=== PATIENT | male | born 1935 | race Caucasian/White ===

== ENCOUNTER 2024-09-08 14:19 | Outpatient (CLI) | payer MEDICARE, BC, SELFPAY ==
[2024-09-08 14:50] LABS: Basophils Absolute Auto 0.03 K/mm3 (0.00-0.10); Basophils Percent Auto 0.5 % (0.0-1.0); Eosinophils Absolute Auto 0.12 K/mm3 (0.02-0.50); Hematocrit 36.2 % (37.0-46.0); Hemoglobin 11.2 g/dL (12.4-15.3); Immature Granulocyte Absolute 0.02 K/mm3 (0.00-0.00); Immature Granulocyte Percent A 0.3 % (0.0-0.0); Immature Platelet Fraction Pct 5.1 % (1.0-7.0); Lymphocytes Absolute Auto 1.03 K/mm3 (1.10-4.50); Lymphocytes Percent Auto 16.9 % (18.0-42.0); Mean Corpuscular HGB Conc 30.9 g/dL (32-36); Mean Corpuscular Hemoglobin 29.4 pg (27.0-31.0); Mean Platelet Volume 11.6 fl (8.7-11.0); Monocytes Percent Auto 9.8 % (2.0-11.0); Neutrophils Percent Auto 70.5 % (50.0-70.0); Platelet Count Result 101 K/mm3 (150-420); Red Blood Count 3.81 M/mm3 (4.70-6.10); Red Cell Distribution Width 15.6 % (11.6-14.4); White Blood Count 6.1 K/mm3 (4.8-10.8)
[2024-09-08 15:16] LABS: Alanine Aminotransferase 25 U/L (6-50); Albumin Level 4.1 g/dL (3.5-5.1); Alkaline Phosphatase 60 U/L (38-126); Anion Gap 4 mmol/L (4-12); Aspartate Amino Transferase 38 U/L (17-59); Blood Urea Nitrogen 21 mg/dL (9-20); Carbon Dioxide 28 mmol/L (22-30); Chloride 105 mmol/L (98-107); Cholesterol 125 mg/dL (0-200); Estimated Glomerular Filt Rate > 60; Glucose 98 mg/dL (65-110); HDL Direct 42 mg/dL; LDL Cholesterol Calculated 61 mg/dL (<130); Osmolality Calculated 287 mOsm/kg (285-295); Potassium 4.6 mmol/L (3.4-5.0); Sodium 137 mmol/L (137-145); Triglycerides 109 mg/dL (<150)
== END 2024-09-08 14:20 | disposition home or self-care (01) ==
PROVIDERS: PCP Family Medicine; Visit Provider Family Medicine
DX: E03.9 Hypothyroidism, unspecified (principal); I10 Essential (primary) hypertension
CPT/HCPCS: 36415; 80053; 80061; 84443; 85025; 85055

== ENCOUNTER 2024-10-02 10:11 | Emergency (ER) | payer MEDICARE, BC, SELFPAY ==
[2024-10-02] VITALS (8 sets, daily range): BP systolic 83–133; BP diastolic 44–85; PULSE 60; RESP 13–20; TEMP 36.6; O2SAT 95–100
--- NOTE | ~2024-10-02 | CT_ITS ---
Non-contrast Head CT History: Involuntary left arm movement Technique: Axial non-contrast imaging of the brain was performed. Dose reduction technique was used on this scan by utilizing automated exposure control and iterative reconstruction technique. The dose -length product (DLP) was 681.00 mGy-cm. Findings: There is no evidence of intracranial hemorrhage, mass lesion, or acute infarct. Brain par enchyma appears normal. The ventricles and subarachnoid spaces are normal in size. The calvarium ap pears normal. The visualized paranasal sinuses and mastoid air cells are clear. Impression: No significant abnormality seen. Reviewed, dictated and finalized at location . Impression: No significant abnormality seen.
--- NOTE | ~2024-10-02 | XR_ITS ---
XR chest 1V portable Ordering provider: Kulwant Coronel MD History: 89 years Male with . Lt. arm moving involuntarily, dizziness when standing x3 mo . Comparison: None. FINDINGS: MEDIASTINUM: The cardiac silhouette is mildly enlarged. Left bipolar pacemaker. Postoperative changes in the mediastinum. Congestive tonja. LUNGS: No effusions or pneumothorax. Minimal opacification in the lower lobes which may indicate atel ectasis versus pneumonia. Follow-up advised. OTHER: No free air under the diaphragm. Degenerative changes of the spine. IMPRESSION: Bibasilar atelectasis versus pneumonia. Follow-up and clinical correlation advised. Reviewed, dictated and finalized at location A. IMPRESSION: Bibasilar atelectasis versus pneumonia. Follow-up and clinical correlation advi sed.
--- NOTE | 2024-10-02 10:12 | ED_ITS ---
HPI - Dizziness General Chief Complaint: Dizziness Stated Complaint: dizzy Time Seen by Provider: 10/02/24 10:12 Source: patient and family Mode of arrival: ambulatory Limitations: no limitations History of Present Illness HPI Narrative: Patient is an 89-year-old male with dizziness going on for a period of time over a month but appears to be worse as well as a left hand weakness and tremor over the past 2-3 days. Not tPA /TNK candidate due to time frame and the patient is on Eliquis. Patient has a pacemaker and not to have an MRI. He went to the primary doctor last week for similar symptoms. No pain or nausea vomiting diarrhea. He also has a history of CAD with bypass and stents. No history of CVA. The Plavix is for CAD and stents as well as Eliquis is for the AFib history. MD elicited complaint: dizziness and other ( Left hand and weakness with tremor) Pertinent past history: pacemaker and other ( coronary artery disease, hypothyroid, hypertension, hyperlipids) Onset (ago): month(s) ( dizziness is going on for months and left hand is going on for days) Timing: sudden onset ( left hand) and gradual onset ( dizziness) Severity: mild ( dizziness is more moderate and left hand is mild) Description: sense of movement and off-balance Context: other ( patient having dizziness and probably worse dizziness recently and left hand weakness with a tremor) History of similar symptoms: Yes ( for dizziness) Exacerbating factors: movement/ambulation Relieving factors: remaining still Associated symptoms: other ( left hand weakness/tremor for 2-3 days) Associated neuro symptoms: other ( at the beginning of the left hand tremor/weakness he had an event 2-3 days ago which consisted of coming in from the heat outside and having a generalized weakness and slight confusion) Related Data Home Medications ?Medication ?Instructions ?Recorded ?Confirmed ?Last Taken ?Type amitriptyline 10 mg tablet 10 mg PO QHS 09/08/24 09/08/24 Unknown History apixaban 5 mg tablet (Eliquis) 5 mg PO BID 09/08/24 09/08/24 Unknown History cholecalciferol (vitamin D3) 25 25 mcg PO DAILY 09/08/24 09/08/24 Unknown History mcg (1,000 unit) capsule clopidogrel 75 mg tablet (Plavix) 75 mg PO DAILY 09/08/24 09/08/24 Unknown History docusate sodium 100 mg capsule 100 mg PO DAILY 09/08/24 09/08/24 Unknown History (Stool Softener) eplerenone 25 mg tablet 25 mg PO DAILY 09/08/24 09/08/24 Unknown History levothyroxine 75 mcg tablet 75 mcg PO DAILY 09/08/24 09/08/24 Unknown History (Levoxyl) lisinopril 10 mg tablet 10 mg PO DAILY 09/08/24 09/08/24 Unknown History pregabalin 150 mg capsule 150 mg PO BID 09/08/24 09/08/24 Unknown History simvastatin 80 mg tablet 80 mg PO DAILY 09/08/24 09/08/24 Unknown History Allergies Allergy/AdvReac Type Severity Reaction Status Date / Time No Known Allergies Allergy Verified 10/02/24 10:14 Review of Systems 2 Review of Systems: All systems reviewed & are unremarkable except as noted in HPI and below Constitutional: Constitutional: Reports no additional constitutional complaints Eyes: Eyes: Reports no additional eye complaints ENT: Reports system reviewed and no additional complaints, except as documented Cardiovascular: Cardiovascular: Reports no additional cardiovascular complaints Respiratory: Respiratory: Reports no additional respiratory complaints Gastrointestinal: Gastrointestinal: Reports no additional gastrointestinal complaints Genitourinary: Genitourinary: Reports no additional male genitourinary complaints Musculoskeletal: Musculoskeletal: Reports no additional musculoskeletal complaints Integumentary/Breasts: Skin/Breast: Reports system reviewed and no additional complaints, except as docu Neurologic: Reports system reviewed and no additional complaints, except as documented Psychiatric: Psychiatric: Reports no additional psychiatric complaints Endocrine: Endocrine: Reports no additional endocrine complaints Hematologic/Lymphatic: Hematologic/Lymphatic: Reports no additional hematologic/lymphatic complaints Allergic/Immunologic: Allergic/Immunologic: Reports no additional allergic/immunologic complaints [facility] Past Medical History Medical History Pacemaker Social History Social History Years smoked: 20 Smoking status: Never smoker Tobacco type: cigarettes Second hand tobacco smoke exposure: No Alcohol intake: current Substance use: never Do You Feel Safe in your Home?: Yes Lack of Transportation: No Lack of Food: Never True Current Housing: I Have Housing Concerned About Future Housing: No Difficulty Paying Gas/Electric Bills: No Difficulty Paying for Meds: No Currently Unemployed: No Education: High School Diploma/GED Difficulty w/ Childcare or Family Care: No Living arrangements: with family Occupation/Education: unemployed Gender identity (if verbalized by the patient): Male Sexual Orientation (if Verbalized by the Patient): Straight or Heterosexual Spiritual care concerns: No Agree to blood products: Yes Exam 2 Const: General: healthy appearing Nutritional Appearance: well nourished Orientation/consciousness: patient oriented x3 Limitations: no limitations HENMT: Head: normal to inspection Ears: TM's normal bilaterally F flavia/Nose/Sinus: Normal external nose present Eyes: Conjunctivae: conjunctivae normal Pupils: Equal, round and reactive pupils present EOM: EOMs intact bilaterally Neck: Neck: normal visual inspection Chest: Chest palpation & inspection: normal inspection of the chest Resp: Effort & Inspection: normal respiratory effort and not labored A uscultation: clear to auscultation bilaterally and no crackles Cardio: Rate: regular rate Rhythm: regular rhythm Heart sounds: no murmurs GI: Inspection: non-distended GI Palp: Yes Soft to palpation and No Tenderness to palpation present (GI) Auscultation: normal bowel sounds : General: Yes bladder normal to palpation Back/Spine/Pelvis: Back: no CVA tenderness Skin: General skin exam: normal color Rashes: no rashes Wounds: no wounds Neuro: General: patient oriented x3, moves all extremities, no meningeal signs, No no focal motor deficits ( left upper extremity has a mild drift) and CN's II-XI intact bilaterally Cranial nerves: Yes Nystagmus not present S peech: normal speech Gait exam (Neuro): gait abnormal ( patient use wheelchair to come into the ER (dizziness)) Other: fast exam was negative, NIH score is 1 for left upper extremity weakness, GCS is 15 Extrem: General: normal to inspection Psych: Mental Status: mental status grossly normal Affect: normal affect Attitude: cooperative Course Vital Signs Vital signs: Vital Signs Temperature 36.6 C 10/02/24 10:12 Pulse Rate 60 10/02/24 10:12 Respiratory Rate 20 10/02/24 10:12 Blood Pressure 107/64 10/02/24 10:12 Pulse Oximetry 98 10/02/24 10:12 Oxygen Delivery Room Air 10/02/24 10:12 Temperature 36.6 C 10/02/24 10:12 Pulse Rate 60 10/02/24 12:55 Respiratory Rate 18 10/02/24 12:55 Blood Pressure 102/57 L 10/02/24 12:55 Pulse Oximetry 100 10/02/24 12:55 Oxygen Delivery Room Air 10/02/24 12:55 MDM - Dizziness MDM Narrative Medical decision making narrative: patient is a 89-year-old male with a left upper extremity weakness/ tremor for the past 2-3 days and acute/ chronic dizziness over the past few months. We will do a neurovascular workup at this time. Will transfer patient to higher level medical care at [facility] at this time for Neurology. Lab Data Attestation: I reviewed the patient's lab results. 10/02/24 10:40 10/02/24 10:40 Labs: Lab Results 10/02/24 10/02/24 10/02/24 Range/Units 10:38 10:40 10:41 WBC 6.7 (4.8-10.8) K/mm3 RBC 3.01 L (4.70-6.10) M/mm3 Hgb 8.8 L (12.4-15.3) g/dL Hct 28.0 L (37.0-46.0) % MCV 93.0 (78.0-102.0) fL MCH 29.2 (27.0-31.0) pg MCHC 31.4 L (32-36) g/dL RDW 15.2 H (11.6-14.4) % Plt Count 112 L (150-420) K/mm3 MPV 11.1 H (8.7-11.0) fl Immature Gran % (Auto) 0.6 H (0.0-0.0) % Neut % (Auto) 77.2 H (50.0-70.0) % Lymph % (Auto) 12.1 L (18.0-42.0) % Floyd % (Auto) 8.2 (2.0-11.0) % Eos % (Auto) 1.3 (1.0-6.0) % Baso % (Auto) 0.6 (0.0-1.0) % Lymph # (Auto) 0.81 L (1.10-4.50) K/mm3 Floyd # (Auto) 0.55 (0.10-0.90) K/mm3 Eos # (Auto) 0.09 (0.02-0.50) K/mm3 Baso # (Auto) 0.04 (0.00-0.10) K/mm3 Abs Immat Gran (auto) 0.04 H (0.00-0.00) K/mm3 Absolute Neuts (auto) 5.14 (1.70-7.20) K/mm3 Absolute Nucleated RBC 0.00 (0.00-0.00) K/mm3 Nucleated RBC % 0.0 (0-0.0) % PT 11.2 (9.50-12.1) Seconds INR 1.0 APTT 25.9 (23.9-30.70) Sec Sodium 137 (137-145) mmol/L Potassium 5.0 (3.4-5.0) mmol/L Chloride 105 (98-107) mmol/L Carbon Dioxide 27 (22-30) mmol/L Anion Gap 5 (4-12) mmol/L BUN 23 H (9-20) mg/dL Creatinine 1.32 H (0.7-1.3) mg/dL Estim Creat Clear Calc 40 ml/min Estimated GFR 51 L (59 - ) Glucose 112 H (65-110) mg/dL Calculated Osmolality 288 (285-295) mOsm/kg Lactic Acid 1.7 (0.4-2.0) mmol/L Calcium 9.1 (8.4-10.2) mg/dL Total Bilirubin 1.1 (0.2-1.3) mg/dL AST 36 (17-59) U/L ALT 26 (6-50) U/L Alkaline Phosphatase 52 (38-126) U/L Troponin I < 0.012 (0.000-0.034) ng/mL NT-Pro-B Natriuret Pep 981 H (19.9-100) pg/mL Total Protein 6.8 (6.3-8.2) g/dL Albumin 4.0 (3.5-5.1) g/dL Urine Color (Yellow) Urine Appearance (Clear) Urine pH (5.0-8.0) Ur Specific Antelope (1.010-1.020) Urine Protein (Negative) Urine Glucose (UA) (Negative) Urine Ketones (Negative) Ur Blood (Man) (Negative) Urine Nitrate (Negative) Urine Bilirubin (Negative) Urine Urobilinogen (0.2-1.0) mg/dL Leukocyte Esterase Rfl (Negative) KETAN/UL 10/02/24 Range/Units 12:20 WBC (4.8-10.8) K/mm3 RBC (4.70-6.10) M/mm3 Hgb (12.4-15.3) g/dL Hct (37.0-46.0) % MCV (78.0-102.0) fL MCH (27.0-31.0) pg MCHC (32-36) g/dL RDW (11.6-14.4) % Plt Count (150-420) K/mm3 MPV (8.7-11.0) fl Immature Gran % (Auto) (0.0-0.0) % Neut % (Auto) (50.0-70.0) % Lymph % (Auto) (18.0-42.0) % Floyd % (Auto) (2.0-11.0) % Eos % (Auto) (1.0-6.0) % Baso % (Auto) (0.0-1.0) % Lymph # (Auto) (1.10-4.50) K/mm3 Floyd # (Auto) (0.10-0.90) K/mm3 Eos # (Auto) (0.02-0.50) K/mm3 Baso # (Auto) (0.00-0.10) K/mm3 Abs Immat Gran (auto) (0.00-0.00) K/mm3 Absolute Neuts (auto) (1.70-7.20) K/mm3 Absolute Nucleated RBC (0.00-0.00) K/mm3 Nucleated RBC % (0-0.0) % PT (9.50-12.1) Seconds INR APTT (23.9-30.70) Sec Sodium (137-145) mmol/L Potassium (3.4-5.0) mmol/L Chloride (98-107) mmol/L Carbon Dioxide (22-30) mmol/L Anion Gap (4-12) mmol/L BUN (9-20) mg/dL Creatinine (0.7-1.3) mg/dL Estim Creat Clear Calc ml/min Estimated GFR (59 - ) Glucose (65-110) mg/dL Calculated Osmolality (285-295) mOsm/kg Lactic Acid (0.4-2.0) mmol/L Calcium (8.4-10.2) mg/dL Total Bilirubin (0.2-1.3) mg/dL AST (17-59) U/L ALT (6-50) U/L Alkaline Phosphatase (38-126) U/L Troponin I (0.000-0.034) ng/mL NT-Pro-B Natriuret Pep (19.9-100) pg/mL Total Protein (6.3-8.2) g/dL Albumin (3.5-5.1) g/dL Urine Color Light yellow (Yellow) Urine Appearance Clear (Clear) Urine pH 7.0 (5.0-8.0) Ur Specific Antelope 1.010 (1.010-1.020) Urine Protein Negative (Negative) Urine Glucose (UA) Negative (Negative) Urine Ketones Negative (Negative) Ur Blood (Man) Negative (Negative) Urine Nitrate Negative (Negative) Urine Bilirubin Negative (Negative) Urine Urobilinogen 0.2 (0.2-1.0) mg/dL Leukocyte Esterase Rfl Negative (Negative) KETAN/UL Imaging Data Attestation: I personally reviewed and interpreted this imaging study as follows: Radiologist's impression: CT scan of the head was negative for acute process chest x-ray shows bilateral lower lobe pneumonia likely (patient added that he had does have some slight shortness of breath; together with mild hypotension this could be an early process of sepsis) ECG Data EKG #1: Attestation: I personally reviewed and interpreted this ECG as follows: ECG completion date: 10/02/24 ECG completion time: 10:36 Interpretation: Pacemaker ventricular EKG Interpretation: bradycardia, non-specific ST changes, widened QRS, normal QT and left axis Discharge Plan Discharge Clinical Impression: Acute CVA (cerebrovascular accident), Pneumonia, Hypotension Patient Disposition: Acute Care Hospital Condition: Stable Patient Language: Mauritian Prescriptions: No Action pregabalin 150 mg capsule 150 mg PO BID amitriptyline 10 mg tablet 10 mg PO QHS Eliquis 5 mg tablet 5 mg PO BID simvastatin 80 mg tablet 80 mg PO DAILY docusate sodium [Stool Softener] 100 mg capsule 100 mg PO DAILY cholecalciferol (vitamin D3) 25 mcg (1,000 unit) capsule 25 mcg PO DAILY eplerenone 25 mg tablet 25 mg PO DAILY lisinopril 10 mg tablet 10 mg PO DAILY levothyroxine [Levoxyl] 75 mcg tablet 75 mcg PO DAILY clopidogrel [Plavix] 75 mg tablet 75 mg PO DAILY Follow-up/Referrals: Raul Braun DO [Primary Care Provider] - Time of Disposition: 13:08
--- OUTSIDE RECORDS SUMMARY | 2024-10-02 10:14 | XMS_ITS | Clinical Summary ---
Author Organization [facility] Address [address] Attn: Epic Prelude ADT [place] [address] Care Team Providers Care Clinical Dietitian Name Role Phone Phillip GARCIA DO, Gregory Primary Care Provider Allergies Active Allergy Reactions Criticality Noted Date Comments Warfarin Other (See Comments) 10/03/2016 Medications doxylamine (UNISOM) 25 mg Tablet Take 50 mg by mouth daily at bedtime. Active clopidogreL (PLAVIX) 75 mg Tablet Take 75 mg by mouth daily. Active pregabalin (LYRICA) 25 mg Capsule Take 25 mg by mouth 3 times daily. Active simvastatin (ZOCOR) 20 mg tablet Take 20 mg by mouth daily. Active lisinopriL (PRINIVIL) 10 mg tablet Take 10 mg by mouth daily. Active cephALEXin (KEFLEX) 500 mg capsule Take 1 Capsule (500 mg) by mouth 4 times daily. 20 Capsule 09/23/2021 Active apixaban (Eliquis) 5 mg tablet 02/19/2019 Active lisinopriL (PRINIVIL) 10 mg tablet 03/15/2019 Active diphenhydrAMINE (BENADRYL) 25 mg tablet Take 25 mg by mouth every 6 hours as needed for Allergies. 02/09/2019 Active pantoprazole (PROTONIX) [address] for susp in Packet 40 mg daily. 02/09/2019 Active tamsulosin (FLOMAX) 0.4 mg capsule 04/20/2019 Active clopidogreL (PLAVIX) 75 mg Tablet Take 75 mg by mouth. 02/09/2019 Active simvastatin (ZOCOR) 40 mg tablet Take 40 mg by mouth daily with supper. 02/09/2019 Active pregabalin (LYRICA) 75 mg Capsule Take 75 mg by mouth. 02/09/2019 Active Active Problems No known active problems Encounters Date Type Department Care Team Description 09/30/2024 External Device Data [facility] Provider, Abstract 09/02/2024 External Device Data [facility] Provider, Abstract 08/05/2024 External Device Data [facility] Provider, Abstract 08/04/2024 External Device Data [facility] Provider, Abstract from Last 3 Months Social History Tobacco Use Types Packs/Day Years Used Date Smoking Tobacco: Never Smokeless Tobacco: Never Tobacco Cessation:Counseling Given: No Alcohol Use Standard Drinks/Week Comments Not Currently 0 (1 standard drink = 0.6 oz pur e alcohol) Sex and Gender Information Value Date Recorded Sex Assigned at Not on file 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 Gender Identity Not on file Sexual Orientation Not on file Last Filed Vital Signs Vital Sign Reading Time Taken Comments Blood Pressure 152/85 09/23/2021 5:24 PM CDT Pulse 60 09/23/2021 5:00 PM CDT Temperature 36.7 C (98 F) 09/23/2021 3:17 PM CDT Respiratory Rate 18 09/23/2021 5:00 PM CDT Oxygen Saturation 98% 09/23/2021 5:00 PM CDT Inhaled Oxygen Concentration - - Weight 93.9 kg (207 lb) 2022 11:11 AM CDT Height 172.7 cm (5' 8) 2022 11:11 AM CDT Body Mass Index 31.47 2022 11:11 AM CDT Plan of Treatment Health Maintenance Due Date Last Done Comments ZOSTER VACCINE (1 of 2) 1986 RSV VACCINE (60+ or ) (1 - 1-dose 75+ series) 06/02/2011 COVID-19 Vaccine (2023-2 5 season) 2023 01/11/2021, 06/03/2020, 05/05/2020 INFLUENZA VACCINE (#1) 2024 , 12/28/2020, 12/16/2019, Additional history exists DTAP/TDAP/TD VACCINES (3 - T d or Tdap) 09/26/2031 09/25/2021, 01/03/2012 PNEUMOCOCCAL VACCINE 50+ YEARS Completed 07/16/2016 , 01/12/2013 Insurance MEDICARE PART A AND B [facility] [employer] [facility] MEDICARE PART A AND B [place] [employer] Care Teams Clinical Dietitian Relationship Specialty Start Date End Date Ramón Fisher II, DO [address] [place] [address] [address] [place] [phone] PCP - General Family Practice 09/23/21
--- OUTSIDE RECORDS SUMMARY | 2024-10-02 10:14 | XMS_ITS | Encounter Summary ---
Author Organization [employer] Address [address] [place] [address] Care Team Providers Care Document Management Specialist Name Role Phone Phillip GARCIA DO, Gregory Primary Care Provider Encounter Details Date Type Department Care Team (Late st Contact Info) Description 09/30/2024 External Device Data [facility] Provider, Abstract NO ADDRESS ON FILE Social History Tobacco Use Types Packs/Day Years Used Date Smoking Tobacco: Never Smokeless Tobacco: Never Alcohol Use Standard Drinks/Week Comments Not Currently 0 (1 standard drink = 0.6 oz pur e alcohol) Sex and Gender Information Value Date Recorded Sex Assigned at Not on file 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
--- OUTSIDE RECORDS SUMMARY | 2024-10-02 10:14 | XMS_ITS | Encounter Summary ---
Author Name [facility] [facility] [place] [facility] [place] [facility] [place] Address [address] [place] [address] Care Team Providers Care Arts Education Teacher Name Role Phone PRUDENCE MITCHELL Primary Care Provider Unavailabl e MUKULSCARLETT Primary Care Provider Unavailabl e DORJEEIZAIAH Primary Care Provider Unavailabl e ELSHAFIE, ELI Unavailable Unavailable ZACK HECK Unavailable Unavailable REDD PINTO Unavailable Unavailable SANDRA CARL Unavailable Unavailable IGGY SHEPARD Unavailable Unavailable SUNITA HAN Unavailable Unavailable Insurance Providers: All historical and current Section Date Range: From patient's date of to the date document was created. This section includes the names of all active insurance providers for the patient. Insurance Provider Type of Coverage Plan Name Start of Policy Coverage End of Policy Coverage Group Number Member ID Insurance Provider's Telephone Number Policy Joel's Name Patient's Relationship to Policy Joel [place] BS [place] SECONDARY (NO B EXC) PACIF IC GAS & ELEC Mar 18, 2005 [id number] MIKAELA,JENNIFER HARD PATIENT [place] BS [place] SECONDARY (NO B EXC) PACIF IC GAS & ELEC Mar 18, 2005 [id number] WALLYAUS,JENNIFER HARD PATIENT [place] SECONDARY (NO B EXC) PACIF IC GAS & ELEC Mar 18, 2005 [id number] KNKEENA,JENNIFER HARD PATIENT [place] SECONDARY (NO B EXC) PACIF IC GAS & ELEC Mar 18, 2005 [id number] [phone] KNAUS,JENNIFER HARD PATIENT [facility] POINT OF SERVICE PG&E Aug 16, 2018 [id number] WALLYAUS,JENNIFER HARD PATIENT [facility] PGE Mar 18, 2005 [id number] KNKEENA,JENNIFER HARD PATIENT [employer] ([id number]) PRESCRIPT ION PACIF IC GAS & ELEC Mar 18, 2005 [id number] MIKAELA,JENNIFER HARD PATIENT [employer] RX [id number] PRESCRIPT ION [id number] [phone] ) Mar 18, 2005 [id number] MIKAELA,JENNIFER HARD PATIENT [employer] PRESCRIPT ION PGE00 00 Mar 18, 2005 [id number] MIKAELA,JENNIFER HARD PATIENT MEDICARE (WNR) MEDICARE () PART A May 16, 2001 PART A [id number] MIKAELA,JENNIFER HARD PATIENT MEDICARE (WNR) MEDICARE () PART B May 16, 2001 PART B [id number] MIKAELA,JENNIFER HARD PATIENT MEDICARE (WNR) MEDICARE () PART A May 16, 2001 PART A [id number] MIKAELA,JENNIFER HARD PATIENT MEDICARE (WNR) MEDICARE () PART B May 16, 2001 PART B [id number] MIKAELA,JENNIFER HARD PATIENT MEDICARE (WNR) MEDICARE () PART A May 16, 2001 PART A [id number] MIKAELA,JENNIFER HARD PATIENT MEDICARE (WNR) MEDICARE () PART B May 16, 2001 PART B [id number] [phone] MIKAELA,JENNIFER HARD PATIENT MEDICARE (WNR) MEDICARE () PART A May 16, 2001 PART A [id number] [phone] KNAUS,JENNIFER HARD PATIENT MEDICARE (WNR) MEDICARE (M) PART B May 16, 2001 PART B [id number] JENNIFER AL PATIENT Selected Encounter This section includes the information on record at [place] for the Encounter. Date/Time Encounter Type Encounter Description Reason Provider Source Oct 25, 2023 11:30 AM OFFICE O/P EST MOD 30 MIN PRIMARY CARE/MEDICINE ICD-10-CM R26.81 Unsteadiness on feet MICHELINE GILMAN IHYanira Encounter Template Text not used by [place] Assessments - Encounter Diagnoses This section includes the primary and secondary diagnoses documented for the Encounter. 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 SCARLETT GILMAN [facility] Nov 04, 2023 10:48 AM SECONDARY Other disturbances of skin sensation SCARLETT GILMAN [facility] Nov 04, 2023 10:48 AM SECONDARY Other obesity SCARLETT GILMAN [facility] Nov 04, 2023 10:48 AM SECONDARY Polyosteoarthritis , unspecified SCARLETT GILMAN [facility] Nov 04, 2023 10:48 AM SECONDARY Presence of cardiac pacemaker SCARLETT GILMAN [facility] Plan of Treatment: Future Appointments (+ 6 months) and Future Tests (+/- 45 days) The Plan of Treatment section includes future care activities for the patient from all [place] treatmentfacilities. This section includes future appointments and future orders which are active, pending or scheduled. Future Appointments This section includes appointments that were scheduled to occur 6 months from the date of the Encounter, up to a maximum of 20 appointments. The data comes from all [place] treatment facilities. Appointment Date/Time Appointment Type Appointme nt Facility Name Oct 29, 2023 02:00 PM AMBULATORY - MEDICINE [facility] Oct 31, 2023 01:00 PM [facility] - [facility]ICINE [facility] Nov 06, 2023 11:00 AM AMBULATORY - NONE [facility] Nov 07, 2023 02:30 PM [facility]ORY - [facility]ICINE [facility] Nov 08, 2023 10:30 AM AMBULATORY - SURGERY [facility] Nov 15, 2023 02:30 PM [facility]ATORY - [facility]ICINE [facility] Nov 22, 2023 10:30 AM AMBULATORY - NONE [facility] Nov 29, 2023 04:00 PM [facility]ATORY - MEDICINE [facility] Mar 13, 2024 10:00 AM AMBULATORY - NONE [facility] Mar 13, 2024 11:00 AM AMBULATORY - MEDICINE [facility] Mar 19, 2024 02:30 PM AMB[facility]ATORY - MEDICINE [facility] Mar 23, 2024 04:00 PM [facility]ATORY - MEDICINE [facility] Apr 03, 2024 11:00 AM AMBULATORY - NONE [facility] Lab Results: +/- 30 days of the encounter This section includes the Chemistry and Hematology Lab Results on record with [place] for the patient. Radiology Reports and Pathology Reports are provided separately, in subsequent sections. Lab Results This section contains the Chemistry/Hematology Results that were resulted 30 days before or 30 daysafter the date of the Encounter. Date/Time Source Result Type Result - Unit Interpretation Reference Range Specimen Type Comment Oct 25, 2023 10:08 AM [facility] VITAMIN B12 SERUM Specimen Type: SERUM No comment entered. Ordering Provider: SCARLETT GILMAN Report Released Date/Time: Oct 22, 2023 12:47 PM Reporting Lab: [facility] [address] [facility] [address] Performing Lab: [facility] [address] [facility] [address] VITAMIN B12 (FV) 183 pg/mL 180-914 Oct 25, 2023 10:08 AM [facility] MAGNESIUM PLASMA S pecimen Type: PLASMA No comment entered. Ordering Provider: SCARLETT GILMAN Report Released Date/Time: Oct 22, 2023 12:47 PM Reporting Lab: [facility] [address] [facility] [address] Performing Lab: [facility] [address] [place] [address] MAGNESIUM (FV) 2.1 mg/dL 1.8-2.4 Oct 25, 2023 10:08 AM [facility] RENAL+LIVER PROFILE PLASMA Specimen Ty pe: PLASMA No comment entered. Ordering Provider: SCARLETT GILMAN Report Released Date/Time: Oct 22, 2023 12:47 PM Reporting Lab: [facility] [address] [facility] [place] [address] Performing Lab: [address] [address] GLUCOSE (FV) 125 mg/dL H 70-110 ALBUMIN (FV) 4.0 g/dL 3.4-5.0 AST (FV) 26 U/L 15-37 TOTAL BILIRUBIN (FV) 1.47 mg/dL H 0.3-1.2 CHLORIDE (FV) 100 mmol/L 98-107 TOTAL PROTEIN (FV) 7.7 g/dL 6.1-7.9 SODIUM (FV) 132 mmol/L L 136-145 POTASSIUM (FV) 4.0 mmol/L 3.5-5.1 CO2 (FV) 27 mmol/L 21-32 UREA NITROGEN (FV) 16 mg/dL 6-20 CALCIUM (FV) 8.8 mg/dL L 8.9-10.3 ALT (FV) 22 U/L 0-63 ALK. PHOS. (FV) 61 U/L 32-126 CREATININE (FV) 0.97 mg/dL .61-1.24 eGFR (CKD-EPI 2020) 76 L >90 Oct 25, 2023 10:08 AM [facility] CBC BLOOD S pecimen Type: BLOOD No comment entered. Ordering Provider: SCARLETT GILMAN Report Released Date/Time: Oct 22, 2023 12:47 PM Reporting Lab: [address] [address] Performing Lab: [place] [id number] RDW (FV) 15.9 H 11.5-14.5 HCT (FV) 35.3 L 40-52 HGB (FV) 11.6 g/dL L 13-18 PLT (FV) 138 10*3/uL L 150-440 WBC (FV) 7.2 10*3/uL 3.8-10.6 RBC (FV) 4.08 10*6/uL L 4.4-5.9 MCV (FV) 86.5 fL 80-100 MCH (FV) 28.4 pg 26-34 MCHC (FV) 32.9 g/dL 32-36 NE% (FV) 71.8 NE# (FV) 5.2 10*3/uL 2.4-7.6 LY% (FV) 15.9 LY# (FV) 1.1 10*3/uL 1.0-4.8 MO% (FV) 9.2 MO# (FV) 0.7 10*3/uL 0.1-1.0 EO% (FV) 2.3 EO# (FV) 0.2 10*3/uL 0.0-0.4 BA% (FV) 0.8 BA# (FV) 0.1 10*3/uL 0.0-0.2 Oct 25, 2023 10:08 AM [facility] TSH (FV) SERUM S pecimen Type: SERUM No comment entered. Ordering Provider: SCARLETT GILMAN Report Released Date/Time: Oct 22, 2023 12:47 PM Reporting Lab: [place] [address] [facility] [address] Performing Lab: [address] [facility] [address] TSH (FV) 1.82 u[IU]/mL 0.45-5.33 Oct 25, 2023 10:08 AM [facility] FERRITIN (FV) SERUM Specimen Type: SERUM No comment entered. Ordering Provider: SCARLETT GILMAN Report Released Date/Time: Oct 22, 2023 12:47 PM Reporting Lab: [place] [address] [facility] [address] Performing Lab: [place] [address] [facility] [address] FERRITIN (FV) 21.5 ng/mL L 23.9-336.2 Oct 25, 2023 10:08 AM [facility] FOLATE (FV) SERUM Specimen Type: SERUM No comment entered. Ordering Provider: SCARLETT GILMAN Report Released Date/Time: Oct 22, 2023 12:47 PM Reporting Lab: [facility] [address] [facility] [address] Performing Lab: [place] [address] [facility] [address] FOLATE (FV) 11.9 ng/mL >5.9 Oct 25, 2023 10:08 AM [facility] TIBC PROFILE (FAV) SERUM Specimen Typ e: SERUM No comment entered. Ordering Provider: SCARLETT GILMAN Report Released Date/Time: Oct 22, 2023 12:47 PM Reporting Lab: [facility] [address] [facility] [address] Performing [facility]: [facility] [address] [facility] [address] IBCTc (FV) 503 ug/dL H 250-450 IRON (FV) 48 ug/dL 45-182 TRANSFERRIN (FV) 359 mg/dL H 180-329 Vital Signs: All taken on the encounter date This section contains inpatient and outpatient Vital Signs collected on the date of the Encounter. Date/Time Temperature Pulse Blood Pressure Respiratory Rate SP02 Pain Height Weight Body Mass Index Source Oct 25, 2023 11:19 AM 4 [facility] Oct 25, 2023 11:11 AM 95.8 65 126/73 18 97 4 206.2 31 [facility] Social History: Smoking Status (Most current) and Tobacco Use (All prior to encounter date) This section includes the most current, and the historical, smoking and tobacco- related health factors from the [place] facility where the Encounter took place. Current Smoking Status This section includes the most current smoking, or tobacco-related health factor, from the [place] facility where the Encounter took place. Date/Time Current Smoking Status Comment Facil ity Mar 14, 2023 11:00 AM VA-TOBACCO FORMER USER [facility] Tobacco Use History This section includes a history of the smoking, or tobacco-related health factors, that were collected on or before the date of the Encounter. The data comes from the [place] facility where the Encounter took place. Date/Time Smoking Status/Tobacco Use Comment F acility Mar 14, 2023 11:00 AM VA-TOBACCO QUIT 15 YRS OR MORE [facility] Mar 13, 2022 01:25 PM VA-TOBACCO NEVER USED [facility] Mar 14, 2021 09:00 AM VA-TOBACCO FORMER USER [facility] Mar 14, 2021 09:00 AM VA-TOBACCO QUIT 15 YRS OR MORE [facility] Mar 09, 2020 03:30 PM VA-TOBACCO FORMER USER [facility] Mar 09, 2020 03:30 PM VA-TOBACCO QUIT 15 YRS OR MORE [facility] Dec 25, 2018 01:42 PM V16 TOBACCO USE SCREEN [facility] Dec 25, 2018 01:42 PM VA-TOBACCO FORMER USER [facility] Dec 25, 2018 01:42 PM VA-TOBACCO QUIT 15 YRS OR MORE [facility] Advance Directives: All historical and current Section Date Range: From patient's date of to the date document was created. This section includes ALL of a patient's completed or amended [place] Advance and Rescinded Directives. The entries below indicate that a directive exists for the patient, but an actual copy is not included with this document. The data comes from all [place] facilities. Date Advance Directives Provider Source Mar 25, 2023 ADVANCE DIRECTIVE MORIAH HILL [facility] Jun 19, 2017 ADVANCE DIRECTIVE DISCUSSION CAYDEN AREVALO [facility] Dec 22, 2016 ADVANCE DIRECTIVE DISCUSSION LEXA ABDUL [facility] Dec 21, 2016 ADVANCE DIRECTIVE DISCUSSION LINDEN LEZAMA [facility] Radiology Reports: +/- 30 days of the encounter Radiology Reports For cases when an order for radiology services may have been completed prior to the date of the Encounter, the report list includes the Radiology Reports that were completed up to 30 days before dateof the Encounter. For cases when an order for radiology services may have been completed after the date of the Encounter, the report list also includes the Radiology Reports that were completed up to30 days after date of the Encounter. The data comes from all [place] treatment facilities. Date/Time Radiology Report Provider Source Nov 22, 2023 10:05 AM NON-INVAS.,CAROTID W IMAGING: [place] [id number] -[id number] M Exm Date: NOV 22, 2023@10:05 Req Phys: SCARLETT GILMAN Loc: [facility] TM [facility] (Req'g Loc) Img Loc: [facility] Service: Unknown [place] [address] (Case [id number] COMPLETE)NON-INVAS.,CAROTID W IMAGING (US Detailed) CPT:93671 Reason for Study: recuurent dizzy spells Clinical History: feels balnce off Report Status: Verified Date Reported: NOV 22, 2023 Date Verified: NOV 22, 2023 [employer] E-Sig:/ES/JOSE ALFREDO TEJADA MD Report: PROCEDURE: NON-INVAS.,CAROTID W IMAGING CLINICAL INDICATION: Reason for Study: recuurent dizzy spells feels balnce off TECHNIQUE: Soler-scale, color Doppler, and spectral Doppler imaging of the arteries of the neck were obtained. 65 images were created. COMPARISON: None FINDINGS: Atherosclerosis. An irregular pulse rhythm is noted. Left internal carotid artery peak systolic velocity: 151 cm/sec. Left internal carotid artery end diastolic velocity: 44 cm/sec. Left common carotid artery peak systolic velocity: 112 cm/sec. Left common carotid artery (distal portion) peak systolic velocity: 112 cm/sec. Left ICA peak systolic velocity/distal left CCA peak systolic velocity ratio: 1.35 Left vertebral artery peak systolic velocity: 40 cm/sec. Left external carotid artery: 101 cm/sec. Right internal carotid artery peak systolic velocity: 132 cm/sec. Right internal carotid artery end diastolic velocity: 39 cm/sec. Right common carotid artery peak systolic velocity: 109 cm/sec. Right common carotid artery (distal portion) peak systolic velocity: 90 cm/sec. Right ICA peak systolic velocity/distal right CCA peak systolic velocity ratio: 1.47 Right vertebral artery peak systolic velocity: 36 cm/sec. Right external carotid artery: 83 cm/sec. Society of radiologists in ultrasound (SRU) consensus criteria were used for this report. 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 50-69% stenosis of the right internal carotid artery by peak systolic velocity criteria. Antegrade flow in both vertebral arteries. An irregular pulse rhythm is noted. Other findings as discussed above. Primary Diagnostic Code: Abnormality Follow-Up Needed Primary Interpreting Staff: JOSE ALFREDO TEJADA MD, STAFF RADIOLOGIST ([employer]per) /JOSE ALFREDO [facility]ES [facility] Nov 06, 2023 10:[address] HEAD W/O CONT: [place] [id number] M Exm Date: NOV 06, 2023@10:43 Req Phys: SCARLETT GILMAN Loc: [facility] TM 2 (Req'g Loc) Img Loc: [facility] CT Service: Unknown [facility]OVANNI [facility] , (Case [id number] COMPLETE)CT HEAD W/O CONT (CT Detailed) CPT:71322 Reason for Study: hx fall struck head Clinical History: still gets dizzy senation s Report Status: Verified Date Reported: NOV 06, 2023 Date Verified: NOV 06, 2023 Industrial Gas Fitter Helper E-Sig:/ES/DAYAN WELLS MD Report: PROCEDURE: CT HEAD W/O CONT CLINICAL INDICATION: hx fall struck head TECHNIQUE: Noncontrast CT images of the head per protocol COMPARISON: None FINDINGS: Examination quality is partially degraded by excessive image noise. No intracranial hemorrhage, cerebral edema, or mass effect is appreciated. There is diffuse cerebral volume loss. There is mild chronic small vessel disease within the periventricular white matter. There is no hydrocephalus. The basal cisterns are clear. The visible paranasal sinuses and mastoid air cells are clear. The calvarium appears intact. There appears to be a scalp laceration to the right cranial vertex with a small underlying scalp hematoma. No radiopaque foreign body or soft tissue gas is appreciated. Remaining visible extracranial soft tissues are unremarkable for CT technique. Impression: 1. No acute intracranial abnormality is identified. 2. Small scalp hematoma along the cranial vertex extending towards the right. 3. Additional chronic findings as above. Primary Diagnostic Code: Abnormality Follow-Up Needed Primary Interpreting Staff: DAYAN WELLS MD, RADIOLOGIST (Industrial Gas Fitter Helper) /DAYAN LERMA [facility] Oct 25, 2023 12:02 PM WRIST 3 OR MORE EWS (RIGHT): [place] [id number] -[id number] M Exm Date: OCT 25, 2023@12:02 Req Phys: SCARLETT GILMAN Loc: [facility] (Req'g Loc) Im Loc: [facility] [place]: [place] [address] (Case [id number] COMPLETE)WRIST 3 OR MORE VIEWS (RIGHT) (RAD Detailed) CPT:11685 CPT Modifiers : RT RIGHT SIDE Reason for Study: f/u study Clinical History: continued pain Report Status: Verified Date Reported: OCT 28, 2023 Date Verified: OCT 28, 2023 Industrial [employer]itter [employer] E-Sig: Report: PROCEDURE: WRIST 3 OR MORE VIEWS (RIGHT) CLINICAL INDICATION: f/u study Reason for Study: f/u study continued pain COMPARISON: DX WRIST_RT 08/29/2023 TECHNIQUE: 3 views right wrist FINDINGS: No acute fracture or dislocation seen. there is moderate chronic degenerative change of the first CMC joint. Small old osseous fragment dorsal to the carpal bones likely represent sequela of old triquetrum fracture. Impression: 1. Chronic degenerative changes right wrist ... Primary Diagnostic Code: Minor Abnormality or Abn Prev Identified Primary Interpreting Staff: ALFONSO DORMAN, Staff Physician Verified by air liaison and special staff for ALFONSO DORMAN /ALFONSO REY [facility] Encounter Notes: All associated encounter notes This section contains the clinical notes associated to the Encounter. Date/Time Encounter Note(s) Provider Source Oct 25, 2023 12:03 PM EDUCATION NOTE: LOCAL TITLE: AFTER VISIT SUMMARY NOTE STANDARD TITLE: EDUCATION NOTE DICT DATE: OCT 25, 2023@12:03:01 ENTRY DATE: OCT 25, 2023@12:03:02 DICTATED BY: SCARLETT GILMAN EXP COSIGNER: URGENCY: STATUS: COMPLETED A printed copy of an After-Visit Summary was given to/or mailed to the patient/caregiver at the conclusion of the visit. The after-visit summary includes information pertaining to the patient's encounter, including diagnoses, vital signs, medications, and new orders, as well as a list of any any upcoming appointments and information regarding the patient's ongoing care. The patient's medications were reviewed with the patient by the provider and were provided to the patient as an updated list of medications. The patient was instructed to inform the provider of any medication changes or discrepancies that were noted. Otherwise, the patient was instructed to continue the medications as prescribed. A copy of the after-visit summary provided to the patient is available in [facility]. SCANNED DOCUMENT SIGNATURE NOT REQUIRED Electronically Filed: 10/25/2023 by: SCARLETT SZYMANSKI [facility] Oct 25, 2023 11:16 AM PRIMARY CARE NURSI AMY NOTE: LOCAL TITLE: PRIMARY CARE/NURSE STANDARD TITLE: PRIMARY CARE NURSING NOTE DATE OF NOTE: OCT 25, 2023@11:16 ENTRY DATE: OCT 25, 2023@11:16:49 AUTHOR: THEODORE SANTAMARIA EXP COSIGNER: URGENCY: STATUS: COMPLETED BP: 126/73 (10/25/2023 11:11) Pain: 4 (10/25/2023 11:11) Height: 68.5 in [174.0 cm] (03/14/2021 08:36) Weight: 206.2 lb [93.53 kg] (10/25/2023 11:11) Pulse: 65 (10/25/2023 11:11) Respiration: 18 (10/25/2023 11:11) Temperature: 95.8 F [35.4 C] (10/25/2023 11:11) BMI: BODY MASS INDEX - NO HEIGHTS FOUND 10/25/23 @ 1111 PULSE OXIMETRY: 97 SUBJECTIVE: FOCUS VISIT- here today for balance issues, dizziness, worsening neuropathy and labs. How is your stress level today? Minimal Stress - No follow up needed. Example: Life is good, I have no stress. Depression: No Suicidal: No Accompanied By: Spouse On Arrival: Ambulatory Mobility changes in the past 3 months? Yes, Specify: balance issues, dizzy when bending over and while standing Mental Status: Alert and oriented Do you have or use an assistive device? Yes, Specify: cane Do you need further instruction on the use of your device? No Has patient had fall(s) in last 3 months? Yes, patient reports fall(s) in last 3 months. GET UP AND GO TEST PROCEDURE: Patient instructed to sit in a chair with hands palm down on lap or each leg then asked to get up from the chair. Observed carefully for loss of balance: Had to use the chair arms to get up but did so in one attempt. Score = 1 Potential risks for falls identified. Yes, Stay Independent Brochure offered to patient/caregiver. declined https://www.cdc.gov/stekit/pdf/ALLI DE LA TORREWX-Cvawivsg-JtfkIjzGjzOt-508.pdf Has the patient traveled outside the [place] within the past 30 days? Yes If yes, where has the patient traveled? Psychosocial Status: cooperative Indication of suspected abuse, neglect, or exploitation? No LAB TESTS SELECTED Collection DT Specimen Test Name Result Units Ref Range 03/14/2023 09:38 PLASMA LDLc 102 mg/dL Ref: Optimal <100 LAB CUMULATIVE SELECTED 1 No selection items chosen for this component. Other Medications (herbals, OTCs, infusions, oral medications, topicals, etc): No Active Outpatient Medications (including Supplies): Active Outpatient Medications Status === 1) ACETAMINOPHEN 500MG TAB TAKE TWO TABLETS BY MOUTH HOLD THREE TIMES DAILY NEEDED FOR PAIN Active Non-VA Medications Status === 1) Non-VA AMITRIPTYLINE HCL 25MG TAB 25MG MOUTH AT ACTIVE BEDTIME 2) Non-VA APIXABAN 5MG TAB 5MG MOUTH TWICE A DAY ACTIVE 3) Non-VA CLOPIDOGREL BISULFATE 75MG TAB 75MG MOUTH ONCE ACTIVE DAILY 4) Non-VA EPLERENONE TAB 25MG/INSPRA MOUTH ONCE DAILY ACTIVE 5) Non-VA LEVOTHYROXINE NA (SYNTHROID) 75MCG TAB 75MCG ACTIVE MOUTH ONCE DAILY 6) Non-VA LISINOPRIL 10MG TAB 10MG MOUTH EVERY MORNING ACTIVE 7) Non-VA PREGABALIN 75MG ORAL CAP 150MG MOUTH TWICE A ACTIVE DAY 8) Non-VA SENNA TAB MOUTH ACTIVE 9) Non-VA SIMVASTATIN 80MG TAB 40MG MOUTH AT BEDTIME ACTIVE 10 Total Medications Pain Evaluation (Nurse): PAIN EVALUATION: Clinic Location: Primary Care Patient reports having pain today. Patient reports Primary Care Provider is NOT aware of pain. Pain Screening Tool utilized: DoD/VA Pain Scale This pain has been present for: Greater than 1 year Pain description: Comment: back and BLE Patient wants pain addressed. Education Topics for patient/family/significant other: Effectiveness of current pain medications. Reporting increased/unrelieved pain. Level of Understanding: Good PTSD Screening: PC-PTSD-5 A PTSD screening test (PC-PTSD-5) was negative (score=0). IN THE PAST MONTH, have you ever had any experience that was so frightening, horrible or traumatic. For example: A serious accident or fire a physical or sexual assault or abuse An earthquake or flood A war Seeing someone be killed or seriously injured Having a loved one through homicide or suicide 1. Have you ever experienced this kind of event? NO 2. Had nightmares about the event(s) or thought about the event(s) when you did not want to? Response not required due to responses to other questions. 3. Tried hard not to think about the event(s) or went out of your way to avoid situations that reminded you of the event(s)? Response not required due to responses to other questions. 4. Been constantly on guard, watchful, or easily startled? Response not required due to responses to other questions. 5. [place] numb or detached from people, activities, or your surroundings? Response not required due to responses to other questions. 6. [place] guilty or unable to stop blaming yourself or others for the event(s) or any problems the event(s) may have caused? Response not required due to responses to other questions. /prasad/ THEODORE SANTAMARIA LPN NURSING SERVICE-LICENSED PRACTICAL NURSE Signed: 10/25/2023 11:20 THEODORE SANTAMARIA [facility] Oct 25, 2023 02:58 AM PRIMARY CARE PHYSI [facility] NOTE: LOCAL TITLE: PRIMARY CARE/PROVIDER STANDARD TITLE: PRIMARY CARE PHYSICIAN NOTE DATE OF NOTE: OCT 25, 2023@02:58 ENTRY DATE: OCT 25, 2023@02:58:52 AUTHOR: SCARLETT GILMAN EXP COSIGNER: URGENCY: STATUS: COMPLETED PRIMARY CARE/PROVIDER Has ADDENDA ALLERGIES: Patient has answered NKA Current meds taking, (per hx): attempted reconcile /other note HPI: [place], 88 year old, MALE presents as noted: here in rechk main concern today balance issue comes and goes has had falls has hit head. stated had studies done [place] told ok. intermittent Dixxy sensationd non specific no fainting, feels ' legs sluggish', and like 'balance off 'no chest' pains nor new problems breathing. lasts couple minutes. Just happens and goes away nothing known setting off. Though thinks when turns head certain way nay contribute. still has neuropathy on meds getting outside pvt sources 'by the way' mentioned R wrist pain today would like see local ortho for and update films reviewed some old studies . 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 HEENT: Oropharynx appear healedclear, eom intact, eardrum appear intact, nose appear patent has old wound top head NECK: Supple, no bruits appreciated, nodes feel wnl, No abnormal jvd noted, thyroid feels wnl HEART: distant sounds has pacer LUNGS: fair-good effort sounds ok pulse ox ok ABDOMEN: overweight/obese EXT: some problems arising but when gets up ambulation/balance appear grossly ok. appears to move extrmities ok + tender R wrist area SKIN: limited apears warm/dry : RECTAL: not done today ASSESSMENT: physical above - todays concern/ problem balance issues could have multipe causes for pending some lab and other studies if persist recur rec f/u hospital where can do studies quicker as unable do zio here at present.and dizzyness now gone. on meds for neuropathy rec f/u w/ his other specialty R wrist pain will redo film and ok set up local ortho per request The patient expressed understanding of plan and is aware to contact us if any further questions. PLAN: see todays main concern per note /and above med list noted - abn/labs discussed those back today some still pending see above RTC reg appt return sooner prn discussed pending studies /lab Pt to call sooner if problems. Pt indicated will continue see specialty(s) as needed/schedualed lab stop Pharmacy stop no changes made today Radiology stop set up PATIENT EDUCATION: (x)Diet and Exercise discussed and encouraged (x)Lab results some back reviewed, discussed,some pending pt verbalized understanding of plan. /prasad/ SCARLETT GILMAN PRIMARY CARE PHYSICIAN [place] [facility] Signed: 10/25/2023 12:27 10/25/2023 ADDENDUM STATUS: COMPLETED signed before fully edited vitals noted BP pulse temp resp o2 sat pain wt 126/73 65 95.8 18 97 4 206.2^ /prasad/ SCARLETT GILMAN PRIMARY CARE PHYSICIAN [place] [facility] Signed: 10/25/2023 12:30 SCARLETT GILMAN OC
--- OUTSIDE RECORDS SUMMARY | 2024-10-02 10:14 | XMS_ITS | Encounter Summary ---
Author Name [facility] [place] [facility] [place] [facility] [facility] [place] Address [address] [place] [address] Care Team Providers Care Communications Consultant Name Role Phone CARYN ALVAREZ Primary Care Provider Unavailabl e IZAIAH MUNOZ Primary Care Provider Unavailabl e ELI BRAXTON Unavailable Unavailable ZACK HECK Unavailable Unavailable REDD PINTO Unavailable Unavailable SANDRA CARL Unavailable Unavailable IGGY SHEPARD Unavailable Unavailable SUNITA HAN Unavailable Unavailable JONO GILMAN Primary Care Provider Unavailabl e Insurance Providers: All historical and current Section [...] IC GAS & ELEC Mar 18, 2005 [id number] MIKAELA,JENNIFER HARD PATIENT BC BS [place] BLU[place]ARD MEDICARE SECONDARY (NO B EXC) PACIF [facility] G[facility] ELE[facility] Mar 18, 2005 [id number] WALLYAUS,JENNIFER HARD PATIENT [place] BS [place] MEDIC[place] SECONDARY (NO B EXC) PACIF [facility] ELE[facility] Mar 18, 2005 [id number] [phone] KNKEENA,JENNIFER HARD PATIENT [place] BS [place]IC[place] SECONDARY (NO B EXC) PACIF [facility]LE[facility] Mar 18, 2005 [id number] MIKAELA,JENNIFER HARD PATIENT [place] POINT OF SERVICE PG&E Aug 16, 2018 [id number] KNAUS,JENNIFER HARD PATIENT [facility] PGE Mar 18, 2005 [id number] [phone] MIKAELA,JENNIFER HARD PATIENT [facility] ([id number]) PRESCRIPT ION PACIF IC GAS & ELEC Mar 18, 2005 [id number] MIKAELA,JENNIFER HARD PATIENT [facility] [place] [id number] PRESCRIPT ION PGE00 00 (9999 ) Mar 18, 2005 [id number] [phone] MIKAELA,JENNIFER HARD PATIENT [facility] PRESCRIPT ION PGE00 00 Mar 18, 2005 [id number] [phone] MIKAELA,JENNIFER HARD PATIENT MEDICARE (WNR) MEDICARE () PART A May 16, 2001 PART A [id number] MIKAELA,JENNIFER HARD PATIENT MEDICARE (WNR) MEDICARE () PART B May 16, 2001 PART B [id number] MIKAELA,JENNIFER HARD PATIENT MEDICARE (WNR) MEDICARE () PART A May 16, 2001 PART A [id number] [phone] MIKAELA,JENNIFER HARD PATIENT MEDICARE (WNR) MEDICARE () PART B May 16, 2001 PART B [id number] MIKAELA,JENNIFER HARD PATIENT MEDICARE (WNR) MEDICARE () PART A May 16, 2001 PART A [id number] [phone] MIKAELA,JENNIFER HARD PATIENT MEDICARE (WNR) MEDICARE () PART B May 16, 2001 PART B [id number] MIKAELA,JENNIFER HARD PATIENT MEDICARE (WNR) MEDICARE () PART A May 16, 2001 PART A [id number] JENNIFER AL PATIENT MEDICARE (WNR) MEDICARE (M) PART B May 16, 2001 PART B [id number] JENNIFER AL PATIENT Selected Encounter This section includes the information on record at [place] for the Encounter. Date/Time Encounter Type Encounter Description Reason Provider Source Sep 21, 2024 01:00 PM OFFICE O/P NEW HI 60 MIN PRIMARY CARE/MEDICINE ICD-10-CM I10 Essential (primary) hypertension JORI ALVAREZ [facility] Encounter Template Text not used by [place] Assessments - Encounter Diagnoses This section includes the primary and secondary diagnoses documented for the Encounter. Date/Time Primary/Secondary Diagnosis Diagnosis Name Provider Source Sep 22, 2024 12:50 PM PRIMARY Essential (primary) hypertension [facility] Sep 22, 2024 12:50 PM SECONDARY [facility] heart disease [place] coronary artery w/o ang pctrs [facility] Sep 22, 2024 12:50 PM SECONDARY Carcinoma in situ of bladder [facility] Sep 22, 2024 12:50 PM SECONDARY Hyperlipidemia, unspecified [facility] Sep 22, 2024 12:50 PM SECONDARY Hypothyroidism, unspecified [facility] Sep 22, 2024 12:50 PM SECONDARY Insomnia, unspecified [facility] Sep 22, 2024 12:50 PM SECONDARY Iron deficiency anemia, unspecified [facility] Sep 22, 2024 12:50 PM SECONDARY Other abnormalities of gait and mobility [facility] Sep 22, 2024 12:50 PM SECONDARY Other idiopathic peripheral autonomic neuropathy [facility] Sep 22, 2024 12:50 PM SECONDARY Presence of cardiac pacemaker [facility] Sep 22, 2024 12:50 PM SECONDARY Unspecified atrial fibrillation [facility] Plan of Treatment: Future Appointments (+ 6 months) and Future Tests (+/- 45 days) The Plan of Treatment section includes future care activities for the patient from [facility] [facility] This section includes future appointments and future orders which are active, pending or scheduled. Future Appointments This section includes appointments that were scheduled to occur 6 months from the date of the Encounter, up to a maximum of 20 appointments. The data comes from all [facility]. Appointment Date/Time Appointment Type Appointme nt Facility Name Sep 23, 2024 01:00 PM AMBULATORY - NONE [facility] Sep 24, 2024 02:00 PM [facility]ATORY - [facility] Oct 08, 2024 04:30 PM AMBULATORY - SURG[facility] Active, Pending, and Scheduled Orders This section includes a listing of several types of active, pending, and scheduled orders, including clinic medications orders, diagnostic test orders, procedure orders and consult orders; where the start date of the order is 45 days before the date of the Encounter or 45 days after the date of theEncounter. The data comes from all [facility]. Test Date/Time Test Type Test Details Facility Name Sep 21, 2024 12:00 AM Laboratory - Chemi stry Order URINALYSIS (STL-PB) URINE SP [facility] Sep 21, 2024 12:00 AM Laboratory - Chemi stry Order MICRAL/CREAT PROFILE (STL) URINE YELLOW SP [facility] Sep 23, 2024 12:00 AM Laboratory - Chemi stry Order CBC BLOOD [facility] Sep 23, 2024 12:00 AM Laboratory - Chemi stry Order TIBC BLOOD SERUM [facility] Lab Results: +/- 30 days of the encounter This section includes the Chemistry and Hematology Lab Results on record with [place] for the patient. Radiology Reports and Pathology Reports are provided separately, in subsequent sections. Lab Results This section contains the Chemistry/Hematology Results that were resulted 30 days before or 30 daysafter the date of the Encounter. Date/Time Source Result Type Result - Unit Interpretation Reference Range Specimen Type Comment Sep 21, 2024 02:29 PM [facility] VITAMIN D, 25-HYDROXY SERUM Specimen Type: SERUM No comment entered. Ordering Provider: CARYN ALVAREZ Report Released Date/Time: Sep 21, 2024 01:33 PM Reporting Lab: [facility] [phone] Performing Lab: [facility] [address] VITAMIN D, 25-HYDROXY 30.0 ng/mL 30-96 Sep 21, 2024 02:29 PM [facility] B12 SERUM Specimen Type: SERUM No comment entered. Ordering Provider: CARYN ALVAREZ Report Released Date/Time: Sep 21, 2024 01:33 PM Reporting Lab: [facility] [address] Performing Lab: [facility] [address] B12 255 pg/mL 213-816 Sep 21, 2024 02:29 PM [facility] FOLATE (L-MT) SERUM Specimen Type: SERUM No comment entered. Ordering Provider: CARYN ALVAREZ Report Released Date/Time: Sep 21, 2024 01:33 PM Reporting Lab: [facility] [address] Performing Lab: [facility] [address] FOLATE ([facility]-MT) 9.1 ng/mL 7-20 Sep 21, 2024 02:29 PM [facility] IRON/TIBC PROFILE SERUM Specimen Type: SERUM No comment entered. Ordering Provider: CARYN ALVAREZ Report Released Date/Time: Sep 21, 2024 01:33 PM Reporting Lab: [facility] [address] [facility] [address] Performing Lab: [facility] [address] [place] [id number] TIBC 449 ug/dL 250-450 TRANSFERRIN 359 mg/dL H 163-344 IRON SATURATION 12 L 20-50 IRON 52 ug/dL L 65-175 Sep 21, 2024 02:29 PM [facility] FERRITIN SERUM Specimen Type: SERUM No comment entered. Ordering Provider: CARYN ALVAREZ Report Released Date/Time: Sep 21, 2024 01:33 PM Reporting Lab: [facility] [address] [facility] [address] Performing Lab: [facility] [address] [facility] [address] FERRITIN 38.68 ng/mL 22-275 Sep 21, 2024 02:29 PM [facility] COMPREHENSIVE METABOLIC PANEL PLASMA Specimen Type: PLASMA Comment: No hemolysis noted. Ordering Provider: CARYN ALVAREZ Report Released Date/Time: Sep 21, 2024 01:33 PM Reporting Lab: [facility] [address] Performing Lab: [facility] [address] CREATININE 1.04 mg/dL 0.70-1.30 UREA NITROGEN 20.2 mg/dL 9.0-25.0 GLUCOSE 100 mg/dL H 72-99 SODIUM 135 meq/L L 136-145 POTASSIUM 4.2 meq/L 3.5-5.0 CHLORIDE 103 meq/L 98-107 CARBON DIOXIDE 23 meq/L 22-31 CALCIUM 9.0 mg/dL 8.4-10.4 PROTEIN 7.6 g/dL 6.0-8.6 ALBUMIN 4.3 g/dL 3.4-5.0 TOTAL BILIRUBIN 1.1 mg/dL 0.2-1.2 ALKALINE PHOSPHATASE 64 U/L 40-150 AST/SGOT 33 U/L 5-34 ALT/SGPT 25 U/L 8-40 EGFR (CKD-EPI 2020) 69.06 >60 Sep 21, 2024 02:29 PM [facility] LIPID PANEL (STL) PLASMA Specimen Type: PLASM A Comment: No hemolysis noted. Ordering Provider: CARYN ALVAREZ Report Released Date/Time: Sep 21, 2024 01:33 PM Reporting Lab: [facility] [address] Performing Lab: [facility] [address] CHOLESTEROL 127 mg/dL 0-200 TRIGLYCERIDE 108 mg/dL 0-150 CALCULATED LDL 64 mg/dL See Interp HDL(New) 41 mg/dL > 40 Sep 21, 2024 02:29 PM [facility] CBC BLOOD Specimen Type: BLOOD No comment entered. Ordering Provider: CARYN ALVAREZ Report Released Date/Time: Sep 21, 2024 01:33 PM Reporting Lab: [facility] [address] Performing Lab: [facility] [address] WBC 6.9 10*3/uL 3.6-11.2 RBC 3.75 10*6/uL L 4.10-5.70 HGB 11.1 g/dL L 13.1-16.8 HCT 34.3 L 38.2-48.4 MCV 91.5 fL 80.0-100.0 MCH 29.6 pg 27.0-34.0 MCHC 32.4 g/dL L 33.0-36.0 PLT 110 10*3/uL L 150-400 MPV 11.5 fL H 7.5-11.2 RDW 15.2 H 11.8-15.1 LYMPHOCYTES, AUTO % 19 MONOCYTES, AUTO % 8 NEUTROPHILS, AUTO % 70 EOSINOPHILS, AUTO % 2 BASOPHILS, AUTO % 1 LYMPHOCYTES, ABSOLUTE 1.29 10*3/uL 0.77- 4.50 MONOCYTES, ABSOLUTE 0.57 10*3/uL 0.19-0. 80 NEUTROPHILS, ABSOLUTE 4.83 10*3/uL 2.10- 8.00 EOSINOPHILS, ABSOLUTE 0.15 10*3/uL 0.00- 0.60 BASOPHILS, ABSOLUTE 0.05 10*3/uL 0.00-0. 20 IMMATURE PLT FRACTION 6.5 1.0-7.0 Sep 21, 2024 02:29 PM [facility] HGA1C BLOOD Specimen Type: BLOOD No comment entered. Ordering Provider: CARYN ALVAREZ Report Released Date/Time: Sep 21, 2024 01:33 PM Reporting Lab: [facility] [address] Performing Lab: [facility] [address] HGA1C 5.8 4.0-6.0 Sep 21, 2024 02:29 PM [facility] FREE T4 (STL) PLASMA Specimen Type: PLASM A No comment entered. Ordering Provider: CARYN ALVAREZ Report Released Date/Time: Sep 21, 2024 01:33 PM Reporting Lab: [facility] [address] Performing Lab: [facility] [address] [place] [phone] FREE T4 (STL) 1.00 ng/mL 0.70-1.48 Sep 21, 2024 02:29 PM [facility] TSH W/ REFLEX FT4 (STL) PLASMA Specimen Type: PLASMA No comment entered. Ordering Provider: CARYN ALVAREZ Report Released Date/Time: Sep 21, 2024 01:33 PM Reporting Lab: [facility] [address] Performing Lab: [facility] [address] TSH 2.694 u[IU]/mL 0.470-5.000 Sep 21, 2024 02:29 PM [facility] HEP C Ab HCV Ab (STL) SERUM Specimen Type: SE RUM No comment entered. Ordering Provider: CARYN ALVAREZ Report Released Date/Time: Sep 21, 2024 01:33 PM Reporting Lab: [facility] [address] [place] [address] Performing Lab: [address] [address] HEP C Ab HCV Ab (STL) Nonreactive Nonrea ctive Sep 21, 2024 02:29 PM [facility] HEP B CORE IgM AB. ([id number]) SERUM Spe cimen Type: SERUM No comment entered. Ordering Provider: CARYN ALVAREZ Report Released Date/Time: Sep 21, 2024 01:33 PM Reporting Lab: [address] [address] Performing Lab: [facility] [address] [facility] [address] HEP B CORE IgM AB. ([id number]) Nonreactive Nonreactive Vital Signs: All taken on the encounter date This section contains inpatient and outpatient Vital Signs collected on the date of the Encounter. Date/Time Temperature Pulse Blood Pressure Respiratory Rate SP02 Pain Height Weight Body Mass Index Source Sep 21, 2024 12:52 PM 98.2 F 72 /min 117/62 mm[Hg] 16 /min 97 % 0 64 in 206.4 lb 36 [facility] Social History: Smoking Status (Most current) and Tobacco Use (All prior to encounter date) This section includes the most current, and the historical, smoking and tobacco- related health factors from the [place] facility where the Encounter took place. Current Smoking Status This section includes the most current smoking, or tobacco-related health factor, from the [place] facility where the Encounter took place. Date/Time Current Smoking Status Comment Facil ity Sep 21, 2024 01:00 PM [place]-TOBACCO NEVER U SED CIGARETTES [facility] Tobacco Use History This section includes a history of the smoking, or tobacco-related health factors, that were collected on or before the date of the Encounter. The data comes from the [place] facility where the Encounter took place. Date/Time Smoking Status/Tobacco Use Comment F acility Sep 21, 2024 01:00 PM [place]-TOBACCO NEVER U SED OTHER TYPE [facility] Advance Directives: All historical and current Section Date Range: From patient's date of to the date document was created. This section includes ALL of a patient's completed or amended [place] Advance and Rescinded Directives. The entries below indicate that a directive exists for the patient, but an actual copy is not included with this document. The data comes from all [place] facilities. Date Advance Directives Provider Source Mar 25, 2023 ADVANCE DIRECTIVE MORIAH HILL [facility] Jun 19, 2017 ADVANCE DIRECTIVE DISCUSSION CAYDEN AREVALO [facility] Dec 22, 2016 ADVANCE DIRECTIVE DISCUSSION LEXA ABDUL [facility] Dec 21, 2016 ADVANCE DIRECTIVE DISCUSSION LINDEN LEZAMA [facility] Encounter Notes: All associated encounter notes This section contains the clinical notes associated to the Encounter. Date/Time Encounter Note(s) Provider Source Sep 23, 2024 06:58 AM PHYSICIAN LETTERS: LOCAL TITLE: TEST RESULT GENERAL LETTER STL STANDARD TITLE: PHYSICIAN LETTERS DATE OF NOTE: SEP 23, 2024@06:58 ENTRY DATE: SEP 23, 2024@06:58:39 AUTHOR: CARYN ALVAREZ EXP COSIGNER: URGENCY: STATUS: COMPLETED [facility] [address] [place] [address] SEP 23, 2024 JAMES AL [address] [place] [id number] Dear James Al, I would like to update you on your recent test results. LIPID PROFILE - High cholesterol and triglycerides (lipids) are risk factors for heart disease. Your cholesterol should fall between 140 and 200, and your triglycerides levels should be less than or equal to 150. HDL is the good cholesterol and should ideally be greater than 40. LDL is the bad cholesterol and optimal levels should be less than 100 (near optimal is between 100 and 129). TRIGLYCERIDE 108 mg/dL 09/21/2024 14:29 CHOLESTEROL 127 mg/dL 09/21/2024 14:29 HDL(New) 41 mg/dL 09/21/2024 14:29 CALCULATED LDL 64 mg/dL 09/21/2024 14:29 No DIRECT LDL EO data found These readings are within normal limits. HEMOGLOBIN A1C - Gives us information about your diabetes (sugar or glucose) control over the past 3 months. Your target is to keep your A1C below 0 %. HGA1C 5.8 % 09/21/2024 14:29 These readings are within normal limits. but on high side ,would advise to cut back on sweets so that you dont become a diabetic CBC - A complete blood count (CBC) gives important information about the kinds and numbers of cells in the blood, especially red blood cells, white blood cells, and platelets. HGB 11.1 L g/dL 09/21/2024 14:29 HEMATOCRIT 34.3 % L (09/21/24 14:29) PLT 110 L 10*3/uL 09/21/2024 14:29 WHITE BLOOD COUNT 6.9 10*3/uL (09/21/24 14:29) These results are abnormal. with low iron levels would advise to take over the counter iron pills called ferrous sulfate 325 mg daily and will monitor IRON STUDIES - Test to show iron deficiency. IRON 52 L ug/dL 09/21/2024 14:29 TIBC 449 ug/dL 09/21/2024 14:29 IRON SATURATION 12 L %SAT 09/21/2024 14:29 FERRITIN 38.68 ng/mL 09/21/2024 14:29 These results are abnormal. low iron levels and storage form of iron called ferritin ,would advise to take over the counter ferrous sulfate 325 mg daily B12 - Helps maintain healthy nerve cells, red blood cells, and is also needed to make DNA. B12 255 pg/mL 09/21/2024 14:29 These readings are within normal limits. but on low side so would advise to start taking over the counter vitamin B12 500mcg daily and will alejandrina levels on next appt CHEM 7 - This is important information about the current status of your kidneys, liver, and electrolyte and acid/base balance as well as of your blood sugar and blood proteins. SODIUM 135 L mEq/L 09/21/2024 14:29 POTASSIUM 4.2 mEq/L 09/21/2024 14:29 CHLORIDE 103 mEq/L 09/21/2024 14:29 UREA NITROGEN 20.2 mg/dL 09/21/2024 14:29 CREATININE 1.04 mg/dL 09/21/2024 14:29 CALCIUM 9.0 mg/dL 09/21/2024 14:29 CARBON DIOXIDE 23 mEq/L 09/21/2024 14:29 GLUCOSE 100 H mg/dL 09/21/2024 14:29 EGFR (CKD-EPI 2020) 69.06 09/21/2024 14:29 These readings are within normal limits. Hep C - This is important information about your exposure to infectious disease. Infection with hepatitis C can lead to liver damage. Hepatitis C has effective treatment. [facility] Hep C tests in last five years. HEP C Ab HCV Ab ([facility]) Nonreactive S/CO (09/21/24 14:29) The reading for Hep C was negative . LIVER FUNCTION PANEL - These are tests for liver function: PROTEIN 7.6 g/dL 09/21/2024 14:29 ALBUMIN 4.3 g/dL 09/21/2024 14:29 TOTAL BILIRUBIN 1.1 mg/dL 09/21/2024 14:29 ALKALINE PHOSPHATASE 64 U/L 09/21/2024 14:29 AST/SGOT 33 U/L 09/21/2024 14:29 ALT/SGPT 25 U/L 09/21/2024 14:29 These readings are within normal limits. TSH - Thyroid-stimulating hormone (also known as TSH or thyrotropin) is a peptide hormone synthesized and secreted by thyrotrope cells in the anterior pituitary gland, which regulates the endocrine function of the thyroid gland. TSH TSH 2.694 uIU/mL 09/21/2024 14:29 These readings are within normal limits. continue same dose of levothyroxine VITAMIN D - Helps promote the proper utilization of calcium and phosphorus, thereby producing proper bone maintenance. VITAMIN D, 25-HYDROXY 30.0 ng/mL 09/21/2024 14:29 These readings are within normal limits. is normal but at the lower end so would advise to take over the counter vitamin D3 50 mcg daily FUTURE APPOINTMENTS: 05/26/2025 14:00 DULCE-PACT E8 PCP Sincerely, Caryn Alvarez MD STAFF PHYSICIAN JAMES AL [facility] Sep 21, 2024 01:40 PM PRIMARY CARE INITI AL EVALUATION NOTE: LOCAL TITLE: PRIMARY CARE PROVIDER NEW VISIT ST STANDARD TITLE: PRIMARY CARE INITIAL EVALUATION NOTE DATE OF NOTE: SEP 21, 2024@13:40 ENTRY DATE: SEP 21, 2024@13:40:42 AUTHOR: CARYN ALVAREZ EXP COSIGNER: URGENCY: STATUS: COMPLETED Patient is 89 and WHITE Self Identified Gender - NONE FOUND Reason for visit:New Patient Chief Complaint: to establish care History of Present Illness: 89 yo white male with pmh of HTN,HLP,CAD s/p cabg in 1987,stents x 2,one in 06/2000,one in 01/2012 ,afib dx in 2014,IFG,anemia /iron deficiency ,hypothyroidism,sick sinus syndrome s/p PPM in 2017 ,bladder ca dx in 2021 ,gerd ,peripheral neuropathies,ch low back pain , Insomnia,NILSON ,unsteady gait /Dysequilibrium/h/o frequent falls,h/o rt foot ulcer,h/o MRSA come to establish care and F[facility]u with non [facility] providers pcp dr Castillo at [facility] dr jono gilman MD Does not ck BP at home ,watches diet ,does not excercise,denies any cp,sob,swelling/pain in lwr extremeties,any neuro/urinary sx,headaches ,+ dizziness. Does take his cholestrol meds daily ,denies any muscle/abdominal pain,watches diet ,does not excercise. As far as cad (s/p cabg in 1987 /stent stents x 2,one 06/2000 one in 01/2012) is concerned denies any cp,sob ,swelling oflegs,palpitations,+ dizziness .Is seeing cardiology q 3 mths. . Dx with bladder cancer in 2021 after w/u of hematuria s/p excision ,has cysto annually last Cystoscopy on 06/09/2024 at [facility] : The urethra appeared normal. There may have been some mild BPH. There was some mild generalized trabeculation. Also some mild irritation at the base of the bladder. There was no bleeding or any masses or lesions. The cystoscope was then removed from the bladder and urethra intact. Patient tolerated procedure well. Macrobid x 1 given for prophylaxis. Urine Cytology on 05/2024:negative for high-grade urothelial carcinoma. Benign urothelial cells. No intervention needed at this time per . CURRENT MEDS(GETS ALL HIS MEDS THROUGH [facility]) Lisinopril 10 mg DAILY Eplerenone 25 mg tab DAILY Simvastatin 40 mg tab DAILY Levothyroxine 75 mcg DAILY Clopidogrel 75 mg DAILY Apixaban (Eliquis) 5 mg tab bid Pregabalin 150 mg capsule bid protonix 40 mg daily only on prn basis Amitriptyline 10 mg tab qhs Docusate Sodium 100 mg caps DAILY Cholecalciferol (Vitamin D3) 25 mcg daily Feso4 325 mg one daily ALLERGIES:NKDA SOCILAL HISTORY Marital status://divor harry. 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 COVID-19 SARS-CoV-2 mRNA-1273 Moderna 06/03/20 COVID-19 SARS-CoV-2 mRNA-1273 Moderna 05/05/20 DEXA SCAN: PSA: COLONSCOPY:does not remember PAST MEDICAL HISTORY/SURGICAL HISTORY HTN,HLP,CAD s/p cabg in ,stents x 2 in 1987 and 2004 ,afib,IFG,anemia /iron deficiency ,hypothyroidism,sick sinus syndrome s/p PPM in ,bladder ca dx in 2021 on w/u for hematuria ,gerd ,peripheral neuropathies, Insomnia,NILSON ,unsteady gait /Dysequilibrium/h/o frequent falls,h/o rt foot ulcer,h/o MRSA Surgeries: pacemaker in 2017 . CABG x 4 i n1988 Cardiac Stents 2 one in in 06/2000 ,one in 2011 multiple cystoscopies ,last on 06/09/2024 rt shoulder surgery FAMILY HISTORY Father: at age 97 , of old age Mother:never seen his mom and does not know about her health Siblings:one half sister does not know about her health Children: 3 sons all healthy,one had multiple scleroiss ,one had had cancer and one in mva REVIEW OF SYSTEMS GENERAL:denies weakness,fatigue,malaise,chi lls,fever or change in appetite/weight SKIN:denies color changes,rash,tumor,photosens itivity,nail changes,itching HEMATOPOIETIC:denies having any h/o anemia,bleeding,bruisability ,lymph node enlargement PROBLEM MANAGER:+ periphearl neuropathies ,+unsteady gait, denies having headache,syncope,seizures,pa ralysis,dizziness,incoordina tion,,decreased mentation,tremor EYES:denies any visual changes,diplopia,color blindness,lacrimation,glauco ms,burning EARS:denies any tinnitus,vertigo,deafnes NOSE/THROAT:denies epistaxis,sinusitis,post nasal drip,change in taste,sore tongue,bleeding gums,poor dentition,hoarseness,hay fever,frequent colds BREAST:denies any breast masses,pain,discharge from nipples RESPIRATORY:denies any SOB,cough,wheezing,sputum production,hemoptysis,asthma /copd,frequent pulmonary infection,TB,night sweats CARDIOVASCULAR:+HTN,CAD s/pcabg and stents x 2,denies chest pain,SOB,MCCLURE,PND,orthopnea,e natalie,palpitations,vericose viens,claudication,DVT,murmu rs,cyanosis GASTROINTESTINAL :+gerd,denies dysphagia,n/v/hematemesis,ab dominal pain,diarrhea,constipation,c hange in bowel habits,melena,rectal bleeding,hemorrhoids,indiges tion,gas,easy satiety,distention,jaundice, ulcer dz,antacid use,laxative use,ASA use. URINARY TRACT:bladder cancer dx in 2021 ,does not c/o dysuria,urgency,frequency,po lyuria,nocturia,hesitancy,in continence, foul urine,dark urine,hematuria,flank pain,h/o frequent uti's,h/o kidney stones GENITAL:male:denies any penile d/c,lesion,STD,testicular mass/pain,change in libido,impotence MUSCULOSKELETAL:ch low back pain but stable . 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 BRANCH(ES) OF SERVICE: [employer] SPECIFIC YEARS OF SERVICE: [id number] LOCATION OF SERVICE: [facility] ENVIRONMENTAL EXPOSURE: none that he is aware Medication Review: The essential med list for review which includes the patient's active VA prescriptions and if applicable, remote VA prescriptions, non-VA prescriptions, and discontinued VA prescriptions within the last 90 days and known allergies including local and remote allergies have been reviewed. Allergies:Patient has answered NKA Active and Recently Outpatient Medications (excluding Supplies): No Medications Found Physical Exam VITALS (most recent, as listed in the electronic record): B/P: 117/62 (09/21/2024 12:52) Pulse: 72 (09/21/2024 12:52) Temperature: 98.2 F [36.8 C] (09/21/2024 12:52) Weight: 206.4 lb [93.62 kg] (09/21/2024 12:52) Height: 64 in [162.6 cm] (09/21/2024 12:52) BMI: 35.5 Pain: 0 (09/21/2024 12:52) (0-10 scale) PHYSICAL EXAMINATION GENERAL :elderly obese male found to be in no acute distress BEHAVIOR :cooperative and pleasant SKIN:turgor nml,no scars,nevi,rash,ecchymoses,p etechia on inspection LYMPH NODES:cervical,supraclavicul ar,axillary,inguinal,femoral not palpable HEAD:ATNC, no palpable masses or any temporal tenderness EYES: nml sclera,cornea,conjunctivae,E OM,PERRLA,VISUAL [place] wnl EARS:Pinna/canal is nml,TM is intact and shiny,hearing nml NOSE;septum is central,mucosa nml,no sinus tenderness MOUTH AND THROAT:oral mucosa pink and moist,tonsils not enlarged,teeth/gums nml NECK:moblilty is nml,thyroid not enlarged,trachea central BREAST:NA RESPIRATORY :chest cta and percussion CARDIOVASCULAR Peripheral pulses:radial 2,d.pedis 2,post tibial 2 Carotid Pulse:2 and no carotid bruit JVD not elevated Heart:S1/S2 NSR with no murmur,gallop or rub ABDOMEN:soft ntnd ,+ bs,no organomegaly/mass palpable. GENITALIA:NA RECTAL:deferred EXTREMITIES:1+ edema,+stasis dermatitis ,no clubbing/cyanosis MUSCULOSKELETAL SYSTEM:no swelling,deformity of UE/LE jts,nontender,rom is wnml BACK:no deformity,nontender,slr negative,CVAT negative bl NEUROLOGICAL :A, O x3,CN 2-12 grossly intact,muscle strength 5/5,reflexes :biceps/triceps,patellar/ank le are +2 bl,Babinski downgoing bl,sensations intact to sharp and dull,FTN intact ASSESSMENT AND PLAN 1.HTN: -controlled on Lisinopril 10 mg/day and Eplerenone 25 mg DAILY -lifestyle modifications dw the pt 2.HLP: -ck lipids and lfts today -on Simvastatin 40 mg tab DAILY -lifestyle modifications dw the pt 3.CAD s/p cabg in in 1987,stents x 2(one in 06/2000,one in 01/2012): -stable on statin and plavix -not on bb due to brasdycardia/?SSS,not on asa as on DOAC -f/u with non va cardiology 4.afib dx in 2014: -stable on apixaban 5 mg bid -ck cbc,cmp and iron studies -f/u with non va cardiology 5.sick sinus syndrome s/p PPM in 2018: -f/u with non va EP/cardiology 6.anemia /iron deficiency: -ck anemia studies today -on feso4 325 mg daily -denies any bleeding issues 7.hypothyroidism -on levothyroxine 75 mcg daily -ck tfts today -has h/o afib 8.gerd: -stable on protonix 40 mg prn only -antireflux education provided 9.peripheral neuropathies: -stable on Pregabalin 150 mg capsule bid -has had ncs in the community 10.IFG: -ck aic today -lifestyle modfictions dw the pt 11.unsteady gait /Dysequilibrium/h/o frequent falls: -could be 2ndary to peripheral neuropathies -pt declined PT referral instead will ask his pcp for referral in the community -advised to use walker 12.Insomnia: -stable on Amitriptyline 10 mg tab qhs -sleep hygiene dw the pt in detail 13.NILSON: -encouraged to use CPAP machine daily 14.h/o rt foot ulcer,h/o MRSA: -resolved 15.ch constipation: -stable on otc Docusate Sodium 100 mg caps DAILY . -advised to excercise and increase fibre intake 16.vit d def: -on Cholecalciferol (Vitamin D3) 25 mcg daily 17.ch low back pain : -stable on otc apap -has had imaging done in the community -pt declied PT referral 18.obesity : -advised to self schedule appt with payroll technician -lifestyle modfications dw the pt 19.HM: -ck annual/screening labs today -CRC screen:does not remember when had last cscope,no screening due to advanced age until has sxs -aaa screen:has had it done in pvt sector -immunizations Tdap : 09/25/21 Influenza:12/28/20 Pneumococcal: COVID-19 SARS-CoV-2 mRNA-1273 Moderna 01/11/21 . COVID-19 SARS-CoV-2 mRNA-1273 Moderna 06/03/20 COVID-19 SARS-CoV-2 mRNA-1273 Moderna 05/05/20 The plan of treatment were d/w including expected therapeutic benefits and potential side effects of prescribed medication and treatments.Medication reviewed and reconciled with the patient.Veteram verbalizes understaning and is in agreement with the plan of care.Pt instructed to keep all appointments and contact nurse coordinator for any additional problems.Discussed role of er,urgent care and walk in policies.Patient acknowledges understanding of these instructions. RTC:8 mths CLINICAL REMINDERS COMPLETED Influenza Immunization - L,N,P,PH,U: The patient has received the seasonal influenza vaccine for the current season at another location. Documented: INFLUENZA, UNSPECIFIED FORMULATION Historical Date Administered: Dec 2023 Exact date unknown Information Source: FROM PATIENT'S RECALL PTSD Screening - V: PC-PTSD-5 A PTSD screening test (PC-PTSD-5) was negative (score=0). Sometimes things happen to people that are unusually or especially frightening, horrible or traumatic. For example: A [...] due to responses to other questions. 5. [place] numb or detached from people, activities, or your surroundings? Response not required due to responses to other questions. 6. [place] guilty or unable to stop blaming yourself or others for the event(s) or any problems the event(s) may have caused? Response not required due to responses to other questions. Herpes Zoster (Shingles) Vaccine - L,N,P,PH,U: The patient declines to receive the recommended dose of zoster (shingles) vaccine. Immunization: ZOSTER RECOMBINANT Refusal Reason: PATIENT DECISION Patient refuses all immunization(s) in the ZOSTER group Date Documented: 09/21/24 14:05 COVID-19 Immunization-L,N,P,PH,U: Refused Moderna Monovalent COVID-19 vaccine Immunization: COVID-19 (MODERNA), MRNA, LNP-S, PF, 50 MCG/0.5 ML (AGES 12+ YEARS) Refusal Reason: PATIENT DECISION Patient refuses all immunization(s) in the COVID-19 group Date Documented: 09/21/24 14:06 Pneumococcal Conjugate Vaccine (PCV15/PCV20/PCV21) - L,N,P,PH,U: Refuses PCV vaccine Immunization: PNEUMOCOCCAL CONJUGATE, UNSPECIFIED FORMULATION Refusal Reason: PATIENT DECISION Patient refuses all immunization(s) in the PneumoPCV group Date Documented: 09/21/24 14:06 Tdap Immunization - L,N,P,PH,U: Td/Tdap given previously - written records available The patient has previously received the Tetanus, Diphtheria, Pertussis vaccine (Tdap). Documented: TDAP Historical Date Administered: Sep 25, 2021 Information Source: FROM PATIENT'S WRITTEN RECORD /es/ Caryn Alvarez MD STAFF PHYSICIAN Signed: 09/23/2024 06:58 [facility] Sep 21, 2024 12:53 PM NURSING NOTE: LOCAL TITLE: V15 PACT FACE TO FACE NOTE ST STANDARD TITLE: NURSING NOTE DATE OF NOTE: SEP 21, 2024@12:53 ENTRY DATE: SEP 21, 2024@12:53:38 AUTHOR: MOLINA GUYIGNER: URGENCY: STATUS: COMPLETED Provider Visit: Patient Identifiers : Full Name Date of Reason for visit: New Patient Do you have a history of any of the following? (check all that apply): Heart disease, Cancer Surgeries (type(s) and date(s)): Pacemaker , slep apnea Have you been seen by a physician, [place] or private, in the last year? Yes Name and contact information for provider: Jean CAZARES Have you been hospitalized or seen in an ER in the last year? No Have you had a colonoscopy previously? Yes What location and approximate date(s)? years ago- [place] Records request sent: Have you had a PAP smear previously? N/A Have you had a Mammogram previously? No Mode of Arrival: Ambulatory Allergy Review: ALLERGIES/ADVERSE REACTIONS - NONE FOUND Allergy list reviewed and remains current. Recent Vital Signs: Temperature: 98.2 F [36.8 C] (09/21/2024 12:52) Pulse: 72 (09/21/2024 12:52) Respiration: 16 (09/21/2024 12:52) B/P: 117/62 (09/21/2024 12:52) Pain: 0 (09/21/2024 12:52) Wt: 206.4 lb [93.62 kg] (09/21/2024 12:52) Ht: 64 in [162.6 cm] (09/21/2024 12:52) BMI: 35.5 POX: 97% (09/21/2024 12:52) Would you like to discuss any personal problem, family problem, alcohol use, drug use, or a mental or emotional illness? No Contact provided Primary Care phone number and encouraged to call if any questions or concerns. Review that after hours nurse line [phone] and emergency room are available 08/10 for patient use. Contact verbalized good understanding. Suicide Screen - V: C-SSRS Screening [place] Suicide Severity Rating Scale (C-SSRS) screener 1. Over the past month, have you wished you were or wished you could go to sleep and not wake up? No 2. Over the past month, have you had any actual thoughts of killing yourself? No 3. Over the past month, have you been thinking about how you might do this? Response not required due to responses to other questions. 4. Over the past month, have you had these thoughts and had some intention of acting on them? Response not required due to responses to other questions. 5. Over the past month, have you started to work out or worked out the details of how to kill yourself? Response not required due to responses to other questions. 6. If yes, at any time in the past month did you intend to carry out this plan? Response not required due to responses to other questions. 7. In your lifetime, have you ever done anything, started to do anything, or prepared to do anything to end your life (for example, collected pills, obtained a gun, gave away valuables, went to the roof but didn't jump)? No 8. If YES, was this within the past 3 months? Response not required due to responses to other questions. Toxic Exposure Screening - CP,DI,L,NS,P,PH,S,U: The /caregiver was asked if they believe the Lohn experienced any toxic exposure(s), such as Airborne Hazards and Open [place], [place] War related exposures, Agent [place], Radiation, contaminated water at [place] or other such exposures, while serving in the Armed Forces. has no concerns about toxic exposure(s) while serving in the Armed Forces. The /caregiver was informed that we will continue to ask this screening question every 5 years. They can contact their provider/healthcare team if they have concerns about exposures and would like to be screened sooner. Printed information was offered and provided if desired. Alcohol Use Screen (AUDIT-C) - V: Alcohol Screen: SCREEN FOR ALCOHOL (AUDIT-C) An alcohol screening test (AUDIT-C) was negative (score=2). 1. How often did you have a drink containing alcohol in the past year? Consider a drink to be a 12 ounce can or bottle of regular beer, 8 ounces of malt liquor, a 5 ounce glass of table wine, or a 1.5 ounce shot of liquor (like scotch, gin, or vodka). Two to four times a month 2. How many drinks containing alcohol did you have on a typical day when you were drinking in the past year? One or two drinks 3. How often did you have six or more drinks on one occasion in the past year? Never Depression Screening - V: Perform PHQ-2 A PHQ-2 screen was performed. The score was 1 which is a negative screen for depression. Over the past two weeks, how often have you been bothered by the following problems? 1. Little interest or pleasure in doing things Several days 2. Feeling down, depressed, or hopeless Not at all Homelessness/Food Insecurity Screen - DI,L,N,P,PH,PS,S,U: In the past 2 months, have you been living in stable housing that you own, rent, or stay in as part of a household? Yes - Living in stable housing. Are you worried or concerned that in the next 2 months you may NOT have stable housing that you own, rent, or stay in as part of a household? No - Not worried about housing near future The Lohn reports the following: Within the past 12 months, you worried whether your food would run out before you got money to buy more. Never true Within the past 12 months, the food you bought just didn't last and you didn't have money to get more. Never true Frail/Elderly Screen: ADL Screen - [place] Index of [place] in Activities of Daily Living Bathing: (3 Points) Receives no assistance (gets in and out of tub by self, if tub is usual means of bathing) Dressing: (3 Points) Gets clothes and gets completely dressed without assistance. Toileting: (3 Points) Goes to toilet room, cleans self, and arranges clothes without assistance (may use object for support such as cane, walker, or wheelchair, and may manage own night bedpan or commode, emptying same next morning) Transferring: (3 Points) Moves in and out of bed and in and out of chair without assistance (may be using object for support, such as cane or walker) Continence: (3 Points) Controls urination and bowel movement completely by self Feeding: (3 Points) Feeds self without assistance Total Score: 18 Points 18 = High (patient independent) 6 = Low (patient very dependent) IADL Screen - [place] Instrumental Activities of Daily Living Scale Ability to use telephone: (0 points) Does not use telephone at all. Shopping: (1 point) Takes care of all shopping needs independently. Food preparation: (1 point) Plans, prepares, and serves adequate meals independently. Housekeeping: (1 point) Performs light daily tasks such as dishwashing, bed making. Laundry: (1 point) Does personal laundry completely. Mode of transportation: (1 point) Travels independently on public transportation or drives own car. Responsibility for own medications: (1 point) Is responsible for taking medications in correct dosages at correct times. Ability to handle finances: (1 point) Manages financial matters independently (budgets, writes checks, pays rent and bills, goes to bank); collects and keeps track of income. Total score: 7 points 8 = High function, independent 0 = Low function, dependent Falls Screen: At least one fall with injury requiring treatment (in ED or clinic visit) within the last 12 months. Pt. reports at least 25 fall. Doesn't use walker Incontinence Screen: No incontinence. Learning Assessment: - * This patient's learning ABILITIES, BARRIERS to learning, CULTURAL and ADVENT beliefs, and learning PREFERENCES were assessed. Following are findings of note: Patient reads well. Patient has the following hearing/auditory barrier(s) to consider when teaching: No hearing barrier identified. Patient has the following speech barrier to consider when teaching: No speech barrier identified. LANGUAGE Patient reports that Serbian is preferred language for healthcare. Patient has the following language barrier to consider when teaching: No language barrier has been identified. Patient has the following vision barrier(s) to consider when teaching: The following barrier has been identified:, Requires glasses/contacts for reading Adjustments made to address the identified barrier include: Assure patient has glasses/contacts for reading. Patient has the following dexterity/mobility barrier(s) to consider when teaching: No dexterity/mobility barrier has been identified. Patient has the following cognitive/memory barrier(s) to consider when teaching: The following barrier(s) has been identified., Has difficulty in remembering instructions/names Adjustments made to address the identified barrier include: Provide handouts with simple pictures or drawings., Repeat instructions as needed., Family/Tiler has been invited to participate. Patient has the following emotional/psychological barrier(s) to consider when teaching: No emotional/psychosocial barrier has been identified. Patient has the following social support deficit(s) to consider when teaching: No social support issues have been identified. Patient reports learning preference is to refer to handouts. Patient reports learning preference is attending one-to-one or group demonstrations. Tobacco Use Screening - AT,DE,L,M,N,P,PH,PS,RT,S,U: The patient has never smoked cigarettes. The patient has never used other types of tobacco. [facility] MAP: PERSONAL HEALTH PLAN INVENTORY & MAP Lohn's Response: SHARED GOALS balance issues /es/ MOLINA GUY LPN LICENSED PRACTICAL NURSE Signed: 09/21/2024 13:04 MOLINA GUY [facility]
--- OUTSIDE RECORDS SUMMARY | 2024-10-02 10:14 | XMS_ITS | Encounter Summary ---
Author Name [facility] Organization [facility] Address [address] [place] [address] Care Team Providers Care Glass Breaker Name Role Phone PRUDENCE MITCHELL Primary Care Provider Unavailabl e IZAIAH MUNOZ Primary Care Provider Unavailabl e ELI BRAXTON Unavailable Unavailable ZACK EHCK Unavailable Unavailable REDD PINTO Unavailable Unavailable SANDRA CARL Unavailable Unavailable IGGY SHEPARD Unavailable Unavailable SUNITA HAN Unavailable Unavailable SCARLETT GILMAN Primary Care Provider Unavailabl e Insurance [...] IC GAS & ELEC Mar 18, 2005 [phone] KNKEENA,JENNIFER HARD PATIENT BC BS [place] BLU[place]ARD MEDICARE SECONDARY (NO B EXC) PACIF IC GAS & ELEC Mar 18, 2005 [id number] [phone] KNAUS,JENNIFER HARD PATIENT [place] BS [place] MEDICARE SECONDARY (NO B EXC) PACIF IC GAS & ELEC Mar 18, 2005 [id number] [phone] KNKEENA,JENNIFER HARD PATIENT [place] BS [place] MEDICARE SECONDARY (NO B EXC) PACIF IC GAS & ELEC Mar 18, 2005 [id number] KNAUS,JENNIFER HARD PATIENT [facility] POINT OF SERVICE PG&E Aug 16, 2018 [id number] [phone] WALLYAUS,JENNIFER HARD PATIENT [facility] PGE Mar 18, 2005 [id number] [phone] KNKEENA,JENNIFER HARD PATIENT [employer] ([id number]) PRESCRIPT ION PACIF IC GAS & ELEC Mar 18, 2005 [id number] [phone] MIKAELA,JENNIFER HARD PATIENT [employer] [place] [id number] PRESCRIPT ION PGE00 00 (9999 ) Mar 18, 2005 [id number] [phone] MIKAELA,JENNIFER HARD PATIENT [employer] PRESCRIPT ION PGE00 00 Mar 18, 2005 [id number] [phone] MIKAELA,JENNIFER HARD PATIENT MEDICARE (WNR) MEDICARE () PART A May 16, 2001 PART A [id number] MIKAELA,JENNIFER HARD PATIENT MEDICARE (WNR) MEDICARE () PART B May 16, 2001 PART B [id number] MIKAELA,JENNIFER HARD PATIENT MEDICARE (WNR) MEDICARE () PART A May 16, 2001 PART A [id number] MIKAELA,JENNIFER HARD PATIENT MEDICARE (WNR) MEDICARE () PART B May 16, 2001 PART B [id number] MIKAELA,JENNIFER HARD PATIENT MEDICARE (WNR) MEDICARE () PART A May 16, 2001 PART A [id number] [phone] [id number] MIKAELA,JENNIFER HARD PATIENT MEDICARE (WNR) MEDICARE () PART B May 16, 2001 PART B [id number] MIKAELA,JENNIFER HARD PATIENT MEDICARE (WNR) MEDICARE () PART A May 16, 2001 PART A [id number] KNAUS,JENNIFER HARD PATIENT MEDICARE (WNR) MEDICARE (M) PART B May 16, 2001 PART B [id number] JENNIFER AL PATIENT Selected Encounter This section includes the information on record at OR for the Encounter. Date/Time Encounter Type Encounter Description Reason Provider Source Mar 19, 2024 03:40 PM Outpatient Encounter COMMUNITY CARE CONSULT SHELDON CASAREZ E Encounter Template Text not used by OR Plan of Treatment: Future Appointments (+ 6 months) and Future Tests (+/- 45 days) The Plan of Treatment section includes future care activities for the patient from all OR treatmentfacilities. This section includes future appointments and future orders which are active, pending or scheduled. Future Appointments This section includes appointments that were scheduled to occur 6 months from the date of the Encounter, up to a maximum of 20 appointments. The data comes from all [place] treatment facilities. Appointment Date/Time Appointment Type Appointme nt Facility Name Mar 23, 2024 04:00 PM [facility] Apr 03, 2024 11:00 AM [facility]ATORY - NONE [facility] Jun 09, 2024 01:30 PM [facility] Jun 22, 2024 11:00 AM [facility] - NONE [facility] Jul 01, 2024 02:30 PM [facility] Lab Results: +/- 30 days of the encounter This section includes the Chemistry and Hematology Lab Results on record with OR for the patient. Radiology Reports and Pathology Reports are provided separately, in subsequent sections. Lab Results This section contains the Chemistry/Hematology Results that were resulted 30 days before or 30 daysafter the date of the Encounter. Date/Time Source Result Type Result - Unit Interpretation Reference Range Specimen Type Comment Apr 03, 2024 10:45 AM [facility] MICROSCOPIC URINALYSIS URINE CLEAN CATCH Specimen Type: URINE CLEAN CATCH No comment entered. Ordering Provider: SCARLETT GILMAN Report Released Date/Time: Mar 13, 2024 11:21 AM Reporting Lab: [place] [facility] [address] [facility] [address] Performing Lab: [facility] [address] [facility] [address] UA WBC NONE PRESENT /[HPF] 0-5 UA BACTERIA NoneObs /[HPF] UA RBC 0-2 /[HPF] 0-2 Apr 03, 2024 10:45 AM [facility] UA W/REFLEX TO CULTURE URINE CLEAN CATCH Specimen Type: URINE CLEAN CATCH No comment entered. Ordering Provider: SCARLETT GILMAN Report Released Date/Time: Mar 13, 2024 11:21 AM Reporting Lab: [address] [address] Performing Lab: [address] [address] UA COLOR STRAW UA SPEC GRAV 1.012 1.005-1.035 UA PH 6.0 [pH] 5-8 UA NITRITE NEG UA UROBILINOGEN <2.0 mg/dL -Normal: <2 m g/dL UA APPEARANCE - -CLEAR UA GLUCOSE NORMAL UA PROTEIN - NEG UA BILI - NEG UA BLOOD 1+ UA KETONES - UA LEUK EST NEG. Mar 13, 2024 09:40 AM [place] [facility] CBC BLOOD S pecimen Type: BLOOD Comment: PLT count verified by slide review. Ordering Provider: SCARLETT GILMAN Report Released Date/Time: Mar 06, 2024 11:18 AM Reporting Lab: [address] [address] Performing Lab: [address] [address] RDW (FV) 16.3 H 11.5-14.5 HCT (FV) 38.6 L 40-52 HGB (FV) 12.8 g/dL L 13-18 PLT (FV) 65 10*3/uL L 150-440 WBC (FV) 5.8 10*3/uL 3.8-10.6 RBC (FV) 4.36 10*6/uL L 4.4-5.9 MCV (FV) 88.5 fL 80-100 MCH (FV) 29.2 pg 26-34 MCHC (FV) 33.0 g/dL 32-36 NE% (FV) 68.6 -SEE ABSOLUTE # NE# (FV) 4.0 10*3/uL 2.4-7.6 LY% (FV) 17.0 -SEE ABSOLUTE # LY# (FV) 1.0 10*3/uL 1.0-4.8 MO% (FV) 11.8 -SEE ABSOLUTE # MO# (FV) 0.7 10*3/uL 0.1-1.0 EO% (FV) 1.9 -SEE ABSOLUTE # EO# (FV) 0.1 10*3/uL 0.0-0.4 BA% (FV) 0.7 -SEE ABSOLUTE # BA# (FV) 0.0 10*3/uL 0.0-0.2 Mar 13, 2024 09:40 AM [place] [facility] LIPID PROFILE PLASMA Specimen Type: PLASMA No comment entered. Ordering Provider: SCARLETT GILMAN Report Released Date/Time: Mar 06, 2024 11:18 AM Reporting Lab: [address] [address] Performing Lab: [place] [phone] CHOLESTEROL, TOTAL (FV) 131 mg/dL 118-20 0 TRIGLYCERIDE (FV) 70 mg/dL <200 LDL CHOLESTEROL (CALCULATED) 75 mg/dL -O ptimal <100 HDL CHOLESTEROL (FV) 42 mg/dL >40 Mar 13, 2024 09:40 AM [place] [facility] RENAL+LIVER PROFILE PLASMA Specimen Ty pe: PLASMA No comment entered. Ordering Provider: SCARLETT GILMAN Report Released Date/Time: Mar 06, 2024 11:18 AM Reporting Lab: [address] [address] Performing Lab: [place] [phone] GLUCOSE (FV) 106 mg/dL 70-110 ALBUMIN (FV) 4.1 g/dL 3.4-5.0 AST (FV) 31 U/L 15-37 TOTAL BILIRUBIN (FV) 1.12 mg/dL 0.3-1.2 CHLORIDE (FV) 102 mmol/L 98-107 TOTAL PROTEIN (FV) 7.6 g/dL 6.1-7.9 SODIUM (FV) 136 mmol/L 136-145 POTASSIUM (FV) 3.6 mmol/L 3.5-5.1 CO2 (FV) 25 mmol/L 21-32 UREA NITROGEN (FV) 29 mg/dL H 6-20 CALCIUM (FV) 9.1 mg/dL 8.9-10.3 ALT (FV) 31 U/L 0-63 ALK. PHOS. (FV) 62 U/L 32-126 CREATININE (FV) 1.02 mg/dL .6-1.3 eGFR (CKD-EPI 2020) 71 L >90 Mar 13, 2024 09:40 AM [facility] TSH (FV) SERUM S pecimen Type: SERUM No comment entered. Ordering Provider: SCARLETT GILMAN Report Released Date/Time: Mar 06, 2024 11:18 AM Reporting Lab: [facility] [address] [facility] [address] Performing Lab: [facility] [address] [facility] [address] TSH (FV) 0.79 u[IU]/mL 0.45-5.33 Mar 13, 2024 09:40 AM [facility] MAGNESIUM PLASMA S pecimen Type: PLASMA No comment entered. Ordering Provider: SCARLETT GILMAN Report Released Date/Time: Mar 06, 2024 11:18 AM Reporting Lab: [facility] [address] [facility] [place] [address] Performing Lab: [facility] [address] [facility] [address] MAGNESIUM (FV) 1.9 mg/dL 1.8-2.4 Mar 13, 2024 09:40 AM [facility] GLYCO HGB A1C BLOOD Specimen Type: B LOOD Comment: Values obtained from A1C measurements can vary. For typical A1C assays, a reported value of 7.0 could actually be between 6.72 and 7.28 if measured by a reference method. A reported value of 9.0 could actually be between 8.73 and 9.27. Ref: https://ngsp.org/CAPdata.asp. Ordering Provider: SCARLETT GILMAN Report Released Date/Time: Mar 06, 2024 11:18 AM Reporting Lab: [facility] [address] [facility] [address] Performing Lab: [facility] [address] [facility] [place] [address] Glyco Hgb A1C 6.0 H 4.2-5.8 Mar 13, 2024 09:40 AM [facility] VITAMIN B12 SERUM Specimen Type: SERUM No comment entered. Ordering Provider: SCARLETT GILMAN Report Released Date/Time: Mar 06, 2024 11:18 AM Reporting Lab: [facility] [address] [facility] [address] Performing Lab: [facility] [address] [facility] [address] VITAMIN B12 (FV) 203 pg/mL 180-914 Mar 13, 2024 09:40 AM [facility] VITAMIN D 25-OH SERUM Specimen Type: SERUM No comment entered. Ordering Provider: SCARLETT GILMAN Report Released Date/Time: Mar 06, 2024 11:18 AM Reporting Lab: [facility] [address] [facility] [address] Performing Lab: [facility] [address] [facility] [address] VITAMIN D 25-OH 19.78 ng/mL L 30-100 Mar 13, 2024 09:40 AM [facility] URINE ALBUMIN, RANDOM URINE URINE Spe cimen Type: URINE Comment: URINE ALBUMIN <0.2 mg/dL, unable to calculate ALB:CREAT RATIO. Ordering Provider: SCARLETT GILMAN Report Released Date/Time: Mar 06, 2024 11:18 AM Reporting Lab: [facility] [address] [facility] [address] Performing Lab: [facility] [address] [facility] [address] URINE ALBUMIN (FV) <0.2 mg/dL <1.8 ALB:CREAT RATIO (FV) comment <29 CREATININE (FV) 68.14 mg/dL Mar 13, 2024 09:40 AM [facility] MICROSCOPIC URINALYSIS URINE CLEAN CATCH Specimen Type: URINE CLEAN CATCH No comment entered. Ordering Provider: SCARLETT GILMAN Report Released Date/Time: Mar 06, 2024 11:18 AM Reporting Lab: [facility] [address] [place] [address] Performing Lab: [facility] [address] [place] [address] UA WBC NONE PRESENT /[HPF] 0-5 UA BACTERIA NoneObs /[HPF] UA RBC 3-6 /[HPF] H 0-2 Mar 13, 2024 09:40 AM [facility] UA W/REFLEX TO CULTURE URINE CLEAN CATCH Specimen Type: URINE CLEAN CATCH No comment entered. Ordering Provider: SCARLETT GILMAN Report Released Date/Time: Mar 06, 2024 11:18 AM Reporting Lab: [facility] [address] [facility] [address] Performing Lab: [facility] [address] [facility] [address] UA COLOR STRAW UA SPEC GRAV 1.011 1.005-1.035 UA PH 5.5 [pH] 5-8 UA NITRITE NEG UA UROBILINOGEN <2.0 mg/dL -Normal: <2 m g/dL UA APPEARANCE - -CLEAR UA GLUCOSE NORMAL UA PROTEIN - NEG UA BILI - NEG UA BLOOD 1+ UA KETONES - UA LEUK EST NEG. Mar 13, 2024 09:40 AM [facility] FOLIC ACID SERUM Specimen Type: SERUM Comment: PLT count verified by slide review. Ordering Provider: SCARLETT GILMAN Report Released Date/Time: Mar 06, 2024 11:18 AM Reporting Lab: [address] [facility] [address] Performing Lab: [address] [facility] [address] FOLATE (FV) 15.1 ng/mL >5.9 Mar 13, 2024 09:40 AM [facility] TIBC SERUM S pecimen Type: SERUM Comment: PLT count verified by slide review. Ordering Provider: SCARLETT GILMAN Report Released Date/Time: Mar 06, 2024 11:18 AM Reporting Lab: [facility] [address] [facility] [address] [address] [facility] [address] Performing Lab: [facility] [address] [facility] [facility] [address] IBCTc (FV) 454 ug/dL H 250-450 IRON (FV) 52 ug/dL 45-182 TRANSFERRIN (FV) 324 mg/dL 180-329 Mar 13, 2024 09:40 AM [facility] FERRITIN (FV) SERUM Specimen Type: SERUM Comment: PLT count verified by slide review. Ordering Provider: SCARLETT GILMAN Report Released Date/Time: Mar 06, 2024 11:18 AM Reporting Lab: [facility] [address] [facility] [facility] [address] Performing Lab: [place] [address] [facility] [facility] [address] FERRITIN (FV) 23.3 ng/mL L 23.9-336.2 Social History: Smoking Status (Most current) and Tobacco Use (All prior to encounter date) This section includes the most current, and the historical, smoking and tobacco- related health factors from the OR facility where the Encounter took place. Current Smoking Status This section includes the most current smoking, or tobacco-related health factor, from the OR facility where the Encounter took place. Date/Time Current Smoking Status Comment Facil ity Mar 09, 2024 03:50 PM VA-TOBACCO USE FORMER CIGARETTES [facility] Tobacco Use History This section includes a history of the smoking, or tobacco-related health factors, that were collected on or before the date of the Encounter. The data comes from the OR facility where the Encounter took place. Date/Time Smoking Status/Tobacco Use Comment F acility Mar 09, 2024 03:50 PM OR-TOBACCO USE FORMER CIGARETTES [facility] Advance Directives: All historical and current Section Date Range: From patient's date of to the date document was created. This section includes ALL of a patient's completed or amended OR Advance and Rescinded Directives. The entries below indicate that a directive exists for the patient, but an actual copy is not included with this document. The data comes from all [facility]. Date Advance Directives Provider Source Mar 25, 2023 ADVANCE DIRECTIVE [facility] Jun 19, 2017 ADVANCE DIRECTIVE DISCUSSION CAYDEN AREVALO [facility] Dec 22, 2016 ADVANCE DIRECTIVE DISCUSSION LEXA ABDUL [facility] Dec 21, 2016 ADVANCE DIRECTIVE DISCUSSION LINDEN LEZAMA [facility] Pathology Reports: +/- 30 days of the encounter Pathology Reports For cases when an order for pathology services may have been completed prior to the date of the Encounter, the report list includes the Pathology Reports that were completed up to 30 days before dateof the Encounter. For cases when an order for pathology services may have been completed after the date of the Encounter, the report list also includes the Pathology Reports that were completed up to30 days after date of the Encounter. The data comes from all OR treatment facilities. Date/Time Pathology Report Provider Source Mar 13, 2024 11:32 AM [facility] MICROBIOLOGY RE PORT: Accession [UID]: [id number] [[id number]] Received: Mar 13, 2024@11:32 Collection sample: URINE CLEAN CATCH Collection date: Mar 13, 2024 11:32 Provider: SCARLETT GILMAN Test(s) ordered: CULTURE, URINE................ completed: Mar 14, 2024 14:36 * BACTERIOLOGY FINAL REPORT => Mar 14, 2024 14:36 TECH CODE: [id number] Bacteriology Remark(s): Final Report: No growth in 1 day. =--=--=--=--=--=--=--=--=--=--=--=- -=--=--=--=--=--=--=--=--=--=--=--= --=--=-- Performing Laboratory: Bacteriology Report Performed By: [facility] [CLIA# [id number]] [address] [place] [address] [facility] Encounter Notes: All associated encounter notes This section contains the clinical notes associated to the Encounter. 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 No Level of Care Coordination Moderate Care Coordination was determined from: Chart Review Facility Community Care Office Contact Care Coordination Point of Contact: FAUSTINO BROWN, RN [phone] Services: Basic Care Coordination Services Monitoring and coordination of Rehab/PT Services Direct communication to referring provider Care management, if appropriate Plan: PROCEED W/ SCHEDULING. SEE CONSULT FOR DETAILS. /prasad/ SHELDON CASAREZ OCC RN Insole Lip Turner Signed: 03/19/2024 15:41 03/19/2024 ADDENDUM STATUS: COMPLETED Appointment Management: Appointment 1 Other: Urology Appointment Location: Community Provider Appointment Date: 06/09/24@1292 Reason for Appointment: Personal History of Malignant Neoplasm of Bladder Provider Name: [facility] UROLOGY [facility] [address], [address] [place] [address] P: [phone] /es/ IAN MCCOY [facility] [employer] ASST Signed: 03/19/2024 16:03 06/16/2024 ADDENDUM STATUS: COMPLETED CASE MANAGEMENT THE INFORMATION BELOW IS A PARTIAL SUMMARY THAT WAS TRANSCRIBED FROM AN ELECTRONIC DOCUMENT AND IS NOT TO BE USED FOR CLINICAL DECISION-MAKING PCP/REVIEWING PROVIDER: PLEASE REVIEW THE COMPLETE SIGNED DOCUMENT THAT WAS SENT TO HIMS FOR SCANNING. 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 Patient placed in supine position. Perigenital area draped in usual fashion. Lidocaine gel was injected into the urethra. After 5 minutes the cystoscope was lubricated and gently inserted into the urethra and advanced into the bladder. The urethra appeared normal. There may have been some mild BPH. There was some mild generalized trabeculation. Also some mild irritation at the base of the bladder. There was no bleeding or any masses or lesions. The cystoscope was then removed from the bladder and urethra intact. Patient tolerated procedure well. Macrobid x 1 given for prophylaxis. Patient reported that he is moving to [place] so he will get his follow-up care up there. I told him if he ends up not moving to call and schedule your follow- up appointment patient stated understanding. /prasad/ Roopa Edmond RN, BSN OCC RN Insole Lip Turner Signed: 06/16/2024 21:23 SHELDON CASAREZ [facility]
--- OUTSIDE RECORDS SUMMARY | 2024-10-02 10:14 | XMS_ITS | Encounter Summary ---
Author Name [facility] [facility] [place] [facility] [place] [facility] [place] Address [address] [place] [address] Care Team Providers Care Director Of Women'S Services Name Role Phone PRUDENCE MITCHELL Primary Care [...] IC GAS & ELEC Mar 18, 2005 [id number] KNKEENA,JENNIFER HARD PATIENT BC BS AR BLUECARD MEDICARE SECONDARY (NO B EXC) PACIF IC GAS & ELEC Mar 18, 2005 [id number] KNAUS,JENNIFER HARD PATIENT BC BS [place] BLUECARD MEDICARE SECONDARY (NO B EXC) PACIF IC GAS & ELEC Mar 18, 2005 [id number] KNKEENA,JENNIFER HARD PATIENT BC BS [place] BLUECARD MEDICARE SECONDARY (NO B EXC) PACIF IC GAS & ELEC Mar 18, 2005 [id number] [phone] KNAUS,JENNIFER HARD PATIENT [facility] POINT OF SERVICE PG&E Aug 16, 2018 [id number] WALLYAUS,JENNIFER HARD PATIENT [facility] PGE Mar 18, 2005 [id number] [phone] KNKEENA,JENNIFER HARD PATIENT [employer] ([id number]) PRESCRIPT ION PACIF IC GAS & ELEC Mar 18, 2005 [id number] MIKAELA,JENNIFER HARD PATIENT [employer] [facility] RX [id number] PRESCRIPT ION PGE00 00 (9999 ) Mar 18, 2005 [id number] [phone] MIKAELA,JENNIFER HARD PATIENT [facility] PRESCRIPT ION PGE00 00 Mar 18, 2005 [id number] [phone] MIKAELA,JENNIFER HARD PATIENT MEDICARE (WNR) MEDICARE () PART A May 16, 2001 PART A [id number] [phone] MIKAELA,JENNIFER HARD PATIENT MEDICARE (WNR) MEDICARE () PART B May 16, 2001 PART B [id number] [phone] MIKAELA,JENNIFER HARD PATIENT MEDICARE (WNR) MEDICARE () PART B May 16, 2001 PART B [id number] MIKAELA,JENNIFER HARD PATIENT MEDICARE (WNR) MEDICARE () PART A May 16, 2001 PART A [id number] MIKAELA,JENNIFER HARD PATIENT MEDICARE (WNR) MEDICARE () PART A May 16, 2001 PART A [id number] [id number] [phone] MIKAELA,JENNIFER HARD PATIENT MEDICARE (WNR) MEDICARE () PART B May 16, 2001 PART B [id number] [id number] [phone] MIKAELA,JENNIFER HARD PATIENT MEDICARE (WNR) MEDICARE () PART A May 16, 2001 PART A [id number] KNAUS,JENNIFER HARD PATIENT MEDICARE (WNR) MEDICARE (M) PART B May 16, 2001 PART B [id number] JENNIFER AL PATIENT Selected Encounter This section includes the information on record at [place] for the Encounter. Date/Time Encounter Type Encounter Description Reason Provider Source Sep 08, 2024 02:38 PM TARGETED CASE MANAGEMENT ADMIN PAT ACTIVTIES (MASNONCT) ICD-10-CM Y93.E6 Activity, residential relocation CAYDEN MAE Yan[place] Encounter Template Text not used by [place] Assessments - Encounter Diagnoses This section includes the primary and secondary diagnoses documented for the Encounter. Date/Time Primary/Secondary Diagnosis Diagnosis Name Provider Source Sep 08, 2024 02:38 PM PRIMARY Activity, residential relocation ACYDEN MAE [facility] Plan of Treatment: Future Appointments (+ 6 months) and Future Tests (+/- 45 days) The Plan of Treatment section includes future care activities for the patient from all [place] treatmentfacilities. This section includes future appointments and future orders which are active, pending or scheduled. Future Appointments This section includes appointments that were scheduled to occur 6 months from the date of the Encounter, up to a maximum of 20 appointments. The data comes from all [place] treatment facilities. Appointment Date/Time Appointment Type Appointme nt Facility Name Sep 21, 2024 01:00 PM AMBULATORY - MEDICINE [facility] Sep 23, 2024 01:00 PM AMBULATORY - NONE [facility] Sep 24, 2024 02:00 PM AMBULATORY [...] of theEncounter. The data comes from all [facility]. Test Date/Time Test Type Test Details Facility Name Sep 21, 2024 12:00 AM Laboratory - Chemi stry Order URINALYSIS (STL-PB) URINE SP [facility] Sep 21, 2024 12:00 AM Laboratory - Chemi stry Order MICRAL/CREAT PROFILE (STL) URINE YELLOW SP [facility] Sep 23, 2024 12:00 AM Laboratory - Chemi stry Order CBC BLOOD SP [facility] Sep 23, 2024 12:00 AM Laboratory - Chemi stry Order TIBC BLOOD SERUM [facility] Lab Results: +/- 30 days of the encounter This section includes the Chemistry and Hematology Lab Results [facility] with [facility] for [facility]. Radiology Reports and Pathology Reports are provided separately, in subsequent sections. Lab Results This section contains the Chemistry/Hematology Results that were resulted 30 days before or 30 daysafter the date of the Encounter. Date/Time Source Result Type Result - Unit Interpretation Reference Range Specimen Type Comment Sep 21, 2024 02:29 PM [facility] VITAMIN D, 25-HYDROXY SERUM Specimen Type: SERUM No comment entered. Ordering Provider: PRUDENCE MITCHELL Report Released Date/Time: Sep 21, 2024 01:33 PM Reporting Lab: [facility] [address] [facility] [id number] Performing Lab: [facility] [phone] VITAMIN D, 25-HYDROXY 30.0 ng/mL 30-96 Sep 21, 2024 02:29 PM [facility] B12 SERUM Specimen Type: SERUM No comment entered. Ordering Provider: PRUDENCE MITCHELL Report Released Date/Time: Sep 21, 2024 01:33 PM Reporting Lab: [facility] [phone] Performing Lab: [facility] [address] B12 255 pg/mL 213-816 Sep 21, 2024 02:29 PM [facility] FOLATE (STL-MA) SERUM Specimen Type: SERUM No comment entered. Ordering Provider: PRUDENCE MITCHELL Report Released Date/Time: Sep 21, 2024 01:33 PM Reporting Lab: [facility] [address] [facility] [id number] Performing Lab: [facility] [facility] [phone] FOLATE (STL-MA) 9.1 ng/mL 7-20 Sep 21, 2024 02:29 PM [facility] IRON/TIBC PROFILE SERUM Specimen Type: SERUM No comment entered. Ordering Provider: PRUDENCE MITCHELL Report Released Date/Time: Sep 21, 2024 01:33 PM Reporting Lab: [address] [address] Performing Lab: [facility] [address] [place] [phone] TIBC 449 ug/dL 250-450 TRANSFERRIN 359 mg/dL H 163-344 IRON SATURATION 12 L 20-50 IRON 52 ug/dL L 65-175 Sep 21, 2024 02:29 PM [facility] FERRITIN SERUM Specimen Type: SERUM No comment entered. Ordering Provider: PRUDENCE MITCHELL Report Released Date/Time: Sep 21, 2024 01:33 PM Reporting Lab: [address] [phone] Performing Lab: [address] [address] FERRITIN 38.68 ng/mL 22-275 Sep 21, 2024 02:29 PM [facility] COMPREHENSIVE METABOLIC PANEL PLASMA Specimen Type: PLASMA Comment: No hemolysis noted. Ordering Provider: PRUDENCE MITCHELL Report Released Date/Time: Sep 21, 2024 01:33 PM Reporting Lab: [facility] [address] Performing Lab: [facility] [facility] [address] CREATININE 1.04 mg/dL 0.70-1.30 UREA NITROGEN 20.2 [...] 69.06 >60 Sep 21, 2024 02:29 PM [facility] LIPID PANEL (STL) PLASMA Specimen Type: PLASM A Comment: No hemolysis noted. Ordering Provider: PRUDENCE MITCHELL Report Released Date/Time: Sep 21, 2024 01:33 PM Reporting Lab: [facility] [address] [place] [address] Performing Lab: [facility] [address] [place] [address] CHOLESTEROL 127 mg/dL 0-200 TRIGLYCERIDE 108 mg/dL 0-150 CALCULATED LDL 64 mg/dL See Interp HDL(New) 41 mg/dL > 40 Sep 21, 2024 02:29 PM [facility] CBC BLOOD Specimen Type: BLOOD No comment entered. Ordering Provider: PRUDENCE MITCHELL Report Released Date/Time: Sep 21, 2024 01:33 PM Reporting Lab: [facility] [address] [place] [address] Performing Lab: [facility] [address] [place] [address] WBC 6.9 10*3/uL 3.6-11.2 RBC 3.75 10*6/uL [...] Type: BLOOD No comment entered. Ordering Provider: PRUDENCE MITCHELL Report Released Date/Time: Sep 21, 2024 01:33 PM Reporting Lab: [facility] [address] [place] [address] Performing Lab: [facility] [address] [place] [address] HGA1C 5.8 4.0-6.0 Sep 21, 2024 02:29 PM [facility] FREE T4 (STL) PLASMA Specimen Type: PLASM A No comment entered. Ordering Provider: PRUDENCE MITCHELL Report Released Date/Time: Sep 21, 2024 01:33 PM Reporting Lab: [facility] [address] [place] [address] Performing Lab: [facility] [address] [place] [address] FREE T4 (STL) 1.00 ng/mL 0.70-1.48 Sep 21, 2024 02:29 PM [facility] TSH W/ REFLEX FT4 (STL) PLASMA Specimen Type: PLASMA No comment entered. Ordering Provider: PRUDENCE MITCHELL Report Released Date/Time: Sep 21, 2024 01:33 PM Reporting Lab: [facility] [address] [place] [address] Performing Lab: [facility] [address] [place] [address] TSH 2.694 u[IU]/mL 0.470-5.000 Sep 21, 2024 02:29 PM [facility] HEP C Ab HCV Ab (STL) SERUM Specimen Type: SE RUM No comment entered. Ordering Provider: PRUDENCE MITCHELL Report Released Date/Time: Sep 21, 2024 01:33 PM Reporting Lab: [facility] [address] [facility] [address] Performing Lab: [facility] [address] [facility] [address] HEP C Ab HCV Ab (STL) Nonreactive Nonrea ctive Sep 21, 2024 02:29 PM [facility] HEP B CORE IgM AB. ([id number]) SERUM Spe cimen Type: SERUM No comment entered. Ordering Provider: PRUDENCE MITCHELL Report Released Date/Time: Sep 21, 2024 01:33 PM Reporting Lab: [facility] [address] [facility] [address] Performing Lab: [place] [address] [facility] [address] HEP B CORE IgM AB. ([id number]) Nonreactive Nonreactive Social History: Smoking Status (Most current) and Tobacco Use (All prior to encounter date) This section includes the most current, and the historical, smoking and tobacco- related health factors from the [place] facility where the Encounter took place. Current Smoking Status This section includes the most current smoking, or tobacco-related health factor, from the [place] facility where the Encounter took place. Date/Time Current Smoking Status Comment Facil ity Mar 09, 2024 03:50 PM [facility]-TOBACCO USE FORMER CIGARETTES [facility] Tobacco Use History This section includes a history of the smoking, or tobacco-related health factors, that were collected on or before the date of the Encounter. The data comes from the [place] facility where the Encounter took place. Date/Time Smoking Status/Tobacco Use Comment F acility Mar 09, 2024 03:50 PM [place]-TOBACCO USE FORMER CIGARETTES [facility] Advance Directives: All historical and current Section Date Range: From patient's date of to the date document was created. This section includes ALL of a patient's completed or amended [place] Advance and Rescinded Directives. The entries below indicate that a directive exists for the patient, but an actual copy is not included with this document. The data comes from all [place] facilities. Date Advance Directives Provider Source Mar 25, 2023 ADVANCE DIRECTIVE MORIAH HILL [facility] Jun 19, 2017 ADVANCE DIRECTIVE DISCUSSION CAYDEN AREVALO [facility] Dec 22, 2016 ADVANCE DIRECTIVE DISCUSSION FRANKOPABLORadha Baldwin [facility] Dec 21, 2016 ADVANCE DIRECTIVE DISCUSSION LINDEN LEZAMA [facility] Encounter Notes: All associated encounter notes This section contains the clinical notes associated to the Encounter. Date/Time Encounter Note(s) Provider Source Sep 08, 2024 02:38 PM NURSING NOTE: LOCAL TITLE: TRAVELING PCMM NOTE STANDARD TITLE: NURSING NOTE DATE OF NOTE: SEP 08, 2024@14:38 ENTRY DATE: SEP 08, 2024@14:38:44 AUTHOR: CAYDEN MAE EXP COSIGNER: URGENCY: STATUS: COMPLETED PCMM received and approved for permanent relocation of care to:New patient appt is to establish care at [facility] on: 09/21/2024 13:00 DULCE-PACT E8 NEW PATIENT /es/ CAYDEN MAE [employer] INPATIENT CASE MANAGEMENT Signed: 09/08/2024 14:40 CAYDEN MAE [facility]
--- OUTSIDE RECORDS SUMMARY | 2024-10-02 10:15 | XMS_ITS | Encounter Summary ---
Author Name [facility] Organization [facility] Address [address] [place] [address] Care Team Providers Care Office Copy Selector Name Role Phone PRUDENCE MITCHELL Primary Care [...] IC GAS & ELEC Mar 18, 2005 [id number] MIKAELA,JENNIFER HARD PATIENT BC BS AR BLUECARD MEDICARE SECONDARY (NO B EXC) PACIF IC GAS & ELEC Mar 18, 2005 [id number] WALLYAUS,JENNIFER HARD PATIENT BC BS MO BLUECARD MEDICARE SECONDARY (NO B EXC) PACIF IC GAS & ELEC Mar 18, 2005 [id number] KNKEENA,JENNIFER HARD PATIENT BC BS MO BLUECARD MEDICARE SECONDARY (NO B EXC) PACIF IC GAS & ELEC Mar 18, 2005 [id number] [phone] KNAUS,JENNIFER HARD PATIENT [facility] POINT OF SERVICE PG&E Aug 16, 2018 [id number] [phone] WALLYAUS,JENNIFER HARD PATIENT [facility] PGE Mar 18, 2005 [id number] [phone] KNKEENA,JENNIFER HARD PATIENT [employer] ([id number]) PRESCRIPT ION PACIF IC GAS & ELEC Mar 18, 2005 [id number] MIKAELA,JENNIFER HARD [place]IENT [place] [id number] PRESCRIPT ION PGE00 00 (9999 ) Mar 18, 2005 [id number] [phone] MIKAELA,JENNIFER HARD PATIENT [facility] PRESCRIPT ION PGE00 00 Mar 18, 2005 [id number] [phone] MIKAELA,JENNIFER HARD PATIENT MEDICARE (WNR) MEDICARE () PART A May 16, 2001 PART A [id number] MIKAELA,JENNIFER HARD PATIENT MEDICARE (WNR) MEDICARE () PART B May 16, 2001 PART B [id number] MIKAELA,JENNIFER HARD PATIENT MEDICARE (WNR) MEDICARE () PART A May 16, 2001 PART A [id number] MIKAELA,JENNIFER HARD PATIENT MEDICARE (WNR) MEDICARE () PART B May 16, 2001 PART B [id number] MIKAELA,JENNIFER HARD PATIENT MEDICARE (WNR) MEDICARE () PART A May 16, 2001 PART A [id number] MIKAELA,JENNIFER HARD PATIENT MEDICARE (WNR) MEDICARE () PART B May 16, 2001 PART B [id number] [phone] MIKAELA,JENNIFER HARD PATIENT MEDICARE (WNR) MEDICARE () PART A May 16, 2001 PART A [id number] [phone] KNAUS,JENNIFER HARD PATIENT MEDICARE (WNR) MEDICARE (M) PART B May 16, 2001 PART B [id number] JENNIFER AL PATIENT Selected Encounter This section includes the information on record at MD for the Encounter. Date/Time Encounter Type Encounter Description Reason Provider Source Mar 13, 2024 11:00 AM OFFICE O/P EST MOD 30 MIN PRIMARY CARE/MEDICINE ICD-10-CM Z00.01 Encounter for general adult medical exam w abnormal findings SCARLETT GILMAN Yanira Encounter Template Text not used by MD Assessments - Encounter Diagnoses This section includes the primary and secondary diagnoses documented for the Encounter. 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 SCARLETT GILMAN [facility] Mar 24, 2024 11:25 AM SECONDARY Essential (primary) hypertension SCARLETT GILMAN [facility] Mar 24, 2024 11:25 AM SECONDARY Hyperglycemia, unspecified SCARLETT GILMNA [facility] Mar 24, 2024 11:25 AM SECONDARY Obesity, class 1 SCARLETT GILMAN [facility] Mar 24, 2024 11:25 AM SECONDARY Other disturbances of skin sensation SCARLETT GILMAN [facility] Mar 24, 2024 11:25 AM SECONDARY Pain in unspecified joint SCARLETT GILMAN [facility] Mar 24, 2024 11:25 AM SECONDARY Personal history of malignant neoplasm of bladder SCARLETT GILMAN [facility] Mar 24, 2024 11:25 AM SECONDARY Personal history of other diseases of urinary system SCARLETT GILMAN [facility] Mar 24, 2024 11:25 AM SECONDARY Polyosteoarthritis , unspecified SCARLETT GILMAN [facility] Mar 24, 2024 11:25 AM SECONDARY Presence of cardiac pacemaker SCARLETT GILMAN [facility] Mar 24, 2024 11:25 AM SECONDARY Unspecified atrial fibrillation SCARLETT GILMAN [facility] Mar 24, 2024 11:25 AM SECONDARY Unspecified hearing loss, unspecified ear SCARLETT GILMAN [facility] Plan of Treatment: Future Appointments (+ 6 months) and Future Tests (+/- 45 days) The Plan of Treatment section includes future care activities for the patient from all MD treatmentfacilities. This section includes future appointments and future orders which are active, pending or scheduled. Future Appointments This section includes appointments that were scheduled to occur 6 months from the date of the Encounter, up to a maximum of 20 appointments. The data comes from all MD treatment facilities. Appointment Date/Time Appointment Type Appointme nt Facility Name Mar 19, 2024 02:30 PM [facility] Mar 23, 2024 04:00 PM [facility] Apr 03, 2024 11:00 AM AMBULATORY - NONE [facility] Jun 09, 2024 01:30 PM AMBULATORY - NONE [facility] Jun 22, 2024 11:00 AM AM[facility]ATORY - NONE [facility] Jul 01, 2024 02:30 PM [facility] Lab Results: +/- 30 days of the encounter This section includes the Chemistry and Hematology Lab Results on record with MD for the patient. Radiology Reports and Pathology Reports are provided separately, in subsequent sections. Lab Results This section contains the Chemistry/Hematology Results that were resulted 30 days before or 30 daysafter the date of the Encounter. Date/Time Source Result Type Result - Unit Interpretation Reference Range Specimen Type Comment Apr 03, 2024 10:45 AM [facility] MICROSCOPIC URINALYSIS URINE CLEAN CATCH Specimen Type: URINE CLEAN CATCH No comment entered. Ordering Provider: SCARLETT GILMAN Report Released Date/Time: Mar 13, 2024 11:21 AM Reporting Lab: [facility] [address] [facility] [address] Performing Lab: [facility] [address] [facility] [address] UA WBC NONE PRESENT /[HPF] 0-5 UA BACTERIA NoneObs /[HPF] UA RBC 0-2 /[HPF] 0-2 Apr 03, 2024 10:45 AM [facility] UA W/REFLEX TO CULTURE URINE CLEAN CATCH Specimen Type: URINE CLEAN CATCH No comment entered. Ordering Provider: SCARLETT GILMAN Report Released Date/Time: Mar 13, 2024 11:21 AM Reporting Lab: [address] [address] Performing Lab: [address] [address] UA COLOR STRAW UA SPEC GRAV 1.012 1.005-1.035 UA PH 6.0 [pH] 5-8 UA NITRITE NEG UA UROBILINOGEN <2.0 mg/dL -Normal: <2 m g/dL UA APPEARANCE - -CLEAR UA GLUCOSE NORMAL UA PROTEIN - NEG UA BILI - NEG UA BLOOD 1+ UA KETONES - UA LEUK EST NEG. Mar 13, 2024 09:[address] [facility] CBC BLOOD S pecimen Type: BLOOD Comment: PLT count verified by slide review. Ordering Provider: SCARLETT GILMAN Report Released Date/Time: Mar 06, 2024 11:18 AM Reporting Lab: [address] [address] Performing Lab: [place] [id number] RDW (FV) 16.3 H 11.5-14.5 HCT (FV) [...] 0.0-0.2 Mar 13, 2024 09:40 AM [facility] RENAL+LIVER PROFILE PLASMA Specimen Ty pe: PLASMA No comment entered. Ordering Provider: SCARLETT GILMAN Report Released Date/Time: Mar 06, 2024 11:18 AM Reporting Lab: [address] [address] Performing Lab: [address] [address] GLUCOSE (FV) 106 mg/dL 70-110 ALBUMIN (FV) [...] L >90 Mar 13, 2024 09:[address] [facility] LIPID PROFILE PLASMA Specimen Type: PLASMA No comment entered. Ordering Provider: SCARLETT GILMAN Report Released Date/Time: Mar 06, 2024 11:18 AM Reporting Lab: [address] [address] Performing Lab: [address] [address] CHOLESTEROL, TOTAL (FV) 131 mg/dL 118-20 0 TRIGLYCERIDE (FV) 70 mg/dL <200 LDL CHOLESTEROL (CALCULATED) 75 mg/dL -O ptimal <100 HDL CHOLESTEROL (FV) 42 mg/dL >40 Mar 13, 2024 09:[address] [facility] TSH (FV) SERUM S pecimen Type: SERUM No comment entered. Ordering Provider: SCARLETT GILMAN Report Released Date/Time: Mar 06, 2024 11:18 AM Reporting Lab: [facility] [address] [facility] [address] Performing Lab: [facility] [address] [facility] [address] TSH (FV) 0.79 u[IU]/mL 0.45-5.33 Mar 13, [...] 11:18 AM Reporting Lab: [facility] [address] [place] [address] Performing Lab: [facility] [address] [place] [address] Glyco Hgb A1C 6.0 H 4.2-5.8 Mar 13, 2024 09:40 AM [facility] VITAMIN B12 SERUM Specimen Type: SERUM No comment entered. Ordering Provider: SCARLETT GILMAN Report Released Date/Time: Mar 06, 2024 11:18 AM Reporting Lab: [place] C [facility] [address] [facility] [address] Performing Lab: [facility] [address] [facility] [address] VITAMIN B12 (FV) 203 pg/mL 180-914 Mar 13, 2024 09:40 AM [facility] MAGNESIUM PLASMA S pecimen Type: PLASMA No comment entered. Ordering Provider: SCARLETT GILMAN Report Released Date/Time: Mar 06, 2024 11:18 AM Reporting Lab: [facility] [address] [place] [address] Performing Lab: [facility] [address] [place] [address] MAGNESIUM (FV) 1.9 mg/dL 1.8-2.4 Mar 13, 2024 09:40 AM [facility] VITAMIN D 25-OH SERUM Specimen Type: SERUM No comment entered. Ordering Provider: SCARLETT GILMAN Report Released Date/Time: Mar 06, 2024 11:18 AM Reporting Lab: [facility] [address] [facility] [address] Performing Lab: [facility] [address] [facility] [address] VITAMIN D 25-OH 19.78 ng/mL L 30-100 Mar 13, 2024 09:40 AM [facility] URINE ALBUMIN, RANDOM URINE URINE Spe cimen Type: URINE Comment: URINE ALBUMIN <0.2 mg/dL, unable to calculate ALB:CREAT RATIO. Ordering Provider: SCARLETT GILMAN Report Released Date/Time: Mar 06, 2024 11:18 AM Reporting Lab: [facility] [address] [facility] [address] Performing Lab: [facility] [address] [facility] [address] URINE ALBUMIN (FV) <0.2 mg/dL <1.8 ALB:CREAT RATIO (FV) comment <29 CREATININE (FV) 68.14 mg/dL Mar 13, 2024 09:40 AM [facility] UA W/REFLEX TO CULTURE URINE CLEAN CATCH Specimen Type: URINE CLEAN CATCH No comment entered. Ordering Provider: SCARLETT GILMAN Report Released Date/Time: Mar 06, 2024 11:18 AM Reporting Lab: [facility] [address] [facility] [address] Performing Lab: [facility] [address] [facility] [address] UA COLOR STRAW UA SPEC GRAV 1.011 [...] 11:18 AM Reporting Lab: [facility] [address] [facility] [address] Performing Lab: [facility] [address] [facility] [address] UA WBC NONE PRESENT /[HPF] 0-5 UA BACTERIA NoneObs /[HPF] UA RBC 3-6 /[HPF] H 0-2 Mar 13, 2024 09:40 AM [facility] FOLIC ACID SERUM Specimen Type: SERUM Comment: PLT count verified by slide review. Ordering Provider: SCARLETT GILMAN Report Released Date/Time: Mar 06, 2024 11:18 AM Reporting Lab: [facility] [address] [facility] [address] Performing Lab: [facility] [address] [facility] [address] FOLATE (FV) 15.1 ng/mL >5.9 Mar 13, 2024 09:40 AM [facility] FERRITIN (FV) SERUM Specimen Type: SERUM Comment: PLT count verified by slide review. Ordering Provider: SCARLETT GILMAN Report Released Date/Time: Mar 06, 2024 11:18 AM Reporting Lab: [facility] [address] [facility] [address] Performing Lab: [facility] [address] [facility] [address] FERRITIN (FV) 23.3 ng/mL L 23.9-336.2 Mar 13, 2024 09:40 AM [facility] TIBC SERUM S pecimen Type: SERUM Comment: PLT count verified by slide review. Ordering Provider: SCARLETT GILMAN Report Released Date/Time: Mar 06, 2024 11:18 AM Reporting Lab: [facility] [address] [facility] [address] Performing Lab: [facility] [address] [facility] [facility] [address] IBCTc (FV) 454 ug/dL H 250-450 IRON (FV) 52 ug/dL 45-182 TRANSFERRIN (FV) 324 mg/dL 180-329 Vital Signs: All taken on the encounter date This section contains inpatient and outpatient Vital Signs collected on the date of the Encounter. Date/Time Temperature Pulse Blood Pressure Respiratory Rate SP02 Pain Height Weight Body Mass Index Source Mar 13, 2024 10:20 AM 0 [facility] Mar 13, 2024 10:18 AM 96.9 109 129/65 18 96 0 68.5 210.4 32 [facility] Social History: Smoking Status (Most current) and Tobacco Use (All prior to encounter date) This section includes the most current, and the historical, smoking and tobacco- related health factors from the MD facility where the Encounter took place. Current Smoking Status This section includes the most current smoking, or tobacco-related health factor, from the MD facility where the Encounter took place. Date/Time Current Smoking Status Comment Facil ity Mar 14, 2023 11:00 AM [facility] Tobacco Use History This section includes a history of the smoking, or tobacco-related health factors, that were collected on or before the date of the Encounter. The data comes from the MD facility where the Encounter took place. Date/Time [...] ALL of a patient's completed or amended MD Advance and Rescinded Directives. The entries below indicate that a directive exists for the patient, but an actual copy is not included with this document. The data comes from all MD facilities. Date Advance Directives Provider Source Mar 25, 2023 ADVANCE DIRECTIVE MORIAH HILL [facility] Jun 19, 2017 ADVANCE DIRECTIVE DISCUSSION CAYDEN AREVALO [facility] Dec 22, 2016 ADVANCE DIRECTIVE DISCUSSION ABDULPABLORadha [facility] Dec 21, 2016 ADVANCE DIRECTIVE DISCUSSION [facility] Pathology Reports: +/- 30 days of the [...] the Encounter. The data comes from all MD treatment facilities. Date/Time Pathology Report Provider Source Mar 13, 2024 11:32 AM LR MICROBIOLOGY RE PORT: Accession [UID]: [id number] [[id number]] Received: Mar 13, 2024@11:32 Collection sample: URINE CLEAN CATCH Collection date: Mar 13, 2024 11:32 Provider: SCARLETT GILMAN Test(s) ordered: CULTURE, URINE................ completed: Mar 14, 2024 14:36 * BACTERIOLOGY FINAL REPORT => Mar 14, 2024 14:36 TECH CODE: [id number] Bacteriology Remark(s): Final Report: No growth in 1 day. =--=--=--=--=--=--=--=--=--=--=--=- -=--=--=--=--=--=--=--=--=--=--=--= --=--=-- Performing Laboratory: Bacteriology Report Performed By: [facility] [CLIA# [id number]] [address] [place] [address] ALEJANDRO TIM [facility] Encounter Notes: All associated encounter notes This section contains the clinical notes associated to the Encounter. Date/Time Encounter Note(s) Provider Source Mar 14, 2024 12:04 AM ADDENDUM: LOCAL TITLE: Addendum STANDARD TITLE: ADDENDUM DATE OF NOTE: MAR 14, 2024@00:04:44 ENTRY DATE: MAR 14, 2024@00:04:45 AUTHOR: SCARLETT GILMAN EXP COSIGNER: URGENCY: STATUS: COMPLETED Advise patient or set up televisit abnormal labs including low vitamin D will order supplement or can get OTC should be okay recheck 3 months /prasad/ SCARLETT GILMAN PRIMARY CARE PHYSICIAN - [place] Signed: 03/14/2024 00:05 Receipt Acknowledged By: 03/19/2024 13:20 /es/ SHAWN MORTON RN NURSING SERVICE-REGISTERED NURSE ======== --- Original Document --- 03/13/24 PRIMARY CARE/PROVIDER: ALLERGIES: Patient has answered NKA Current meds taking, (per hx): attempted reconcile /other note HPI: CRYSTAL AL, 88 year old, MALE presents as noted: Here in recheck/ general physical today Stated overall ok some past/ problems noted, still follows community, [facility] specialty(s) Appetite is ok. no known new bowel changes, old bladder changes (follows community urology) old heart problems/ sound stable no known new breathing problems. 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 HEENT: Oropharynx appear clear, + false teeth, has, not wearing glasses, eom intact, eardrum appear intact, has hearing aids nose appearok NECK: Supple, no bruits appreciated, nodes feel wnl, No abnormal jvd noted, thyroid feels wnl HEART: distant sounds , no obvious m has pacer LUNGS: fair-good effort sounds ok ABDOMEN: Active bowel sounds, soft, no bruit heard. NO organomegaly felt. Non tender overweight/obese EXT: No cyanosis, clubbing, or edema noted. arterial vascular appear ok, pt defer foot check gross visual inspection / has all extremities, able to move all extremities, appear functional SKIN: warm,dry, multiple lesions, places, no suspicious lesions noted : RECTAL: stated will see his community urlogist defer colonscreening this visit (age 88) ASSESSMENT: physical above brief problem list, some old, not all addressed, plans: - Carotid atherosclerosis ok monitor f/u specialty prn - Hyperglycemia, a1c 6, lab reviewed, continue moniotr - Hemoglobin below reference range pending othe lab continue moniotr - djd involving multiple joints stable ok moniotr - Arthralgia stable ok moniotr h/o fall + Degenerative changes, + old fracture - History of hematuria lab reviewed ok rechk 2 weeks rec f/u his urology microscopic - Renal fct tests outside reference range, lab reviewed ok 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 specialty - H/O: cardiac pacemaker stable f/u specialty prn - History of back pain not mendtioned today ok monitor tx [facility] - History of malignant neoplasm of bladder has f[facility] - Disorder of nail stable ok monitor - Neuropathy stable today ok monitor - Varicose veins stable ok monitor - Coronary Artery Disease stable ok monitor f/u his specialty prn - Obesity class I encourage weight loss, diet, exercise as can - Disorder of prostate recommend follow-up with his specialty prn - History of surgery no new surgeries mentioned s/p cabg, stents, bladder CA/scopes, old shoulder surgery hx pacemaker cystoscope [facility] 2021 cystoscope 05/2022 [facility] group - H/O: atrial fibrillation stable today okay monitor 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 PLAN: see todays main concern per note /and above med list noted - abn/labs discussed those back today, as of visit, copy to pt if wanted see above RTC in 12 M with Renal, Liver, Lipid, CBC, a1c, urine, return sooner prn discussed studies/consults med trial Pt to call sooner if problems. 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 pt verbalized understanding of plan. Frail Elderly Fall Eval (Prov): Fall Evaluation (Provider): A fall history has been completed and patient has experienced more than two (2) falls OR at least one (1) fall requiring medical attention in the preceeding twelve (12) months. Possible Contributing Factors: Chronic Conditions: see problem list Medication(s): see med list Recommendations/Plan of Care/Actions: None Other (Specify): Comment :indicated will f/u other specialty(s) /prasad/ SCARLETT GILMAN PRIMARY CARE PHYSICIAN - [place] Signed: 03/13/2024 12:58 [facility] Mar 13, 2024 12:58 PM MEDICATION MGT NOT E: LOCAL TITLE: MEDICATION RECONCILIATION (PROVIDER) STANDARD TITLE: MEDICATION MGT NOTE DATE OF NOTE: MAR 13, 2024@12:58 ENTRY DATE: MAR 13, 2024@12:58:31 AUTHOR: SCARLETT GILMAN EXP COSIGNER: URGENCY: STATUS: COMPLETED Medication Reconciliation COMPLETED (Outpatient): The following medications reviewed with patient/caregiver. Specify: noted below Patient will be referred to prescribing provider to discuss management of medication(s). Specify med(s) and reason: some per other clinicians, outside sources Remote and Local Allergies: FACILITY ALLERGY/ADR -------- [facility] No Known Allergies [facility] Active Inpatient, Outpatient and Clinic Medications (including Supplies): Active Outpatient Medications Status ======== - ACETAMINOPHEN 500MG TAB TAKE TWO TABLETS BY MOUTH THREE HOLD TIMES DAILY NEEDED Indication: FOR PAIN Active Non-VA Medications Status ======== - Non-VA AMITRIPTYLINE HCL 25MG TAB 25MG MOUTH AT BEDTIME ACTIVE - Non-VA APIXABAN 5MG TAB 5MG MOUTH TWICE A DAY ACTIVE - Non-VA CLOPIDOGREL BISULFATE 75MG TAB 75MG MOUTH ONCE DAILY ACTIVE - Non-VA EPLERENONE TAB 25MG/INSPRA MOUTH ONCE DAILY ACTIVE - Non-VA LEVOTHYROXINE NA (SYNTHROID) 75MCG TAB 75MCG MOUTH ACTIVE ONCE DAILY - Non-VA LISINOPRIL 10MG TAB 10MG MOUTH EVERY MORNING ACTIVE - Non-VA PREGABALIN 75MG ORAL CAP 150MG MOUTH TWICE A DAY ACTIVE - Non-VA SENNA TAB MOUTH ACTIVE - Non-VA SIMVASTATIN 80MG TAB 40MG MOUTH AT BEDTIME ACTIVE /prasad/ SCARLETT GILMAN PRIMARY CARE PHYSICIAN - [place] Signed: 03/13/2024 13:01 SCARLETT GILMAN CB Mar 13, 2024 10:19 AM PRIMARY CARE NURSI AMY NOTE: LOCAL TITLE: PRIMARY CARE/NURSE STANDARD TITLE: PRIMARY CARE NURSING NOTE DATE OF NOTE: MAR 13, 2024@10:19 ENTRY DATE: MAR 13, 2024@10:19:22 AUTHOR: ISAURA RICCI EXP COSIGNER: URGENCY: STATUS: COMPLETED BP: 129/65 (03/13/2024 10:18) Pain: 0 (03/13/2024 10:18) Height: 68.5 in [174.0 cm] (03/13/2024 10:18) Weight: 210.4 lb [95.44 kg] (03/13/2024 10:18) Pulse: 109 (03/13/2024 10:18) Respiration: 18 (03/13/2024 10:18) Temperature: 96.9 F [36.1 C] (03/13/2024 10:18) BMI: MAR 13, 2024@10:18:42 31.6 03/13/24 @ 1018 PULSE OXIMETRY: 96 SUBJECTIVE: Established here for 12 month RTC with labs. How is your stress level today? Minimal Stress - No follow up needed. Example: Life is good, I have no stress. Depression: No Suicidal: No Accompanied By: Spouse On Arrival: Ambulatory Mobility changes in the past 3 months? No Mental Status: Alert and oriented Do you have or use an assistive device? No Has patient had fall(s) in last 3 months? No, patient reports no fall(s) in last 3 months. Potential risks for falls identified. No Has the patient traveled outside the [place] within the past 30 days? No If yes, where has the patient traveled? Psychosocial Status: Cooperative Indication of suspected abuse, neglect, or exploitation? No LAB TESTS SELECTED Collection DT Specimen Test Name Result Units Ref Range 03/14/2023 09:38 PLASMA LDLc 102 mg/dL Ref: Optimal <100 LAB CUMULATIVE SELECTED 1 No selection items chosen for this component. Other Medications (herbals, OTCs, infusions, oral medications, topicals, etc): No Active Outpatient Medications (including Supplies): Active Outpatient Medications Status ======== 1) ACETAMINOPHEN 500MG TAB TAKE TWO TABLETS BY MOUTH THREE HOLD TIMES DAILY NEEDED Indication: FOR PAIN Active Non-[facility] Medications Status ======== 1) Non-VA AMITRIPTYLINE HCL 25MG TAB 25MG MOUTH AT BEDTIME ACTIVE 2) Non-VA APIXABAN 5MG TAB 5MG MOUTH TWICE A DAY ACTIVE 3) Non-VA CLOPIDOGREL BISULFATE 75MG TAB 75MG MOUTH ONCE DAILY ACTIVE 4) Non-VA EPLERENONE TAB 25MG/INSPRA MOUTH ONCE DAILY ACTIVE 5) Non-VA LEVOTHYROXINE NA (SYNTHROID) 75MCG TAB 75MCG MOUTH ACTIVE ONCE DAILY 6) Non-VA LISINOPRIL 10MG TAB 10MG MOUTH EVERY MORNING ACTIVE 7) Non-VA PREGABALIN 75MG ORAL CAP 150MG MOUTH TWICE A DAY ACTIVE 8) Non-VA SENNA TAB MOUTH ACTIVE 9) Non-VA SIMVASTATIN 80MG TAB 40MG MOUTH AT BEDTIME ACTIVE 10 Total Medications Lipid Screening (Nurse): Order for Lipid Profile placed. Pain Evaluation (Nurse): PAIN EVALUATION: Clinic Location: Primary Care Patient reports no pain present today. Pain Score: 0 /es/ ISAURA RICCI LPN PRIMARY CARE LICENSED PRACTICAL NURSE-JEFRY Signed: 03/13/2024 10:21 ISAURA RICCI CBOC Mar 13, 2024 03:50 AM PRIMARY CARE PHYSI CELENA NOTE: LOCAL TITLE: PRIMARY CARE/PROVIDER STANDARD TITLE: PRIMARY CARE PHYSICIAN NOTE DATE OF NOTE: MAR 13, 2024@03:50 ENTRY DATE: MAR 13, 2024@03:50:43 AUTHOR: SCARLETT GILMAN EXP COSIGNER: URGENCY: STATUS: COMPLETED PRIMARY CARE/PROVIDER Has ADDENDA ALLERGIES: Patient has answered NKA Current meds taking, (per hx): attempted reconcile /other note HPI: MIKAELACRYSTAL Ti, 88 year old, MALE presents as noted: Here in recheck/ general physical today Stated overall ok some past/ problems noted, [facility] Appetite is ok. no known new bowel changes, old bladder changes (follows [facility]) old heart problems/ sound stable no known new breathing problems. 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 HEENT: Oropharynx appear clear, + false teeth, has, not wearing glasses, eom intact, eardrum appear intact, has hearing aids nose appearok NECK: Supple, no bruits appreciated, nodes feel wnl, No abnormal jvd noted, thyroid feels wnl HEART: distant sounds , no obvious m has pacer LUNGS: fair-good effort sounds ok ABDOMEN: Active bowel sounds, soft, no bruit heard. NO organomegaly felt. Non tender overweight/obese EXT: No cyanosis, clubbing, or edema noted. arterial vascular appear ok, pt defer foot check gross visual inspection / has all extremities, able to move all extremities, appear functional SKIN: warm,dry, multiple lesions, places, no suspicious lesions noted : RECTAL: stated will see his community urlogist defer colonscreening this visit (age 88) ASSESSMENT: physical above brief problem list, some old, not all addressed, plans: - Carotid atherosclerosis ok monitor f/u specialty prn - Hyperglycemia, a1c 6, lab reviewed, continue moniotr - Hemoglobin below reference range pending othe lab continue moniotr - djd involving multiple joints stable ok moniotr - Arthralgia stable ok moniotr h/o fall + Degenerative changes, + old fracture - History of hematuria lab reviewed ok rechk 2 weeks rec f/u his urology microscopic - Renal fct tests outside reference range, lab reviewed ok 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 specialty - H/O: cardiac pacemaker stable f/u specialty prn - History of back pain not mendtioned today ok monitor tx [facility] - History of malignant neoplasm of bladder has f/u specialty seen buzz ross - Disorder of nail stable ok monitor - Neuropathy stable today ok monitor - Varicose veins stable ok monitor - Coronary Artery Disease stable ok monitor f/u his specialty prn - Obesity class I encourage weight loss, diet, exercise as can - Disorder of prostate recommend follow-up with his specialty prn - History of surgery no new surgeries mentioned s/p cabg, stents, bladder CA/scopes, old shoulder surgery hx pacemaker cystoscope [facility] - H/O: atrial fibrillation stable today okay monitor 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 PLAN: see todays main concern per note /and above med list noted - abn/labs discussed those back today, as of visit, copy to pt if wanted see above RTC in 12 M with Renal, Liver, Lipid, CBC, a1c, urine, return sooner prn discussed studies/consults med trial Pt to call sooner if problems. 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 pt verbalized understanding of plan. Frail Elderly Fall Eval (Prov): Fall Evaluation (Provider): A fall history has been completed and patient has experienced more than two (2) falls OR at least one (1) fall requiring medical attention in the preceeding twelve (12) months. Possible Contributing Factors: Chronic Conditions: see problem list Medication(s): see med list Recommendations/Plan of Care/Actions: None Other (Specify): Comment :indicated will f/u other specialty(s) /prasad/ SCARLETT GILMAN PRIMARY CARE PHYSICIAN [facility] CAPPS Signed: 03/13/2024 12:58 03/14/2024 ADDENDUM STATUS: COMPLETED Advise patient or set up televisit abnormal labs including low vitamin D will order supplement or can get OTC should be okay recheck 3 months /prasad/ SCARLETT GILMAN PRIMARY CARE PHYSICIAN [facility] CAPPS Signed: 03/14/2024 00:05 Receipt Acknowledged By: * AWAITING SIGNATURE * SHAWN MORTON DONALD BRANSON OC
--- OUTSIDE RECORDS SUMMARY | 2024-10-02 10:15 | XMS_ITS | Continuity of Care Document ---
Author Name [facility] Organization [facility] Care Team Providers Care Fish Checker Name Role Phone [facility] Unavailable Unavailable Problems Combined list of problems from Department of Defense and Veterans Affairs facilities. It does not include entries that were removed or entered in error. Problem Status Onset Date Problem Type Date of Resolution Comments Source Arthralgia Active Condition Aug 28 Entered By: MICHELINE GILMAN Comment: h/o fallAug 29, 2023 Entered By: MICHELINE GILMAN Comment: + Degenerative changes, + old fracture [facility] Atrial fibrillation Active Condition [facility] Benign hypertension Active Condition [facility] Boggy prostate Active Condition [facility] CAD - Coronary artery disease Active Condition [facility] CAD - Coronary Artery Disease (SCT 92100147) Active Condition [facility] Cardiac pacemaker in situ Active Condition [facility] Carotid atherosclerosis Active Condition [facility] Chronic Pain Syndrome (ICD-9-CM 338.4) Active Condition [facility] Coronary arteriosclerosis Active Condition [facility] 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 [facility] Disorder of nail Active Condition [facility] Disorder of prostate Active Condition [facility] Dyspepsia Active Condition [facility] H/O: atrial fibrillation Active Condition Dec 26, 2018 Entered By: MICHELINE GILMAN Comment: 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 [facility] H/O: cardiac pacemaker in situ Active Condition [facility] Hearing Loss (SCT 91356989) Active Condition Dec 26, 2018 Entered By: MICHELINE GILMAN Comment: partial has hearing aids [facility] Hemoglobin below reference range Active Condition [facility] History of back pain Active Condition Feb 27, 2022 Entered By: MICHELINE GILMAN Comment: [facility] History of hematuria Active Condition Mar 14, 2023 Entered By: MICHELINE GILMAN Comment: microscopic [facility] History of iron deficiency Active Condition [facility] History of malignant neoplasm of bladder Active Condition Jun 04, 2022 Entered By: MICHELINE GILMAN Comment: seen [facility] History of surgery Active Condition O ct 2018 Entered By: MICHELINE GILMAN Comment: s/p cabg, stents, bladder CA/scopes, old shoulder surgeryDe 2019 Entered By: MICHELINE GILMAN Comment: hx pacemakerDe 2021 Entered By: MICHELINE GILMAN Comment: cystoscope [facility] 2022 Entered By: MICHELINE GILMAN Comment[facility] HTN - Hypertension ([facility] [id number]) Active Condition [facility] Hypercholesterolemia ([facility] [id number]) Active Condition [facility] Hyperglycemia Active Condition [facility] Hyperlipidemia Active Condition [facility] Hyperlipidemia Active Condition [facility] Hypertension Active Condition [facility] Hypothyroidism Active Condition [facility] Impotence Active Condition [facility] Impotence (SNOMED CT 575267933) Active Condition [facility] Insomnia Active Condition [facility] Insomnia, unspecified (ICD-9-CM 780.52) Active Condition [facility] Iron deficiency anemia Active Condition [facility] Keratosis, Actinic Active Condition [facility] Malignant tumor of urinary bladder Active Condition [facility] Melanoma NOS Active Condition [facility] Neoplasm. 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 Dec 26, 2018 Entered By: MICHELINE GILMAN Comment: quit years ago [facility] Unsteady gait Active Condition [facility] Varicose veins Active Condition [facility] Vitamin D below reference range Active Condition [facility] Diagnosis: ICD-10-CM I10 Essential (primary) hypertension Active Diagnosis [facility] Diagnosis: ICD-10-CM Y93.E6 Activity, residential relocation Active Diagnosis MADELIN LYLE [facility] Diagnosis: ICD-10-CM Z71.89 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ed counseling Active Diagnosis [facility] Diagnosis: ICD-10-CM E55.9 Vitamin D deficiency, unspecified Active Diagnosis [facility] Diagnosis: ICD-10-CM Z00.01 Encounter for general adult medical exam w abnormal findings Active Diagnosis [facility] Diagnosis: ICD-10-CM Z23 Encounter for immunization Active Diagnosis [facility] Diagnosis: ICD-10-CM 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clerosis of other arteries Active Diagnosis [facility] Diagnosis: ICD-10-CM M25.531 Pain in right wrist Active Diagnosis [facility] Diagnosis: ICD-10-CM Z95.0 Presence of cardiac pacemaker Active Diagnosis [facility] Diagnosis: ICD-10-CM R26.81 Unsteadiness on feet Active Diagnosis [facility] Diagnosis: ICD-10-CM Z96.1 Presence of intraocular lens Active Diagnosis [facility] Diagnosis: ICD-10-CM M15.9 Polyosteoarthritis, unspecified Active Diagnosis [facility] Diagnosis: ICD-10-CM M25.50 Pain in unspecified joint Active Diagnosis [facility] Diagnosis: ICD-10-CM G47.39 Other sleep apnea Active Diagnosis [facility] Medications Combined list of outpatient medications from Department of Defense and Veterans Affairs facilities.Medications provided include 1) outpatient medications from the last 15 months, and 2) patient-reported medications. Medication Details Route Status Patient Instructions Prescription Expires Prescription Number Last Dispense Date Ordering Provider Order Date Order Qty Source ACETAMINOPH EN 500MG TAB TAKE TWO TABLETS BY MOUTH THREE TIMES DAILY NEEDED FOR PAIN ORAL 08/29/[id number] Manuel GILMAN ONALD 2023 100 [facility] AMITRIPTYLI NE HCL 10MG TAB TAKE ONE TABLET BY MOUTH AT BEDTIME ORAL ACTIVE Marie MITCHELL AHIDA 2024 [facility] AMITRIPTYLI NE HCL 25MG TAB TAKE ONE TABLET BY MOUTH AT BEDTIME ORAL ACTIVE Manuel GILMAN ON2022 [facility] APIXABAN 5MG TAB TAKE ONE TABLET BY MOUTH TWICE A DAY ORAL ACTIVE STEPHEN,Z AHIDA 2024 [facility] APIXABAN 5MG TAB TAKE ONE TABLET BY MOUTH TWICE A DAY ORAL ACTIVE Manuel GILMAN ON2020 DAVID LYLE [facility] ASCORBIC ACID 500MG TAB TAKE ONE TABLET BY MOUTH ONCE DAILY ORAL ACTIVE MARCIA [facility]OZ [facility] ASPIRIN 81MG TAB,CHEWABL E CHEW ONE TABLET BY MOUTH ONCE DAILY ORAL ACTIVE EUNICEMAEMARCIA Doyle [facility] 2013 [facility] CHOLECALCIF EULA 25MCG (1,000UNIT) TAB TAKE ONE TABLET BY MOUTH ONCE DAILY FOR VITAMIN D SUPPLEME NT ORAL ACTIVE 03/15/2025 [id number] Manuel GILMAN ON2023 100 [facility] CHOLECALCIF EULA 25MCG (1,000UNIT) TAB TAKE ONE TABLET BY MOUTH ONCE A DAY ORAL ACTIVE STEPHEN,Marie DA 2024 [facility] CICLESONIDE INHL,NASAL SPRAY IN EACH NOSTRIL ONCE DAILY NASAL ACTIVE DAWSON GAN 2009 [facility] CLOPIDOGREL BISULFATE 75MG TAB TAKE ONE TABLET BY MOUTH ONCE DAILY ORAL ACTIVE MARCIA MUNOZ CAHOK 2014 [facility] CLOPIDOGREL BISULFATE 75MG TAB TAKE ONE TABLET BY MOUTH ONCE A DAY ORAL ACTIVE STEPHEN,Z DA 2024 [facility] CLOPIDOGREL BISULFATE 75MG TAB TAKE ONE TABLET BY MOUTH ONCE DAILY ORAL ACTIVE Manuel GILMAN ON2018 [facility] DOCUSATE NA 100MG CAP TAKE 1 CAPSULE BY MOUTH EVERY DAY BEFORE NOON MEAL ORAL ACTIVE STEPHEN,Z 2024 [facility] EPLERENONE 50MG TAB TAKE ONE-HALF TABLET BY MOUTH EVERY MORNING ORAL ACTIVE STEPHEN,Z DA 2024 [facility] EPLERENONE TAB TAKE 25MG/INS PRA BY MOUTH ONCE DAILY ORAL ACTIVE Manuel GILMAN ON2023 DAVID CHOWDHURY [facility] FERROUS SO4 325MG TAB TAKE ONE TABLET BY MOUTH TWICE A DAY FOR IRON REPLACEM ENT WITH FOOD (MAY DARKEN STOOLS) ORAL ACTIVE 06/24/2025 [id number] Manuel GILMAN 2024 200 [facility] FERROUS SO4 325MG TAB TAKE ONE TABLET BY MOUTH ONCE A DAY ORAL ACTIVE STEPHEN,Z 2024 [facility] LEVOTHYROXI NE NA 75MCG TAB TAKE ONE TABLET BY MOUTH EVERY MORNING BEFORE A MEAL ORAL ACTIVE STEPHEN,Z 2024 [facility] LEVOTHYROXI NE NA 75MCG TAB (SYNTHROID) TAKE ONE TABLET BY MOUTH ONCE DAILY ORAL ACTIVE Manuel GILMAN 2022 [facility] LIDOCAINE 5% OINT,TOP APPLY SMALL AMOUNT TOPICALL Y TWICE A DAY FOR PAIN TOPICA L 09/28/[id number] Manuel GILMAN 2023 35 [facility] LISINOPRIL 10MG TAB TAKE ONE TABLET BY MOUTH EVERY MORNING ORAL ACTIVE Manuel GILMAN 2018 [facility] LISINOPRIL 10MG TAB TAKE ONE TABLET BY MOUTH ONCE DAILY ORAL ACTIVE Meir LOWE 2016 [facility] LISINOPRIL 20MG TAB TAKE ONE-HALF TABLET BY MOUTH ONCE A DAY ORAL ACTIVE STEPHENMarie 2024 [facility] MULTIVITS W/MINERALS TAB/CAP (NO VIT K) TAKE ONE TABLET BY MOUTH ONCE DAILY ORAL ACTIVE MARCIA MUNOZ NCHOK 2013 [facility] PANTOPRAZOL E NA 40MG TAB,EC TAKE ONE TABLET BY MOUTH EVERY MORNING BEFORE A MEAL ORAL ACTIVE STEPHEN,Z 2024 [facility] PREGABALIN 150MG CAP,ORAL TAKE 1 CAPSULE BY MOUTH TWICE A DAY ORAL ACTIVE STEPHEN,Z 2024 [facility] PREGABALIN 75MG CAP,ORAL TAKE 1 CAPSULE BY MOUTH THREE TIMES A DAY ORAL ACTIVE DORMARCIA BLAS NCHOK 2015 [facility] PREGABALIN 75MG CAP,ORAL TAKE 2 CAPSULES BY MOUTH TWICE A DAY ORAL ACTIVE MUKUL,D ON2023 [facility] ANNISTON[facility]IX [facility] SENNA TAB TAKE BY MOUTH ONCE DAILY NEEDED ORAL ACTIVE MUKUL,D ON2023 [facility] SENNOSIDES 8.6MG TAB TAKE ONE TABLET BY MOUTH ORAL ACTIVE DORJEMARCIA Doyle NCHOK 2013 [facility] SIMVASTATIN 40MG TAB TAKE ONE TABLET BY MOUTH EVERY EVENING ORAL ACTIVE DORJEE,MARCIA NCHOK 2013 [facility] SIMVASTATIN 80MG TAB TAKE ONE-HALF TABLET BY MOUTH EVERY EVENING ORAL ACTIVE STEPHEN,Z AHIDA 2024 [facility] N SIMVASTATIN 80MG TAB TAKE ONE-HALF TABLET BY MOUTH AT BEDTIME ORAL ACTIVE MUKUL,D 2018 [facility] VITAMIN E 100UNT CAP TAKE 2 CAPSULES BY MOUTH ONCE DAILY ORAL ACTIVE DORMARCIA BLAS NCHOK 2013 [facility] Allergies, Adverse Reactions, Alerts Combined list of allergies from Department of Defense and Veterans Affairs facilities. It does not include entries that were removed or entered in error. Substance Category Reaction Severity Reaction type Status Date Reported Comments Source COUMADIN Propensity to adverse reactions to drug (finding) Blood in urine, INR raised active 7 [facility] Immunizations Combined list of available immunizations from the Department of Defense and Veterans Affairs facilities. Immunization Series Date Given Administered By Site Reaction Lot Number CVX Code Drug Saloon Keeper Status Comments Source INFLUENZA, HIGH-DOSE, TRIVALENT, PF 2023 JUDITH HARTMAN LEFT DELTO ID [id number] 135 complet ed ADMINISTE RED AT MD, [facility] INFLUENZA, UNSPECIFIED FORMULATION 2023 88 complet ed HISTORICA L INFORMATI ON - FROM PATIENT'S RECALL, [facility] INFLUENZA, UNSPECIFIED FORMULATION 2022 88 complet ed HISTORICA L INFORMATI ON - FROM PATIENT'S RECALL, [facility] TDAP 1 2021 115 complet ed HISTORICA L INFORMATI ON - FROM OTHER REGISTRY, [facility] COVID-19 (MODERNA), MRNA, LNP-S, PF, 100 MCG OR 50 MCG DOSE 3 2020 207 complet ed [facility] INFLUENZA, SEASONAL, INJECTABLE 3 2020 141 complet ed HISTORICA L INFORMATI ON - FROM OTHER REGISTRY, [facility] INFLUENZA, UNSPECIFIED FORMULATION 2020 88 complet ed [facility] COVID-19 (MODERNA), MRNA, LNP-S, PF, 100 MCG/0.5 ML DOSE 2 2020 207 complet ed [facility] COVID-19 (MODERNA), MRNA, LNP-S, PF, 100 MCG/0.5 ML DOSE 1 2020 207 complet ed [facility] INFLUENZA, UNSPECIFIED FORMULATION 2019 88 complet ed [facility] INFLUENZA, SEASONAL, INJECTABLE 2 2019 141 complet ed HISTORICA L INFORMATI ON - FROM OTHER REGISTRY, [facility] INFLUENZA, HIGH DOSE SEASONAL 2018 135 complet ed HISTORICA L INFORMATI ON - FROM OTHER PROVIDER, Partner: [facility]. Administe red by: ISMAEL RAMOS (MSK=[phone]). Partner 9 Lot#: [id number] Mfr: Sanofi P[employer]; Dosage: 0.5 [facility] INFLUENZA, TRIVALENT, ADJUVANTED 2017 168 complet ed [facility] INFLUENZA, UNSPECIFIED FORMULATION [address] Burt, administe red in November [facility] PNEUMOCOCCAL CONJUGATE PCV 13 2016 133 complet ed per KENTRELL SHULTZ [facility] INFLUENZA, HIGH DOSE SEASONAL 2015 135 complet ed [facility] INFLUENZA, HIGH DOSE SEASONAL 2013 135 complet ed [facility] INFLUENZA, UNSPECIFIED FORMULATION 2012 88 complet ed [facility] PNEUMOCOCCAL POLYSACCHARID E PPV23 2012 33 complet ed [facility] TDAP 2011 115 complet ed DAVID CHOWDHURY AR INFLUENZA, UNSPECIFIED FORMULATION 2011 88 complet ed [facility] INFLUENZA, UNSPECIFIED FORMULATION 2010 88 complet ed [facility] INFLUENZA, UNSPECIFIED FORMULATION 2009 88 complet ed [facility] Results Combined list of recent chemistry, hematology and other laboratory results from Department of Defense and Veterans Affairs, ranging from 15 months to all on record, depending upon the facility. Order Name Results Value Reference Range Date Interpretation Specimen Comments Source VITAMIN D, 25-HYDROXY 25-HYDROXYV ITAMIN D3 [MASS/VOLUM E] IN SERUM OR PLASMA 30.0 ng/mL 30 - 96 09/21 Specimen Type: SERUM No comment entered. Ordering Provider: EMILIA MITCHELL Report Released Date/Time: Sep 21, 2024 01:33 PM Reporting Lab: [facility] [place] [address] Performing Lab: [facility] [id number] [place] [address] DIVISION B12 COBALAMIN (VITAMIN B12) [MASS/VOLUM E] IN SERUM OR PLASMA 255 pg/mL 213 - 816 09/21 Specimen Type: SERUM No comment entered. Ordering Provider: EMILIA MITCHELL Report Released Date/Time: Sep 21, 2024 01:33 PM Reporting Lab: [facility] [phone] Performing Lab: [facility] [id number] DIVISION FOLATE (STL-MA) FOLATE [MASS/VOLUM E] IN SERUM OR PLASMA 9.1 ng/mL 7 - 20 09/21 Specimen Type: SERUM No comment entered. Ordering Provider: EMILIA MITCHELL Report Released Date/Time: Sep 21, 2024 01:33 PM Reporting Lab: [facility] [address] Performing Lab: [facility] [address] [facility] IRON/TIBC PROFILE IRON BINDING CAPACITY [MASS/VOLUM E] IN SERUM OR PLASMA 449 ug/dL 250 - 450 09/21 Specimen Type: SERUM No comment entered. Ordering Provider: EMILIA MITCHELL Report Released Date/Time: Sep 21, 2024 01:33 PM Reporting Lab: [address] [address] Performing Lab: [facility] [address] [place] [id number] [facility] IRON/TIBC PROFILE TRANSFERRIN [MASS/VOLUM E] IN SERUM OR PLASMA 359 mg/dL 163 - 344 09/21 H Specimen Type: SERUM No comment entered. Ordering Provider: EMILIA MITCHELL Report Released Date/Time: Sep 21, 2024 01:33 PM Reporting Lab: [address] [address] Performing Lab: [address] [address] [facility] IRON/TIBC PROFILE IRON SATURATION [MASS FRACTION] IN SERUM OR PLASMA 12 20 - 50 09/21 L Specimen Type: SERUM No comment entered. Ordering Provider: EMILIA MITCHELL Report Released Date/Time: Sep 21, 2024 01:33 PM Reporting Lab: [address] [address] Performing Lab: [address] [address] [facility] IRON/TIBC PROFILE IRON [MASS/VOLUM E] IN SERUM OR PLASMA 52 ug/dL 65 - 175 09/21 L Specimen Type: SERUM No comment entered. Ordering Provider: EMILIA MITCHELL Report Released Date/Time: Sep 21, 2024 01:33 PM Reporting Lab: [address] [address] Performing Lab: [address] [address] [facility] FERRITIN FERRITIN [MASS/VOLUM E] IN SERUM OR PLASMA 38.68 ng/mL 22 - 275 09/21 Specimen Type: SERUM No comment entered. Ordering Provider: EMILIA MITCHELL Report Released Date/Time: Sep 21, 2024 01:33 PM Reporting Lab: [facility] [address] [facility] [address] Performing Lab: [address] [phone] [place] [address] DIVISION COMPREHENS FRANCIA METABOLIC PANEL CREATININE [MASS/VOLUM E] IN SERUM OR PLASMA 1.04 mg/dL 0.70 - 1.30 09/21 Specimen Type: PLASMA Comment: No hemolysis noted. Ordering Provider: EMILIA MITCHELL Report Released Date/Time: Sep 21, 2024 01:33 PM Reporting Lab: [facility] [place] [address] Performing Lab: [facility] DIVISION COMPREHENS FRANCIA METABOLIC PANEL UREA NITROGEN [MASS/VOLUM E] IN SERUM OR PLASMA 20.2 mg/dL 9.0 - 25.0 09/21 Specimen Type: PLASMA Comment: No hemolysis noted. Ordering Provider: EMILIA MITCHELL Report Released Date/Time: Sep 21, 2024 01:33 PM Reporting Lab: [facility] [place] [address] Performing Lab: [facility] DIVISION COMPREHENS FRANCIA METABOLIC PANEL GLUCOSE [MASS/VOLUM E] IN SERUM OR PLASMA 100 mg/dL 72 - 99 09/21 H Specimen Type: PLASMA Comment: No hemolysis noted. Ordering Provider: EMILIA MITCHELL Report Released Date/Time: Sep 21, 2024 01:33 PM Reporting Lab: [facility] [place] [address] Performing Lab: [facility] [id number] [place] [address] DIVISION COMPREHENS FRANCIA METABOLIC PANEL SODIUM [MOLES/VOLU ME] IN SERUM OR PLASMA 135 meq/L 136 - 145 09/21 L Specimen Type: PLASMA Comment: No hemolysis noted. Ordering Provider: EMILIA MITCHELL Report Released Date/Time: Sep 21, 2024 01:33 PM Reporting Lab: [facility] [place] [address] Performing Lab: [facility] [place] [phone] DIVISION COMPREHENS FRANCIA METABOLIC PANEL POTASSIUM [MOLES/VOLU ME] IN SERUM OR PLASMA 4.2 meq/L 3.5 - 5.0 09/21 Specimen Type: PLASMA Comment: No hemolysis noted. Ordering Provider: EMILIA MITCHELL Report Released Date/Time: Sep 21, 2024 01:33 PM Reporting Lab: [facility] [place] [address] Performing Lab: [facility] DIVISION COMPREHENS FRANCIA METABOLIC PANEL CHLORIDE [MOLES/VOLU ME] IN SERUM OR PLASMA 103 meq/L 98 - 107 09/21 Specimen Type: PLASMA Comment: No hemolysis noted. Ordering Provider: EMILIA MITCHELL Report Released Date/Time: Sep 21, 2024 01:33 PM Reporting Lab: [facility] [place] [address] Performing Lab: [facility] DIVISION COMPREHENS FRANCIA METABOLIC PANEL CARBON DIOXIDE, TOTAL [MOLES/VOLU ME] IN SERUM OR PLASMA 23 meq/L 22 - 31 09/21 Specimen Type: PLASMA Comment: No hemolysis noted. Ordering Provider: EMILIA MITCHELL Report Released Date/Time: Sep 21, 2024 01:33 PM Reporting Lab: [facility] [place] [phone] Performing Lab: [facility] DIVISION COMPREHENS FRANCIA METABOLIC PANEL CALCIUM [MASS/VOLUM E] IN SERUM OR PLASMA 9.0 mg/dL 8.4 - 10.4 09/21 Specimen Type: PLASMA Comment: No hemolysis noted. Ordering Provider: EMILIA MITCHELL Report Released Date/Time: Sep 21, 2024 01:33 PM Reporting Lab: [facility] [place] [address] Performing Lab: [facility] DIVISION COMPREHENS FRANCIA METABOLIC PANEL PROTEIN [MASS/VOLUM E] IN SERUM OR PLASMA 7.6 g/dL 6.0 - 8.6 09/21 Specimen Type: PLASMA Comment: No hemolysis noted. Ordering Provider: EMILIA MITCHELL Report Released Date/Time: Sep 21, 2024 01:33 PM Reporting Lab: [facility] [place] [address] Performing Lab: [facility] DIVISION COMPREHENS FRANCIA METABOLIC PANEL ALBUMIN [MASS/VOLUM E] IN SERUM OR PLASMA 4.3 g/dL 3.4 - 5.0 09/21 Specimen Type: PLASMA Comment: No hemolysis noted. Ordering Provider: EMILIA MITCHELL Report Released Date/Time: Sep 21, 2024 01:33 PM Reporting Lab: [facility] [place] [address] Performing Lab: [facility] DIVISION COMPREHENS FRANCIA METABOLIC PANEL BILIRUBIN.T OTAL [MASS/VOLUM E] IN SERUM OR PLASMA 1.1 mg/dL 0.2 - 1.2 09/21 Specimen Type: PLASMA Comment: No hemolysis noted. Ordering Provider: EMILIA MITCHELL Report Released Date/Time: Sep 21, 2024 01:33 PM Reporting Lab: [facility] [place] [address] Performing Lab: [facility] DIVISION COMPREHENS FRANCIA METABOLIC PANEL ALKALINE PHOSPHATASE [ENZYMATIC ACTIVITY/VO LUME] IN SERUM OR PLASMA 64 U/L 40 - 150 09/21 Specimen Type: PLASMA Comment: No hemolysis noted. Ordering Provider: EMILIA MITCHELL Report Released Date/Time: Sep 21, 2024 01:33 PM Reporting Lab: [facility] [place] [address] Performing Lab: [facility] DIVISION COMPREHENS FRANCIA METABOLIC PANEL ASPARTATE AMINOTRANSF ERASE [ENZYMATIC ACTIVITY/VO LUME] IN SERUM OR PLASMA 33 U/L 5 - 34 09/21 Specimen Type: PLASMA Comment: No hemolysis noted. Ordering Provider: EMILIA MITCHELL Report Released Date/Time: Sep 21, 2024 01:33 PM Reporting Lab: [facility] [place] [address] Performing Lab: [facility] DIVISION COMPREHENS FRANCIA METABOLIC PANEL ALANINE AMINOTRANSF ERASE [ENZYMATIC ACTIVITY/VO LUME] IN SERUM OR PLASMA 25 U/L 8 - 40 09/21 Specimen Type: PLASMA Comment: No hemolysis noted. Ordering Provider: EMILIA MITCHELL Report Released Date/Time: Sep 21, 2024 01:33 PM Reporting Lab: [facility] [place] [address] Performing Lab: [facility] DIVISION COMPREHENS FRANCIA METABOLIC PANEL GLOMERULAR FILTRATION RATE/1.73 SQ M.PREDICTED [VOLUME RATE/AREA] IN SERUM, PLASMA OR BLOOD BY CREATININE- BASED FORMULA (CKD-EPI 2020) 69.06 60 09/21 Specimen Type: PLASMA Comment: No hemolysis noted. Ordering Provider: EMILIA MITCHELL Report Released Date/Time: Sep 21, 2024 01:33 PM Reporting Lab: [facility] [place] [address] Performing Lab: [facility] [id number] LIPID PANEL (STL) CHOLESTEROL [MASS/VOLUM E] IN SERUM OR PLASMA 127 mg/dL 0 - 200 09/21 Specimen Type: PLASMA Comment: No hemolysis noted. Ordering Provider: EMILIA MITCHELL Report Released Date/Time: Sep 21, 2024 01:33 PM Reporting Lab: [facility] [place] [phone] Performing Lab: [facility] [phone] LIPID PANEL (STL) TRIGLYCERID E [MASS/VOLUM E] IN SERUM OR PLASMA 108 mg/dL 0 - 150 09/21 Specimen Type: PLASMA Comment: No hemolysis noted. Ordering Provider: EMILIA MTICHELL Report Released Date/Time: Sep 21, 2024 01:33 PM Reporting Lab: [facility] [address] Performing Lab: [facility] [phone] LIPID PANEL (STL) CHOLESTEROL IN LDL [MASS/VOLUM E] IN SERUM OR PLASMA BY CALCULATION 64 mg/dL 09/21 Specimen Type: PLASMA Comment: No hemolysis noted. Ordering Provider: EMILIA MITCHELL Report Released Date/Time: Sep 21, 2024 01:33 PM Reporting Lab: [facility] [address] Performing Lab: [facility] [phone] DIVISION LIPID PANEL (STL) CHOLESTEROL IN HDL [MASS/VOLUM E] IN SERUM OR PLASMA 41 mg/dL 40 09/21 Specimen Type: PLASMA Comment: No hemolysis noted. Ordering Provider: EMILIA MITCHELL Report Released Date/Time: Sep 21, 2024 01:33 PM Reporting Lab: [facility] [place] [address] Performing Lab: [facility] DIVISION CBC LEUKOCYTES [#/VOLUME] IN BLOOD BY AUTOMATED COUNT 6.9 10*3/u L 3.6 - 11.2 09/21 Specimen Type: BLOOD No comment entered. Ordering Provider: EMILIA MITHCELL Report Released Date/Time: Sep 21, 2024 01:33 PM Reporting Lab: [facility] [phone] Performing Lab: [facility] DIVISION CBC ERYTHROCYTE S [#/VOLUME] IN BLOOD BY AUTOMATED COUNT 3.75 10*6/u L 4.10 - 5.70 09/21 L Specimen Type: BLOOD No comment entered. Ordering Provider: EMILIA MITCHELL Report Released Date/Time: Sep 21, 2024 01:33 PM Reporting Lab: [facility] [address] Performing Lab: [facility] DIVISION CBC HEMOGLOBIN [MASS/VOLUM E] IN BLOOD 11.1 g/dL 13.1 - 16.8 09/21 L Specimen Type: BLOOD No comment entered. Ordering Provider: EMILIA MITCHELL Report Released Date/Time: Sep 21, 2024 01:33 PM Reporting Lab: [facility] [place] [phone] Performing Lab: [facility] DIVISION CBC HEMATOCRIT [VOLUME FRACTION] OF BLOOD 34.3 38.2 - 48.4 09/21 L Specimen Type: BLOOD No comment entered. Ordering Provider: EMILIA MITCHELL Report Released Date/Time: Sep 21, 2024 01:33 PM Reporting Lab: [facility] [place] [address] Performing Lab: [facility] DIVISION CBC MCV [ENTITIC VOLUME] BY AUTOMATED COUNT 91.5 fL 80.0 - 100.0 09/21 Specimen Type: BLOOD No comment entered. Ordering Provider: EMILIA MITCHELL Report Released Date/Time: Sep 21, 2024 01:33 PM Reporting Lab: [facility] [place] [address] Performing Lab: [facility] DIVISION CBC MCH [ENTITIC MASS] BY AUTOMATED COUNT 29.6 pg 27.0 - 34.0 09/21 Specimen Type: BLOOD No comment entered. Ordering Provider: EMILIA MITCHELL Report Released Date/Time: Sep 21, 2024 01:33 PM Reporting Lab: [facility] [place] [address] Performing Lab: [facility] DIVISION CBC MCHC [MASS/VOLUM E] BY AUTOMATED COUNT 32.4 g/dL 33.0 - 36.0 09/21 L Specimen Type: BLOOD No comment entered. Ordering Provider: EMILIA MITCHELL Report Released Date/Time: Sep 21, 2024 01:33 PM Reporting Lab: [facility] [place] [address] Performing Lab: [facility] DIVISION CBC PLATELETS [#/VOLUME] IN BLOOD BY AUTOMATED COUNT 110 10*3/u L 150 - 400 09/21 L Specimen Type: BLOOD No comment entered. Ordering Provider: EMILIA MITCHELL Report Released Date/Time: Sep 21, 2024 01:33 PM Reporting Lab: [facility] [place] [address] Performing Lab: [facility] DIVISION CBC PLATELET MEAN VOLUME [ENTITIC VOLUME] IN BLOOD BY AUTOMATED COUNT 11.5 fL 7.5 - 11.2 09/21 H Specimen Type: BLOOD No comment entered. Ordering Provider: EMILIA MITCHELL Report Released Date/Time: Sep 21, 2024 01:33 PM Reporting Lab: [facility] [place] [address] Performing Lab: [facility] DIVISION CBC ERYTHROCYTE DISTRIBUTIO N WIDTH [RATIO] BY AUTOMATED COUNT 15.2 11.8 - 15.1 09/21 H Specimen Type: BLOOD No comment entered. Ordering Provider: EMILIA MITCHELL Report Released Date/Time: Sep 21, 2024 01:33 PM Reporting Lab: [facility]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
--- OUTSIDE RECORDS SUMMARY | 2024-10-02 10:15 | XMS_ITS | Encounter Summary ---
Author Name [facility] [facility] [place] [facility] [place] Address [address] [place] [address] Care Team Providers Care Supervisor Product Inspection Name Role Phone PRUDENCE MITCHELL Primary Care Provider Unavailabl e MUKULSCARLETT Primary Care Provider Unavailabl e DORJEE, IZAIAH Primary Care Provider Unavailabl e ELSHAFIE, ELI [...] IC GAS & ELEC Mar 18, 2005 [id number] MIKAELA,JENNIFER HARD PATIENT BC BS [place] BLUECARD MEDICARE SECONDARY (NO B EXC) PACIF IC GAS & ELEC Mar 18, 2005 [id number] [phone] WALLYAUS,JENNIFER HARD PATIENT BC BS [place] BLU[place]ARD MEDICARE SECONDARY (NO B EXC) PACIF IC GAS & ELEC Mar 18, 2005 [id number] KNKEENA,JENNIFER HARD PATIENT [place] BS [place] MEDICARE SECONDARY (NO B EXC) PACIF IC GAS & ELEC Mar 18, 2005 [id number] [phone] MIKAELA,JENNIFER HARD PATIENT [facility] POINT OF SERVICE PG&E Aug 16, 2018 [id number] [phone] WALLYAUS,JENNIFER HARD PATIENT [facility] PGE Mar 18, 2005 [id number] [phone] MIKAELA,JENNIFER HARD PATIENT [employer] ([id number]) PRESCRIPT ION PACIF IC GAS & ELEC Mar 18, 2005 [id number] [phone] MIKAELA,JENNIFER HARD PATIENT [employer] RX [id number] PRESCRIPT ION PGE00 00 [phone] ) Mar 18, 2005 [id number] [phone] MIKAELA,JENNIFER HARD PATIENT [facility] PRESCRIPT ION PGE00 00 Mar 18, 2005 [id number] [phone] MIKAELA,JENNIFER HARD PATIENT MEDICARE (WNR) MEDICARE () PART A May 16, 2001 PART A [id number] MIKAELA,JENNIFER HARD PATIENT MEDICARE (WNR) MEDICARE () PART B May 16, 2001 PART B [id number] MIKAELA,JENNIFER HARD PATIENT MEDICARE (WNR) MEDICARE () PART A May 16, 2001 PART A [id number] MIKAELA,JENNIFER HARD PATIENT MEDICARE (WNR) MEDICARE () PART B May 16, 2001 PART B [id number] MIKAELA,JENNIFER HARD PATIENT MEDICARE (WNR) MEDICARE () PART A May 16, 2001 PART A [id number] [phone] [id number] MIKAELA,JENNIFER HARD PATIENT MEDICARE (WNR) MEDICARE () PART B May 16, 2001 PART B [id number] MIKAELA,JENNIFER HARD PATIENT MEDICARE (WNR) MEDICARE () PART A May 16, 2001 PART A [id number] JENNIFER AL PATIENT MEDICARE (WNR) MEDICARE (M) PART B May 16, 2001 PART B [id number] JENNIFER AL PATIENT Selected Encounter This section includes the information on record at [place] for the Encounter. Date/Time Encounter Type Encounter Description Reason Provider Source Nov 08, 2023 10:30 AM OFF/OP CNSLTJ NEW/EST LOW 30 ORTHO/JOINT SURG ICD-10-CM M25.531 Pain in right wrist DIEGO JONES Encounter Template Text not used by [place] Assessments - Encounter Diagnoses This section includes the primary and secondary diagnoses documented for the Encounter. Date/Time Primary/Secondary Diagnosis Diagnosis Name Provider Source Nov 19, 2023 11:45 AM PRIMARY Pain in right wrist DIEGO JONES Plan of Treatment: Future Appointments (+ 6 months) and Future Tests (+/- 45 days) The Plan of Treatment section includes future care activities for the patient from all [place] treatmentfacilities. This section includes future appointments and future orders which are active, pending or scheduled. Future Appointments This section includes appointments that were scheduled to occur 6 months from the date of the Encounter, up to a maximum of 20 appointments. The data comes from all [place] treatment facilities. Appointment Date/Time Appointment Type Appointme nt Facility Name Nov 15, 2023 02:30 PM AMBULATORY - MEDICINE [facility] Nov 22, 2023 10:30 AM AMBULATORY - NONE [facility] Nov 29, 2023 04:00 PM [...] and Hematology Lab Results on record with [place] for the patient. Radiology Reports and Pathology [...] Oct 22, 2023 12:47 PM Reporting Lab: [facility] [address] [facility] [address] Performing Lab: [facility] [address] [facility] [address] VITAMIN B12 (FV) 183 pg/mL 180-914 Oct 25, 2023 10:08 AM [facility] MAGNESIUM PLASMA S pecimen Type: PLASMA No comment entered. Ordering Provider: SCARLETT GILMAN Report Released Date/Time: Oct 22, 2023 12:47 PM Reporting Lab: [address] [address] Performing Lab: [address] [address] MAGNESIUM (FV) 2.1 mg/dL 1.8-2.4 Oct 25, 2023 10:08 AM [facility] RENAL+LIVER PROFILE PLASMA Specimen Ty pe: PLASMA No comment entered. Ordering Provider: SCARLETT GILMAN Report Released Date/Time: Oct 22, 2023 12:47 PM Reporting Lab: [facility] [address] [place] [address] Performing Lab: [address] [address] GLUCOSE (FV) 125 mg/dL H 70-110 ALBUMIN [...] L >90 Oct 25, 2023 10:08 AM [facility] CBC BLOOD S pecimen Type: BLOOD No comment entered. Ordering Provider: SCARLETT GILMAN Report Released Date/Time: Oct 22, 2023 12:47 PM Reporting Lab: [facility] [address] [facility] [address] Performing Lab: [facility] [address] [facility] [address] RDW (FV) 15.9 H 11.5-14.5 HCT (FV) [...] Oct 22, 2023 12:47 PM Reporting Lab: [facility] [address] [facility] [address] Performing Lab: [facility] [address] [facility] [address] TSH (FV) 1.82 u[IU]/mL 0.45-5.33 Oct 25, 2023 10:08 AM [facility] FERRITIN (FV) SERUM Specimen Type: SERUM No comment entered. Ordering Provider: SCARLETT GILMAN Report Released Date/Time: Oct 22, 2023 12:47 PM Reporting Lab: [facility] [address] [facility] [address] Performing Lab: [facility] [address] [facility] [address] FERRITIN (FV) 21.5 ng/mL L 23.9-336.2 Oct 25, 2023 10:08 AM [facility] FOLATE (FV) SERUM Specimen Type: SERUM No comment entered. Ordering Provider: SCARLETT GILMAN Report Released Date/Time: Oct 22, 2023 12:47 PM Reporting Lab: [facility] [address] [facility] [address] Performing Lab: [facility] [address] [facility] [address] FOLATE (FV) 11.9 ng/mL >5.9 Oct 25, 2023 10:08 AM [facility] TIBC PROFILE (FAV) SERUM Specimen Typ e: SERUM No comment entered. Ordering Provider: SCARLETT GILMAN Report Released Date/Time: Oct 22, 2023 12:47 PM Reporting Lab: [facility] [address] [facility] [address] Performing Lab: [facility] [address] [facility] [address] IBCTc (FV) 503 ug/dL H 250-450 IRON (FV) 48 ug/dL 45-182 TRANSFERRIN (FV) 359 mg/dL H 180-329 Social History: Smoking Status (Most current) and Tobacco Use (All prior to encounter date) This section includes the most current, and the historical, smoking and tobacco- related health factors from the [place] facility where the Encounter took place. Current Smoking Status This section includes the most current smoking, or tobacco-related health factor, from the [place] facility where the Encounter took place. Date/Time Current Smoking Status Comment Facil ity Mar 14, 2023 11:00 AM VA-TOBACCO FORMER USER [facility] Tobacco Use History This section includes a history of the smoking, or tobacco-related health factors, that were collected on or before the date of the Encounter. The data comes from the [place] facility where the Encounter took place. Date/Time [...] ALL of a patient's completed or amended VA Advance and Rescinded Directives. The entries below indicate that a directive exists for the patient, but an actual copy is not included with this document. The data comes from all [facility]. Date Advance Directives Provider Source Mar 25, 2023 ADVANCE DIRECTIVE MORIAH HILL [facility] Jun 19, 2017 ADVANCE DIRECTIVE DISCUSSION CAYDEN AREVALO [facility] Dec 22, 2016 ADVANCE DIRECTIVE DISCUSSION LEXA ABDUL [facility] Dec 21, 2016 ADVANCE DIRECTIVE DISCUSSION LINDEN LEZAMA [facility] Radiology Reports: +/- 30 days of the [...] the Encounter. The data comes from all [place] treatment facilities. Date/Time Radiology Report Provider Source Nov 22, 2023 10:05 AM NON-INVAS.,CAROTID W IMAGING: [place] [id number] -[id number] M Exm Date: NOV 22, 2023@10:05 Req Phys: SCARLETT GILMAN Fay Loc: [facility] (Req'g Loc) Img Loc: [facility] [place]: [place] [address] (Case [id number] COMPLETE)NON-INVAS.,CAROTID W IMAGING (US Detailed) CPT:11217 Reason for Study: recuurent dizzy spells Clinical History: feels balnce off Report Status: Verified Date Reported: NOV 22, 2023 Date Verified: NOV 22, 2023 Finish Molder E-Sig:/ES/JOSE ALFREDO TEJADA MD Report: PROCEDURE: NON-INVAS.,CAROTID [...] Staff: JOSE ALFREDO TEJADA MD, STAFF RADIOLOGIST (Finish Molder) /JOSE ALFREDO FUENTES [facility] Nov 06, 2023 10:[address] HEAD W/O CONT: [place] [id number] -[id number] M Exm Date: NOV 06, 2023@10:43 Req Phys: SCARLETT GILMAN Loc: [facility] (Req'g Loc) Img Loc: [facility] CT Service: [facility] , (Case [id number] COMPLETE)CT HEAD W/O CONT (CT Detailed) CPT:16441 Reason for Study: hx fall struck head Clinical History: still gets dizzy senation s Report Status: Verified Date Reported: NOV 06, 2023 Date Verified: NOV 06, 2023 Finish Molder E-Sig:/ES/DAYAN WELLS MD Report: PROCEDURE: CT HEAD [...] Primary Interpreting Staff: DAYAN WELLS MD, RADIOLOGIST (Finish Molder) /DAYAN LERMA [facility] Oct 25, 2023 12:02 PM WRIST 3 OR MORE EWS (RIGHT): [place] [id number] -1935 M Exm Date: OCT 25, 2023@12:02 Req Phys: SCARLETT GILMAN Pat Loc: [facility] (Req'g Loc) Img Loc: [facility] RAD Service: Unknown [facility] [place] [address] (Case [id number] COMPLETE)WRIST 3 OR MORE VIEWS (RIGHT) (RAD Detailed) CPT:05012 CPT Modifiers : RT RIGHT SIDE Reason for Study: f/u study Clinical History: continued pain Report Status: Verified Date Reported: OCT 28, 2023 Date Verified: OCT 28, 2023 Finish Molder E-Sig: Report: PROCEDURE: WRIST 3 OR MORE [...] Staff: ALFONSO DORMAN, Staff Physician Verified by negative stripper for ALFONSO DORMAN /ALFONSO REY [facility] Encounter Notes: All associated encounter notes This section contains the clinical notes associated to the Encounter. Date/Time Encounter Note(s) Provider Source Nov 08, 2023 01:34 PM PRIMARY CARE NURSI NG NOTE: LOCAL TITLE: SAME DAY PROSTHETICS STANDARD TITLE: PRIMARY CARE NURSING NOTE DATE OF NOTE: NOV 08, 2023@13:34 ENTRY DATE: NOV 08, 2023@13:34:33 AUTHOR: CHRYSTAL MCDONALD EXP COSIGNER: URGENCY: STATUS: COMPLETED Prosthetic Patient Education Learner: Patient, Significant other Method: Individual Given during ortho appt today. [facility] Evaluation of Learning: Able to Perform/Verbalize Items: [place] Thumb Splint Wearing schedule: -A thumb splint can be worn at night and as needed during the day. It can be worn with any aggravating motions and per provider recommendations. Safety: -The patient should complete daily skin checks of areas in contact with splint. Discontinue use of splint if skin break down occurs, if the splint restricts circulation or if the pain condition worsens. -Thumb splints SHOULD NOT be worn indefinitely for temporary thumb conditions due to concern for increased thumb weakness. -The thumb splint should not be worn while driving. Care of splint: -Splints can be hand washed with mild soapy water and air dried. 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 Comments: ASSESSMENT: Post-Procedure Vital Signs: BLOOD PRESSURE: 139/75 (11/08/2023 11:17) TEMPERATURE: 96.6 F [35.9 C] (11/08/2023 10:46) PULSE: 60 (11/08/2023 11:17) RESPIRATIONS: 18 (11/08/2023 11:17) 11/08/23 @ 1117 PULSE OXIMETRY: 97 Comments: Post Procedure Pain Assessment: Pain score: 2 Pain scale utilized: Verbal Is this new pain? No Physical Assessment: Eulogio procedure well. Amb post w/o diff. Moving joint(s) without problems. No changes from earlier assessment. Wound/Dressing: Band aid covered with medipore tape x1 * RECOMMENDATIONS: PATIENT EDUCATION: Education provided: H.O. Ortho Post Injection Care Instruction sheet given. Observe for signs and symptoms of infection, bleeding or excessive drainage. Other: present Patient level of understanding: Good /josie MCDONALD RN [facility] Signed: 11/08/2023 11:39 CHRYSTAL MCDONALD [facility] Nov 08, 2023 11:27 AM ORTHOPEDIC SURGERY CONSULT: LOCAL TITLE: ORTHO CONSULT STANDARD TITLE: ORTHOPEDIC SURGERY CONSULT DATE OF NOTE: NOV 08, 2023@11:27 ENTRY DATE: NOV 08, 2023@11:27:36 AUTHOR: DIEGO JONESIGNER: URGENCY: STATUS: COMPLETED Nurses note reviewed and discussed with patient. Pt. request to be seen despite COVID-19 wearing a mask. CHIEF COMPLAINT: Right wrist pain HISTORY OF PRESENT ILLNESS: Patient is an 88-year-old gentleman in today with pain in the right wrist. He had some discomfort in the wrist but a couple months ago he fell and ever since the fall he said, some discomfort in his wrist. Hurts when he brings his thumb up. Hurts when he kind and grabs things at times. No numbness or tingling does not have any swelling or erythema. But it seems like it just continues to bother him normal and improved. He does do things he uses his hands a lot. Patient denies any fevers or chills. ROS: 12-pt. Review of systems discussed with patient, all normal other than listed below. PMH/SMH: Discussed with patient Brief Problem List: 1. Hyperglycemia 2. Hemoglobin below reference range 3. Degenerative joint disease involving multiple joints 4. Arthralgia h/o fall + Degenerative changes, + old fracture 5. History of hematuria microscopic 6. Renal function tests outside reference range 7. H/O: cardiac pacemaker in situ 8. History of back pain tx [facility] 9. History of malignant neoplasm of bladder seen [facility] 10. Disorder of nail 11. Neuropathy 12. Varicose veins 13. CAD - Coronary Artery Disease ([facility] [id number]) 14. Obesity 15. Disorder of prostate 16. History of surgery s/p cabg, stents, bladder CA/scopes, old shoulder surgery hx pacemaker cystoscope [facility] 2021 [facility]oscope [facility] 17. 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 Hypercholesterolemia ([facility] [id number]) 19. Dyspepsia 20. HTN - Hypertension ([facility] [id number]) 21. Sleep apnea 22. 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 Hearing Loss ([facility] [id number]) partial has hearing aids Active Outpatient Medications (excluding Supplies): Active Outpatient Medications Status = 1) ACETAMINOPHEN 500MG TAB TAKE TWO TABLETS BY MOUTH HOLD THREE TIMES DAILY NEEDED FOR PAIN Active Non-VA Medications Status = 1) Non-VA AMITRIPTYLINE HCL 25MG TAB 25MG [...] MOUTH AT BEDTIME ACTIVE 10 Total Medications VITALS: Temp: 96.6 F [35.9 C] (11/08/2023 10:46) BP: 139/75 (11/08/2023 11:17) Pulse: 60 (11/08/2023 11:17) RRate: 18 (11/08/2023 11:17) Weight: 204.1 lb [92.58 kg] (11/08/2023 10:46) Height: 68.5 in [174.0 cm] (03/14/2021 08:36) Pain: 2 (11/08/2023 11:17) BODY MASS INDEX - NO HEIGHTS FOUND HGB A1C (LAST 3): Collection DT Specimen Test Name Result Units Ref Range 03/14/2023 09:38 BLOOD !! Glyco Hgb A1C 6.1 H % 4.2 - 5.8 03/14/2021 08:12 BLOOD !! Glyco Hgb A1C 6.1 H % 4.2 - 5.8 02/09/2020 08:14 BLOOD !! Glyco Hgb A1C 6.0 H % 4.2 - 5.8 !! Indicates COMMENTS AVAILABLE...Refer to Interim Lab Report. PHYSICAL EXAM: General alert and orient x 3 HEENT head atraumatic Respiratory: No increased after being on exam Heart regular rate and rhythm via peripheral pulse Right upper extremity Patient is able to flex and extend the elbow pronate and supinate without significant pain or difficulty. Patient is able to flex and extend the wrist radial and ulnar deviate the wrist he does have some minor pain on the radial side with ulnar deviation. No sign of erythema or infection. He is able to make a complete fist he is able to oppose his thumb to his fingers. With thumbs up he has pain as well as when he opposes to his pinky. Increased pain with Finklestein's test. No increased pain with [facility] joint grind test. Tenderness over radial aspect just proximal to the radial joint and the thumb. No sign of erythema or infection. Vascular radial pulse +2. Neurovascular grossly intact BODY MASS INDEX - NO HEIGHTS FOUND HGB A1C (LAST 3): Collection DT Specimen Test Name Result Units Ref Range 03/14/2023 09:38 BLOOD !! Glyco Hgb A1C 6.1 H % 4.2 - 5.8 03/14/2021 08:12 BLOOD !! Glyco Hgb A1C 6.1 H % 4.2 - 5.8 02/09/2020 08:14 BLOOD !! Glyco Hgb A1C 6.0 H % 4.2 - 5.8 !! Indicates COMMENTS AVAILABLE...Refer to Interim Lab Report. PROCEDURE: Injection right wrist The appropriate timeout was taken. We identified and marked the appropriate anatomic landmarks to guide needle placement. The area was prepped in the usual sterile fashion and the overlying skin cleaned using isopropyl alcohol (povidone iodine [Betadine] was an available alternative). Local anesthesia achieved using Ethyl Chloride spray (Cooling spray). 0.5_ ml of Marcaine 0.25% without epinephrine and _0.5 ml of Depo-Medrol 40 mg/1mL in a needle of appropriate length and gauge was injected tendon sheath approach. Gentle aspiration before injection didnt show any blood. A dressing was applied to the area. Anticipatory guidance, as well as standard post-procedure care, was explained. Return precautions were given. The patient tolerated the procedure well without complications. Postinjection had reduction in pain IMAGING: No acute fracture or dislocation IMPRESSION: Right wrist pain PLAN: Findings reviewed with patient. Options discussed. Patient proceeded with steroid injection to his right wrist patient will take it easy for the next 2 days for progressing to normal activities. Patient develops any new or worsening symptoms to call or follow-up patient also can use a splint to wear at night. He can continue taking Tylenol use ice and heat as well. He is limited on NSAIDs due to blood thinners. Patient develops new or worsening symptoms to call or follow-up. And then Follow up with primary care on appointment or PRN Pt instructed to follow up in the clinic if symptoms worsen or do not improve Plan of care discussed with patient. Patient voices understanding and agrees with plan. Dictation is through voice recognition software and may recognition shital /prasad/ ANGELA HAWK PHYSICIAN SHIPPING AND RECEIVING SPECIALIST (ORTHOPEDICS) Signed: 11/08/2023 11:32 DIEGO JONES [facility] Nov 08, 2023 11:19 AM MEDICATION MGT NOT E: LOCAL TITLE: MEDICATION RECONCILIATION (PROVIDER) STANDARD TITLE: MEDICATION MGT NOTE DATE OF NOTE: NOV 08, 2023@11:19 ENTRY DATE: NOV 08, 2023@11:19:17 AUTHOR: DIEGO JONES COSIGNER: URGENCY: STATUS: COMPLETED Medication Reconciliation COMPLETED (Outpatient): The following medication additions, deletions, dosage changes, OR duplications were identified and discussed with patient/caregiver. Specify: depo medrol Remote and Local Allergies: FACILITY ALLERGY/ADR -------- NADIA LYLE [facility] No Known Allergies [facility] WARFARIN A list of active and pending outpatient prescriptions dispensed from this local [place] and dispensed remotely from another [place] or [place] facility as well as local, pending and active inpatient orders, local clinic medications, locally documented non-VA medications, and local prescriptions that have or been discontinued in the past 90 days has been generated below. If the list for review does not include a component, then it was not applicable to this patient. Active Inpatient, Outpatient and Clinic Medications (including Supplies): Pending Clinic Medications Status = 1) methylPREDNISolone ACETATE INJ,SUSP 40MG/1ML IM NOW PENDING Active Outpatient Medications Status = 1) ACETAMINOPHEN 500MG TAB TAKE TWO TABLETS BY MOUTH HOLD THREE TIMES DAILY NEEDED FOR PAIN Active Non-VA Medications Status = 1) Non-VA AMITRIPTYLINE HCL 25MG TAB 25MG [...] 80MG TAB 40MG MOUTH AT BEDTIME ACTIVE 11 Total Medications No Active Remote Medications for this patient /es/ ANGELA HAWK PHYSICIAN SHIPPING AND RECEIVING SPECIALIST (ORTHOPEDICS) Signed: 11/08/2023 11:27 DIEGO JONES CB Nov 08, 2023 11:17 AM PROCEDURE NOTE: LOCAL TITLE: PROCEDURE NOTE STANDARD TITLE: PROCEDURE NOTE DATE OF NOTE: NOV 08, 2023@11:17 ENTRY DATE: NOV 08, 2023@11:17:41 AUTHOR: DIEGO JONES EXP COSIGNER: URGENCY: STATUS: COMPLETED PROCEDURE: Depo Medrol injection LOCATION:right wrist TIME: 1115 PERFORMED BY: Diego Jones INDICATION: pain ANESTHESIA: Yes, Local-specify: marcaine STERILE PREP: Yes COMPLICATIONS: None VITAL SIGN POST PROCEDURE: BP-na Pulse-na SPECIMEN SENT TO LAB: No BLOOD LOSS: 0 ml POST PROCEDURE X-RAY ORDERED: No, not indicated OTHER: /prasad/ ANGELA HAWK PHYSICIAN SHIPPING AND RECEIVING SPECIALIST (ORTHOPEDICS) Signed: 11/08/2023 11:18 DIEGO JONES CB Nov 08, 2023 11:10 AM NURSING PRE OPERAT FRANCIA E & M NOTE: LOCAL TITLE: PRE PROCEDURE VERIFICATION OF INFORMATION STANDARD TITLE: NURSING PRE OPERATIVE E & M NOTE DATE OF NOTE: NOV 08, 2023@11:10 ENTRY DATE: NOV 08, 2023@11:37:02 AUTHOR: CHRYSTAL MCDONALD EXP COSIGNER: URGENCY: STATUS: COMPLETED 1. Patient identification correctly verified by full name and social security according to policy: Yes 2. Informed Consent completed: Yes 3. Most recent laboratory results have been reviewed: YES - Normal Values 4. All procedure sites marked by procedural practitioner initials using a permanent marker: Yes-Not required as physician is present from consent to procedure. 5. Correct procedure verified by the following: Verbally by patient or surrogate. 6. Central line placement? No - Central Line Placement 7. If imaging is required as part of the procedure, are the requested imaging materials present before procedure begins: Yes 8. Does patient have a defibrillator or pacemaker? No 9. Time Out process should occur immediately before the procedure starts. During the Time Out the following items are verbally confirmed. Timeout lead by: Jm ulrich. Patient Name: [place] AL b. The procedure: steroid injection of the right thumb c. Site of procedure: thumb d. Laterality: right e. Valid Informed Consent present: signed Iconsent f. The patient's position: sitting g. Procedure site marked appropriately by procedural practitioner with initials using permanent marker, and is visible after prep and draping: Yes-Not required as physician is present from consent to procedure. h. Pertinent medical images confirmed, if applicable: Yes i. Appropriate antibiotic prophylaxis: Not applicable j. Appropriate deep vein thrombosis prophylaxis: N/A k. Blood availability, if applicable: Not applicable l. All implants and special equipment or special items for the surgical procedure are present in the procedure/clinic room: Yes Packaging Intact: Yes Expiration Date Checked: Yes Fire Risk Assessment Patient will remain free from injury related to surgical fire/procedural fire. Is procedure being performed in operating room, procedure room or clinic room? Yes A. Is an alcohol-based skin antiseptic or other flammable solution being used? Yes Time out includes: 1. Prep solution contained in non-flammable packaging with unit-dosed applicator 2. Application site is dry prior to draping and use of surgical equipment 3. Pooling of solution has not occurred or has been corrected 4. Solution soaked materials have been removed from the procedure room prior to draping and use of surgical equipment 5. Comments: B. Is the operative procedure above the xiphoid process or in the oropharynx? N/A C. Is open oxygen or nitrous oxide being delivered (via nasal cannula or face mask)? Not applicable D. Is an electrosurgical unit (ESU) being used? No E. Is a Laser being used? No F. Is Fiber Optic Light being used? No G. Have all electrical and heat producing equipment such as defibrillators, drills, saws, light cords, lasers and laparoscopic lenses off and on the sterile field been considered and assessed for fire risk? Not Applicable Expected Outcome: Patient will remain free from injury related to surgical fire/procedural fire. Persons present during the time out include: Procedural practitioner, Registered Nurse Jm DENIZ Mcdonald RN /prasad/ RIAZ MCDONALD RN [facility] Signed: 11/08/2023 11:38 CHRYSTAL MCDONALD [facility] Nov 08, 2023 10:53 AM ORTHOPEDIC SURGERY NURSING NOTE: LOCAL TITLE: ORTHO NURSE INTAKE STANDARD TITLE: ORTHOPEDIC SURGERY NURSING NOTE DATE OF NOTE: NOV 08, 2023@10:53 ENTRY DATE: NOV 08, 2023@10:53:15 AUTHOR: CHRYSTAL MCDONALD EXP COSIGNER: URGENCY: STATUS: COMPLETED BP: 136/75 (11/08/2023 10:46) Pain: 4 (11/08/2023 10:46) Height: 68.5 in [174.0 cm] (03/14/2021 08:36) Weight: 204.1 lb [92.58 kg] (11/08/2023 10:46) Pulse: 71 (11/08/2023 10:46) Respiration: 18 (11/08/2023 10:46) Temperature: 96.6 F [35.9 C] (11/08/2023 10:46) BMI: BODY MASS INDEX - NO HEIGHTS FOUND 11/08/23 @ 1046 PULSE OXIMETRY: 96 SUBJECTIVE: Vet presents to ortho after fall approx 1 mo ago. RIGHT handed. No prior injury/surgery. Diff moving wrist since then. 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 No abx/infections over the last 30 days. No steroids over the last 4 months. Last A1C = 6.1 = 03/09 How is your stress level today? Minimal [...] = 1 Potential risks for falls identified. No Has the patient traveled outside the [place] within the past 30 days? No If yes, where has the patient traveled? Psychosocial Status: Pleasant, conversant, dressed for season. Indication of suspected abuse, neglect, or exploitation? No LAB TESTS SELECTED Collection DT Specimen Test Name Result Units Ref Range 03/14/2023 09:38 PLASMA LDLc 102 mg/dL Ref: Optimal <100 LAB CUMULATIVE SELECTED 1 No selection items chosen for this component. Other Medications (herbals, OTCs, infusions, oral medications, topicals, etc): No Active Outpatient Medications (including Supplies): Active Outpatient Medications Status = 1) ACETAMINOPHEN 500MG TAB TAKE TWO TABLETS BY MOUTH HOLD THREE TIMES DAILY NEEDED FOR PAIN Active Non-VA Medications Status = 1) Non-VA AMITRIPTYLINE HCL 25MG TAB 25MG [...] Pain Evaluation (Nurse): PAIN EVALUATION: Clinic Location: Specialty Clinic Patient reports having pain today. Patient reports Primary Care Provider is aware of pain. Pain Screening Tool utilized: DoD/VA Pain Scale This pain has been present for: Up to 3 months. Pain description: Comment: Constant, worse w/activity. Decreased ROM. Patient wants pain addressed. Education Topics for patient/family/significant other: Reporting increased/unrelieved pain. Level of Understanding: Jeromy /prasad/ RIAZ MCDONALD RN PRIMARY CARE REGISTERED NURSE-[place] Signed: 11/08/2023 11:13 CHRYSTAL MCDONALD [facility]
--- NOTE | 2024-10-02 10:22 | ECG_ITS ---
Test Date: 2024-10-02 10:30:32 Measurements Intervals [place] Rate: 60 P: 0 HI: 0 QRS: -66 QRSD: 153 T: 96 QT: 425 QTc: 425 Interpretive Statements ELECTRONIC VENTRICULAR PACEMAKER ABNORMAL RHYTHM ECG No previous ECG available for comparison Electronically Signed On 10-03-2024 08:59:54 CDT by Patrick Blue M.D.
--- NOTE | 2024-10-02 10:35 | PC.NURSE ---
Attempted IV x 2 without success. TRU Lozada will attempt.
[2024-10-02 10:47] LABS: Hematocrit 28.0 % (37.0-46.0); Hemoglobin 8.8 g/dL (12.4-15.3); Immature Granulocyte Percent A 0.6 % (0.0-0.0); Lymphocytes Absolute Auto 0.81 K/mm3 (1.10-4.50); Mean Corpuscular HGB Conc 31.4 g/dL (32-36); Mean Corpuscular Hemoglobin 29.2 pg (27.0-31.0); Mean Corpuscular Volume 93.0 fL (78.0-102.0); Nucleated Red Blood Cells Absolute Auto 0.00 K/mm3 (0.00-0.00); Nucleated Red Blood Cells Perc 0.0 % (0-0.0); Platelet Count Result 112 K/mm3 (150-420); Red Blood Count 3.01 M/mm3 (4.70-6.10); White Blood Count 6.7 K/mm3 (4.8-10.8)
--- OUTSIDE RECORDS SUMMARY | 2024-10-02 10:49 | XMS_ITS | Encounter Summary ---
Author Organization [employer] Address 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
--- OUTSIDE RECORDS SUMMARY | 2024-10-02 10:49 | XMS_ITS | Continuity of Care Document ---
Author Name [facility] Organization [facility] Care Team Providers Care Brainer Name Role Phone [facility] Unavailable Unavailable Problems Combined list of problems [...] fracture [facility] Atrial fibrillation Active Condition [facility] Benign hypertension Active Condition [facility] Boggy prostate Active Condition [facility] CAD - Coronary artery disease Active Condition [facility] CAD - Coronary Artery Disease (SCT 11779163) Active Condition [facility] Cardiac pacemaker in situ Active Condition [facility] Carotid atherosclerosis Active Condition [facility] Chronic Pain Syndrome (ICD-9-CM 338.4) Active Condition [facility] Coronary arteriosclerosis Active Condition [facility] 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 [facility] Disorder of nail Active Condition [facility] Disorder of prostate Active Condition [facility] Dyspepsia Active Condition [facility] H/O: atrial fibrillation Active Condition Dec 26, 2018 Entered By: MICHELINE GILMAN Comment: has private [employer] [facility] H/O: cardiac pacemaker in situ Active Condition [facility] Hearing Loss (SCT [id number]) Active Condition Dec 26, 2018 Entered By: MICHELINE GILMAN Comment: partial has hearing aids [facility] Hemoglobin below reference range Active Condition [facility] History of back pain Active Condition Feb 27, 2022 Entered By: MICHELINE GILMAN Comment: [facility] History of hematuria Active Condition Mar 14, 2023 Entered By: MICHELINE GILMAN Comment: microscopic [facility] History of iron deficiency Active Condition [facility] History of malignant neoplasm of bladder Active Condition Jun 04, 2022 Entered By: MICHELINE GILMAN Comment: seen [facility] History of surgery Active Condition O ct 2018 Entered By: MICHELINE GILMAN Comment: s/p cabg, stents, bladder CA/scopes, old shoulder surgeryDe 2019 Entered By: MICHELINE GILMAN Comment: hx pacemakerDe 2021 Entered By: MICHELINE GILMAN Comment: cystoscope [employer] 2022 Entered By: MICHELINE GILMAN [facility] HTN - Hypertension ([facility] [id number]) Active Condition [facility] Hypercholesterolemia ([facility] [id number]) Active Condition [facility] Hyperglycemia Active Condition [facility] Hyperlipidemia Active Condition [facility] Hyperlipidemia Active Condition [facility] Hypertension Active Condition [facility] Hypothyroidism [facility] Condition [facility] Impotence Active Condition [facility] Impotence (SNOMED CT [id number]) Active Condition [facility] Insomnia Active Condition [facility] Insomnia, unspecified (ICD-9-CM 780.52) Active Condition [facility] Iron deficiency anemia Active Condition [facility] Keratosis, Actinic Active Condition [facility] Malignant tumor of urinary bladder Active Condition [facility] Melanoma NOS Active Condition [facility] Neoplasm. Skin NOS Active Condition [facility] Neuropathy Active Condition [facility] Obesity Active Condition [facility] Paroxysmal atrial fibrillation Active Condition [facility] Periheral Neuropathy Active Condition [facility] Peripheral neuropathy Active Condition [facility] Persistent atrial fibrillation Active Condition [facility] Polyps, Colon Active Condition [facility] Renal function tests outside reference range Active Condition [facility] Sleep apnea Active Condition [facility] 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 Dec 26, 2018 Entered By: MICHELINE GILMAN Comment: quit years ago [facility] Unsteady gait Active Condition [facility] Varicose veins Active Condition [facility] Vitamin D below reference range Active Condition [facility] Diagnosis: ICD-10-CM I10 Essential (primary) hypertension Active Diagnosis [facility] Diagnosis: ICD-10-CM Y93.E6 Activity, residential relocation Active Diagnosis [facility] Diagnosis: ICD-10-CM Z71.89 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ed counseling Active [...] ICD-10-CM G47.39 Other sleep apnea Active Diagnosis [facility] Medications Combined list of outpatient medications from [...] THREE TIMES DAILY NEEDED FOR PAIN ORAL 08/29/[id number] Manuel GILMAN ONALD 2023 100 [facility] AMITRIPTYLI NE HCL 10MG TAB TAKE ONE TABLET BY MOUTH AT BEDTIME ORAL ACTIVE Marie MITCHELL AHIDA 2024 [facility] N AMITRIPTYLI NE HCL 25MG TAB TAKE ONE TABLET BY MOUTH AT BEDTIME ORAL ACTIVE Manuel GILMAN ON2022 [facility] APIXABAN 5MG TAB TAKE ONE TABLET BY MOUTH TWICE A DAY ORAL ACTIVE STEPHEN,Z AHIDA 2024 [facility] APIXABAN 5MG TAB TAKE ONE TABLET BY MOUTH TWICE A DAY ORAL ACTIVE Manuel GILMAN ON2020 [facility]ID [facility] ACID 500MG TAB TAKE ONE TABLET BY MOUTH ONCE DAILY ORAL ACTIVE MARCIA [facility]Z [facility] 2013 [facility] ASPIRIN 81MG TAB,CHEWABL E CHEW ONE TABLET BY MOUTH ONCE DAILY ORAL ACTIVE EUNICEMAEMARCIA Doyle [facility] 2013 [facility] CHOLECALCIF EULA 25MCG (1,000UNIT) TAB TAKE ONE TABLET BY MOUTH ONCE DAILY FOR VITAMIN D SUPPLEME NT ORAL ACTIVE 03/15/2025 [id number] Manuel GILMAN ON2023 100 [facility] CHOLECALCIF EULA 25MCG (1,000UNIT) TAB TAKE ONE TABLET BY MOUTH ONCE A DAY ORAL ACTIVE STEPHEN,Marie DA 2024 [facility] CICLESONIDE INHL,NASAL SPRAY IN EACH NOSTRIL ONCE DAILY NASAL ACTIVE DAWSON GAN 2009 [facility] CLOPIDOGREL BISULFATE 75MG TAB TAKE ONE TABLET BY MOUTH ONCE DAILY ORAL ACTIVE MARCIA MUNOZ INHOK 2014 [facility] CLOPIDOGREL BISULFATE 75MG TAB TAKE ONE TABLET BY MOUTH ONCE A DAY ORAL ACTIVE STEPHEN,Z DA 2024 [facility] CLOPIDOGREL BISULFATE 75MG TAB TAKE ONE TABLET BY MOUTH ONCE DAILY ORAL ACTIVE Manuel GILMAN ON2018 [facility] DOCUSATE NA 100MG CAP TAKE 1 CAPSULE BY MOUTH EVERY DAY BEFORE NOON MEAL ORAL ACTIVE STEPHEN,Z 2024 [facility] EPLERENONE 50MG TAB TAKE ONE-HALF TABLET BY MOUTH EVERY MORNING ORAL ACTIVE STEPHEN,Z DA 2024 [facility] EPLERENONE TAB TAKE 25MG/INS PRA BY MOUTH ONCE DAILY ORAL ACTIVE Manuel GILMAN ON2023 DAVID CHOWDHURY [facility] FERROUS SO4 325MG TAB TAKE ONE TABLET BY MOUTH TWICE A DAY FOR IRON REPLACEM ENT WITH FOOD (MAY DARKEN STOOLS) ORAL ACTIVE 06/24/2025 [id number] Manuel GILMAN 2024 200 [facility] FERROUS SO4 325MG TAB TAKE ONE TABLET BY MOUTH ONCE A DAY ORAL ACTIVE STEPHEN,Z 2024 [facility] LEVOTHYROXI NE NA 75MCG TAB TAKE ONE TABLET BY MOUTH EVERY MORNING BEFORE A MEAL ORAL ACTIVE STEPHEN,Z 2024 [facility] LEVOTHYROXI NE NA 75MCG TAB (SYNTHROID) TAKE ONE TABLET BY MOUTH ONCE DAILY ORAL ACTIVE Manuel GILMAN 2022 [facility] LIDOCAINE 5% OINT,TOP APPLY SMALL AMOUNT TOPICALL Y TWICE A DAY FOR PAIN TOPICA L 09/28/[id number] Manuel GILMAN 2023 35 [facility] LISINOPRIL 10MG TAB TAKE ONE TABLET BY MOUTH EVERY MORNING ORAL ACTIVE Manuel GILMAN 2018 [facility] LISINOPRIL 10MG TAB TAKE ONE TABLET BY MOUTH ONCE DAILY ORAL ACTIVE Meir LOWE 2016 [facility] LISINOPRIL 20MG TAB TAKE ONE-HALF TABLET BY MOUTH ONCE A DAY ORAL ACTIVE STEPHENMarie 2024 [facility] MULTIVITS W/MINERALS TAB/CAP (NO VIT K) TAKE ONE TABLET BY MOUTH ONCE DAILY ORAL ACTIVE MARCIA MUNOZ NCHOK 2013 [facility] PANTOPRAZOL E NA 40MG TAB,EC TAKE ONE TABLET BY MOUTH EVERY MORNING BEFORE A MEAL ORAL ACTIVE STEPHEN,Z 2024 [facility] PREGABALIN 150MG CAP,ORAL TAKE 1 CAPSULE BY MOUTH TWICE A DAY ORAL ACTIVE STEPHEN,Z 2024 [facility] PREGABALIN 75MG CAP,ORAL TAKE 1 CAPSULE BY MOUTH THREE TIMES A DAY ORAL ACTIVE DORMARCIA BLAS NCHOK 2015 [facility] PREGABALIN 75MG CAP,ORAL TAKE 2 CAPSULES BY MOUTH TWICE A DAY ORAL ACTIVE MUKUL,D ON2023 [facility] SENNA TAB TAKE BY MOUTH ONCE DAILY NEEDED ORAL ACTIVE MUKUL,D ON2023 [facility] SENNOSIDES 8.6MG TAB TAKE ONE TABLET BY MOUTH ORAL ACTIVE DORJEMARCIA Doyle NCHOK 2013 [facility] SIMVASTATIN 40MG TAB TAKE ONE TABLET BY MOUTH EVERY EVENING ORAL ACTIVE DORJEE,MARCIA NCHOK 2013 [facility] SIMVASTATIN 80MG TAB TAKE ONE-HALF TABLET BY MOUTH EVERY EVENING ORAL ACTIVE STEPHEN,Z AHIDA 2024 [facility] N SIMVASTATIN 80MG TAB TAKE ONE-HALF TABLET BY MOUTH AT BEDTIME ORAL ACTIVE MUKUL,D 2018 [facility] VITAMIN E 100UNT CAP TAKE 2 CAPSULES BY MOUTH ONCE DAILY ORAL ACTIVE DORMARCIA BLAS NCHOK 2013 [facility] Allergies, Adverse Reactions, Alerts Combined list of allergies from Department of Defense and Veterans Affairs facilities. It does not include entries that were removed or entered in error. Substance Category Reaction Severity Reaction type Status Date Reported Comments Source COUMADIN Propensity to adverse reactions to drug (finding) Blood in urine, INR raised active 7 [facility] Immunizations Combined list of available immunizations from the Department of Defense and Veterans Affairs facilities. Immunization Series Date Given Administered By Site Reaction Lot Number CVX Code Drug Golf Course Patroller Status Comments Source INFLUENZA, HIGH-DOSE, TRIVALENT, PF 2023 JUDITH HARTMAN LEFT DELTO ID [id number] 135 complet ed [facility] [place], [facility] INFLUENZA, UNSPECIFIED FORMULATION 2023 88 complet ed HISTORICA L INFORMATI ON - FROM PATIENT'S RECALL, [facility] INFLUENZA, UNSPECIFIED FORMULATION 2022 88 complet ed HISTORICA L INFORMATI ON - FROM PATIENT'S RECALL, [facility] TD[facility] 1 2021 115 complet ed HISTORICA L INFORMATI ON - FROM OTHER REGISTRY, [facility] COVID-19 (MODERNA), MRNA, LNP-S, PF, 100 MCG OR 50 MCG DOSE 3 2020 207 complet ed [facility] INFLUENZA, SEASONAL, INJECTABLE 3 2020 141 complet ed HISTORICA L INFORMATI ON - FROM OTHER REGISTRY, [facility] INFLUENZA, UNSPECIFIED FORMULATION 2020 88 complet ed [facility] COVID-19 (MODERNA), MRNA, LNP-S, PF, 100 MCG/0.5 ML DOSE 2 2020 207 complet ed [facility] COVID-19 (MODERNA), MRNA, LNP-S, PF, 100 MCG/0.5 ML DOSE 1 2020 207 complet ed [facility] INFLUENZA, UNSPECIFIED FORMULATION 2019 88 complet ed [facility] INFLUENZA, SEASONAL, INJECTABLE 2 2019 141 complet ed HISTORICA L INFORMATI ON - FROM OTHER REGISTRY, [facility] INFLUENZA, HIGH DOSE SEASONAL 2018 135 complet ed HISTORICA L INFORMATI ON - FROM OTHER PROVIDER, Partner: [facility]. Administe red by: ISMAEL RAMOS (MWE=[phone]). Partner 9 Lot#: [id number] Mfr: Sanofi Pasteur; Dosage: 0.5 [facility] INFLUENZA, TRIVALENT, ADJUVANTED 2017 168 complet ed [facility] INFLUENZA, UNSPECIFIED FORMULATION [address] Burt, administe red in November [facility] PNEUMOCOCCAL CONJUGATE PCV 13 2016 133 complet ed per KENTRELL SHULTZ [facility] INFLUENZA, HIGH DOSE SEASONAL 2015 135 complet ed [facility] INFLUENZA, HIGH DOSE SEASONAL 2013 135 complet ed [facility] INFLUENZA, UNSPECIFIED FORMULATION 2012 88 complet ed [facility] PNEUMOCOCCAL POLYSACCHARID E PPV23 2012 33 complet ed [facility] TDAP 2011 115 complet ed [facility]ID CHOWDHURY [facility] INFLUENZA, UNSPECIFIED FORMULATION 2011 88 complet ed [facility] INFLUENZA, UNSPECIFIED FORMULATION 2010 88 complet ed [facility] INFLUENZA, UNSPECIFIED FORMULATION 2009 88 complet ed [facility] Results Combined list of recent chemistry, hematology and other laboratory results from Department of Defense and Veterans Affairs, ranging from 15 months to all on record, depending upon the facility. Order Name Results Value Reference Range Date Interpretation Specimen Comments Source B12 COBALAMIN (VITAMIN B12) [MASS/VOLUM E] IN SERUM OR PLASMA 255 pg/mL 213 - 816 09/21 Specimen Type: SERUM No comment entered. Ordering Provider: EMILIA MITCHELL Report Released Date/Time: Sep 21, 2024 01:33 PM Reporting Lab: [facility] [place] [address] Performing Lab: [facility] DIVISION CBC LEUKOCYTES [#/VOLUME] IN BLOOD BY AUTOMATED COUNT 6.9 10*3/u L 3.6 - 11.2 09/21 Specimen Type: BLOOD No comment entered. Ordering Provider: EMILIA MITCHELL Report Released Date/Time: Sep 21, 2024 01:33 PM Reporting Lab: [facility] [place] [address] Performing Lab: [facility] DIVISION CBC ERYTHROCYTE S [#/VOLUME] IN BLOOD BY AUTOMATED COUNT 3.75 10*6/u L 4.10 - 5.70 09/21 L Specimen Type: BLOOD No comment entered. Ordering Provider: EMILIA MITCHELL Report Released Date/Time: Sep 21, 2024 01:33 PM Reporting Lab: [facility] [place] [address] Performing Lab: [facility] DIVISION CBC HEMOGLOBIN [MASS/VOLUM E] IN BLOOD 11.1 g/dL 13.1 - 16.8 09/21 L Specimen Type: BLOOD No comment entered. Ordering Provider: EMILIA MITCHELL Report Released Date/Time: Sep 21, 2024 01:33 PM Reporting Lab: [facility] [place] [address] Performing Lab: [facility] CBC HEMATOCRIT [VOLUME FRACTION] OF BLOOD 34.3 38.2 - 48.4 09/21 L Specimen Type: BLOOD No comment entered. Ordering Provider: EMILIA MITCHELL Report Released Date/Time: Sep 21, 2024 01:33 PM Reporting Lab: [facility] [place] [address] Performing Lab: [facility] DIVISION CBC MCV [ENTITIC VOLUME] BY AUTOMATED COUNT 91.5 fL 80.0 - 100.0 09/21 Specimen Type: BLOOD No comment entered. Ordering Provider: EMILIA MITCHELL Report Released Date/Time: Sep 21, 2024 01:33 PM Reporting Lab: [facility] [place] [address] Performing Lab: [facility] DIVISION CBC MCH [ENTITIC MASS] BY AUTOMATED COUNT 29.6 pg 27.0 - 34.0 09/21 Specimen Type: BLOOD No comment entered. Ordering Provider: EMILIA MITCHELL Report Released Date/Time: Sep 21, 2024 01:33 PM Reporting Lab: [facility] [place] [address] Performing Lab: [facility] CBC MCHC [MASS/VOLUM E] BY AUTOMATED COUNT 32.4 g/dL 33.0 - 36.0 09/21 L Specimen Type: BLOOD No comment entered. Ordering Provider: EMILIA MITCHELL Report Released Date/Time: Sep 21, 2024 01:33 PM Reporting Lab: [facility] [place] [address] Performing Lab: [facility] CBC PLATELETS [#/VOLUME] IN BLOOD BY AUTOMATED COUNT 110 10*3/u L 150 - 400 09/21 L Specimen Type: BLOOD No comment entered. Ordering Provider: EMILIA MITCHELL Report Released Date/Time: Sep 21, 2024 01:33 PM Reporting Lab: [facility] [place] [address] Performing Lab: [facility] DIVISION CBC PLATELET MEAN VOLUME [ENTITIC VOLUME] IN BLOOD BY AUTOMATED COUNT 11.5 fL 7.5 - 11.2 09/21 H Specimen Type: BLOOD No comment entered. Ordering Provider: EMILIA MITCHELL Report Released Date/Time: Sep 21, 2024 01:33 PM Reporting Lab: [facility] [place] [address] Performing Lab: [facility] CBC ERYTHROCYTE DISTRIBUTIO N WIDTH [RATIO] BY AUTOMATED COUNT 15.2 11.8 - 15.1 09/21 H Specimen Type: BLOOD No comment entered. Ordering Provider: EMILIA MITCHELL Report Released Date/Time: Sep 21, 2024 01:33 PM Reporting Lab: [facility] [place] [address] Performing Lab: [facility] [facility] CBC LYMPHOCYTES /100 LEUKOCYTES IN BLOOD BY AUTOMATED COUNT 19 09/21 Specimen Type: BLOOD No comment entered. Ordering Provider: EMILIA MITCHELL Report Released Date/Time: Sep 21, 2024 01:33 PM Reporting Lab: [facility] [place] [address] Performing Lab: [facility] DIVISION CBC MONOCYTES/1 00 LEUKOCYTES IN BLOOD BY AUTOMATED COUNT 8 09/21 Specimen Type: BLOOD No comment entered. Ordering Provider: EMILIA MITCHELL Report Released Date/Time: Sep 21, 2024 01:33 PM Reporting Lab: [facility] [place] [address] Performing Lab: [facility] DIVISION CBC NEUTROPHILS /100 LEUKOCYTES IN BLOOD BY AUTOMATED COUNT 70 09/21 Specimen Type: BLOOD No comment entered. Ordering Provider: EMILIA MITCHELL Report Released Date/Time: Sep 21, 2024 01:33 PM Reporting Lab: [facility] [place] [address] Performing Lab: [facility] DIVISION CBC EOSINOPHILS /100 LEUKOCYTES IN BLOOD BY AUTOMATED COUNT 2 09/21 Specimen Type: BLOOD No comment entered. Ordering Provider: EMILIA MITCHELL Report Released Date/Time: Sep 21, 2024 01:33 PM Reporting Lab: [facility] [place] [address] Performing Lab: [facility] DIVISION CBC BASOPHILS/1 00 LEUKOCYTES IN BLOOD BY AUTOMATED COUNT 1 09/21 Specimen Type: BLOOD No comment entered. Ordering Provider: EMILIA MITCHELL Report Released Date/Time: Sep 21, 2024 01:33 PM Reporting Lab: [facility] [place] [address] Performing Lab: [facility] DIVISION CBC LYMPHOCYTES [#/VOLUME] IN BLOOD BY AUTOMATED COUNT 1.29 10*3/u L 0.77 - 4.50 09/21 Specimen Type: BLOOD No comment entered. Ordering Provider: EMILIA MITCHELL Report Released Date/Time: Sep 21, 2024 01:33 PM Reporting Lab: [facility] [place] [address] Performing Lab: [facility] DIVISION CBC MONOCYTES [#/VOLUME] IN BLOOD BY AUTOMATED COUNT 0.57 10*3/u L 0.19 - 0.80 09/21 Specimen Type: BLOOD No comment entered. Ordering Provider: EMILIA MITCHELL Report Released Date/Time: Sep 21, 2024 01:33 PM Reporting Lab: [facility] [place] [address] Performing Lab: [facility] DIVISION CBC NEUTROPHILS [#/VOLUME] IN BLOOD BY AUTOMATED COUNT 4.83 10*3/u L 2.10 - 8.00 09/21 Specimen Type: BLOOD No comment entered. Ordering Provider: EMILIA MITCHELL Report Released Date/Time: Sep 21, 2024 01:33 PM Reporting Lab: [facility] [place] [address] Performing Lab: [facility] DIVISION CBC EOSINOPHILS [#/VOLUME] IN BLOOD BY AUTOMATED COUNT 0.15 10*3/u L 0.00 - 0.60 09/21 Specimen Type: BLOOD No comment entered. Ordering Provider: EMILIA MITCHELL Report Released Date/Time: Sep 21, 2024 01:33 PM Reporting Lab: [facility] [place] [address] Performing Lab: [facility] DIVISION CBC BASOPHILS [#/VOLUME] IN BLOOD BY AUTOMATED COUNT 0.05 10*3/u L 0.00 - 0.20 09/21 Specimen Type: BLOOD No comment entered. Ordering Provider: EMILIA MITCHELL Report Released Date/Time: Sep 21, 2024 01:33 PM Reporting Lab: [facility] [place] [address] Performing Lab: [facility] DIVISION CBC PLATELETS RETICULATED /100 PLATELETS IN BLOOD BY AUTOMATED COUNT 6.5 1.0 - 7.0 09/21 Specimen Type: BLOOD No comment entered. Ordering Provider: EMILIA MITCHELL Report Released Date/Time: Sep 21, 2024 01:33 PM Reporting Lab: [facility] [place] [address] Performing Lab: [facility] DIVISION COMPREHENS FRANCIA METABOLIC PANEL CREATININE [MASS/VOLUM E] IN SERUM OR PLASMA 1.04 mg/dL 0.70 - 1.30 09/21 Specimen Type: PLASMA Comment: No hemolysis noted. Ordering Provider: EMILIA MITCHELL Report Released Date/Time: Sep 21, 2024 01:33 PM Reporting Lab: [facility] [place] [address] Performing Lab: [facility] DIVISION COMPREHENS FRANCIA METABOLIC PANEL UREA NITROGEN [MASS/VOLUM E] IN SERUM OR PLASMA 20.2 mg/dL 9.0 - 25.0 09/21 Specimen Type: PLASMA Comment: No hemolysis noted. Ordering Provider: EMILIA MITCHELL Report Released Date/Time: Sep 21, 2024 01:33 PM Reporting Lab: [facility] [place] [address] Performing Lab: [facility] DIVISION COMPREHENS FRANCIA METABOLIC PANEL GLUCOSE [MASS/VOLUM E] IN SERUM OR PLASMA 100 mg/dL 72 - 99 09/21 H Specimen Type: PLASMA Comment: No hemolysis noted. Ordering Provider: EMILIA MITCHELL Report Released Date/Time: Sep 21, 2024 01:33 PM Reporting Lab: [facility] [place] [address] Performing Lab: [facility] COMPREHENS FRANCIA METABOLIC PANEL SODIUM [MOLES/VOLU ME] IN SERUM OR PLASMA 135 meq/L 136 - 145 09/21 L Specimen Type: PLASMA Comment: No hemolysis noted. Ordering Provider: EMILIA MITCHELL Report Released Date/Time: Sep 21, 2024 01:33 PM Reporting Lab: [facility] [place] [address] Performing Lab: [facility] DIVISION COMPREHENS FRANCIA METABOLIC PANEL POTASSIUM [MOLES/VOLU ME] IN SERUM OR PLASMA 4.2 meq/L 3.5 - 5.0 09/21 Specimen Type: PLASMA Comment: No hemolysis noted. Ordering Provider: EMILIA MITCHELL Report Released Date/Time: Sep 21, 2024 01:33 PM Reporting Lab: [facility] [place] [address] Performing Lab: [facility] [id number] [place] [address] DIVISION COMPREHENS FRANCIA METABOLIC PANEL CHLORIDE [MOLES/VOLU ME] IN SERUM OR PLASMA 103 meq/L 98 - 107 09/21 Specimen Type: PLASMA Comment: No hemolysis noted. Ordering Provider: EMILIA MITCHELL Report Released Date/Time: Sep 21, 2024 01:33 PM Reporting Lab: [facility] [place] [address] Performing Lab: [facility]1 [facility] [phone] DIVISION COMPREHENS FRANCIA METABOLIC PANEL CARBON DIOXIDE, TOTAL [MOLES/VOLU ME] IN SERUM OR PLASMA 23 meq/L 22 - 31 09/21 Specimen Type: PLASMA Comment: No hemolysis noted. Ordering Provider: EMILIA MITCHELL Report Released Date/Time: Sep 21, 2024 01:33 PM Reporting Lab: [facility]1 [facility] [address] Performing Lab: [facility]1 [facility] [phone] DIVISION COMPREHENS FRANCIA METABOLIC PANEL CALCIUM [MASS/VOLUM E] IN SERUM OR PLASMA 9.0 mg/dL 8.4 - 10.4 09/21 Specimen Type: PLASMA Comment: No hemolysis noted. Ordering Provider: EMILIA MITCHELL Report Released Date/Time: Sep 21, 2024 01:33 PM Reporting Lab: [facility]1 [facility] [address] Performing Lab: [facility] DIVISION COMPREHENS FRANCIA METABOLIC PANEL PROTEIN [MASS/VOLUM E] IN SERUM OR PLASMA 7.6 g/dL 6.0 - 8.6 09/21 Specimen Type: PLASMA Comment: No hemolysis noted. Ordering Provider: EMILIA MITCHELL Report Released Date/Time: Sep 21, 2024 01:33 PM Reporting Lab: [facility] [place] [address] Performing Lab: [facility] DIVISION COMPREHENS FRANCIA METABOLIC PANEL ALBUMIN [MASS/VOLUM E] IN SERUM OR PLASMA 4.3 g/dL 3.4 - 5.0 09/21 Specimen Type: PLASMA Comment: No hemolysis noted. Ordering Provider: EMILIA MITCHELL Report Released Date/Time: Sep 21, 2024 01:33 PM Reporting Lab: [facility]1 [place] [address] Performing Lab: [facility] DIVISION COMPREHENS FRANCIA METABOLIC PANEL BILIRUBIN.T OTAL [MASS/VOLUM E] IN SERUM OR PLASMA 1.1 mg/dL 0.2 - 1.2 09/21 Specimen Type: PLASMA Comment: No hemolysis noted. Ordering Provider: EMILIA MITCHELL Report Released Date/Time: Sep 21, 2024 01:33 PM Reporting Lab: [facility] [place] [address] Performing Lab: [facility] DIVISION COMPREHENS FRANCIA METABOLIC PANEL ALKALINE PHOSPHATASE [ENZYMATIC ACTIVITY/VO LUME] IN SERUM OR PLASMA 64 U/L 40 - 150 09/21 Specimen Type: PLASMA Comment: No hemolysis noted. Ordering Provider: EMILIA MITCHELL Report Released Date/Time: Sep 21, 2024 01:33 PM Reporting Lab: [facility]1 [place] [address] Performing Lab: [facility] DIVISION COMPREHENS FRANCIA METABOLIC PANEL ASPARTATE AMINOTRANSF ERASE [ENZYMATIC ACTIVITY/VO LUME] IN SERUM OR PLASMA 33 U/L 5 - 34 09/21 Specimen Type: PLASMA Comment: No hemolysis noted. Ordering Provider: EMILIA MITCHELL Report Released Date/Time: Sep 21, 2024 01:33 PM Reporting Lab: [facility]1 [facility] [address] Performing Lab: [facility]1 [facility] [phone] DIVISION COMPREHENS FRANCIA METABOLIC PANEL ALANINE AMINOTRANSF ERASE [ENZYMATIC ACTIVITY/VO LUME] IN SERUM OR PLASMA 25 U/L 8 - 40 09/21 Specimen Type: PLASMA Comment: No hemolysis noted. Ordering Provider: EMILIA MITCHELL Report Released Date/Time: Sep 21, 2024 01:33 PM Reporting Lab: [facility]1 [facility] [address] Performing Lab: [facility]1 [place] [phone] DIVISION COMPREHENS FRANCIA METABOLIC PANEL GLOMERULAR FILTRATION RATE/1.73 SQ M.PREDICTED [VOLUME RATE/AREA] IN SERUM, PLASMA OR BLOOD BY CREATININE- BASED FORMULA (CKD-EPI 2020) 69.06 60 09/21 Specimen Type: PLASMA Comment: No hemolysis noted. Ordering Provider: EMILIA MITCHELL Report Released Date/Time: Sep 21, 2024 01:33 PM Reporting Lab: [facility]1 [facility] [address] Performing Lab: [facility]1 [facility] [phone] [place] [address] DIVISION FERRITIN FERRITIN [MASS/VOLUM E] IN SERUM OR PLASMA 38.68 ng/mL 22 - 275 09/21 Specimen Type: SERUM No comment entered. Ordering Provider: EMILIA MITCHELL Report Released Date/Time: Sep 21, 2024 01:33 PM Reporting Lab: [facility] [address] [place] [phone] Performing Lab: [facility] [address] [facility] [address] [facility] FOLATE (STL-MA) FOLATE [MASS/VOLUM E] IN SERUM OR PLASMA 9.1 ng/mL 7 - 20 09/21 Specimen Type: SERUM No comment entered. Ordering Provider: EMILIA MITCHELL Report Released Date/Time: Sep 21, 2024 01:33 PM Reporting Lab: [facility]1 [place] [address] Performing Lab: [facility]1 [facility] [phone] DIVISION FREE T4 (STL) THYROXINE (T4) FREE [MASS/VOLUM E] IN SERUM OR PLASMA 1.00 ng/mL 0.70 - 1.48 09/21 Specimen Type: PLASMA No comment entered. Ordering Provider: EMILIA MITCHELL Report Released Date/Time: Sep 21, 2024 01:33 PM Reporting Lab: [facility]1 [place] [address] Performing Lab: [facility] #[address] DIVISION HGA1C HEMOGLOBIN A1C/HEMOGLO BIN.TOTAL IN BLOOD 5.8 4.0 - 6.0 09/21 Specimen Type: BLOOD No comment entered. Ordering Provider: EMILIA MITCHELL Report Released Date/Time: Sep 21, 2024 01:33 PM Reporting Lab: [facility]1 [place] [address] Performing Lab: [facility]1 [facility] [phone] DIVISION IRON/TIBC PROFILE IRON BINDING CAPACITY [MASS/VOLUM E] IN SERUM OR PLASMA 449 ug/dL 250 - 450 09/21 Specimen Type: SERUM No comment entered. Ordering Provider: EMILIA MITCHELL Report Released Date/Time: Sep 21, 2024 01:33 PM Reporting Lab: [facility] [address] [facility] [address] Performing Lab: [facility] [address] [facility] [address] [facility] IRON/TIBC PROFILE TRANSFERRIN [MASS/VOLUM E] IN SERUM OR PLASMA 359 mg/dL 163 - 344 09/21 H Specimen Type: SERUM No comment entered. Ordering Provider: EMILIA MITCHELL Report Released Date/Time: Sep 21, 2024 01:33 PM Reporting Lab: [address] [address] Performing Lab: [address] [address] [facility] IRON/TIBC PROFILE IRON SATURATION [MASS FRACTION] IN SERUM OR PLASMA 12 20 - 50 09/21 L Specimen Type: SERUM No comment entered. Ordering Provider: EMILIA MITCHELL Report Released Date/Time: Sep 21, 2024 01:33 PM Reporting Lab: [address] [address] Performing Lab: [address] [address] [facility] IRON/TIBC PROFILE IRON [MASS/VOLUM E] IN SERUM OR PLASMA 52 ug/dL 65 - 175 09/21 L Specimen Type: SERUM No comment entered. Ordering Provider: EMILIA MITCHELL Report Released Date/Time: Sep 21, 2024 01:33 PM Reporting Lab: [address] [phone] Performing Lab: [address] [address] [facility] LIPID PANEL (STL) CHOLESTEROL [MASS/VOLUM E] IN SERUM OR PLASMA 127 mg/dL 0 - 200 09/21 Specimen Type: PLASMA Comment: No hemolysis noted. Ordering Provider: EMILIA MITCHELL Report Released Date/Time: Sep 21, 2024 01:33 PM Reporting Lab: [facility]1 [facility] [address] Performing Lab: [facility]1 [facility] [phone] [place] [address] DIVISION LIPID PANEL (STL) TRIGLYCERID E [MASS/VOLUM E] IN SERUM OR PLASMA 108 mg/dL 0 - 150 09/21 Specimen Type: PLASMA Comment: No hemolysis noted. Ordering Provider: EMILIA MITCHELL Report Released Date/Time: Sep 21, 2024 01:33 PM Reporting Lab: [facility]1 [place] [address] Performing Lab: [facility] #1 [place] [phone] LIPID PANEL (STL) CHOLESTEROL IN LDL [MASS/VOLUM E] IN SERUM OR PLASMA BY CALCULATION 64 mg/dL 09/21 Specimen Type: PLASMA Comment: No hemolysis noted. Ordering Provider: EMILIA MITCHELL Report Released Date/Time: Sep 21, 2024 01:33 PM Reporting Lab: [facility]1 [place] [address] Performing Lab: [facility] LIPID PANEL (STL) CHOLESTEROL IN HDL [MASS/VOLUM E] IN SERUM OR PLASMA 41 mg/dL 40 09/21 Specimen Type: PLASMA Comment: No hemolysis noted. Ordering Provider: EMILIA MITCHELL Report Released Date/Time: Sep 21, 2024 01:33 PM Reporting Lab: [facility]1 [place] [phone] Performing Lab: [facility] #1 [place] [phone] DIVISION VITAMIN D, 25-HYDROXY 25-HYDROXYV ITAMIN D3 [MASS/VOLUM E] IN SERUM OR PLASMA 30.0 ng/mL 30 - 96 09/21 Specimen Type: SERUM No comment entered. Ordering Provider: EMILIA MITCHELL Report Released Date/Time: Sep 21, 2024 01:33 PM Reporting Lab: [facility]1 [facility] [address] Performing Lab: [facility]1 [facility] [address] [facility] Vital Signs Combined list of inpatient and outpatient Vital Signs from Department of Defense and Veterans Affairs, ranging from 12 months to all on record, depending upon the facility. Vital Sign Value Date Comments Source SYSTOLIC BLOOD PRESSURE 117 09/22/19 25 12:52:43 [facility] DIASTOLIC BLOOD PRESSURE 62 025 12:52:43 [facility] PULSE OXIMETRY 97 % 09/21/2024 12:52:43 [facility] WEIGHT 206.4 09/21/2024 12:52:43 [facility] BMI 36 kg/m2 09/21/2024 12:52:43 [facility] PAIN 0 09/21/2024 12:52:43 [facility] HEIGHT 64 09/21/2024 12:52:43 [facility] TEMPERATURE 98.2 09/21/2024 12:52:43 [facility] PULSE 72 09/21/2024 12:52:43 [facility] RESPIRATION 16 09/21/2024 12:52:43 [facility] SYSTOLIC BLOOD PRESSURE 129 03/13/20 24 [...] SYSTOLIC BLOOD PRESSURE 136 11/08/19 24 10:46:37 [facility] DIASTOLIC BLOOD PRESSURE 75 024 10:46:37 [facility] PULSE OXIMETRY 96 11/08/2023 10:46:37 [facility] WEIGHT 204.1 11/08/2023 10:46:37 [facility] BMI 31 kg/m2 11/08/2023 10:46:37 [facility] PAIN 4 11/08/2023 10:46:37 [facility] TEMPERATURE 96.6 11/08/2023 10:46:37 [facility] PULSE 71 11/08/2023 10:46:37 MADELINJULIO C [facility] RESPIRATION 18 11/08/2023 10:46:37 [facility] SYSTOLIC BLOOD PRESSURE 126 10/25/19 24 11:11:02 [...] Status Disposition Source ELENO ESCOTO [facility] Outpatient Encounter [id number] 04/19 DAVID CHOWDHURY [facility] [place] [facility] Outpatient Encounter [id number] 04/19 DAVID LYLE [facility] [place] [facility] Outpatient Encounter [id number] 04/24 DAVID CHOW[place] [facility] [place] [facility] Outpatient Encounter [id number] Meir NAVARRO 05/20 DAVID CHOWDHURY [facility] OPC OFFICE O/P EST LOW 20 MIN [id number] Diagnos is: ICD-10- CM G47.39 Other sleep apnea REMY GARCIA 05/21 [facility] [place] [facility] Outpatient Encounter [id number] DO CHERELLE GILMAN 05/21 DAVID LYLE [facility] [place] [facility] Outpatient Encounter [id number] 06/06 DAVID LYLE [facility] [place] [facility] Outpatient Encounter [id number] 06/06 DAVID LYLE [facility] [place] [facility] Outpatient Encounter [id number] 07/04 DAVID LYLE [facility] [place] [facility] Outpatient Encounter [id number] DO CHERELLE GILMAN 07/07 DAVID LYLE [facility] [place] [facility] Outpatient Encounter [id number] 07/10 DAVID LYLE [facility] [place] [facility] Outpatient Encounter [id number] 07/16 DAVID LYLE [facility] [place] [facility] Outpatient Encounter [id number] 07/17 [facility]ID [facility] [place] [facility] Outpatient Encounter [id number] 08/05 DAVID CHOWDHURY [facility] [place] [facility] Outpatient Encounter [id number] 08/15 DAVID CHOWDHURY [facility] [place] [facility] Outpatient Encounter [id number] MUKUL,DO NALD 08/18 [facility] [place] [facility] Outpatient Encounter [id number] 08/26 DAVID CHOWDHURY [facility] [place] [facility] Outpatient Encounter [id number] MUKUL, NALD 08/27 [facility] EST MOD 30 MIN [id number] Diagnos is: ICD-10- CM M25.50 Pain in unspeci fied joint MUKUL,DO NALD 08/[address] 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 Outpatient Encounter [id number] 10/23 [facility] OFFICE O/P EST MOD 30 MIN [id number] Diagnos is: ICD-10- CM R26.81 Unstead iness on feet DO MUKUL NALD 10/[address] 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 ing SHAWN MORTON 11/06 [facility] OFF/OP CNSLTJ NEW/EST LOW 30 [id number] Diagnos is: ICD-10- CM M25.531 Pain in right wrist TRI JONES 11/07 [facility] [place] [facility] Outpatient Encounter [id number] TRI JONES 11/07 [place] [facility] [place] [facility] Outpatient Encounter [id number] 11/07 [facility] PRO PHONE CALL 5-10 MIN [id number] Diagnos is: ICD-10- CM 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.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 certified rehabilitation counselor HSAWN Galicia 11/14 [facility] [place] [facility] Outpatient Encounter [id number] 11/27 [facility] Outpatient Encounter [id number] Diagnos is: ICD-10- CM 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 DO CHERELLE GILMAN 11/28 [facility] [place] [facility] Outpatient Encounter [id number] 11/28 [facility] Outpatient Encounter [id number] 12/16 [facility] IMMUNIZATI ON ADMIN [id number] Diagnos is: ICD-10- CM Z23 Encount er for immuniz ation ЮЛИЯ HARTMAN 12/30 [facility] Outpatient Encounter [id number] 02/09 [facility] [place] [facility] [place] [facility] Outpatient Encounter [id number] VILMA DALY 03/09 [place] [facility] [place] [facility] Outpatient Encounter [id number] ELANA RICCI 03/12 BOLAYanira CHOWDHURY [facility] OFFICE O/P EST MOD 30 MIN [id number] Diagnos is: ICD-10- CM Z00.01 Encount er for general adult medical exam w abnorma l finding s MUKUL,DO NALD 03/13 [facility] ASS[facility]&MGMT NQHP 11-20 [id number] Diagnos is: ICD-10- CM Z71.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 certified rehabilitation counselor SHAWN Galicia 03/19 [facility] Outpatient Encounter [id number] ЮЛИЯ CASAREZ 03/19 HAL [facility] SYNCH AUDIO-ONLY EST SF 10 [id number] Diagnos is: ICD-10- CM E55.9 Vitamin D deficie ncy, unspeci fied MUKUL, NALD 03/23 [facility] Outpatient Encounter [id number] 03/26 [facility]ID [facility] Outpatient Encounter [id number] 06/09 [facility] [place] [facility] Outpatient Encounter [id number] 06/09 [facility] PH1 ASSMT&MGMT NQHP 5-10 [id number] Diagnos is: ICD-10- CM Z71.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 certified rehabilitation counselor SHAWN Galicia 07/01 [facility] TARGETED CASE MANAGEMENT [id number] Diagnos is: ICD-10- CM Y93.E6 Activit y, residen tial relocat FERNANDO Simpson 09/08 [place] [facility] Outpatient Encounter [id number] ROHIT CASAREZ Nicolasa 09/14 [facility] OFFICE O/P NEW HI 60 MIN [id number] Diagnos is: ICD-10- CM 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 Social History Type Response Date Comment Sourc e Tobacco [facility] 09/21/2024 [facility] History of tobacco use [place]-TOBACCO NEVER USED OTHER TYPE 09/21/2024 [facility] History of tobacco use [place]-TOBACCO USE FORMER CIGARETTES 03/09/2024 NADIA [facility] History of tobacco use VA-TOBACCO FORMER USER [...] of tobacco use VA-TOBACCO FORMER USER 12/31/2017 [facility] History of tobacco use CURRENT NON-SMOKER 06/17/2017 [facility] History of tobacco use CURRENT NON-SMOKER 12/21/2016 [facility] History of tobacco use LIFETIME NON-TOBACCO USER 12/14/2009 [facility] Plan of Care List of future care activities from Department of Veterans Affairs facilities. Additional future care activities may be listed in the Assessment and Plan section. Date/Time Care Activity Care Activity Detail Facili ty 10/08/2024 AMBULATORY - SURGERY AMBULATORY - SURGERY [facility] Advance Directives List of completed, amended, or rescinded Advance Directives on record at [facility] facilities. An actual copy of the Directive is not included. Date Advance Directive Provider Source 03/25/2023 ADVANCE DIRECTIVE MORIAH HILL [facility] 06/19/2017 ADVANCE DIRECTIVE DISCUSSION CAYDEN AREVALO [facility] 12/22/2016 ADVANCE DIRECTIVE DISCUSSION LEXA ABDUL [facility] 12/21/2016 ADVANCE DIRECTIVE DISCUSSION LINDEN LEZAMA [facility]
--- OUTSIDE RECORDS SUMMARY | 2024-10-02 10:49 | XMS_ITS | Clinical Summary ---
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 [employer] [facility] MEDICARE PART A AND B [place] [employer] Care Teams Pin Or Clip Fastener Relationship Specialty Start Date End Date Ramón Fisher II, DO [address] [place] [id number] [address] [phone] PCP - General Family Practice 09/23/21
[2024-10-02 10:59] LABS: INR 1.0; Partial Thromboplastin Time 25.9 Sec (23.9-30.70); Prothrombin Time 11.2 Seconds (9.50-12.1)
[2024-10-02 11:00] LABS: Alanine Aminotransferase 26 U/L (6-50); Albumin Level 4.0 g/dL (3.5-5.1); Alkaline Phosphatase 52 U/L (38-126); Anion Gap 5 mmol/L (4-12); Aspartate Amino Transferase 36 U/L (17-59); Bilirubin,Total 1.1 mg/dL (0.2-1.3); Blood Urea Nitrogen 23 mg/dL (9-20); Calcium 9.1 mg/dL (8.4-10.2); Carbon Dioxide 27 mmol/L (22-30); Chloride 105 mmol/L (98-107); Estimated CRCL calculation 40 ml/min; Estimated Glomerular Filt Rate 51; Glucose 112 mg/dL (65-110); Osmolality Calculated 288 mOsm/kg (285-295); Potassium 5.0 mmol/L (3.4-5.0); Sodium 137 mmol/L (137-145); Total Protein 6.8 g/dL (6.3-8.2)
[2024-10-02] MEDS: SODIUM CHLORIDE 0.9% IV 1,000 ML 999 ML IV CONT ×2 (11:10→12:39)
[2024-10-02 11:12] LABS: Troponin I < 0.012 ng/mL (0.000-0.034)
--- NOTE | 2024-10-02 11:24 | PC.NURSE ---
Pt aware of UA order, states that he cannot provide sample at this time.
[2024-10-02 11:26] LABS: NT Pro B Type Natriuretic Pept 981 pg/mL (19.9-100)
[2024-10-02] MEDS: PIPERACILLIN/TAZOBACTAM SOD 3.375 GM in SODIUM CHLORIDE 0.9% IV 50 ML 100 ML IVPB (12:09)
--- NOTE | 2024-10-02 12:14 | PC.NURSE ---
RN inquired again about urine sample. Pt states that he cannot go because he has not had his morning coffee. RN reminded Pt that he has had almost a whole liter of fluid at this point and ERP would like for him to try and provide sample. states that Pt will need to stand to urinate. RN assisted Pt to standing position. Pt states I'm going to have to stand here for a while, so you might as well get out. RN confirmed that Pt felt comfortable standing at side of bed. remains with Pt at bedside.
[2024-10-02 12:38] LABS: Add Urine Microscopic? NO; Appearance Urine Clear (Clear); Glucose Urine UA Negative (Negative); Leukocyte Esterase Ur Negative LEU/UL (Negative); Nitrate Urine Negative (Negative); Specific Grav Ur 1.010 (1.010-1.020)
[2024-10-02] MEDS: ASPIRIN 325 MG ENTERIC TABLET PO (16:45)
--- NOTE | 2024-10-05 15:41 | PC.NURSE ---
preliminary blood culturesx2: no growth in 24 hours
--- NOTE | 2024-10-06 12:46 | PC.NURSE ---
preliminary blood cultures x2 reviewed. no growth after 48 hours
--- NOTE | 2024-10-09 12:20 | PC.NURSE ---
blood culture final , no growth
== END 2024-10-02 16:58 | disposition short-term general hospital (02) ==
PROVIDERS: Emergency Provider Emergency Medicine; PCP Family Medicine
DX: I63.9 Cerebral infarction, unspecified (principal); J18.9 Pneumonia, unspecified organism; I95.9 Hypotension, unspecified; I25.10 Atherosclerotic heart disease of native coronary artery without angina pectoris; I48.91 Unspecified atrial fibrillation; I10 Essential (primary) hypertension; E03.9 Hypothyroidism, unspecified; E78.5 Hyperlipidemia, unspecified; Z79.01 Long term (current) use of anticoagulants
CPT/HCPCS: 36415; 70450; 71045; 80053; 81003; 83605; 83880; 84484; 85025; 85610; 85730; 93005; 96365; 99285; A9270; J2543; J7030

== ENCOUNTER 2024-10-09 11:06 | Outpatient (CLI) | payer MEDICARE, BC, SELFPAY ==
--- OUTSIDE RECORDS SUMMARY | 2024-10-09 11:09 | XMS_ITS | Clinical Summary ---
Author Organization [facility] Address [address] [place] [address] Care Team Providers Care Case Assembler Name Role Phone Raul Braun DO Primary Care Provider [phone] Allergies No known active allergies Medications amitriptyline (ELAVIL) 10 MG tablet Take 1 tablet (10 mg total) by mouth nightly at bedtime. Active apixaban (ELIQUIS) 5 MG tablet Take 1 tablet (5 mg total) by mouth 2 (two) times daily. Active vitamin D3 (CHOLECALCIFER OL) 25 mcg tablet Take 1 tablet (25 mcg total) by mouth daily. Active docusate sodium (COLACE) 100 MG capsule Take 1 capsule (100 mg total) by mouth daily. Active eplerenone (INSPRA) 25 MG tablet Take 1 tablet (25 mg total) by mouth daily. Active levothyroxine (SYNTHROID) 75 MCG tablet Take 1 tablet (75 mcg total) by mouth daily. Active lisinopril (PRINIVIL) 10 MG tablet Take 1 tablet (10 mg total) by mouth daily. Active pregabalin (LYRICA) 150 MG capsule Take 1 tablet by mouth 2 (two) times daily. Active simvastatin (ZOCOR) 80 MG tablet Take 1 tablet (80 mg total) by mouth daily. Active aspirin EC (ECOTRIN) 81 MG tablet Take 1 tablet (81 mg total) by mouth daily for 30 days. 30 tablet 10/08/19 25 025 Active acetaZOLAMIDE (DIAMOX) 250 MG tablet Take 1 tablet (250 mg total) by mouth see administration instructions. 2 tablets in the morning and 1 tablet in the evening 025 Discontin ued(Error ) Cyanocobalamin 50 MCG Tab Take 50 mcg by mouth daily. Discontin ued(Error ) fenofibrate (TRICOR) 145 MG tablet Take 1 tablet (145 mg total) by mouth daily. Discontin ued(Error ) ferrous sulfate, 65 mg elemental, 325 (65 FE) MG tablet Take 1 tablet (325 mg total) by mouth daily with breakfast. Discontin ued(Error ) fluticasone-sa lmeterol (ADVAIR DISKUS) 250-50 MCG/ACT inhaler Inhale 1 puff into the lungs 2 (two) times daily. Discontin ued(Error ) gabapentin (NEURONTIN) 100 MG capsule Take 3 capsules (300 mg total) by mouth nightly. Discontin ued(Error ) imiquimod (ALDARA) 5 % cream Apply topically nightly at bedtime. Discontin ued(Error ) omeprazole (PRILOSEC) 40 MG capsule Take 1 capsule (40 mg total) by mouth daily. Discontin ued(Error ) valsartan-hydr oCHLOROthiazid e (DIOVAN-HCT) 160-25 MG tablet Take 1 tablet by mouth daily. Discontin ued(Error ) clopidogrel (PLAVIX) 75 MG tablet Take 1 tablet (75 mg total) by mouth daily. Discontin ued(Stop Taking at Discharge ) Active Problems Problem Noted Date Diagnosed Date Stroke (CMS/HCC [facility]) 10/02/2024 Encounters Date Type Department Care Team Description 10/02/2024 6:18 PM CDT - 10/07/2024 11:34 AM CDT Hospital Encounter [facility] Inpatient Medical Oncology [address] [place] [address] Nubia Vuong MD Sohail, Atif, MD Markapuram, Srikanth, MD Discharge Disposition: Home or Self Care (Routine Discharge) from Last 3 Months Social History Tobacco Use Types Packs/Day Years Used Date Smoking Tobacco: Never Assessed [facility] Utilities Answer Date Recorded In the past 12 months has e electric, gas, oil, or water company threatened to shut off services in your home? No 10/06/2024 Humiliation, Afraid, Rape, and Kick questionnair e Answer Date Recorded Within the last year, have y ou been afraid of your partner or ex-partner? No 10/06/2024 Within the last year, have y ou been humiliated or emotionally abused in other ways by your partner or ex-partner? No Within the last year, have y ou been kicked, hit, slapped, or otherwise physically hurt by your partner or ex-partner? No 10/06/2024 Within the last year, have y ou been raped or forced to have any kind of sexual activity by your partner or ex-partner? No 10/06/2024 Overall Financial Resource Strain (CARDIA) Answe r Date Recorded How hard is it for you to pa y for the very basics like food, housing, medical care, and heating? Somewhat hard 10/06/2024 Hunger Vital Sign Answer Date Recorded Within the past 12 months, y ou worried that your food would run out before you got the money to buy more. Never true 10/07/19 25 Within the past 12 months, t he food you bought just didn't last and you didn't have money to get more. Never true 10/06/2024 PRAPARE - Transportation Answer Date Re corded In the past 12 months, has l ack of transportation kept you from medical appointments or from getting medications? No 09/16 In the past 12 months, has l ack of transportation kept you from meetings, work, or from getting things needed for daily living? No 10/06/2024 Housing Stability Vital Sign Answer Sanjeev e Recorded In the last 12 months, was t here a time when you were not able to pay the mortgage or rent on time? No 10/06/2024 In the past 12 months, how m any times have you moved where you were living? 0 10/06/2024 At any time in the past 12 m [facility], were you homeless or living in a [place] health care facility (including now)? No 10/06/2024 Sex and Gender Information Value Date Recorded Sex Assigned at Not on file Legal Sex Male 1:22 PM CDT Gender Identity Not on file Sexual Orientation Not on file Last Filed Vital Signs Vital Sign Reading Time Taken Comments Blood Pressure 163/67 10/07/2024 7:43 AM CDT Pulse 66 10/07/2024 7:43 AM CDT Temperature 36.6 C (97.8 F) 10/07/2024 7:43 AM CDT Respiratory Rate 18 10/07/2024 7:43 AM CDT Oxygen Saturation 99% 10/07/2024 5:23 AM CDT Inhaled Oxygen Concentration - - Weight 93.5 kg (206 lb 2.1 oz) 10/02/2024 10:00 PM CDT Height 160 cm (5' 3) 10/02/2024 10:00 PM CDT Body Mass Index 36.51 10/02/2024 10:00 PM CDT Plan of Treatment Health Maintenance Due Date Last Done Comments Zoster Vaccines (1 of 2) 1986 Annual Medicare Wellness Visit 2001 RSV Immunization or 60+ Years (1 - 1-dose 75+ series) 06/02/2011 COVID-19 Vaccine (4 - 2023-2 5 season) 2023 01/11/2021, 06/03/2020, 05/05/2020 DTaP, Tdap and Td Vaccines ( 3 - Td or Tdap) 09/26/2031 09/25/2021, 01/03/2012 Pneumococcal Vaccine: 50+ Years Completed 07/16/2016, 01/12/2013 Meningococcal B Vaccine Aged Out No l onger eligible based on patient's age to complete this topic Meningococcal Vaccine Aged Out No mohinder elaina eligible based on patient's age to complete this topic RSV Immunizations Under 20 Months Aged Out No longer eligible b ased on patient's age to complete this topic Medical Devices Implanted Type Area Detailer Device Identifier Shelf Expiration Date Model / Serial / Lot Rv 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:Qty: 1 on 01/12/2020 Lead Implant Right: Ventricle [employer] - DIV [employer] [id number] / [id number] / 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:Qty: 1 on 01/12/[address] [facility] [employer] - [employer] [id number] / [id number] / Description:MRI Conditional under following conditions: Static magnetic field of 1.5 T or 3 T, Max spatial gradient field of 3000 Gauss/cm or less, Max slew rate 200 T/m/s or less, Max whole body JOEY of 2 W/kg or less, Head JOEY 3.2 W/kg or less, Supine or Prone position Procedures Procedure Name Priority Date/Time Associated Diagnosis Comments COMPREHENSIVE METABOLIC PANEL Routine 10/07/2024 3:23 AM CDT CBC W/DIFF AUTOMATED Routine 10/07/2024 3:23 AM CDT P2Y12 FUNCTION Routine 10/07/2024 3:23 AM CDT MRI BRAIN WO STROKE FAST PROTOCOL Today 10/06/2024 12:11 PM CDT P2Y12 FUNCTION Routine 10/06/2024 4:16 AM CDT CBC W/DIFF AUTOMATED Routine 10/06/2024 4:16 AM CDT COMPREHENSIVE METABOLIC PANEL Routine 10/06/2024 4:16 AM CDT POCT GLUCOSE - DOCKED DEVICE Routine 10/05/2024 8:02 PM CDT POCT GLUCOSE - DOCKED DEVICE Routine 10/05/2024 3:53 PM CDT POCT GLUCOSE - DOCKED DEVICE Routine 10/05/2024 11:31 AM CDT POCT GLUCOSE - DOCKED DEVICE Routine 10/05/2024 5:57 AM CDT POCT GLUCOSE - DOCKED DEVICE Routine 10/04/2024 8:08 PM CDT POCT GLUCOSE - DOCKED DEVICE Routine 10/04/2024 5:10 PM CDT POCT GLUCOSE - DOCKED DEVICE Routine 10/04/2024 11:36 AM CDT BASIC METABOLIC PANEL Routine 10/04/2024 3:26 AM CDT CBC W/DIFF AUTOMATED Routine 10/04/2024 3:26 AM CDT POCT GLUCOSE - DOCKED DEVICE Routine 10/03/2024 8:13 PM CDT POCT GLUCOSE - DOCKED DEVICE Routine 10/03/2024 5:33 PM CDT USV CAROTID DUPLEX RACHELE Today 4:23 PM CDT USE ECHOCARDIOGRAM Routine 10/03/2024 3: 11 PM CDT POCT GLUCOSE - DOCKED DEVICE Routine 10/03/2024 11:28 AM CDT POCT GLUCOSE - DOCKED DEVICE Routine 10/03/2024 6:03 AM CDT BASIC METABOLIC PANEL Routine 10/03/2024 2:12 AM CDT PROTHROMBIN TIME, VENOUS Routine 10/03/2024 2:12 AM CDT CBC W/DIFF AUTOMATED Routine 10/03/2024 2:12 AM CDT LIPID PANEL Routine 10/03/2024 2:12 AM CDT POCT GLUCOSE - DOCKED DEVICE Routine 10/02/2024 11:41 PM CDT THYROXINE, FREE (FT4) Routine 10/02/2024 9:17 PM CDT TSH W/REFLEX Routine 10/02/2024 9:17 PM CDT PRO-BRAIN NATRIURETIC PEPTIDE Routine 10/02/2024 9:17 PM CDT HEMOGLOBIN, GLYCOSYLATED Routine 10/02/2024 9:17 PM CDT XR CHEST PORTABLE Today 10/02/2024 9:0 0 PM CDT CTA HEAD+NECK STAT 10/02/2024 6:34 PM CDT from Last 3 Months Results * P2Y12 FUNCTION (10/07/2024 3:23 AM CDT) Only the most recent of2 resultswithin the time period is included. PATIENT PRU 289 PATIENT PRU 10/07/2024 4:08 AM CDT [facility] Comment: PRE DRUG PRU: [id number] THERAPEUTIC PRU: <208 10/07/2024 3:23 AM CDT Tory Franco NP LABORATORY Final Result [facility] [address] [place] [address], [phone] * (ABNORMAL) COMPREHENSIVE METABOLIC PANEL (10/07/2024 3:23 AM CDT) Only the most recent of2 resultswithin the time period is included. SODIUM S/P/B 138 136 - 145 MMOL/L 10/07/2024 4:01 AM CDT [facility] POTASSIUM S/P/B 3.9 3.5 - 5.1 MMOL/L 10/07/2024 4:01 AM CDT [facility] CHLORIDE S/P/B 108 97 - 115 MMOL/L 10/07/2024 4:01 AM CDT [facility] CO2 25.7 21.0 - 32.0 MMOL/L 10/07/2024 4:01 AM CDT [facility] GLUCOSE 100 74 - 106 MG/DL 10/07/2024 4:01 AM CDT [facility] BUN 19(H) 7 - 18 MG/DL 10/07/2024 4:01 AM CDT [facility] CREATININE S/P/B 0.95 0.70 - 1.30 MG/DL 10/07/2024 4:01 AM [facility] CALCIUM S/P/B 8.7 8.5 - 10.1 MG/DL 10/07/2024 4:01 AM [facility] BILIRUBIN TOTAL S/P/B 1.0 0.2 - 1.0 MG/DL 10/07/2024 4:01 AM [facility] ALKALINE PHOSPHATASE S/P/B 60 45 - 115 U/L 10/07/2024 4:01 AM [facility] AST 15 15 - 37 U/L 10/07/2024 4:01 AM [facility] ALT 21 16 - 61 U/L 10/07/2024 4:01 AM [facility] TOTAL PROTEIN S/P/B 6.3(L) 6.4 - 8.2 G/DL 10/07/2024 4:01 AM [facility] ALBUMIN S/P/B 3.1(L) 3.4 - 5.0 G/DL 10/07/2024 4:01 AM [facility] ANION GAP 4.3 2.0 - 10.0 MMOL/L 10/07/2024 4:01 AM [facility] OSMOLALITY (CALC) 288 MOSM/KG 025 4:01 AM [facility] Comment:REFERENCE RANGE NOT ESTABLISHED GFR ESTIMATE 77(L) >90 ML/MIN/1. 73 M2 10/07/2024 4:01 AM [facility] GFR NOTES GFR REFERENCE S: 10/07/2024 4:01 AM [facility] Comment: THE ESTIMATED GFR IS CALCULATED USING THE 2020 CKD-EPI EQUATION. THE FOLLOWING CATEGORIES FOR GRADING RENAL FUNCTION ARE RECOMMENDED BY THE INTERNATIONAL SOCIETY OF NEPHROLOGY (KDIGO 2012 CLINICAL PRACTICE GUIDELINE). G1,NORMAL OR HIGH: >89 ml/min/1.73 m2 G2,MILDLY DECREASED: 60-89 ml/min/1.73 m2 G3A,MILDLY TO MODERATELY DECREASED: 45-59 ml/min/1.73 m2 G3B,MODERATELY TO SEVERELY DECREASED: 30-44 ml/min/1.73 m2 G4,SEVERELY DECREASED: 15-29 ml/min/1.73 m2 G5,KIDNEY FAILURE: <15 ml/min/1.73 m2 10/07/2024 3:23 AM CDT us Yunior Wallace MD LABORATORY Final Res ult [facility] [address] [place] [address], [phone] * (ABNORMAL) CBC W/DIFF AUTOMATED (10/07/2024 3:23 AM CDT) Only the most recent of4 resultswithin the time period is included. WBC 5.63 4.00 - 10.80 x10'3/uL 10/07/2024 3:31 AM CDT [facility] RBC 2.60(L) 4.50 - 6.10 x10'6/uL 10/07/2024 3:31 AM CDT [facility] HGB 7.6(L) 13.0 - 18.0 G/DL 10/07/2024 3:31 AM CDT [facility] HCT 23.7(L) 37.0 - 52.0 % 10/07/2024 3:31 AM CDT [facility] MCV 91.2 78.0 - 100.0 FL 10/07/2024 3:31 AM CDT [facility] MCH 29.2 27.0 - 31.0 PG 10/07/2024 3:31 AM CDT [facility] MCHC 32.1(L) 33.0 - 36.0 G/DL 10/07/2024 3:31 AM CDT [facility] RDW 15.1(H) 11.5 - 14.5 % 10/07/2024 3:31 AM CDT [facility] PLT 100(L) 150 - 350 x10'3/uL 10/07/2024 3:31 AM CDT [facility] MPV 12.4(H) 7.4 - 10.4 FL 10/07/2024 3:31 AM CDT [facility] DIFFERENTIAL TYPE AUTOMATED DIFFERENTIAL 10/07/2024 3:31 AM CDT [facility] SEG NEUTROPHILS 68.4 % 3:31 AM CDT [facility] LYMPHOCYTES 18.3 % 10/07/2024 3:31 AM CDT [facility] MONOCYTES 9.9 % 10/07/2024 3:31 AM CDT [facility] EOSINOPHILS 2.3 % 10/07/2024 3:31 AM CDT [facility] BASOPHILS 0.7 % 10/07/2024 3:31 AM CDT [facility] IMMATURE GRANS % 0.4 % 10/08/19 3:31 AM CDT [facility] ABS. NEUTROPHILS 3.85 1.60 - 8.30 x10'3/uL 10/07/2024 3:31 AM CDT [facility] ABS. LYMPHOCYTES 1.03 0.80 - 4.70 x10'3/uL 10/07/2024 3:31 AM CDT [facility] ABS. MONOCYTES 0.56 0.00 - 1.50 x10'3/uL 10/07/2024 3:31 AM CDT [facility] ABS. EOSINOPHILS 0.13 0.00 - 0.40 x10'3/uL 10/07/2024 3:31 AM CDT [facility] ABS. BASOPHILS 0.04 0.00 - 0.20 x10'3/uL 10/07/2024 3:31 AM CDT [facility] ABS. IMMATURE GRANULOCYTES 0.02 0.00 - 0.03 x10'3/uL 10/07/2024 3:31 AM CDT [facility] ABS. NUCLEATED RBC'S 0.00 0.00 - 0.01 x10'3/uL 10/07/2024 3:31 AM CDT [facility] NRBC % 0.0 % 10/07/2024 3:31 AM CDT [facility] 10/07/2024 3:23 AM CDT Yunior Wallace MD LABORATORY Final Res ult [facility] [address] [place] [address], [phone] * MRI BRAIN WO STROKE FAST PROTOCOL (10/06/2024 12:11 PM CDT) Anatomical Region Laterality Modality Head, Neck Magnetic Resonan ce 10/06/2024 12:4 7 PM CDT Impressions 10/06/2024 12:50 PM CDT IMPRESSION: 1. No acute intracranial abnormalities identified. No acute infarct, intracranial mass effect, or midline shift. 2. 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 Ordered By: DONIS KEZIA Interpreted By: Hernandez Htafield MD, 10/06/2024 12:47 PM Narrative 10/06/2024 12:50 PM CDT [facility] [address] [place], [place] [address] DATE: 10/06/2024 11:44 AM INDICATION: Weakness. Concern for stroke. EXAMINATION: MRI brain without contrast. TECHNIQUE: Multiplanar and multisequence MRI images of the brain were obtained without contrast. COMPARISON: CTA 10/02/2024 FINDINGS: No diffusion restriction or evidence of acute infarct. No intracranial mass effect or midline shift. Confluent and patchy foci of FLAIR hyperintensity noted in the hemispheric white matter, likely due to small vessel disease. Moderate volume loss with enlargement of the ventricles and extra-axial/subarachnoid spaces. No extra-axial collections. Small old lacunar infarct left frontal centrum semiovale. No hemorrhagic foci of susceptibility seen. Mastoid air cells and paranasal sinuses clear. Bilateral lens replacements. Procedure Note Hernandez Hatfield MD - 10/06/2024 [facility] [address] [place], [place] [address] DATE: 10/06/2024 11:44 AM INDICATION: Weakness. Concern for stroke. EXAMINATION: MRI brain without contrast. TECHNIQUE: Multiplanar and multisequence MRI images of the brain wereobtained without contrast. COMPARISON: CTA 10/02/2024 FINDINGS: No diffusion restriction or evidence of acute infarct. No intracranialmass effect or midline shift. Confluent and patchy foci of FLAIRhyperintensity noted in the hemispheric white matter, likely due to smallvessel disease. Moderate volume loss with enlargement of the ventriclesand extra-axial/subarachnoid spaces. No extra- axial collections. Small oldlacunar infarct left frontal centrum semiovale. No hemorrhagic foci ofsusceptibility seen. Mastoid air cells and paranasal sinuses clear.Bilateral lens replacements. IMPRESSION: 1. No acute intracranial abnormalities identified. No acute infarct,intracranial mass effect, or midline shift. 2. 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 Ordered By: DONIS MAST Interpreted By: Hernandez Hatfield MD, 10/06/2024 12:47 PM Donis Mast MD MRI Final Result * (ABNORMAL) POCT glucose (10/05/2024 8:02 PM CDT) Only the most recent of12 resultswithin the time period is included. GLUCOSE POC 140(H) 70 - 109 10/05/2024 8:53 PM CDT [facility] 10/05/2024 8:02 PM CDT Yunior Wallace MD POCT ORDERABLES - DEVICE Final Result [facility] [address] [place] [address], [place] [phone] * (ABNORMAL) BASIC METABOLIC PANEL (10/04/2024 3:26 AM CDT) Only the most recent of2 resultswithin the time period is included. SODIUM S/P/B 138 136 - 145 MMOL/L 10/04/2024 4:38 AM CDT [facility] POTASSIUM S/P/B 4.0 3.5 - 5.1 MMOL/L 10/04/2024 4:38 AM CDT [facility] CHLORIDE S/P/B 108 97 - 115 MMOL/L 10/04/2024 4:38 AM CDT [facility] CO2 25.4 21.0 - 32.0 MMOL/L 10/04/2024 4:38 AM CDT [facility] GLUCOSE 94 74 - 106 MG/DL 10/04/2024 4:38 AM CDT [facility] BUN 22(H) 7 - 18 MG/DL 10/04/2024 4:38 AM CDT [facility] CREATININE S/P/B 1.05 0.70 - 1.30 MG/DL 10/04/2024 4:38 AM CDT [facility] CALCIUM S/P/B 8.7 8.5 - 10.1 MG/DL 10/04/2024 4:38 AM CDT [facility] ANION GAP 4.6 2.0 - 10.0 MMOL/L 10/04/2024 4:38 AM T [facility] OSMOLALITY (CALC) 289 MOSM/KG 025 4:38 AM T [facility] Comment:REFERENCE RANGE NOT ESTABLISHED GFR ESTIMATE 68(L) >90 ML/MIN/1. 73 M2 10/04/2024 4:38 AM T [facility] GFR NOTES GFR REFERENCE S: 10/04/2024 4:38 AM T [facility] Comment: THE ESTIMATED GFR IS CALCULATED USING THE 2020 CKD-EPI EQUATION. THE FOLLOWING CATEGORIES FOR GRADING RENAL FUNCTION ARE RECOMMENDED BY THE INTERNATIONAL SOCIETY OF NEPHROLOGY (KDIGO 2012 CLINICAL PRACTICE GUIDELINE). G1,NORMAL OR HIGH: >89 ml/min/1.73 m2 G2,MILDLY DECREASED: 60-89 ml/min/1.73 m2 G3A,MILDLY TO MODERATELY DECREASED: 45-59 ml/min/1.73 m2 G3B,MODERATELY TO SEVERELY DECREASED: 30-44 ml/min/1.73 m2 G4,SEVERELY DECREASED: 15-29 ml/min/1.73 m2 G5,KIDNEY FAILURE: <15 ml/min/1.73 m2 10/04/2024 3:26 AM CDT Yunior Wallace MD LABORATORY Final Res ult [facility] [address] [place] [address], [phone] * USV CAROTID DUPLEX RACHELE (10/03/2024 4:23 PM CDT) Anatomical Region Laterality Modality Neck Ultrasound 10/03/2024 3:23 PM CDT Narrative 10/03/2024 10:08 PM CDT [facility] Vascular Report Pat.Name: JAMES AL Fay.ID: [id number] .Date: 10/03/2024 Refer.MD: DONIS MAST Exam Time: 3:23:00 PM Study Type:PVI CAROTID SCAN - BILATERAL Height: 63 in Age: 3 1935,89Y Sex: M Sonogrphr: OBEY Bernard Pat. 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 Lt ICA: 60-79% stenosis noted in the internal carotid artery. ++++++++++++++++++++++++++++++++++++ FINDINGS: ++++++++++++++++++++++++++++++++++++ Rt Innom: The innominate artery is patent. Rt Subcl: The proximal subclavian artery is patent. Rt ICA: 40-59% stenosis noted in the internal carotid artery. Moderate heterogeneous plaque noted. Rt ECA: Patent with antegrade flow noted in the external carotid artery. Rt Vert: Normal antegrade vertebral flow. Lt Subcl: The proximal subclavian artery is patent. Lt ICA: 60-79% stenosis noted in the internal carotid artery. Moderate heterogeneous plaque noted. Calcified plaque noted in the internal carotid artery this may falsely underestimate the percentage of stenosis. Lt ECA: Patent with antegrade flow noted in the external carotid artery. Lt Vert: Normal antegrade vertebral flow. Carotid Findings: Right Left Verteb.Flw Antegrade Antegrade ++++++++++++++++++++++++++++++++++++ MEASUREMENTS: ++++++++++++++++++++++++++++++++++++ DOPPLER Right CCA Prox Prox CCA PSV 115 cm/s Prox CCA EDV 29.1 cm/s Right Innominate Innominate PSV 98.6 cm/s Right CCA Mid Mid CCA PSV 118 cm/s Mid CCA EDV 26.9 cm/s Right CCA Dist Dist CCA PSV 105 cm/s Dist CCA EDV 26.2 cm/s Right ICA Prox Prox ICA PSV 86.2 cm/s Prox ICA EDV 27.1 cm/s Right ICA Mid Mid ICA PSV 118 cm/s Mid ICA EDV 38.5 cm/s Right ICA Dist Dist ICA PSV 123 cm/s Dist ICA EDV 39.4 cm/s Right ECA Prox Prox ECA PSV 83.7 cm/s Right Vertebral Vertebral PSV 40.9 cm/s Vertebral EDV 9.15 cm/s Right Prox SCA Prox SCA PSV 206 cm/s Prox SCA PSV 206 cm/s Right ICA/CCA RATIO ICA/CCA RATIO P 1.17 Left CCA Prox Prox CCA PSV 120 cm/s Prox CCA EDV 29.3 cm/s Left CCA Mid Mid CCA PSV 114 cm/s Mid CCA EDV 23.7 cm/s Left CCA Dist Dist CCA PSV 76.6 cm/s Dist CCA EDV 23.7 cm/s Left ICA Prox Prox ICA PSV 185 cm/s Prox ICA EDV 56.3 cm/s Left ICA Mid Mid ICA PSV 187 cm/s Mid ICA EDV 67.9 cm/s Left ICA Dist Dist ICA PSV 95.2 cm/s Dist ICA EDV 31.4 cm/s Left ECA Prox Prox ECA PSV 82.3 cm/s Prox ECA EDV 16.1 cm/s Left Vertebral Vertebral PSV 38.6 cm/s Vertebral EDV 17.8 cm/s Left Prox SCA Prox SCA PSV 171 cm/s Prox SCA PSV 171 cm/s Left ICA/CCA RATIO ICA/CCA RATIO P 2.44 <Electronic Signature> 10/03/2024 10:08 PM Garfield Mejia M.D. Procedure Note Garfield Mejia MD - 10/03/2024 [facility] Vascular Report Pat.Name: JAMES AL Pat.ID: [id number] St.Date: 10/03/2024 Refer.MD: DONIS MAST Exam Time: 3:23:00 PM Study Type:PVI CAROTID SCAN - BILATERAL Height: 63 in Age: 3 1935,89Y Sex: M Sonogrphr: OBEY Bernard Pat. 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 Lt ICA: 60-79% stenosis noted in the internal carotid artery. ++++++++++++++++++++++++++++++++++++ FINDINGS: ++++++++++++++++++++++++++++++++++++ Rt Innom: The innominate artery is patent. Rt Subcl: The proximal subclavian artery is patent. Rt ICA: 40-59% stenosis noted in the internal carotid artery. Moderate heterogeneous plaque noted. Rt ECA: Patent with antegrade flow noted in the external carotid artery. Rt Vert: Normal antegrade vertebral flow. Lt Subcl: The proximal subclavian artery is patent. Lt ICA: 60-79% stenosis noted in the internal carotid artery. Moderate heterogeneous plaque noted. Calcified plaque noted in the internal carotid artery this may falsely underestimate the percentage of stenosis. Lt ECA: Patent with antegrade flow noted in the external carotid artery. Lt Vert: Normal antegrade vertebral flow. Carotid Findings: Right Left Verteb.Flw Antegrade Antegrade ++++++++++++++++++++++++++++++++++++ MEASUREMENTS: ++++++++++++++++++++++++++++++++++++ DOPPLER Right CCA Prox Prox CCA PSV 115 cm/s Prox CCA EDV 29.1 cm/s Right Innominate Innominate PSV 98.6 cm/s Right CCA Mid Mid CCA PSV 118 cm/s Mid CCA EDV 26.9 cm/s Right CCA Dist Dist CCA PSV 105 cm/s Dist CCA EDV 26.2 cm/s Right ICA Prox Prox ICA PSV 86.2 cm/s Prox ICA EDV 27.1 cm/s Right ICA Mid Mid ICA PSV 118 cm/s Mid ICA EDV 38.5 cm/s Right ICA Dist Dist ICA PSV 123 cm/s Dist ICA EDV 39.4 cm/s Right ECA Prox Prox ECA PSV 83.7 cm/s Right Vertebral Vertebral PSV 40.9 cm/s Vertebral EDV 9.15 cm/s Right Prox SCA Prox SCA PSV 206 cm/s Prox SCA PSV 206 cm/s Right ICA/CCA RATIO ICA/CCA RATIO P 1.17 Left CCA Prox Prox CCA PSV 120 cm/s Prox CCA EDV 29.3 cm/s Left CCA Mid Mid CCA PSV 114 cm/s Mid CCA EDV 23.7 cm/s Left CCA Dist Dist CCA PSV 76.6 cm/s Dist CCA EDV 23.7 cm/s Left ICA Prox Prox ICA PSV 185 cm/s Prox ICA EDV 56.3 cm/s Left ICA Mid Mid ICA PSV 187 cm/s Mid ICA EDV 67.9 cm/s Left ICA Dist Dist ICA PSV 95.2 cm/s Dist ICA EDV 31.4 cm/s Left ECA Prox Prox ECA PSV 82.3 cm/s Prox ECA EDV 16.1 cm/s Left Vertebral Vertebral PSV 38.6 cm/s Vertebral EDV 17.8 cm/s Left Prox SCA Prox SCA PSV 171 cm/s Prox SCA PSV 171 cm/s Left ICA/CCA RATIO ICA/CCA RATIO P 2.44 <Electronic Signature> 10/03/2024 10:08 PM Garfield Mejia M.D. [facility] Kezia MURILLO [facility] Final Result * USE ECHOCARDIOGRAM (10/03/2024 3:11 PM CDT) Anatomical Region Laterality Modality Cardiac Echocardiogram 10/03/2024 1:04 PM CDT Narrative 10/04/2024 2:41 PM CDT Echocardiography Report Pat.Name: JAMES [place] Pat.ID: [id number] St.Date: 10/03/2024 Refer.: [id number] YUMIKO Worley EWDPROV EWDPROV Exam Time: 1:04:00 PM Study Type:ECHO WITH CARDIAC DOPPLER COMP Height: 63 in Weight: 206 lb BSA: 1.96 m2 Age: 3 1935,89Y Sex: M BP: 132/74 HR: 78 bpm Sonogrphr: Willis Gomez RDCS, RVT Pat. Stat.:Inpatient CPT - 4: 15101 Reason for Study:Stroke/TIA Procedures: 2D, M-mode, Doppler, Color Flow ++++++++++++++++++++++++++++++++++++ SUMMARY: ++++++++++++++++++++++++++++++++++++ The left ventricular size is normal. The left ventricular systolic function is normal. The calculated ejection fraction is 60%. Mild concentric left ventricular hypertrophy. A pacemaker wire is visualized in the right ventricle. The right ventricular size is mildly enlarged. Right ventricular systolic function is at the lower limit of normal. An agitated saline contrast injection could not be administered due to lack of IV access. The peak pulmonary artery systolic pressure is estimated to be 45 mmHg. Moderate mitral regurgitation. Moderate tricuspid regurgitation. ++++++++++++++++++++++++++++++++++++ FINDINGS: ++++++++++++++++++++++++++++++++++++ LV: The left ventricular size is normal. The left ventricular systolic function is normal. The calculated ejection fraction is 60%. Mild concentric left ventricular hypertrophy. The average E/e' is indeterminate at 9-12 and EF is > or equal to 50. RV: The right ventricular size is mildly enlarged. Right ventricular systolic function is at the lower limit of normal. A pacemaker wire is visualized in the right ventricle. LA: The left atrial volume is normal ( less than 34 ml/M2). RA: Right atrial size is normal. IAS: Unable to perform Agitated Saline injection due to lack of IV access. LUIS EDUARDO: No evidence of pericardial effusion. AO: Normal aortic root. PA: The peak pulmonary artery systolic pressure is estimated to be 45 mmHg. Estimated right atrial pressure of 3 mmHg. SVn: Inferior vena cava is normal. Inferior vena cava shows >50% collapse with respiration consistent with normal right atrial pressure. AV: The aortic valve is trileaflet. No evidence of aortic valve stenosis. No evidence of aortic valve regurgitation. Moderate calcification of aortic valve leaflets. MV: Structurally normal mitral valve. Moderate mitral regurgitation. No evidence of mitral stenosis. Mild thickening of mitral valve leaflets. PV: The pulmonic valve is normal There is trace pulmonic regurgitation TV: Structurally normal tricuspid valve. Moderate tricuspid regurgitation. No evidence of tricuspid valve stenosis. ++++++++++++++++++++++++++++++++++++ MEASUREMENTS: ++++++++++++++++++++++++++++++++++++ DOPPLER LVOT LVOTpkPG 2 mmHg LVOTmnPG 1.1 mmHg LVOTpkVel 70.6 cm/s (70-110) LVOT SV 51 ml LVOT TVI 16.1 cm LVOT CO 51.7 ml/s AV Forward Flow AV TVI 34.8 cm AV pkPG 10 mmHg AV pkVel 159 cm/s (100-170) Area (TVI) 1.47 cm2 (3-5)* AV mnVel 107 cm/s Area ([place]) 1.41 cm2 (3-5)* AV mnPG 5.4 mmHg MV Forward Flow MV DeTm 143 msec MV pkE 84.9 cm/s (60-130) MV E/A 2 MV pkA 42.4 cm/s PV Forward Flow PV pkVel 103 cm/s (60-90)* PV pkPG 4 mmHg TV Regurg Flow TV pkPG 38 mmHg TV pkVel 309 cm/s (30-70)+* Lat E' Lat e 11.1 cm/s Lat E/E' Lat E/e 7.6 Med E' Med e 9.68 cm/s Med E/E' Med E/e 8.8 Aortic Valve Aortic Valve Ar 0.75 Aortic Valve Ve 0.44 AV DI Value 0.5 ALEJANDRA (VTI) Index Value 0.75 Left Ventricle Ratio of MV Pea 8.2 Mean Myocardial 10.4 cm/s LV Mass 2D Value 211 g LV Mass [id number] Value 108 g/m2 RA Volume Atrial Arechiga 4.77 cm Atrial Arechiga 18.8 cm2 Atrial Arechiga 62.7 ml 2D Left Ventricle LVIDd 2.66 cm (3.6-5.2)* LV EF(Bi-Plane) 60.3 % (63-77)* LVIDs 1.98 cm (2.3-3.9)* Relative Wall T 0.467 LVPW LVPWd 1.22 cm Ventricular Septum IVSd 0.9 cm Left Atrium LA a-p 4.7 cm (2.8-3.4)* Aorta Ao Rtd 3.3 cm (zsc 1.4) Ao Asc 1.89 cm (zsc -2) LVOT LVOT 2.01 cm Ratios IVS LA Biplane LAVol I BP 41.1 ml/m2 LV Biplane Major Jasper Candi 5.89 % Major Jasper Candi 7.42 % LV Left Ventricle Mass by M-mode LV Mass 211 g Right Ventricle Right Ventricle 5.8 cm MMODE TA Tricuspid Annul 1.98 cm <Electronic Signature> 10/04/2024 02:41 PM Nathalie Thomas M.D. Procedure Note Nathalie Thomas MD - 10/04/2024 Echocardiography Report Pat.Name: JAMES AL Pat.ID: [id number] .Date: 10/03/2024 Refer.: [id number] YUMIKO Worley EWDPROV EWDPROV Exam Time: 1:04:00 PM Study Type:ECHO WITH CARDIAC DOPPLER COMP Height: 63 in Weight: 206 lb BSA: 1.96 m2 Age: 3 1935,89Y Sex: M BP: 132/74 HR: 78 bpm Sonogrphr: Willis Gomez RDCS, RVT Pat. Stat.:Inpatient CPT - 4: 41533 Reason for Study:Stroke/TIA Procedures: 2D, M-mode, Doppler, Color Flow ++++++++++++++++++++++++++++++++++++ SUMMARY: ++++++++++++++++++++++++++++++++++++ The left ventricular size is normal. The left ventricular systolic function is normal. The calculated ejection fraction is 60%. Mild concentric left ventricular hypertrophy. A pacemaker wire is visualized in the right ventricle. The right ventricular size is mildly enlarged. Right ventricular systolic function is at the lower limit of normal. An agitated saline contrast injection could not be administered due to lack of IV access. The peak pulmonary artery systolic pressure is estimated to be 45 mmHg. Moderate mitral regurgitation. Moderate tricuspid regurgitation. ++++++++++++++++++++++++++++++++++++ FINDINGS: ++++++++++++++++++++++++++++++++++++ LV: The left ventricular size is normal. The left ventricular systolic function is normal. The calculated ejection fraction is 60%. Mild concentric left ventricular hypertrophy. The average E/e' is indeterminate at 9-12 and EF is > or equal to 50. RV: The right ventricular size is mildly enlarged. Right ventricular systolic function is at the lower limit of normal. A pacemaker wire is visualized in the right ventricle. LA: The left atrial volume is normal ( less than 34 ml/M2). RA: Right atrial size is normal. IAS: Unable to perform Agitated Saline injection due to lack of IV access. LUIS EDUARDO: No evidence of pericardial effusion. AO: Normal aortic root. PA: The peak pulmonary artery systolic pressure is estimated to be 45 mmHg. Estimated right atrial pressure of 3 mmHg. SVn: Inferior vena cava is normal. Inferior vena cava shows >50% collapse with respiration consistent with normal right atrial pressure. AV: The aortic valve is trileaflet. No evidence of aortic valve stenosis. No evidence of aortic valve regurgitation. Moderate calcification of aortic valve leaflets. MV: Structurally normal mitral valve. Moderate mitral regurgitation. No evidence of mitral stenosis. Mild thickening of mitral valve leaflets. PV: The pulmonic valve is normal There is trace pulmonic regurgitation TV: Structurally normal tricuspid valve. Moderate tricuspid regurgitation. No evidence of tricuspid valve stenosis. ++++++++++++++++++++++++++++++++++++ MEASUREMENTS: ++++++++++++++++++++++++++++++++++++ DOPPLER LVOT LVOTpkPG 2 mmHg LVOTmnPG 1.1 mmHg LVOTpkVel 70.6 cm/s (70-110) LVOT SV 51 ml LVOT TVI 16.1 cm LVOT CO 51.7 ml/s AV Forward Flow AV TVI 34.8 cm AV pkPG 10 mmHg AV pkVel 159 cm/s (100-170) Area (TVI) 1.47 cm2 (3-5)* AV mnVel 107 cm/s Area ([place]) 1.41 cm2 (3-5)* AV mnPG 5.4 mmHg MV Forward Flow MV DeTm 143 msec MV pkE 84.9 cm/s (60-130) MV E/A 2 MV pkA 42.4 cm/s PV Forward Flow PV pkVel 103 cm/s (60-90)* PV pkPG 4 mmHg TV Regurg Flow TV pkPG 38 mmHg TV pkVel 309 cm/s (30-70)+* Lat E' Lat e 11.1 cm/s Lat E/E' Lat E/e 7.6 Med E' Med e 9.68 cm/s Med E/E' Med E/e 8.8 Aortic Valve Aortic Valve Ar 0.75 Aortic Valve Ve 0.44 AV DI Value 0.5 ALEJANDRA (VTI) Index Value 0.75 Left Ventricle Ratio of MV Pea 8.2 Mean Myocardial 10.4 cm/s LV Mass 2D Value 211 g LV Mass [id number] Value 108 g/m2 RA Volume Atrial Arechiga 4.77 cm Atrial Arechiga 18.8 cm2 Atrial Arechiga 62.7 ml 2D Left Ventricle LVIDd 2.66 cm (3.6-5.2)* LV EF(Bi-Plane) 60.3 % (63-77)* LVIDs 1.98 cm (2.3-3.9)* Relative Wall T 0.467 LVPW LVPWd 1.22 cm Ventricular Septum IVSd 0.9 cm Left Atrium LA a-p 4.7 cm (2.8-3.4)* Aorta Ao Rtd 3.3 cm (zsc 1.4) Ao Asc 1.89 cm (zsc -2) LVOT LVOT 2.01 cm Ratios IVS LA Biplane LAVol I BP 41.1 ml/m2 LV Biplane Major Jasper Candi 5.89 % Major Jasper Candi 7.42 % LV Left Ventricle Mass by M-mode LV Mass 211 g Right Ventricle Right Ventricle 5.8 cm MMODE TA Tricuspid Annul 1.98 cm <Electronic Signature> 10/04/2024 02:41 PM Nathalie Thomas M.D. us Donis Mast MD ECHO Final Result * (ABNORMAL) PROTHROMBIN TIME, VENOUS (10/03/2024 2:12 AM CDT) PROTIME 16.7(H) 9.4 - 12.5 SEC 10/03/2024 2:59 AM CDT [facility] INR 1.4(H) 0.8 - 1.1 10/03/2024 2:59 AM CDT [facility] 10/03/2024 2:12 AM CDT us Donis Mast MD LABORATORY Final Result Performing Organization Address City/State/[facility] Co de Phone Number [facility] [address] [place] [address], [id number] * LIPID PANEL (10/03/2024 2:12 AM CDT) CHOLESTEROL 96 MG/DL 10/03/2024 3:08 AM CDT [facility] Comment:DESIRABLE: <200 TRIGLYCERIDES 68 MG/DL 10/03/2024 3:08 AM CDT [facility] Comment:<150 NORMAL HDL 42 >39 MG/DL 10/03/2024 3:08 AM CDT [facility] LDL (CALCULATED) 40 MG/DL 10/04/19 25 3:08 AM CDT [facility] Comment:<100 OPTIMAL VLDL CALCULATION 14 MG/DL 10/04/19 3:08 AM CDT [facility] Comment:REFERENCE RANGE NOT ESTABLISHED CHOL/HDL RATIO 2.3 10/03/2024 3:08 AM CDT [facility] Comment:REFERENCE RANGE NOT ESTABLISHED LDL/HDL 1.0 10/03/2024 3:08 AM CDT [facility] Comment:REFERENCE RANGE NOT ESTABLISHED NON HDL CHOLESTEROL 54 MG/DL 10/03/2024 3:08 AM CDT [facility] Comment:REFERENCE RANGE NOT ESTABLISHED 10/03/2024 2:12 AM CDT Donis Mast MD LABORATORY Final Result Performing Organization Address [facility] de Phone Number [facility] [address] [place] [address], [place] [phone] * (ABNORMAL) TSH W/REFLEX (10/02/2024 9:17 PM CDT) TSH 4.040(H) 0.358 - 3.740 uIU/ML 10/02/2024 10:04 PM CDT [facility] Comment: ASSAY PERFORMED BY CHEMILUMINESCENCE METHODOLOGY USING [employer] [facility]. PATIENT RESULTS DETERMINED BY ASSAYS USING DIFFERENT MANUFACTURERS FOR METHODS MAY NOT BE COMPARABLE. 10/02/2024 9:17 PM CDT Donis Mast MD LABORATORY Final Result Performing Organization Address [facility] de Phone Number [facility] [address] [place] [address], [place] [phone] * (ABNORMAL) PRO-BRAIN NATRIURETIC PEPTIDE (PRO BNP) (10/02/2024 9:17 PM CDT) PRO-B TYPE NATRIURETIC PEPTIDE 916(H) <450 PG/ML 10/02/2024 10:04 PM CDT [facility] Comment: AGE INDEPENDENT: <300 PG/ML HAS A 99% NEGATIVE PREDICTIVE VALUE FOR EXCLUDING ACUTE CHF <50 YEARS: >450 PG/ML IS CONSISTENT WITH ACUTE CHF 50-75 YEARS: >900 PG/ML IS CONSISTENT WITH ACUTE CHF >75 YEARS: >1800 PG/ML IS CONSISTENT WITH ACUTE CHF IN PATIENTS WITH RENAL INSUFFICIENCY (GFR <60), >1200 PG/ML YIELDS A DIAGNOSTIC SENSITIVITY AND SPECIFICITY OF 89% AND 72% FOR ACUTE CHF. 10/02/2024 9:17 PM CDT us [facility] Kezia MURILLO LABORATORY Final Result Performing Organization Address [facility] Co de Phone Number [facility] [address] [place] [address], [place] [phone] * HEMOGLOBIN, GLYCATED (10/02/2024 9:17 PM CDT) HGB A1C 5.6 <5.7 % 10/02/2024 10:07 PM CDT [facility] ESTIMATED AVG GLUCOSE 114 74 - 114 MG/DL 10/02/2024 10:07 PM CDT [facility] 10/02/2024 9:17 PM CDT us [facility] Kezia MURILLO LABORATORY Final Result Performing Organization Address [facility] Co de Phone Number [facility] [address] [place] [address], [place] [phone] * THYROXINE, FREE (FT4) (10/02/2024 9:17 PM CDT) FREE T4 0.91 0.76 - 1.46 NG/DL 10/02/2024 10:22 PM CDT [facility] 10/02/2024 9:17 PM CDT us [facility] Kezia MURILLO LABORATORY Final Result Performing Organization Address [facility] Co de Phone Number [facility] [address] [place] [address], [place] [phone] * XR CHEST PORTABLE (10/02/2024 9:00 PM CDT) Anatomical Region Laterality Modality Chest Radiographic Hillary ging 10/02/2024 11:2 3 PM CDT Impressions 10/02/2024 11:24 PM CDT IMPRESSION: There are no acute pulmonary findings noted as described. Referred By: JAVIER Cancholaally Signed By: Stuart Mcdermott MD on 10/02/2024 11:24 PM Interpreted By: Stuart Mcdermott MD, 10/02/2024 11:23 PM Narrative 10/02/2024 11:24 PM CDT [address] [address] Examination: XR CHEST PORTABLE Exam time: 10/02/2024 8:54 PM Indication: Cough and shortness of breath Comparison: None Findings: Upright AP view of the chest was obtained. Post sternotomy changes and left pacemaker. The heart size is upper limits of normal/mildly enlarged. No vascular congestion. There are findings in the bilateral chest which probably represent calcified pleural plaques. There is no airspace consolidation, pleural effusion, or pneumothorax. Procedure Note Stuart Mcdermott MD - 10/02/[address] [address] Examination: XR CHEST PORTABLE Exam time: 10/02/2024 8:54 PM Indication: Cough and shortness of breath Comparison: None Findings: Upright AP view of the chest was obtained. Post sternotomychanges and left pacemaker. The heart size is upper limits ofnormal/mildly enlarged. No vascular congestion. There are findings inthe bilateral chest which probably represent calcified pleural plaques.There is no airspace consolidation, pleural effusion, or pneumothorax. IMPRESSION: There are no acute pulmonary findings noted as described. Referred By: JAVIER CALDERON Interpreted By: Stuart Mcdermott MD, 10/02/2024 11:23 PM us Donis Mast MD GENERAL IMAGING Final Result * CTA HEAD+NECK (10/02/2024 6:34 PM CDT) Anatomical Region Laterality Modality Head, Neck Computed Tomogra phy 10/02/2024 7:10 PM CDT Impressions 10/02/2024 7:25 PM CDT IMPRESSION: 1. 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 Vascular surgery consultation is recommended. 2. Overall suboptimal contrast opacification in the kas[place] of Ramos. 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 Otherwise, no definite proximal vessel occlusion is seen. Repeat CTA head or MRA head may be considered. 3. 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 Impression 1 and impression [address] Vuong by Dr. Loera via [employer] at 10/02/2024 7:24 PM (central time). Referred By: JAVIER CALDERON Interpreted By: Phan Loera MD, 10/02/2024 7:10 PM Narrative 10/02/2024 7:25 PM CDT [place] [address] EXAMINATION: CTA head and neck with contrast EXAM DATE/TIME: 10/02/2024 6:24 PM REASON FOR EXAM: STROKE COMPARISON: No existing relevant imaging study available. TECHNIQUE: Axial CT images of the head and neck were obtained following uneventful intravenous administration of 80 cc Isovue-370. Subsequent coronal and sagittal reformatted sequences are created for evaluation. In addition 3-D rotational MIP imaging of the arterial vasculature was created on separate workstation for review. A dose lowering technique was used for this procedure, which may include, but is not limited to, dose reduction technique, automated exposure control, iterative reconstruction, ALARA (As Low As Reasonably Achievable), or Image Gently techniques. 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 No significant right ICA stenosis. Common carotid arteries appear within normal limits bilaterally. 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 Overall suboptimal contrast opacification in the kas[place] of Ramos. Suggestion of focal high-grade stenosis/occlusion at the right MCA M1 M2 junction. Otherwise, no definite proximal vessel occlusion is seen. No definite aneurysm is identified. Nonvascular findings: There is no evidence of neck mass or cervical lymphadenopathy. The thyroid gland, bilateral parotid glands, and bilateral submandibular glands are unremarkable. No acute osseous lesions are seen. The visualized aspects of the upper lungs are without mass or airspace consolidation. Procedure Note Phan Loera MD - 10/02/[address] [address] EXAMINATION: CTA head and neck with contrast EXAM DATE/TIME: 10/02/2024 6:24 PM REASON FOR EXAM: STROKE COMPARISON: No existing relevant imaging study available. TECHNIQUE: Axial CT images of the head and neck were obtained followinguneventful intravenous administration of 80 cc Isovue-370. Subsequentcoronal and sagittal reformatted sequences are created for evaluation. Inaddition 3-D rotational MIP imaging of the arterial vasculature wascreated on separate workstation for review. A dose lowering technique wasused for this procedure, which may include, but is not limited to, dosereduction technique, automated exposure control, iterative reconstruction,ALARA (As Low As Reasonably Achievable), or Image Gently techniques. 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 Nosignificant right ICA stenosis. Common carotid arteries appear withinnormal limits bilaterally. Peripheral noncalcified atherosclerosis at the proximal left subclavianartery resulting in mild stenosis. Overall suboptimal contrast opacification in the kas[place] of Ramos.Suggestion of focal high-grade stenosis/occlusion at the right MCA M1 [id number]. Otherwise, no definite proximal vessel occlusion is seen. No definite aneurysm is identified. Nonvascular findings: There is no evidence of neck mass or cervical lymphadenopathy. The thyroid gland, bilateral parotid glands, and bilateral submandibularglands are unremarkable. No acute osseous lesions are seen. The visualized aspects of the upper lungs are without mass or airspaceconsolidation. IMPRESSION: 1. 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 2. Overall suboptimal contrast opacification in the kas[place] of Ramos.Suggestion of focal high-grade stenosis/occlusion of the right MCA M1/[id number]. Otherwise, no definite proximal vessel occlusion is seen.Repeat CTA head or MRA head may be considered. 3. Peripheral noncalcified atherosclerosis at the proximal leftsubclavian artery resulting in mild stenosis. Impression 1 and impression [address] Vuong by Dr. Bandar Golden at 10/02/2024 7:24 PM (central time). Referred By: JAVIER CALDERON Interpreted By: Phan Loera MD, 10/02/2024 7:[address]ia Vuong MD CT Final Result from Last 3 Months Insurance [facility] MEDICARE [facility] [facility] Care Teams Case Assembler Relationship Specialty Start Date End Date Raul Braun DO [address] [place] [address] PCP - General FAMILY PRACTICE 10/05/24
--- OUTSIDE RECORDS SUMMARY | 2024-10-09 11:09 | XMS_ITS | Clinical Summary ---
Author Organization [facility] Address [address] [facility] Attn: Epic Prelude ADT [place] [address] Care Team Providers Care Head Grinder Name Role Phone Phillip GARCIA DO, Gregory [...] on file Legal Sex Male 10:03 PM [employer] Gender Identity Not on file Sexual Orientation [...] 01/12/2013 Insurance MEDICARE PART A AND B [facility] [facility] MEDICARE PART A AND B [place] [employer] Care Teams Head Grinder Relationship Specialty Start Date End Date Ramón Fisher II, DO [address] [place] [address] [address] [phone] PCP - General Family Practice 09/23/21
--- OUTSIDE RECORDS SUMMARY | 2024-10-09 11:11 | XMS_ITS | Continuity of Care Document ---
Author Name [facility] Organization [facility] Care Team Providers Care Sales Ledger Administrator Name Role Phone [facility] Unavailable Unavailable Problems Combined list of problems [...] Atrial fibrillation Active Condition [facility] Benign hypertension Active Condition [facility] Boggy prostate Active Condition [facility] CAD - Coronary artery disease Active Condition [facility] CAD - Coronary Artery Disease (SCT 93844717) Active Condition [facility] Cardiac pacemaker in situ Active Condition [facility] Carotid atherosclerosis Active Condition [facility] Chronic Pain Syndrome (ICD-9-CM 338.4) Active Condition [facility] Coronary arteriosclerosis Active Condition [facility] 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 [facility] Disorder of nail Active Condition [facility] Disorder of prostate Active Condition [facility] Dyspepsia Active Condition [facility] H/O: atrial fibrillation Active Condition Dec 26, 2018 Entered By: MICHELINE GILMAN Comment: has private [employer] [facility] H/O: cardiac pacemaker in situ Active Condition [facility] Hearing Loss (SCT 78433465) Active Condition Dec 26, 2018 Entered By: MICHELINE GILMAN Comment: partial has hearing aids [facility] Hemoglobin below reference range Active Condition [facility] History of back pain Active Condition Feb 27, 2022 Entered By: MICHELINE GILMAN Comment: [facility] History of hematuria Active Condition Mar 14, 2023 Entered By: MICHELINE GILMAN Comment: microscopic [facility] History of iron deficiency Active Condition [facility] History of malignant neoplasm of bladder Active Condition Jun 04, 2022 Entered By: MICHELINE GILMAN Comment: seen [facility] History of surgery Active Condition O ct 2018 Entered By: MICHELINE GILMAN Comment: s/p cabg, stents, bladder CA/scopes, old shoulder surgeryDe 2019 Entered By: MICHELINE GILMAN Comment: hx pacemakerDe 2021 Entered By: MICHELINE GILMAN Comment: cystoscope [facility] 2022 Entered By: MICHELINE GILMAN Comment: cystoscope 05/2022 [facility] HTN - Hypertension ([facility] [id number]) Active Condition [facility] Hypercholesterolemia ([facility] [id number]) Active Condition [facility] Hyperglycemia Active Condition [facility] Hyperlipidemia Active Condition [facility] Hyperlipidemia Active Condition [facility] Hypertension Active Condition [facility] Hypothyroidism Active Condition [facility] Impotence Active Condition [facility] Impotence (SNOMED CT 702418706) Active Condition [facility] Insomnia Active Condition [facility] Insomnia, unspecified (ICD-9-CM 780.52) Active Condition [facility] Iron deficiency anemia Active Condition [facility] Keratosis, Actinic Active Condition [facility] Malignant tumor of urinary bladder Active Condition [facility] Melanoma NOS Active Condition [facility] Neoplasm. 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 Dec 26, 2018 Entered By: MICHELINE GILMAN Comment: quit years ago [facility] Unsteady gait Active Condition [facility] Varicose veins Active Condition [facility] Vitamin D below reference range Active Condition [facility] Diagnosis: ICD-10-CM I10 Essential (primary) hypertension Active Diagnosis [facility] Diagnosis: ICD-10-CM Y93.E6 Activity, residential relocation Active Diagnosis [facility] Diagnosis: ICD-10-CM Z71.89 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ed counseling [...] ICD-10-CM G47.39 Other sleep apnea Active Diagnosis [facility] Medications Combined list of outpatient medications from [...] THREE TIMES DAILY NEEDED FOR PAIN ORAL 08/29/[id number] Manuel GILMAN ONALD 2023 100 [facility] AMITRIPTYLI NE HCL 10MG TAB TAKE ONE TABLET BY MOUTH AT BEDTIME ORAL ACTIVE Marie MITCHELL AHIDA 2024 [facility] AMITRIPTYLI NE HCL 25MG TAB TAKE ONE TABLET BY MOUTH AT BEDTIME ORAL ACTIVE Manuel GILMAN ON2022 [facility] APIXABAN 5MG TAB TAKE ONE TABLET BY MOUTH TWICE A DAY ORAL ACTIVE STEPHEN,Marie AHIDA 2024 [facility] APIXABAN 5MG TAB TAKE ONE TABLET BY MOUTH TWICE A DAY ORAL ACTIVE Manuel GILMAN ON2020 [facility] ASCORBIC ACID 500MG TAB TAKE ONE TABLET BY MOUTH ONCE DAILY ORAL ACTIVE MARCIA MUNOZ SCHOK 2013 [facility] ASPIRIN 81MG TAB,CHEWABL E CHEW ONE TABLET BY MOUTH ONCE DAILY ORAL ACTIVE MARCIA MUNOZ SCHOK 2013 [facility] CHOLECALCIF EULA 25MCG (1,000UNIT) TAB TAKE ONE TABLET BY MOUTH ONCE DAILY FOR VITAMIN D SUPPLEME NT ORAL ACTIVE 03/15/2025 [id number] Manuel GILMAN ON2023 100 [facility] CHOLECALCIF EULA 25MCG (1,000UNIT) TAB TAKE ONE TABLET BY MOUTH ONCE A DAY ORAL ACTIVE STEPHEN,Marie DA 2024 [facility] CICLESONIDE INHL,NASAL SPRAY IN EACH NOSTRIL ONCE DAILY NASAL ACTIVE DAWSON GAN 2009 [facility] CLOPIDOGREL BISULFATE 75MG TAB TAKE ONE TABLET BY MOUTH ONCE DAILY ORAL ACTIVE MARCIA MUNOZ SCHOK 2014 [facility] CLOPIDOGREL BISULFATE 75MG TAB TAKE ONE TABLET BY MOUTH ONCE DAILY ORAL ACTIVE Manuel GILMAN ON2018 [facility] CLOPIDOGREL BISULFATE 75MG TAB TAKE ONE TABLET BY MOUTH ONCE A DAY ORAL ACTIVE STEPHEN,Marie DA 2024 [facility] DOCUSATE NA 100MG CAP TAKE 1 CAPSULE BY MOUTH EVERY DAY BEFORE NOON MEAL ORAL ACTIVE STEPHEN,Z 2024 [facility] EPLERENONE 50MG TAB TAKE ONE-HALF TABLET BY MOUTH EVERY MORNING ORAL ACTIVE STEPHEN,Z DA 2024 [facility] EPLERENONE TAB TAKE 25MG/INS PRA BY MOUTH ONCE DAILY ORAL ACTIVE Manuel GILMAN ON2023 [facility] FERROUS SO4 325MG TAB TAKE ONE TABLET BY MOUTH TWICE A DAY FOR IRON REPLACEM ENT WITH FOOD (MAY DARKEN STOOLS) ORAL ACTIVE 06/24/2025 [id number] Manuel GILMAN 2024 200 [facility] FERROUS SO4 325MG TAB TAKE ONE TABLET BY MOUTH ONCE A DAY ORAL ACTIVE STEPHEN,Z 2024 [facility] LEVOTHYROXI NE NA 75MCG TAB TAKE ONE TABLET BY MOUTH EVERY MORNING BEFORE A MEAL ORAL ACTIVE STEPHEN,Z 2024 [facility] LEVOTHYROXI NE NA 75MCG TAB (SYNTHROID) TAKE ONE TABLET BY MOUTH ONCE DAILY ORAL ACTIVE Manuel GILMAN 2022 [facility] LIDOCAINE 5% OINT,TOP APPLY SMALL AMOUNT TOPICALL Y TWICE A DAY FOR PAIN TOPICA L 09/28/[id number] Manuel GILMAN 2023 35 [facility] LISINOPRIL 10MG TAB TAKE ONE TABLET BY MOUTH EVERY MORNING ORAL ACTIVE Manuel GILMAN 2018 [facility] LISINOPRIL 10MG TAB TAKE ONE TABLET BY MOUTH ONCE DAILY ORAL ACTIVE Meir LOWE 2016 [facility] LISINOPRIL 20MG TAB TAKE ONE-HALF TABLET BY MOUTH ONCE A DAY ORAL ACTIVE STEPHEN,Marie 2024 [facility] MULTIVITS W/MINERALS TAB/CAP (NO VIT K) TAKE ONE TABLET BY MOUTH ONCE DAILY ORAL ACTIVE MARCIA MUNOZ NCHOK 2013 [facility] PANTOPRAZOL E NA 40MG TAB,EC TAKE ONE TABLET BY MOUTH EVERY MORNING BEFORE A MEAL ORAL ACTIVE STEPHEN,Z 2024 [facility] PREGABALIN 150MG CAP,ORAL TAKE 1 CAPSULE BY MOUTH TWICE A DAY ORAL ACTIVE STEPHEN,Z 2024 [facility] PREGABALIN 75MG CAP,ORAL TAKE 2 CAPSULES BY MOUTH TWICE A DAY ORAL ACTIVE MUKULD ON2023 [facility] PREGABALIN 75MG CAP,ORAL TAKE 1 CAPSULE BY MOUTH THREE TIMES A DAY ORAL ACTIVE DORMARCIA BLAS NCHOK 2015 [facility] SENNA TAB TAKE BY MOUTH ONCE DAILY NEEDED ORAL ACTIVE MUKUL,D ON2023 [facility] SENNOSIDES 8.6MG TAB TAKE ONE TABLET BY MOUTH ORAL ACTIVE DORMARCIA BLAS NCHOK 2013 [facility] SIMVASTATIN 40MG TAB TAKE ONE TABLET BY MOUTH EVERY EVENING ORAL ACTIVE DORJEMARCIA Doyle NCHOK 2013 [facility] SIMVASTATIN 80MG TAB TAKE ONE-HALF TABLET BY MOUTH AT BEDTIME ORAL ACTIVE MUKUL,D 2018 [facility] SIMVASTATIN 80MG TAB TAKE ONE-HALF TABLET BY MOUTH EVERY EVENING ORAL ACTIVE STEPHEN,Z AHIDA 2024 [facility] [place] VITAMIN E 100UNT CAP TAKE 2 CAPSULES BY MOUTH ONCE DAILY ORAL ACTIVE MARCIA MUNOZ NCHOK 2013 [facility] Allergies, Adverse Reactions, Alerts Combined list of allergies from Department of Defense and Veterans Affairs facilities. It does not include entries that were removed or entered in error. Substance Category Reaction Severity Reaction type Status Date Reported Comments Source COUMADIN Propensity to adverse reactions to drug (finding) Blood in urine, INR raised active 7 [facility] Immunizations Combined list of available immunizations from the Department of Defense and Veterans Affairs facilities. Immunization Series Date Given Administered By Site Reaction Lot Number CVX Code Drug Supervisor Photoengraving Status Comments Source INFLUENZA, HIGH-DOSE, TRIVALENT, PF 2023 JUDITH HARTMAN LEFT DELTO ID [id number] 135 complet ed [facility] [place], [facility] INFLUENZA, UNSPECIFIED FORMULATION 2023 88 complet ed HISTORICA L INFORMATI ON - FROM PATIENT'S RECALL, [facility] INFLUENZA, UNSPECIFIED FORMULATION 2022 88 complet ed HISTORICA L INFORMATI ON - FROM PATIENT'S RECALL, [facility] TDAP 2021 115 complet ed HISTORICA L INFORMATI ON - FROM PATIENT'S WRITTEN RECORD, [facility] COVID-19 (MODERNA), MRNA, LNP-S, PF, 100 MCG OR 50 MCG DOSE 3 2020 207 complet ed [facility] INFLUENZA, SEASONAL, INJECTABLE 3 2020 141 complet ed HISTORICA L INFORMATI ON - FROM OTHER REGISTRY, [facility] INFLUENZA, UNSPECIFIED FORMULATION 2020 88 complet ed [facility] COVID-19 (MODERNA), MRNA, LNP-S, PF, 100 MCG/0.5 ML DOSE 2 2020 207 complet ed [facility] COVID-19 (MODERNA), MRNA, LNP-S, PF, 100 MCG/0.5 ML DOSE 1 2020 207 complet ed [facility] INFLUENZA, UNSPECIFIED FORMULATION 2019 88 complet ed [facility] INFLUENZA, SEASONAL, INJECTABLE 2 2019 141 complet ed HISTORICA L INFORMATI ON - FROM OTHER REGISTRY, [facility] INFLUENZA, HIGH DOSE SEASONAL 2018 135 complet ed HISTORICA L INFORMATI ON - FROM OTHER PROVIDER, Partner: [facility]. Administe red by: ISMAEL RAMOS ([phone]). Partner 9 Lot#: [id number] Mfr: Sanofi P[employer]; Dosage: 0.5 [facility] INFLUENZA, TRIVALENT, ADJUVANTED 2017 168 complet ed [facility] INFLUENZA, UNSPECIFIED FORMULATION [address] Burt, administe red in November [facility] PNEUMOCOCCAL CONJUGATE PCV 13 2016 133 complet ed per [facility] INFLUENZA, HIGH DOSE SEASONAL 2015 135 complet ed [facility] INFLUENZA, HIGH DOSE SEASONAL 2013 135 complet ed [facility] INFLUENZA, UNSPECIFIED FORMULATION 2012 88 complet ed [facility] PNEUMOCOCCAL POLYSACCHARID E PPV23 2012 33 complet ed [facility] TDAP 2011 115 complet ed [facility] INFLUENZA, UNSPECIFIED FORMULATION 2011 88 complet ed [facility] INFLUENZA, UNSPECIFIED FORMULATION 2010 88 complet ed [facility] INFLUENZA, UNSPECIFIED FORMULATION 2009 88 complet ed [facility] Results Combined list of recent chemistry, [...] Sep 21, 2024 01:33 PM Reporting Lab: [facility] [place] [address] Performing Lab: [facility] [facility] CBC LEUKOCYTES [#/VOLUME] IN BLOOD BY AUTOMATED COUNT 6.9 10*3/u L 3.6 - 11.2 09/21 Specimen Type: BLOOD No comment entered. Ordering Provider: EMILIA MITCHELL Report Released Date/Time: Sep 21, 2024 01:33 PM Reporting Lab: [facility] [place] [address] Performing Lab: [facility] DIVISION CBC ERYTHROCYTE S [#/VOLUME] IN BLOOD BY AUTOMATED COUNT 3.75 10*6/u L 4.10 - 5.70 09/21 L Specimen Type: BLOOD No comment entered. Ordering Provider: EMILIA MITCHELL Report Released Date/Time: Sep 21, 2024 01:33 PM Reporting Lab: [facility] [place] [address] Performing Lab: [facility] [address] [place] [address] CBC HEMOGLOBIN [MASS/VOLUM E] IN BLOOD 11.1 g/dL 13.1 - 16.8 09/21 L Specimen Type: BLOOD No comment entered. Ordering Provider: EMILIA MITCHELL Report Released Date/Time: Sep 21, 2024 01:33 PM Reporting Lab: [facility] [place] [address] Performing Lab: [facility] DIVISION CBC HEMATOCRIT [VOLUME FRACTION] OF BLOOD 34.3 38.2 - 48.4 09/21 L Specimen Type: BLOOD No comment entered. Ordering Provider: EMILIA MITCHELL Report Released Date/Time: Sep 21, 2024 01:33 PM Reporting Lab: [facility] [place] [address] Performing Lab: [facility] DIVISION CBC MCV [ENTITIC VOLUME] BY AUTOMATED COUNT 91.5 fL 80.0 - 100.0 09/21 Specimen Type: BLOOD No comment entered. Ordering Provider: EMILIA MITCHELL Report Released Date/Time: Sep 21, 2024 01:33 PM Reporting Lab: [facility] [place] [address] Performing Lab: [facility] DIVISION CBC MCH [ENTITIC MASS] BY AUTOMATED COUNT 29.6 pg 27.0 - 34.0 09/21 Specimen Type: BLOOD No comment entered. Ordering Provider: EMILIA MITCHELL Report Released Date/Time: Sep 21, 2024 01:33 PM Reporting Lab: [facility] [place] [address] Performing Lab: [facility] DIVISION CBC MCHC [MASS/VOLUM E] BY AUTOMATED COUNT 32.4 g/dL 33.0 - 36.0 09/21 L Specimen Type: BLOOD No comment entered. Ordering Provider: EMILIA MITCHELL Report Released Date/Time: Sep 21, 2024 01:33 PM Reporting Lab: [facility] [place] [address] Performing Lab: [facility] DIVISION CBC PLATELETS [#/VOLUME] IN BLOOD BY AUTOMATED COUNT 110 10*3/u L 150 - 400 09/21 L Specimen Type: BLOOD No comment entered. Ordering Provider: EMILIA MITCHELL Report Released Date/Time: Sep 21, 2024 01:33 PM Reporting Lab: [facility] [place] [address] Performing Lab: [facility] DIVISION CBC PLATELET MEAN VOLUME [ENTITIC VOLUME] IN BLOOD BY AUTOMATED COUNT 11.5 fL 7.5 - 11.2 09/21 H Specimen Type: BLOOD No comment entered. Ordering Provider: EMILIA MITCHELL Report Released Date/Time: Sep 21, 2024 01:33 PM Reporting Lab: [facility] [place] [address] Performing Lab: [facility] DIVISION CBC ERYTHROCYTE DISTRIBUTIO N WIDTH [RATIO] BY AUTOMATED COUNT 15.2 11.8 - 15.1 09/21 H Specimen Type: BLOOD No comment entered. Ordering Provider: EMILIA MITCHELL Report Released Date/Time: Sep 21, 2024 01:33 PM Reporting Lab: [facility] [place] [address] Performing Lab: [id number] DIVISION CBC LYMPHOCYTES /100 LEUKOCYTES IN BLOOD BY AUTOMATED COUNT 19 09/21 Specimen Type: BLOOD No comment entered. Ordering Provider: EMILIA MITCHELL Report Released Date/Time: Sep 21, 2024 01:33 PM Reporting Lab: [facility] [place] [address] Performing Lab: [facility] DIVISION CBC MONOCYTES/1 00 LEUKOCYTES IN BLOOD BY AUTOMATED COUNT 8 09/21 Specimen Type: BLOOD No comment entered. Ordering Provider: EMILIA MITCHELL Report Released Date/Time: Sep 21, 2024 01:33 PM Reporting Lab: [facility] [place] [address] Performing Lab: [facility] DIVISION CBC NEUTROPHILS /100 LEUKOCYTES IN BLOOD BY AUTOMATED COUNT 70 09/21 Specimen Type: BLOOD No comment entered. Ordering Provider: EMILIA MITCHELL Report Released Date/Time: Sep 21, 2024 01:33 PM Reporting Lab: [facility] [place] [address] Performing Lab: [facility] DIVISION CBC EOSINOPHILS /100 LEUKOCYTES IN BLOOD BY AUTOMATED COUNT 2 09/21 Specimen Type: BLOOD No comment entered. Ordering Provider: EMILIA MITCHELL Report Released Date/Time: Sep 21, 2024 01:33 PM Reporting Lab: [facility] [place] [address] Performing Lab: [facility] DIVISION CBC BASOPHILS/1 00 LEUKOCYTES IN BLOOD BY AUTOMATED COUNT 1 09/21 Specimen Type: BLOOD No comment entered. Ordering Provider: EMILIA MITCHELL Report Released Date/Time: Sep 21, 2024 01:33 PM Reporting Lab: [facility] [place] [address] Performing Lab: [facility] DIVISION CBC LYMPHOCYTES [#/VOLUME] IN BLOOD BY AUTOMATED COUNT 1.29 10*3/u L 0.77 - 4.50 09/21 Specimen Type: BLOOD No comment entered. Ordering Provider: EMILIA MITCHELL Report Released Date/Time: Sep 21, 2024 01:33 PM Reporting Lab: [facility] [place] [address] Performing Lab: [facility] DIVISION CBC MONOCYTES [#/VOLUME] IN BLOOD BY AUTOMATED COUNT 0.57 10*3/u L 0.19 - 0.80 09/21 Specimen Type: BLOOD No comment entered. Ordering Provider: EMILIA MITCHELL Report Released Date/Time: Sep 21, 2024 01:33 PM Reporting Lab: [facility] [place] [address] Performing Lab: [facility] DIVISION CBC NEUTROPHILS [#/VOLUME] IN BLOOD BY AUTOMATED COUNT 4.83 10*3/u L 2.10 - 8.00 09/21 Specimen Type: BLOOD No comment entered. Ordering Provider: EMILIA MITCHELL Report Released Date/Time: Sep 21, 2024 01:33 PM Reporting Lab: [facility] [place] [address] Performing Lab: [facility] DIVISION CBC EOSINOPHILS [#/VOLUME] IN BLOOD BY AUTOMATED COUNT 0.15 10*3/u L 0.00 - 0.60 09/21 Specimen Type: BLOOD No comment entered. Ordering Provider: EMILIA MITCHELL Report Released Date/Time: Sep 21, 2024 01:33 PM Reporting Lab: [facility] [place] [address] Performing Lab: [facility] [place] [address] DIVISION CBC BASOPHILS [#/VOLUME] IN BLOOD BY AUTOMATED COUNT 0.05 10*3/u L 0.00 - 0.20 09/21 Specimen Type: BLOOD No comment entered. Ordering Provider: EMILIA MITCHELL Report Released Date/Time: Sep 21, 2024 01:33 PM Reporting Lab: [facility] [place] [address] Performing Lab: [facility] DIVISION CBC PLATELETS RETICULATED /100 PLATELETS IN BLOOD BY AUTOMATED COUNT 6.5 1.0 - 7.0 09/21 Specimen Type: BLOOD No comment entered. Ordering Provider: EMILIA MITCHELL Report Released Date/Time: Sep 21, 2024 01:33 PM Reporting Lab: [facility] [place] [address] Performing Lab: [facility] [address] DIVISION COMPREHENS FRANCIA METABOLIC PANEL CREATININE [MASS/VOLUM E] IN SERUM OR PLASMA 1.04 mg/dL 0.70 - 1.30 09/21 Specimen Type: PLASMA Comment: No hemolysis noted. Ordering Provider: EMILIA MITCHELL Report Released Date/Time: Sep 21, 2024 01:33 PM Reporting Lab: [facility] [place] [address] Performing Lab: [facility] [address] DIVISION COMPREHENS FRANCIA METABOLIC PANEL UREA NITROGEN [MASS/VOLUM E] IN SERUM OR PLASMA 20.2 mg/dL 9.0 - 25.0 09/21 Specimen Type: PLASMA Comment: No hemolysis noted. Ordering Provider: EMILIA MITCHELL Report Released Date/Time: Sep 21, 2024 01:33 PM Reporting Lab: [facility] [place] [address] Performing Lab: [facility] COMPREHENS FRANCIA METABOLIC PANEL GLUCOSE [MASS/VOLUM E] IN SERUM OR PLASMA 100 mg/dL 72 - 99 09/21 H Specimen Type: PLASMA Comment: No hemolysis noted. Ordering Provider: EMILIA MITCHELL Report Released Date/Time: Sep 21, 2024 01:33 PM Reporting Lab: [facility] [place] [address] Performing Lab: [facility] DIVISION COMPREHENS FRANCIA METABOLIC PANEL SODIUM [MOLES/VOLU ME] IN SERUM OR PLASMA 135 meq/L 136 - 145 09/21 L Specimen Type: PLASMA Comment: No hemolysis noted. Ordering Provider: EMILIA MITCHELL Report Released Date/Time: Sep 21, 2024 01:33 PM Reporting Lab: [facility] [place] [address] Performing Lab: [facility] DIVISION COMPREHENS FRANCIA METABOLIC PANEL POTASSIUM [MOLES/VOLU ME] IN SERUM OR PLASMA 4.2 meq/L 3.5 - 5.0 09/21 Specimen Type: PLASMA Comment: No hemolysis noted. Ordering Provider: EMILIA MITCHELL Report Released Date/Time: Sep 21, 2024 01:33 PM Reporting Lab: [facility] [place] [address] Performing Lab: [facility] [id number] [place] [address] DIVISION COMPREHENS FRANCIA METABOLIC PANEL CHLORIDE [MOLES/VOLU ME] IN SERUM OR PLASMA 103 meq/L 98 - 107 09/21 Specimen Type: PLASMA Comment: No hemolysis noted. Ordering Provider: EMILIA MITCHELL Report Released Date/Time: Sep 21, 2024 01:33 PM Reporting Lab: [facility] [place] [address] Performing Lab: [facility] DIVISION COMPREHENS FRANCIA METABOLIC PANEL CARBON DIOXIDE, TOTAL [MOLES/VOLU ME] IN SERUM OR PLASMA 23 meq/L 22 - 31 09/21 Specimen Type: PLASMA Comment: No hemolysis noted. Ordering Provider: EMILIA MITCHELL Report Released Date/Time: Sep 21, 2024 01:33 PM Reporting Lab: [facility] [place] [id number] Performing Lab: [facility] DIVISION COMPREHENS FRANCIA METABOLIC PANEL CALCIUM [MASS/VOLUM E] IN SERUM OR PLASMA 9.0 mg/dL 8.4 - 10.4 09/21 Specimen Type: PLASMA Comment: No hemolysis noted. Ordering Provider: EMILIA MITCHELL Report Released Date/Time: Sep 21, 2024 01:33 PM Reporting Lab: [facility] [id number] Performing Lab: [facility] DIVISION COMPREHENS FRANCIA METABOLIC PANEL PROTEIN [MASS/VOLUM E] IN SERUM OR PLASMA 7.6 g/dL 6.0 - 8.6 09/21 Specimen Type: PLASMA Comment: No hemolysis noted. Ordering Provider: EMILIA MITCHELL Report Released Date/Time: Sep 21, 2024 01:33 PM Reporting Lab: [facility] [place] [address] Performing Lab: [facility] DIVISION COMPREHENS FRANCIA METABOLIC PANEL ALBUMIN [MASS/VOLUM E] IN SERUM OR PLASMA 4.3 g/dL 3.4 - 5.0 09/21 Specimen Type: PLASMA Comment: No hemolysis noted. Ordering Provider: EMILIA MITCHELL Report Released Date/Time: Sep 21, 2024 01:33 PM Reporting Lab: [facility] [place] [address] Performing Lab: [facility] DIVISION COMPREHENS FRANCIA METABOLIC PANEL BILIRUBIN.T OTAL [MASS/VOLUM E] IN SERUM OR PLASMA 1.1 mg/dL 0.2 - 1.2 09/21 Specimen Type: PLASMA Comment: No hemolysis noted. Ordering Provider: EMILIA MITCHELL Report Released Date/Time: Sep 21, 2024 01:33 PM Reporting Lab: [facility] [place] [address] Performing Lab: [facility] DIVISION COMPREHENS FRANCIA METABOLIC PANEL ALKALINE PHOSPHATASE [ENZYMATIC ACTIVITY/VO LUME] IN SERUM OR PLASMA 64 U/L 40 - 150 09/21 Specimen Type: PLASMA Comment: No hemolysis noted. Ordering Provider: EMILIA MITCHELL Report Released Date/Time: Sep 21, 2024 01:33 PM Reporting Lab: [facility] [place] [address] Performing Lab: [facility] DIVISION COMPREHENS FRANCIA METABOLIC PANEL ASPARTATE AMINOTRANSF ERASE [ENZYMATIC ACTIVITY/VO LUME] IN SERUM OR PLASMA 33 U/L 5 - 34 09/21 Specimen Type: PLASMA Comment: No hemolysis noted. Ordering Provider: EMILIA MITCHELL Report Released Date/Time: Sep 21, 2024 01:33 PM Reporting Lab: [facility] [address] Performing Lab: [facility] DIVISION COMPREHENS FRANCIA METABOLIC PANEL ALANINE AMINOTRANSF ERASE [ENZYMATIC ACTIVITY/VO LUME] IN SERUM OR PLASMA 25 U/L 8 - 40 09/21 Specimen Type: PLASMA Comment: No hemolysis noted. Ordering Provider: EMILIA MITCHELL Report Released Date/Time: Sep 21, 2024 01:33 PM Reporting Lab: [facility] [place] [address] Performing Lab: [facility] [place] [phone] DIVISION COMPREHENS FRANCIA METABOLIC PANEL GLOMERULAR FILTRATION RATE/1.73 SQ M.PREDICTED [VOLUME RATE/AREA] IN SERUM, PLASMA OR BLOOD BY CREATININE- BASED FORMULA (CKD-EPI 2020) 69.06 60 09/21 Specimen Type: PLASMA Comment: No hemolysis noted. Ordering Provider: EMILIA MITCHELL Report Released Date/Time: Sep 21, 2024 01:33 PM Reporting Lab: [facility] [place] [address] Performing Lab: [facility] [place] [id number] [place] [address] DIVISION FERRITIN FERRITIN [MASS/VOLUM E] IN SERUM OR PLASMA 38.68 ng/mL 22 - 275 09/21 Specimen Type: SERUM No comment entered. Ordering Provider: EMILIA MITCHELL Report Released Date/Time: Sep 21, 2024 01:33 PM Reporting Lab: [facility] [address] [place] [id number] Performing Lab: [facility] [address] [facility] [place] [place] [place] [address] [facility] FOLATE (STL-MA) FOLATE [MASS/VOLUM E] IN SERUM OR PLASMA 9.1 ng/mL 7 - 20 09/21 Specimen Type: SERUM No comment entered. Ordering Provider: EMILIA MITCHELL Report Released Date/Time: Sep 21, 2024 01:33 PM Reporting Lab: [facility] [place] [address] Performing Lab: [facility] [phone] FREE T4 (STL) THYROXINE (T4) FREE [MASS/VOLUM E] IN SERUM OR PLASMA 1.00 ng/mL 0.70 - 1.48 09/21 Specimen Type: PLASMA No comment entered. Ordering Provider: EMILIA MITCHELL Report Released Date/Time: Sep 21, 2024 01:33 PM Reporting Lab: [facility] [place] [address] Performing Lab: [facility] [place] [phone] DIVISION HGA1C HEMOGLOBIN A1C/HEMOGLO BIN.TOTAL IN BLOOD 5.8 4.0 - 6.0 09/21 Specimen Type: BLOOD No comment entered. Ordering Provider: EMILIA MITCHELL Report Released Date/Time: Sep 21, 2024 01:33 PM Reporting Lab: [facility] [place] [address] Performing Lab: [facility] [place] [phone] DIVISION IRON/TIBC PROFILE IRON BINDING CAPACITY [MASS/VOLUM E] IN SERUM OR PLASMA 449 ug/dL 250 - 450 09/21 Specimen Type: SERUM No comment entered. Ordering Provider: EMILIA MITCHELL Report Released Date/Time: Sep 21, 2024 01:33 PM Reporting Lab: [facility] [address] [facility] [place] [place] [place] [address] Performing Lab: [facility] [address] [facility] [place] [place] [place] [address] [facility] IRON/TIBC PROFILE TRANSFERRIN [MASS/VOLUM E] IN SERUM OR PLASMA 359 mg/dL 163 - 344 09/21 H Specimen Type: SERUM No comment entered. Ordering Provider: EMILIA MITCHELL Report Released Date/Time: Sep 21, 2024 01:33 PM Reporting Lab: [facility] [address] [facility] [place] [place] [address] Performing Lab: [place] [address] [facility] [place] [place] [address] [facility] IRON/TIBC PROFILE IRON SATURATION [MASS FRACTION] IN SERUM OR PLASMA 12 20 - 50 09/21 L Specimen Type: SERUM No comment entered. Ordering Provider: EMILIA MITCHELL Report Released Date/Time: Sep 21, 2024 01:33 PM Reporting Lab: [facility] [address] [facility] [address] Performing Lab: [place] [address] [facility] [place] [place] [address] [facility] IRON/TIBC PROFILE IRON [MASS/VOLUM E] IN SERUM OR PLASMA 52 ug/dL 65 - 175 09/21 L Specimen Type: SERUM No comment entered. Ordering Provider: EMILIA MITCHELL Report Released Date/Time: Sep 21, 2024 01:33 PM Reporting Lab: [facility] [address] [facility] [address] Performing Lab: [facility] [address] [facility] [place] [place] [address] [facility] LIPID PANEL (STL) CHOLESTEROL [MASS/VOLUM E] IN SERUM OR PLASMA 127 mg/dL 0 - 200 09/21 Specimen Type: PLASMA Comment: No hemolysis noted. Ordering Provider: EMILIA MITCHELL Report Released Date/Time: Sep 21, 2024 01:33 PM Reporting Lab: [facility] [address] Performing Lab: [facility] [phone] DIVISION LIPID PANEL (STL) TRIGLYCERID E [MASS/VOLUM E] IN SERUM OR PLASMA 108 mg/dL 0 - 150 09/21 Specimen Type: PLASMA Comment: No hemolysis noted. Ordering Provider: EMILIA MITCHELL Report Released Date/Time: Sep 21, 2024 01:33 PM Reporting Lab: [facility] [place] [address] Performing Lab: [facility] LIPID PANEL (STL) CHOLESTEROL IN LDL [MASS/VOLUM E] IN SERUM OR PLASMA BY CALCULATION 64 mg/dL 09/21 Specimen Type: PLASMA Comment: No hemolysis noted. Ordering Provider: EMILIA MITCHELL Report Released Date/Time: Sep 21, 2024 01:33 PM Reporting Lab: [facility] [place] [address] Performing Lab: [facility] LIPID PANEL (STL) CHOLESTEROL IN HDL [MASS/VOLUM E] IN SERUM OR PLASMA 41 mg/dL 40 09/21 Specimen Type: PLASMA Comment: No hemolysis noted. Ordering Provider: EMILIA MITCHELL Report Released Date/Time: Sep 21, 2024 01:33 PM Reporting Lab: [facility] [place] [address] Performing Lab: [facility] DIVISION VITAMIN D, 25-HYDROXY 25-HYDROXYV ITAMIN D3 [MASS/VOLUM E] IN SERUM OR PLASMA 30.0 ng/mL 30 - 96 09/21 Specimen Type: SERUM No comment entered. Ordering Provider: EMILIA MITCHELL Report Released Date/Time: Sep 21, 2024 01:33 PM Reporting Lab: [facility] [address] Performing Lab: [facility] [address] [facility] Vital Signs Combined list of inpatient and outpatient Vital Signs from Department of Defense and Veterans Affairs, ranging from 12 months to all on record, depending upon the facility. Vital Sign Value Date Comments Source SYSTOLIC BLOOD PRESSURE 117 09/22/19 25 12:52:43 [facility] DIASTOLIC BLOOD PRESSURE 62 025 12:52:43 [facility] PULSE OXIMETRY 97 % 09/21/2024 12:52:43 [facility] WEIGHT 206.4 09/21/2024 12:52:43 [facility] BMI 36 kg/m2 09/21/2024 12:52:43 [facility] PAIN 0 09/21/2024 12:52:43 [facility] HEIGHT 64 09/21/2024 12:52:43 [facility] TEMPERATURE 98.2 09/21/2024 12:52:43 [facility] PULSE 72 09/21/2024 12:52:43 [facility] RESPIRATION 16 09/21/2024 12:52:43 [facility] SYSTOLIC BLOOD PRESSURE 129 03/13/20 24 10:18:42 [...] SYSTOLIC BLOOD PRESSURE 136 11/08/19 24 10:46:37 [facility] DIASTOLIC BLOOD PRESSURE 75 024 10:46:37 [facility] PULSE OXIMETRY 96 11/08/2023 10:46:37 [facility] WEIGHT 204.1 11/08/2023 10:46:37 [facility] BMI 31 kg/m2 11/08/2023 10:46:37 [facility] PAIN 4 11/08/2023 10:46:37 [facility] TEMPERATURE 96.6 11/08/2023 10:46:37 [facility] PULSE 71 11/08/2023 10:46:37 [facility] RESPIRATION 18 11/08/2023 10:46:37 [facility] SYSTOLIC BLOOD PRESSURE 126 10/25/19 24 11:11:02 [...] DC Date Status Disposition Source [facility] Outpatient [facility]counter [id number] 04/19 [facility] Outpatient Encounter [id number] 04/19 [facility]IVETH [facility] Outpatient Encounter [id number] 04/24 [facility] Outpatient Encounter [id number] Meir NAVARRO 05/20 M[facility]ELINYEIVETH [facility] OPC OFFICE O/P EST LOW 20 MIN [id number] Diagnos is: ICD-10- CM G47.39 Other sleep apnea REMY GARCIA 05/21 [facility] Outpatient Encounter [id number] DO CHERELLE GILMAN 05/21 [facility] Outpatient Encounter [id number] 06/06 [facility] Outpatient Encounter [id number] 06/06 [facility] Outpatient Encounter [id number] 07/04 [facility] Outpatient Encounter [id number] DO CHERELLE GILMAN 07/07 [facility] Outpatient Encounter [id number] 07/10 [facility] Outpatient Encounter [id number] 07/16 [facility] Outpatient Encounter [id number] 07/17 [facility] Encounter [id number] 08/05 [facility] Encounter [id number] 08/15 [facility] Out[facility] Encounter [id number] MUKUL,DO NALD 08/18 [facility] Encounter [id number] 08/26 [facility] Out[facility] Encounter [id number] MUKUL,DO NALD 08/27 [facility]P EST MOD 30 MIN [id number] Diagnos is: ICD-10- CM M25.50 Pain in unspeci fied joint MUKUL,DO NALD 08[facility] En[facility] [id number] 09/[address] 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, unspeci fied MUKUL,DO NALD 09/11 [facility] COMPRE OPH EXAM EST PT 1/> [id number] Diagnos is: ICD-10- CM 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 of intraoc ular lens SETTERJERONIMOE N A 09/23 [facility] Outpatient Encounter [id number] 10/15 [facility] Encounter [id number] DO MUKUL NALD 10/16 [facility] HC PRO PHONE CALL 11-20 MIN [id number] Diagnos is: ICD-10- CM 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 SHAWN Galicia 10/21 [facility] Outpatient Encounter [id number] 10/23 [facility] OFFICE O/P EST MOD 30 MIN [id number] Diagnos is: ICD-10- CM R26.81 Unstead iness on feet DO MUKUL NALD 10/24 [facility] Outpatient Encounter [id number] 10/24 [facility] Outpatient Encounter [id number] Diagnos is: ICD-10- CM M25.531 Pain in right wrist DO MUKUL NALD 10/28 [facility] EXT ECG>48HR<7 D RECORDING [id number] Diagnos is: ICD-10- CM 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 LEEANNA NOBLE SCARLET 10/30 [facility] Outpatient Encounter [id number] 11/05 [facility] PRO PHONE CALL 5-10 MIN [id number] Diagnos is: ICD-10- CM 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 christine CORNELIUSMORTON ,SHAWN 11/06 [facility]/OP CNSLTJ NEW/EST LOW 30 [id number] Diagnos is: ICD-10- CM M25.531 Pain in right wrist TRI JONES 11/07 [facility] Out[facility] Encounter [id number] TRI JONES 11/07 [facility] Out[facility] Encounter [id number] 11/07 [facility] PRO PHONE CALL 5-10 MIN [id number] Diagnos is: ICD-10- CM 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 SHAWN Galicia 11/14 [facility] Out[facility] Encounter [id number] 11/27 [facility] Encounter [id number] Diagnos is: ICD-10- CM 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 DO CHERELLE GILMAN 11/28 [facility] Outpatient Encounter [id number] 11/28 [facility] Outpatient Encounter [id number] 12/16 [facility] CB IMMUNIZATI ON ADMIN [id number] Diagnos is: ICD-10- CM Z23 Encount er for immuniz ation ЛЮИЯ HARTMAN 12/30 [facility] Outpatient Encounter [id number] 02/09 [facility] Outpatient Encounter [id number] VILMA DALY 03/09 [facility] Outpatient Encounter [id number] ELANA RICCI 03/12 [facility] OFFICE O/P EST MOD 30 MIN [id number] Diagnos is: ICD-10- CM Z00.01 Encount er for general adult medical exam w abnorma l finding s MUKUL,DO NALD 03/13 [facility] PH1 ASSMT&MGMT NQHP 11-20 [id number] Diagnos is: ICD-10- CM 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 SHAWN Galicia 03/19 [facility] Outpatient Encounter [id number] ЮЛИЯ CASAREZ 03/19 [facility] SYNCH AUDIO-ONLY EST SF 10 [id number] Diagnos is: ICD-10- CM E55.9 Vitamin D deficie ncy, unspeci fied MUKUL,DO NALD 03/23 [facility] Outpatient Encounter [id number] 03/26 [facility] Outpatient Encounter [id number] 06/09 [facility] Outpatient Encounter [id number] 06/09 [facility] PH1 ASSMT&MGMT NQHP 5-10 [id number] Diagnos is: ICD-10- CM 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 SHAWN Galicia 07/01 [facility] TARGETED CASE MANAGEMENT [id number] Diagnos is: ICD-10- CM Y93.E6 Activit y, residen tial relFERNANDO Ochoa 09/08 [facility] Outpatient Encounter [id number] HERMELINDOROHIT Nicolasa 09/14 [facility] OFFICE O/P NEW HI 60 MIN [id number] Diagnos is: ICD-10- CM I10 Essenti al (primar y) hyperte nsion STEPHENEMILIA HIDA 09/21 [facility] [place] Outpatient Encounter [id number] 09/24 [facility] Outpatient Encounter [id number] 10/02 [facility] Outpatient Encounter [id number] STEPHENEMILIA HIDA 10/03 [facility] Social History Combined list of available smoking, tobacco, and other social history from Department of Defense and Veterans Affairs facilities. Social History Type Response Date Comment Sourc e Tobacco smoking status NHIS VA-TOBACCO NEVER USED CIGARETTES 09/21/2024 [facility] History of tobacco use VA-TOBACCO NEVER USED OTHER TYPE 09/21/2024 [facility] History of tobacco use VA-TOBACCO USE FORMER CIGARETTES 03/09/2024 [facility] History of tobacco use VA-TOBACCO QUIT 15 YRS OR MORE 03/14/2023 [facility] History of tobacco use VA-TOBACCO NEVER USED 03/13/2022 [facility] History of tobacco use VA-TOBACCO QUIT 15 YRS OR MORE 03/14/2021 [facility] History of tobacco use VA-TOBACCO FORMER USER 03/09/2020 [facility] History of tobacco use VA-TOBACCO QUIT 15 YRS OR MORE 12/25/2018 [facility] History of tobacco use VA-TOBACCO FORMER USER 12/31/2017 [facility] History of tobacco use CURRENT NON-SMOKER 06/17/2017 [facility] History of tobacco use CURRENT NON-SMOKER 12/21/2016 [facility] History of tobacco use LIFETIME NON-TOBACCO USER 12/14/2009 [facility] Plan of Care List of future care activities from [facility] facilities. Additional future care activities may be listed in the Assessment and Plan section. Date/Time Care Activity Care Activity Detail Facili ty 09/21/2024 Laboratory - Chemotherapist ry Order URINALYSIS (STL-PB) URINE SP [facility] Advance Directives List of completed, amended, or rescinded Advance Directives on record at [facility] facilities. An actual copy of the Directive is not included. Date Advance Directive Provider Source 03/25/2023 ADVANCE DIRECTIVE [facility] 06/19/2017 ADVANCE DIRECTIVE DISCUSSION CAYDEN AREVALO [facility] 12/22/2016 ADVANCE DIRECTIVE DISCUSSION LEXA ABDUL [facility] 12/21/2016 ADVANCE DIRECTIVE DISCUSSION LINDEN LEZAMA [facility]
[2024-10-09 11:35] LABS: Hematocrit 26.1 % (37.0-46.0); Hemoglobin 8.2 g/dL (12.4-15.3); Immature Granulocyte Percent A 0.4 % (0.0-0.0); Immature Platelet Fraction Pct 6.6 % (1.0-7.0); Lymphocytes Absolute Auto 1.23 K/mm3 (1.10-4.50); Mean Corpuscular HGB Conc 31.4 g/dL (32-36); Mean Corpuscular Hemoglobin 29.0 pg (27.0-31.0); Mean Corpuscular Volume 92.2 fL (78.0-102.0); Nucleated Red Blood Cells Absolute Auto 0.00 K/mm3 (0.00-0.00); Nucleated Red Blood Cells Perc 0.0 % (0-0.0); Platelet Count Result 112 K/mm3 (150-420); Red Blood Count 2.83 M/mm3 (4.70-6.10); White Blood Count 7.7 K/mm3 (4.8-10.8)
[2024-10-09 11:57] LABS: Alanine Aminotransferase 19 U/L (6-50); Albumin Level 4.0 g/dL (3.5-5.1); Alkaline Phosphatase 61 U/L (38-126); Anion Gap 9 mmol/L (4-12); Aspartate Amino Transferase 27 U/L (17-59); Bilirubin,Total 1.3 mg/dL (0.2-1.3); Blood Urea Nitrogen 19 mg/dL (9-20); Calcium 8.6 mg/dL (8.4-10.2); Carbon Dioxide 24 mmol/L (22-30); Chloride 105 mmol/L (98-107); Estimated Glomerular Filt Rate > 60; Glucose 98 mg/dL (65-110); Osmolality Calculated 288 mOsm/kg (285-295); Potassium 4.4 mmol/L (3.4-5.0); Sodium 138 mmol/L (137-145); Total Protein 6.6 g/dL (6.3-8.2)
== END 2024-10-09 11:07 | disposition home or self-care (01) ==
PROVIDERS: PCP Family Medicine; Visit Provider Family Medicine
DX: I10 Essential (primary) hypertension (principal)
CPT/HCPCS: 36415; 80053; 85025; 85055

== ENCOUNTER 2024-10-25 12:37 | Inpatient (IN) | payer MEDICARE, BC, OTHER, SELFPAY ==
[2024-10-25] VITALS (12 sets, daily range): BP systolic 118–141; BP diastolic 60–71; PULSE 51–70; RESP 14–20; TEMP 36.3–36.8; O2SAT 95–100; BMI 30.9
--- NOTE | ~2024-10-25 | CT_ITS ---
EXAMINATION: CTA chest PE protocol DATE: 10/25/2024 14:05 INDICATION: Exertional shortness of breath and chest tightness TECHNIQUE: Computed tomography angiography (CTA) of the chest was performed with 100 mL Omnipaque-350 intravenous contrast timed to evaluate the pulmonary arteries. Coronal maximum intensity projection 3D-reconstructions were created by the technologist. The dose-length product (DLP) was 433.80 mGy-cm. Automated exposure control and iterative reconstruction technique were employed. COMPARISON: X-ray chest 10/02/2024. FINDINGS: Lung parenchyma and airways: Mild peripheral reticulation and dependent septal thickening. Mild scatt ered groundglass opacities. Mild scattered scar and atelectasis. Airway debris in right lower lobe br onchi. Pleura: No fluid collection. Bilateral pleural calcifications. Thoracic inlet, axillae and chest wall: Symmetric gynecomastia. Left chest pacer with lead terminatin g in good position. Thoracic aorta: Mild dilation of the arch and descending thoracic aorta, measuring up to 3.5. No diss ection. Mediastinum: Normal. Heart and pericardium: Status post CABG. Cardiomegaly. No pericardial effusion. Mild hepatic vein ref lux. Coronary artery calcifications: Moderate. Upper abdomen: Cholelithiasis. Mild pericholecystic stranding. Simple right midpole cyst.. Bones: No acute osseous finding. Pulmonary arteries: Study quality: Mild motion artifact and beam hardening in the left lower lobe, ov erall diagnostic. No pulmonary emboli detected. IMPRESSION: No CT evidence of acute pulmonary embolus. Mild scattered edema/interstitial change. Right lower lobe bronchial debris, as can be seen with airways disease, mucous plugging, or aspiratio n. Pleural calcifications, possibly secondary to asbestos related pleural disease or old hemothoraces. Cardiomegaly. Descending thoracic aortic ectasia. Cholelithiasis with mild pericholecystic inflammatory change, correlate for symptoms of right upper q uadrant pain and with biliary labs abnormalities. Consider right upper quadrant ultrasound. Reviewed, dictated and finalized at location K. IMPRESSION: No CT evidence of acute pulmonary embolus. Mild scattered edema/interstitial change. Right lower lobe bronchial debris, as can be seen with airways disease, mucous plugging, or aspiration. Pleural calcifications, possibly secondary to asbestos related pleural disease or old hemothoraces. Cardiomegaly. Descending thoracic aortic ectasia. Cholelithiasis with mild pericholecystic inflammatory change, correlate for sym ptoms of right upper quadrant pain and with biliary labs abnormalities. Conside r right upper quadrant ultrasound.
--- NOTE | ~2024-10-25 | US_ITS ---
EXAMINATION: US abdomen limited DATE: 10/25/2024 15:43 INDICATION: abnormal CT TECHNIQUE: Multiple grayscale and Doppler ultrasound images of limited portions of the abdomen were o btained. COMPARISON: CTPA, same date. FINDINGS: The visualized portions of the pancreas are slightly hyperechoic, likely related to mild fa tty infiltration in the prior CT. Suggestion of a 5 mm hyperechoic focus in the pancreatic head. The liver is normal with normal echogenicity and echotexture. No surface nodularity. Normal hepatopetal f low in the main portal vein. Gallbladder wall thickening to 7 mm. The gallbladder is nondistended. No pericholecystic fluid. The gallstones detected in prior CT is not sonographically visualized The com mon bile duct measures 5 mm. There was no sonographic Hodges sign. IMPRESSION: Gallbladder wall thickening, a nonspecific finding. Negative sonographic Hodges sign. No biliary duct dilation. 5 mm calcification in the pancreatic head, may represent a distal common bile duct stone. Reviewed, dictated and finalized at location K.
--- OUTSIDE RECORDS SUMMARY | 2024-10-25 12:39 | XMS_ITS | Continuity of Care Document ---
Author Name [facility] Organization [facility] Care Team Providers Care Registered Public Health Nurse Name Role Phone [facility] Unavailable Unavailable Problems Combined list of problems [...] fracture [facility] Atrial fibrillation Active Condition [facility] Benign hypertension Active Condition [facility] Boggy prostate Active Condition 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 [facility] Disorder of nail Active Condition [facility] Disorder of prostate Active Condition [facility] Dyspepsia Active Condition [facility] H/O: atrial fibrillation Active Condition Dec 26, 2018 Entered By: MICHELINE GILMAN Comment: has private [employer] interpreter [facility] H/O: cardiac pacemaker in situ Active Condition [facility] Hearing Loss (SCT 88796987) Active Condition Dec 26, 2018 Entered By: MICHELINE GILMAN Comment: partial has hearing aids [facility] Hemoglobin below reference range Active Condition [facility] History of back pain Active Condition Feb 27, 2022 Entered By: MICHELINE GILMAN Comment: [facility] History of hematuria Active Condition Mar 14, 2023 Entered By: MICHELINE GILMAN Comment: microscopic [facility] History of iron deficiency Active Condition [facility] History of malignant neoplasm of bladder Active Condition Jun 04, 2022 Entered By: MICHELINE GILMAN Comment: seen [facility] History of surgery Active Condition O ct 2018 Entered By: MICHELINE GILMAN Comment: s/p cabg, stents, bladder CA/scopes, old shoulder surgeryDe 2019 Entered By: MICHELINE GILMAN Comment: hx pacemakerDe 2021 Entered By: MICHELINE GILMAN Comment: cystoscope [facility] 2022 Entered By: MICHELINE GILMAN Comment: cystoscope 05/2022 [facility] HTN - Hypertension ([facility] [id number]) Active Condition [facility] Hypercholesterolemia ([facility] [id number]) Active Condition [facility] Hyperglycemia Active Condition [facility] Hyperlipidemia Active Condition [facility] Hyperlipidemia Active Condition [facility] Hypertension Active Condition [facility] Hypothyroidism Active Condition [facility] Impotence Active Condition [facility] Impotence (SNOMED CT 816806436) Active Condition [facility] Insomnia Active Condition [facility] Insomnia, unspecified (ICD-9-CM 780.52) Active Condition [facility] Iron deficiency anemia Active Condition [facility] Keratosis, Actinic Active Condition [facility] Malignant tumor of urinary bladder Active Condition [facility] Melanoma NOS Active Condition [facility] Neoplasm. Skin NOS Active Condition [facility] Neuropathy Active Condition [facility] Obesity Active Condition [facility] Paroxysmal atrial fibrillation Active Condition [facility] Periheral Neuropathy Active Condition [facility] Peripheral neuropathy Active Condition [facility] Persistent atrial fibrillation Active Condition 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 Diagnosis: ICD-10-CM Z71.89 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ed counseling Active [...] ICD-10-CM G47.39 Other sleep apnea Active Diagnosis [facility] Medications Combined list of outpatient medications from [...] THREE TIMES DAILY NEEDED FOR PAIN ORAL 08/29/[id number] Manuel GILMAN ONALD 2023 100 [facility] AMITRIPTYLI NE HCL 10MG TAB TAKE ONE TABLET BY MOUTH AT BEDTIME ORAL ACTIVE Marie MITCHELL AHIDA 2024 [facility] AMITRIPTYLI NE HCL 25MG TAB TAKE ONE TABLET BY MOUTH AT BEDTIME ORAL ACTIVE Manuel GILMAN ON2022 [facility] APIXABAN 5MG TAB TAKE ONE TABLET BY MOUTH TWICE A DAY ORAL ACTIVE STEPHENMarie AHIDA 2024 [facility] APIXABAN 5MG TAB TAKE ONE TABLET BY MOUTH TWICE A DAY ORAL ACTIVE Manuel GILMAN ON2020 DAVID LYLE [facility] ASCORBIC ACID 500MG TAB TAKE ONE TABLET BY MOUTH ONCE DAILY ORAL ACTIVE [facility] ASPIRIN 81MG TAB,CHEWABL E CHEW ONE TABLET BY MOUTH ONCE DAILY ORAL ACTIVE [facility] CHOLECALCIF EULA 25MCG (1,000UNIT) TAB TAKE ONE TABLET BY MOUTH ONCE DAILY FOR VITAMIN D SUPPLEME NT ORAL ACTIVE 03/15/2025 [id number] Manuel GILMAN ON2023 100 [facility] CHOLECALCIF EULA 25MCG (1,000UNIT) TAB TAKE ONE TABLET BY MOUTH ONCE A DAY ORAL ACTIVE STEPHENMarie DA 2024 [facility] CICLESONIDE INHL,NASAL SPRAY IN EACH NOSTRIL ONCE DAILY NASAL ACTIVE DAWSON GAN 2009 [facility] CLOPIDOGREL BISULFATE 75MG TAB TAKE ONE TABLET BY MOUTH ONCE DAILY ORAL ACTIVE MARCIA MUNOZ VTHOK 2014 [facility] CLOPIDOGREL BISULFATE 75MG TAB TAKE ONE TABLET BY MOUTH ONCE DAILY ORAL ACTIVE Manuel GILMAN ON2018 [facility] CLOPIDOGREL BISULFATE 75MG TAB TAKE ONE TABLET BY MOUTH ONCE A DAY ORAL ACTIVE STEPHEN,Marie DA 2024 [facility] DOCUSATE NA 100MG CAP TAKE 1 CAPSULE BY MOUTH EVERY DAY BEFORE NOON MEAL ORAL ACTIVE STEPHEN,Z 2024 [facility] EPLERENONE 50MG TAB TAKE ONE-HALF TABLET BY MOUTH EVERY MORNING ORAL ACTIVE STEPHENZ DA 2024 [facility] EPLERENONE TAB TAKE 25MG/INS PRA BY MOUTH ONCE DAILY ORAL ACTIVE Manuel GILMAN ON2023 DAVID CHOWDHURY [facility] FERROUS SO4 325MG TAB TAKE ONE TABLET BY MOUTH TWICE A DAY FOR IRON REPLACEM ENT WITH FOOD (MAY DARKEN STOOLS) ORAL ACTIVE 06/24/2025 [id number] Manuel GILMAN 2024 200 [facility] FERROUS SO4 325MG TAB TAKE ONE TABLET BY MOUTH ONCE A DAY ORAL ACTIVE STEPHEN,Z 2024 [facility] LEVOTHYROXI NE NA 75MCG TAB TAKE ONE TABLET BY MOUTH EVERY MORNING BEFORE A MEAL ORAL ACTIVE STEPHEN,Z 2024 [facility] LEVOTHYROXI NE NA 75MCG TAB (SYNTHROID) TAKE ONE TABLET BY MOUTH ONCE DAILY ORAL ACTIVE Manuel GILMAN 2022 [facility] LIDOCAINE 5% OINT,TOP APPLY SMALL AMOUNT TOPICALL Y TWICE A DAY FOR PAIN TOPICA L 09/28/[id number] Manuel GILMAN 2023 35 [facility] LISINOPRIL 10MG TAB TAKE ONE TABLET BY MOUTH EVERY MORNING ORAL ACTIVE Manuel GILMAN 2018 [facility] LISINOPRIL 10MG TAB TAKE ONE TABLET BY MOUTH ONCE DAILY ORAL ACTIVE Meir LOWE 2016 [facility] LISINOPRIL 20MG TAB TAKE ONE-HALF TABLET BY MOUTH ONCE A DAY ORAL ACTIVE STEPHENMarie 2024 [facility] MULTIVITS W/MINERALS TAB/CAP (NO VIT K) TAKE ONE TABLET BY MOUTH ONCE DAILY ORAL ACTIVE MARCIA MUNOZ NCHOK 2013 [facility] PANTOPRAZOL E NA 40MG TAB,EC TAKE ONE TABLET BY MOUTH EVERY MORNING BEFORE A MEAL ORAL ACTIVE STEPHEN,Z 2024 [facility] PREGABALIN 150MG CAP,ORAL TAKE 1 CAPSULE BY MOUTH TWICE A DAY ORAL ACTIVE STEPHEN,Z 2024 [facility] PREGABALIN 75MG CAP,ORAL TAKE 2 CAPSULES BY MOUTH TWICE A DAY ORAL ACTIVE MUKUL,D ON2023 DAVID CHOWDHURY [facility] PREGABALIN 75MG CAP,ORAL TAKE 1 CAPSULE BY MOUTH THREE TIMES A DAY ORAL ACTIVE DORMARCIA BLAS NCHOK 2015 [facility] SENNA TAB TAKE BY MOUTH ONCE DAILY NEEDED ORAL ACTIVE MUKUL,D ON2023 DAVID CHOWDHURY [facility] SENNOSIDES 8.6MG TAB TAKE ONE TABLET BY MOUTH ORAL ACTIVE DORMARCIA BLAS NCHOK 2013 [facility] SIMVASTATIN 40MG TAB TAKE ONE TABLET BY MOUTH EVERY EVENING ORAL ACTIVE DORJEMARCIA Doyle NCHOK 2013 [facility] SIMVASTATIN 80MG TAB TAKE ONE-HALF TABLET BY MOUTH AT BEDTIME ORAL ACTIVE MUKUL,D 2018 [facility] SIMVASTATIN 80MG TAB TAKE ONE-HALF TABLET BY MOUTH EVERY EVENING ORAL ACTIVE STEPHEN,Z AHIDA 2024 [facility] [place] VITAMIN E 100UNT CAP TAKE 2 CAPSULES BY MOUTH ONCE DAILY ORAL ACTIVE MARCIA MUNOZ NCHOK 2013 [facility] Allergies, Adverse Reactions, Alerts Combined list of allergies from Department of Defense and Veterans Affairs facilities. It does not include entries that were removed or entered in error. Substance Category Reaction Severity Reaction type Status Date Reported Comments Source COUMADIN Propensity to adverse reactions to drug (finding) Blood in urine, INR raised active 7 [facility] Immunizations Combined list of available immunizations from the Department of Defense and Veterans Affairs facilities. Immunization Series Date Given Administered By Site Reaction Lot Number CVX Code Drug Blueprint Engineer Status Comments Source INFLUENZA, HIGH-DOSE, TRIVALENT, PF 2023 JUDITH HARTMAN LEFT DELTO ID [id number] 135 complet ed [facility] [place], [facility] INFLUENZA, UNSPECIFIED FORMULATION 2023 88 complet ed HISTORICA L INFORMATI ON - FROM PATIENT'S RECALL, [facility] INFLUENZA, UNSPECIFIED FORMULATION 2022 88 complet ed HISTORICA L INFORMATI ON - FROM PATIENT'S RECALL, DAVID CHOWDHURY [facility] TDAP 2021 115 complet ed HISTORICA L INFORMATI ON - FROM PATIENT'S WRITTEN RECORD, [facility] COVID-19 (MODERNA), MRNA, LNP-S, [...] INFORMATI ON - FROM OTHER PROVIDER, Partner: [facility]. Administe red by: ISMAEL RAMOS (OAS=[phone]). Partner 9 Lot#: [id number] Mfr: Sanofi Pasteur; Dosage: 0.5 [facility] INFLUENZA, TRIVALENT, ADJUVANTED 2017 168 complet ed [facility] INFLUENZA, UNSPECIFIED FORMULATION [address] Burt, administe red in November [facility] PNEUMOCOCCAL CONJUGATE PCV 13 2016 133 complet ed per KENTRELL REYES INFLUENZA, HIGH DOSE SEASONAL 2015 135 complet ed [facility] INFLUENZA, HIGH DOSE SEASONAL 2013 135 complet ed [facility] INFLUENZA, UNSPECIFIED FORMULATION 2012 88 complet ed [facility] PNEUMOCOCCAL POLYSACCHARID E PPV23 2012 33 complet ed [facility] TDAP 2011 115 complet ed [facility]OW[facility] INFLUENZA, UNSPECIFIED FORMULATION 2011 88 complet ed [facility] INFLUEN[facility], UNSPECIFIED FORMULATION 2010 88 complet ed [facility] INFLUENZA, UNSPECIFIED FORMULATION 2009 88 complet ed [facility] Results Combined list of recent chemistry, [...] Sep 21, 2024 01:33 PM Reporting Lab: [facility] [place] [address] Performing Lab: [facility] #[address] [facility] B12 COBALAMIN (VITAMIN B12) [MASS/VOLUM E] IN SERUM OR PLASMA 255 pg/mL 213 - 816 09/21 Specimen Type: SERUM No comment entered. Ordering Provider: EMILIA MITCHELL Report Released Date/Time: Sep 21, 2024 01:33 PM Reporting Lab: [facility] [place] [phone] Performing Lab: [facility] [id number] [place] [address] DIVISION FOLATE (STL-MA) FOLATE [MASS/VOLUM E] IN SERUM OR PLASMA 9.1 ng/mL 7 - 20 09/21 Specimen Type: SERUM No comment entered. Ordering Provider: EMILIA MITCHELL Report Released Date/Time: Sep 21, 2024 01:33 PM Reporting Lab: [facility] [phone] Performing Lab: [facility] [phone] [facility] IRON/TIBC PROFILE IRON BINDING CAPACITY [MASS/VOLUM E] IN SERUM OR PLASMA 449 ug/dL 250 - 450 09/21 Specimen Type: SERUM No comment entered. Ordering Provider: EMILIA MITCHELL Report Released Date/Time: Sep 21, 2024 01:33 PM Reporting Lab: [address] [address] Performing Lab: [address] [address] [facility] IRON/TIBC PROFILE TRANSFERRIN [MASS/VOLUM E] IN SERUM OR PLASMA 359 mg/dL 163 - 344 09/21 H Specimen Type: SERUM No comment entered. Ordering Provider: EMILIA MITCHELL Report Released Date/Time: Sep 21, 2024 01:33 PM Reporting Lab: [address] [address] Performing Lab: [address] [address] [facility] IRON/TIBC PROFILE IRON SATURATION [MASS FRACTION] IN SERUM OR PLASMA 12 20 - 50 09/21 L Specimen Type: SERUM No comment entered. Ordering Provider: EMILIA MITCHELL Report Released Date/Time: Sep 21, 2024 01:33 PM Reporting Lab: [address] [address] Performing Lab: [address] [address] [facility] IRON/TIBC PROFILE IRON [MASS/VOLUM E] IN SERUM OR PLASMA 52 ug/dL 65 - 175 09/21 L Specimen Type: SERUM No comment entered. Ordering Provider: EMILIA MITCHELL Report Released Date/Time: Sep 21, 2024 01:33 PM Reporting Lab: [address] [address] Performing Lab: [address] [address] [facility] FERRITIN FERRITIN [MASS/VOLUM E] IN SERUM OR PLASMA 38.68 ng/mL 22 - 275 09/21 Specimen Type: SERUM No comment entered. Ordering Provider: EMILIA MITCHELL Report Released Date/Time: Sep 21, 2024 01:33 PM Reporting Lab: [facility] [address] [facility] [address] Performing Lab: [place] [address] [facility] [phone] [place] [address] DIVISION COMPREHENS FRANCIA METABOLIC PANEL CREATININE [MASS/VOLUM E] IN SERUM OR PLASMA 1.04 mg/dL 0.70 - 1.30 09/21 Specimen Type: PLASMA Comment: No hemolysis noted. Ordering Provider: EMILIA MITCHELL Report Released Date/Time: Sep 21, 2024 01:33 PM Reporting Lab: [facility] [place] [address] Performing Lab: [facility] [phone] DIVISION COMPREHENS FRANCIA METABOLIC PANEL UREA NITROGEN [MASS/VOLUM E] IN SERUM OR PLASMA 20.2 mg/dL 9.0 - 25.0 09/21 Specimen Type: PLASMA Comment: No hemolysis noted. Ordering Provider: EMILIA MITCHELL Report Released Date/Time: Sep 21, 2024 01:33 PM Reporting Lab: [facility] [place] [phone] Performing Lab: [facility] [phone] [place] [address] DIVISION COMPREHENS FRANCIA METABOLIC PANEL GLUCOSE [MASS/VOLUM E] IN SERUM OR PLASMA 100 mg/dL 72 - 99 09/21 H Specimen Type: PLASMA Comment: No hemolysis noted. Ordering Provider: EMILIA MITCHELL Report Released Date/Time: Sep 21, 2024 01:33 PM Reporting Lab: [facility] [place] [address] Performing Lab: [facility] [phone] DIVISION COMPREHENS FRANCIA METABOLIC PANEL SODIUM [MOLES/VOLU ME] IN SERUM OR PLASMA 135 meq/L 136 - 145 09/21 L Specimen Type: PLASMA Comment: No hemolysis noted. Ordering Provider: EMILIA MITCHELL Report Released Date/Time: Sep 21, 2024 01:33 PM Reporting Lab: [facility] [place] [address] Performing Lab: [facility] DIVISION COMPREHENS FRANCIA METABOLIC PANEL POTASSIUM [MOLES/VOLU ME] IN SERUM OR PLASMA 4.2 meq/L 3.5 - 5.0 09/21 Specimen Type: PLASMA Comment: No hemolysis noted. Ordering Provider: EMILIA MITCHELL Report Released Date/Time: Sep 21, 2024 01:33 PM Reporting Lab: [facility] [place] [address] Performing Lab: [facility] DIVISION COMPREHENS FRANCIA METABOLIC PANEL CHLORIDE [MOLES/VOLU ME] IN SERUM OR PLASMA 103 meq/L 98 - 107 09/21 Specimen Type: PLASMA Comment: No hemolysis noted. Ordering Provider: EMILIA MITCHELL Report Released Date/Time: Sep 21, 2024 01:33 PM Reporting Lab: [facility] [place] [address] Performing Lab: [facility] DIVISION COMPREHENS FRANCIA METABOLIC PANEL CARBON DIOXIDE, TOTAL [MOLES/VOLU ME] IN SERUM OR PLASMA 23 meq/L 22 - 31 09/21 Specimen Type: PLASMA Comment: No hemolysis noted. Ordering Provider: EMILIA MITCHELL Report Released Date/Time: Sep 21, 2024 01:33 PM Reporting Lab: [facility] [place] [address] Performing Lab: [facility] DIVISION COMPREHENS FRANCIA METABOLIC PANEL CALCIUM [MASS/VOLUM E] IN SERUM OR PLASMA 9.0 mg/dL 8.4 - 10.4 09/21 Specimen Type: PLASMA Comment: No hemolysis noted. Ordering Provider: EMILIA MITCHELL Report Released Date/Time: Sep 21, 2024 01:33 PM Reporting Lab: [facility] [place] [address] Performing Lab: [facility] DIVISION COMPREHENS FRANCIA METABOLIC PANEL PROTEIN [MASS/VOLUM E] IN SERUM OR PLASMA 7.6 g/dL 6.0 - 8.6 09/21 Specimen Type: PLASMA Comment: No hemolysis noted. Ordering Provider: EMILIA MITCHELL Report Released Date/Time: Sep 21, 2024 01:33 PM Reporting Lab: [facility] [place] [address] Performing Lab: [facility] DIVISION COMPREHENS FRANCIA METABOLIC PANEL ALBUMIN [MASS/VOLUM E] IN SERUM OR PLASMA 4.3 g/dL 3.4 - 5.0 09/21 Specimen Type: PLASMA Comment: No hemolysis noted. Ordering Provider: EMILIA MITCHELL Report Released Date/Time: Sep 21, 2024 01:33 PM Reporting Lab: [facility] [place] [address] Performing Lab: [facility] DIVISION COMPREHENS FRANCIA METABOLIC PANEL BILIRUBIN.T OTAL [MASS/VOLUM E] IN SERUM OR PLASMA 1.1 mg/dL 0.2 - 1.2 09/21 Specimen Type: PLASMA Comment: No hemolysis noted. Ordering Provider: EMILIA MITCHELL Report Released Date/Time: Sep 21, 2024 01:33 PM Reporting Lab: [facility] [place] [address] Performing Lab: [facility] DIVISION COMPREHENS FRANCIA METABOLIC PANEL ALKALINE PHOSPHATASE [ENZYMATIC ACTIVITY/VO LUME] IN SERUM OR PLASMA 64 U/L 40 - 150 09/21 Specimen Type: PLASMA Comment: No hemolysis noted. Ordering Provider: EMILIA MITCHELL Report Released Date/Time: Sep 21, 2024 01:33 PM Reporting Lab: [facility] [place] [address] Performing Lab: [facility] DIVISION COMPREHENS FRANCIA METABOLIC PANEL ASPARTATE AMINOTRANSF ERASE [ENZYMATIC ACTIVITY/VO LUME] IN SERUM OR PLASMA 33 U/L 5 - 34 09/21 Specimen Type: PLASMA Comment: No hemolysis noted. Ordering Provider: EMILIA MITCHELL Report Released Date/Time: Sep 21, 2024 01:33 PM Reporting Lab: [facility] [place] [address] Performing Lab: [facility] DIVISION COMPREHENS FRANCIA METABOLIC PANEL ALANINE AMINOTRANSF ERASE [ENZYMATIC ACTIVITY/VO LUME] IN SERUM OR PLASMA 25 U/L 8 - 40 09/21 Specimen Type: PLASMA Comment: No hemolysis noted. Ordering Provider: EMILIA MITCHELL Report Released Date/Time: Sep 21, 2024 01:33 PM Reporting Lab: [facility] [place] [address] Performing Lab: [facility] [address] [facility] DIVISION COMPREHENS FRANCIA METABOLIC PANEL GLOMERULAR FILTRATION RATE/1.73 SQ M.PREDICTED [VOLUME RATE/AREA] IN SERUM, PLASMA OR BLOOD BY CREATININE- BASED FORMULA (CKD-EPI 2020) 69.06 60 09/21 Specimen Type: PLASMA Comment: No hemolysis noted. Ordering Provider: EMILIA MITCHELL Report Released Date/Time: Sep 21, 2024 01:33 PM Reporting Lab: [facility] [place] [address] Performing Lab: [facility] LIPID PANEL (STL) CHOLESTEROL [MASS/VOLUM E] IN SERUM OR PLASMA 127 mg/dL 0 - 200 09/21 Specimen Type: PLASMA Comment: No hemolysis noted. Ordering Provider: EMILIA MITCHELL Report Released Date/Time: Sep 21, 2024 01:33 PM Reporting Lab: [facility] [place] [address] Performing Lab: [facility] LIPID PANEL (STL) TRIGLYCERID E [MASS/VOLUM E] IN SERUM OR PLASMA 108 mg/dL 0 - 150 09/21 Specimen Type: PLASMA Comment: No hemolysis noted. Ordering Provider: EMILIA MITCHELL Report Released Date/Time: Sep 21, 2024 01:33 PM Reporting Lab: [facility] [place] [address] Performing Lab: [facility] LIPID PANEL (STL) CHOLESTEROL IN LDL [MASS/VOLUM E] IN SERUM OR PLASMA BY CALCULATION 64 mg/dL 09/21 Specimen Type: PLASMA Comment: No hemolysis noted. Ordering Provider: EMILIA MITCHELL Report Released Date/Time: Sep 21, 2024 01:33 PM Reporting Lab: [facility] [place] [phone] Performing Lab: [facility] DIVISION LIPID PANEL (STL) CHOLESTEROL IN HDL [MASS/VOLUM E] IN SERUM OR PLASMA 41 mg/dL 40 09/21 Specimen Type: PLASMA Comment: No hemolysis noted. Ordering Provider: EMILIA MITCHELL Report Released Date/Time: Sep 21, 2024 01:33 PM Reporting Lab: [facility] [place] [address] Performing Lab: [facility] CBC LEUKOCYTES [#/VOLUME] IN BLOOD BY AUTOMATED COUNT 6.9 10*3/u L 3.6 - 11.2 09/21 Specimen Type: BLOOD No comment entered. Ordering Provider: EMILIA MITCHELL Report Released Date/Time: Sep 21, 2024 01:33 PM Reporting Lab: [facility] [place] [address] Performing Lab: [facility] DIVISION CBC ERYTHROCYTE S [#/VOLUME] IN BLOOD BY AUTOMATED COUNT 3.75 10*6/u L 4.10 - 5.70 09/21 L Specimen Type: BLOOD No comment entered. Ordering Provider: EMILIA MITCHELL Report Released Date/Time: Sep 21, 2024 01:33 PM Reporting Lab: [facility] [place] [address] Performing Lab: [facility] DIVISION CBC HEMOGLOBIN [MASS/VOLUM E] IN BLOOD 11.1 g/dL 13.1 - 16.8 09/21 L Specimen Type: BLOOD No comment entered. Ordering Provider: EMILIA MITCHELL Report Released Date/Time: Sep 21, 2024 01:33 PM Reporting Lab: [facility] [place] [address] Performing Lab: [facility] DIVISION CBC HEMATOCRIT [VOLUME FRACTION] OF BLOOD 34.3 38.2 - 48.4 09/21 L Specimen Type: BLOOD No comment entered. Ordering Provider: EMILIA MITCHELL Report Released Date/Time: Sep 21, 2024 01:33 PM Reporting Lab: [facility] [place] [address] Performing Lab: [facility] DIVISION CBC MCV [ENTITIC VOLUME] BY AUTOMATED COUNT 91.5 fL 80.0 - 100.0 09/21 Specimen Type: BLOOD No comment entered. Ordering Provider: EMILIA MITCHELL Report Released Date/Time: Sep 21, 2024 01:33 PM Reporting Lab: [facility] [place] [address] Performing Lab: [facility] DIVISION CBC MCH [ENTITIC MASS] BY AUTOMATED COUNT 29.6 pg 27.0 - 34.0 09/21 Specimen Type: BLOOD No comment entered. Ordering Provider: EMILIA MITCHELL Report Released Date/Time: Sep 21, 2024 01:33 PM Reporting Lab: [facility] [place] [address] Performing Lab: [facility] DIVISION CBC MCHC [MASS/VOLUM E] BY AUTOMATED COUNT 32.4 g/dL 33.0 - 36.0 09/21 L Specimen Type: BLOOD No comment entered. Ordering Provider: EMILIA MITCHELL Report Released Date/Time: Sep 21, 2024 01:33 PM Reporting Lab: [facility] [place] [address] Performing Lab: [facility] DIVISION CBC PLATELETS [#/VOLUME] IN BLOOD BY AUTOMATED COUNT 110 10*3/u L 150 - 400 09/21 L Specimen Type: BLOOD No comment entered. Ordering Provider: EMILIA MITCHELL Report Released Date/Time: Sep 21, 2024 01:33 PM Reporting Lab: [facility] [place] [address] Performing Lab: [facility] DIVISION CBC PLATELET MEAN VOLUME [ENTITIC VOLUME] IN BLOOD BY AUTOMATED COUNT 11.5 fL 7.5 - 11.2 09/21 H Specimen Type: BLOOD No comment entered. Ordering Provider: EMILIA MITCHELL Report Released Date/Time: Sep 21, 2024 01:33 PM Reporting Lab: [facility] [place] [address] Performing Lab: [facility] DIVISION CBC ERYTHROCYTE DISTRIBUTIO N WIDTH [RATIO] BY AUTOMATED COUNT 15.2 11.8 - 15.1 09/21 H Specimen Type: BLOOD No comment entered. Ordering Provider: EMILIA MITCHELL Report Released Date/Time: Sep 21, 2024 01:33 PM Reporting Lab: [facility] [place] [address] Performing Lab: [facility] DIVISION CBC LYMPHOCYTES /100 LEUKOCYTES IN BLOOD BY AUTOMATED COUNT 19 09/21 Specimen Type: BLOOD No comment entered. Ordering Provider: EMILIA MITCHELL Report Released Date/Time: Sep 21, 2024 01:33 PM Reporting Lab: [facility] [address] Performing Lab: [facility] DIVISION CBC MONOCYTES/1 00 LEUKOCYTES IN BLOOD BY AUTOMATED COUNT 8 09/21 Specimen Type: BLOOD No comment entered. Ordering Provider: EMILIA MITCHELL Report Released Date/Time: Sep 21, 2024 01:33 PM Reporting Lab: [facility] [place] [address] Performing Lab: [facility] DIVISION CBC NEUTROPHILS /100 LEUKOCYTES IN BLOOD BY AUTOMATED COUNT 70 09/21 Specimen Type: BLOOD No comment entered. Ordering Provider: EMILIA MITCHELL Report Released Date/Time: Sep 21, 2024 01:33 PM Reporting Lab: [facility] [place] [address] Performing Lab: [facility] DIVISION CBC EOSINOPHILS /100 LEUKOCYTES IN BLOOD BY AUTOMATED COUNT 2 09/21 Specimen Type: BLOOD No comment entered. Ordering Provider: EMILIA MITCHELL Report Released Date/Time: Sep 21, 2024 01:33 PM Reporting Lab: [facility] [place] [address] Performing Lab: [facility] DIVISION CBC BASOPHILS/1 00 LEUKOCYTES IN BLOOD BY AUTOMATED COUNT 1 09/21 Specimen Type: BLOOD No comment entered. Ordering Provider: EMILIA MITCHELL Report Released Date/Time: Sep 21, 2024 01:33 PM Reporting Lab: [facility] [place] [address] Performing Lab: [facility] [place] [id number] DIVISION CBC LYMPHOCYTES [#/VOLUME] IN BLOOD BY AUTOMATED COUNT 1.29 10*3/u L 0.77 - 4.50 09/21 Specimen Type: BLOOD No comment entered. Ordering Provider: EMILIA MITCHELL Report Released Date/Time: Sep 21, 2024 01:33 PM Reporting Lab: [facility] [place] [address] Performing Lab: [facility] DIVISION CBC MONOCYTES [#/VOLUME] IN BLOOD BY AUTOMATED COUNT 0.57 10*3/u L 0.19 - 0.80 09/21 Specimen Type: BLOOD No comment entered. Ordering Provider: EMILIA MITCHELL Report Released Date/Time: Sep 21, 2024 01:33 PM Reporting Lab: [facility] [place] [address] Performing Lab: [facility] DIVISION CBC NEUTROPHILS [#/VOLUME] IN BLOOD BY AUTOMATED COUNT 4.83 10*3/u L 2.10 - 8.00 09/21 Specimen Type: BLOOD No comment entered. Ordering Provider: EMILIA MITCHELL Report Released Date/Time: Sep 21, 2024 01:33 PM Reporting Lab: [facility] [place] [address] Performing Lab: [facility] DIVISION CBC EOSINOPHILS [#/VOLUME] IN BLOOD BY AUTOMATED COUNT 0.15 10*3/u L 0.00 - 0.60 09/21 Specimen Type: BLOOD No comment entered. Ordering Provider: EMILIA MITCHELL Report Released Date/Time: Sep 21, 2024 01:33 PM Reporting Lab: [facility] [place] [address] Performing Lab: [facility] DIVISION CBC BASOPHILS [#/VOLUME] IN BLOOD BY AUTOMATED COUNT 0.05 10*3/u L 0.00 - 0.20 09/21 Specimen Type: BLOOD No comment entered. Ordering Provider: EMILIA MITCHELL Report Released Date/Time: Sep 21, 2024 01:33 PM Reporting Lab: [facility] [place] [address] Performing Lab: [facility] CBC PLATELETS RETICULATED /100 PLATELETS IN BLOOD BY AUTOMATED COUNT 6.5 1.0 - 7.0 09/21 Specimen Type: BLOOD No comment entered. Ordering Provider: EMILIA MITCHELL Report Released Date/Time: Sep 21, 2024 01:33 PM Reporting Lab: [facility] [place] [address] Performing Lab: [facility] DIVISION HGA1C HEMOGLOBIN A1C/HEMOGLO BIN.TOTAL IN BLOOD 5.8 4.0 - 6.0 09/21 Specimen Type: BLOOD No comment entered. Ordering Provider: EMILIA MITCHELL Report Released Date/Time: Sep 21, 2024 01:33 PM Reporting Lab: [facility] [place] [address] Performing Lab: [facility] DIVISION FREE T4 (STL) THYROXINE (T4) FREE [MASS/VOLUM E] IN SERUM OR PLASMA 1.00 ng/mL 0.70 - 1.48 09/21 Specimen Type: PLASMA No comment entered. Ordering Provider: EMILIA MITCHELL Report Released Date/Time: Sep 21, 2024 01:33 PM Reporting Lab: [facility] [address] Performing Lab: [facility] [address] [facility] Vital Signs Combined list of inpatient and outpatient Vital Signs from Department of Defense and Veterans Affairs, ranging from 12 months to all on record, depending upon the facility. Vital Sign Value Date Comments Source SYSTOLIC BLOOD PRESSURE 117 09/22/19 25 12:52:43 [facility] DIASTOLIC BLOOD PRESSURE 62 025 12:52:43 [facility] PULSE OXIMETRY 97 % 09/21/2024 12:52:43 [facility] WEIGHT 206.4 09/21/2024 12:52:43 [facility] BMI 36 kg/m2 09/21/2024 12:52:43 [facility] PAIN 0 09/21/2024 12:52:43 [facility] HEIGHT 64 09/21/2024 12:52:43 [facility] TEMPERATURE 98.2 09/21/2024 12:52:43 [facility] PULSE 72 09/21/2024 12:52:43 [facility] RESPIRATION 16 09/21/2024 12:52:43 [facility] SYSTOLIC BLOOD PRESSURE 129 03/13/20 24 10:18:42 [...] [facility] RESPIRATION 18 03/13/2024 10:18:42 [facility] SYSTOLIC BLOOD PRESSURE 136 11/08/19 10:46:37 [facility] DIASTOLIC BLOOD PRESSURE 75 024 10:46:37 [facility] PULSE OXIMETRY 96 11/08/2023 10:46:37 [facility] WEIGHT 204.1 11/08/2023 10:46:37 [facility] BMI 31 kg/m2 11/08/2023 10:46:37 [facility] PAIN 4 11/08/2023 10:46:37 [facility] TEMPERATURE 96.6 11/08/2023 10:46:37 [facility] PULSE 71 11/08/2023 10:46:37 [facility] RESPIRATION 18 11/08/2023 10:46:37 [facility] Encounters Combined list of: 1) Encounters from Department of Veterans Affairs facilities going backup to the last 18 months, not all [place] inpatient encounters are included; 2) Encounters from the Department of [facility] facilities going backup to 280 months. Location Location Details Encounter Type Encounter Number Reason For Visit Attending Provider ADM Date DC Date Status Disposition Source ELENO ESCOTO [facility] Outpatient Encounter [id number] Meir NAVARRO 05/20 [facility] OPC OFFICE O/P EST LOW 20 MIN [id number] Diagnos is: ICD-10- CM G47.39 Other sleep apnea REMY GARCIA D 05/21 [facility] [place] [facility] Outpatient Encounter [id number] DO CHERELLE GILMAN 05/21 HAL [facility]OW[facility]Y [facility] [place] [facility] Outpatient Encounter [id number] 06/06 HAL [facility]OWDH[facility]Y [facility] [place] LLYanira [facility] Outpatient Encounter [id number] 06/06 MADELINYEIVETH CHOWDHURY [facility] [place] [facility] Outpatient Encounter [id number] 07/04 [place] [facility] [place] [facility] Outpatient Encounter [id number] DO CHERELLE GILMAN 07/07 DAVID CHOWDHURY [facility] [place] [facility] Outpatient Encounter [id number] 07/10 MADELINYEIVETH CHOWDHURY [facility] [place] [facility] Outpatient Encounter [id number] 07/16 MADELINYEIVETH CHOWDHURY [facility] [place] [facility] Outpatient Encounter [id number] 07/17 DAVID CHOWDHURY [facility] [place] [facility] Outpatient Encounter [id number] 08/05 DAVID CHOWDHURY [facility] [place] [facility] Outpatient Encounter [id number] 08/15 MADELINYEIVETH CHOWDHURY [facility] [place] [facility] Outpatient Encounter [id number] DO CHERELLE GILMAN 08/18 DAVID CHOWDHURY [facility] [place] [facility] Outpatient Encounter [id number] 08/26 DAVID CHOWDHURY [facility] [place] 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, unspeci fied MUKUL,DO NALD 09/11 [facility] [place] 1/ [id number] Diagnos is: ICD-10- CM 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 of intraoc ular lens SETTER,OWE N A 09/23 [facility] Outpatient Encounter [id number] 10/15 DAVID [facility]OWDHURY [facility]CO[facility] Outpatient Encounter [id number] MUKUL,DO NALD 10/16 [facility] HC PRO PHONE CALL 11-20 MIN [id number] Diagnos is: ICD-10- CM 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 SHAWN Galicia 10/21 JEFR[facility] ELENO ESCOTO [facility] Outpatient Encounter [id number] 10/23 DAVID CHOWDHURY [facility] OFFICE O/P EST MOD 30 MIN [id number] Diagnos is: ICD-10- CM R26.81 Unstead iness on feet MUKUL,DO NALD 10/24 [facility] MADELINYETTCECI E [facility] Outpatient Encounter [id number] 10/24 DAVID CHOWDHURY [facility] Outpatient Encounter [id number] Diagnos is: ICD-10- CM M25.531 Pain in right wrist MUKUL,DO NALD 10/28 [facility] EXT ECG>48HR<7 D RECORDING [id number] Diagnos is: ICD-10- CM 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 LEEANNA NOBLE 10/30 [facility] [place] [facility] Outpatient Encounter [id number] 11/05 [facility] HC PRO PHONE CALL 5-10 MIN [id number] Diagnos is: ICD-10- CM 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 SHAWN Galicia 11/06 [facility] OFF/OP CNSLTJ NEW/EST LOW 30 [id number] Diagnos is: ICD-10- CM M25.531 Pain in right wrist TRI JONES 11/07 [facility] Outpatient Encounter [id number] TRI JONES 11/07 [facility] [place] E [facility] Outpatient Encounter [id number] 11/07 [facility] HC PRO PHONE CALL 5-10 MIN [id number] Diagnos is: ICD-10- CM 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 ing SHAWN MORTON 11/14 [facility] [place] [facility] Outpatient Encounter [id number] 11/27 [facility] Outpatient Encounter [id number] Diagnos is: ICD-10- CM 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 DO CHERELLE GILMAN 11/28 [facility] [place] [facility] Outpatient Encounter [id number] 11/28 DAVID CHOWDHURY [facility] Outpatient Encounter [id number] 12/16 [facility] [place] [facility] IMMUNIZATI ON ADMIN [id number] Diagnos is: ICD-10- CM Z23 Encount er for immuniz ation ЮЛИЯ HARTMAN 12/30 [facility] Outpatient Encounter [id number] 02/09 [facility] Outpatient Encounter [id number] VILMA DALY 03/09 [facility] Outpatient Encounter [id number] ELANA RICCI 03/12 [facility] OFFICE O/P EST MOD 30 MIN [id number] Diagnos is: ICD-10- CM Z00.01 Encount er for general adult medical exam w abnorma l finding s DO HEMALATHA GILMAND 03/13 [facility] PH1 ASSMT&MGMT NQHP 11-20 [id number] Diagnos is: ICD-10- CM 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 SHAWN Galicia 03/19 [facility] Outpatient Encounter [id number] ЮЛИЯ CASAREZ 03/19 [facility] SYNCH AUDIO-ONLY EST SF 10 [id number] Diagnos is: ICD-10- CM E55.9 Vitamin D deficie ncy, unspeci fied DO MUKUL NALD 03/23 JE[facility] BARBICECI [facility] Outpatient Encounter [id number] 03/26 [facility] [id number] 06/09 [facility] Encounter [id number] 06/09 [facility] PH1 ASSMT&MGMT NQHP 5-10 [id number] [id number] Diagnos is: ICD-10- CM 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 SHAWN Galicia 07/01 [facility] TARGETED CASE MANAGEMENT [id number] Diagnos is: ICD-10- CM Y93.E6 Activit y, residen tial relbulmarot FERNANDO Simpson 09/08 [facility] Outpatient Encounter [id number] ROHIT CASAREZ 09/14 [facility] OFFICE O/P NEW HI 60 MIN [id number] Diagnos is: ICD-10- CM 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 Social History Type Response Date Comment [facility] e Tobacco smoking status NHIS VA-TOBACCO NEVER USED CIGARETTES 09/21/2024 [facility] History of tobacco use VA-TOBACCO NEVER USED OTHER TYPE 09/21/2024 [facility] History of tobacco use VA-TOBACCO USE FORMER CIGARETTES 03/09/2024 NADIA LYLE [facility] History of tobacco use VA-TOBACCO FORMER USER 03/14/2023 [facility] History of tobacco use VA-TOBACCO NEVER USED 03/13/2022 [facility] History of tobacco use VA-TOBACCO QUIT 15 YRS OR MORE 03/14/2021 [facility] History of tobacco use VA-TOBACCO FORMER USER 03/09/2020 [facility] History of tobacco use [place] QU[place] 15 YRS OR MORE 12/25/2018 [facility] History of tobacco use VA-TOBACCO FORMER USER 12/31/2017 [facility] History of tobacco use CURRENT NON-SMOKER 06/17/2017 [facility] History of tobacco use CURRENT NON-SMOKER 12/21/2016 [facility] History of tobacco use LIFETIME NON-TOBACCO USER 12/14/2009 [facility] Plan of Care List of future care activities from [facility] facilities. Additional future care activities may be listed in the Assessment and Plan section. Date/Time Care Activity Care Activity Detail Facili ty 09/21/2024 Laboratory - Employment Director ry Order URINALYSIS (STL-PB) URINE SP [facility] Advance Directives List of completed, amended, or rescinded Advance Directives on record at [facility] facilities. An actual copy of the Directive is not included. Date Advance Directive Provider Source 03/25/2023 ADVANCE DIRECTIVE MORIAH HILL [facility] 06/19/2017 ADVANCE DIRECTIVE DISCUSSION CAYDEN AREVALO [facility] 12/22/2016 ADVANCE DIRECTIVE DISCUSSION LEXA ABDUL [facility] 12/21/2016 ADVANCE DIRECTIVE DISCUSSION LINDEN LEZAMA [facility]
--- OUTSIDE RECORDS SUMMARY | 2024-10-25 12:39 | XMS_ITS | Clinical Summary ---
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 Gender Identity Not on file Sexual Orientation [...] - 1-dose 75+ series) 06/02/2011 COVID-19 Vaccine ( - 2023-2 5 season) 2023 01/11/2021, 06/03/2020, 05/05/2020 INFLUENZA VACCINE (#1) 2024 , 12/28/2020, 12/16/2019, Additional history exists DTAP/TDAP/TD VACCINES (3 - T d or Tdap) 09/26/2031 09/25/2021, 01/03/2012 PNEUMOCOCCAL VACCINE 50+ YEARS Completed 07/16/2016 , 01/12/2013 Insurance MEDICARE PART A AND B [place] [employer] [employer] [facility] MEDICARE PART A AND B [facility] [place] [employer] Care Teams Dietetics Professor Relationship Specialty Start Date End Date Ramón Fisher II, DO [address] [place] [address] [address] [place] [phone] PCP - General Family Practice 09/23/21
--- OUTSIDE RECORDS SUMMARY | 2024-10-25 12:39 | XMS_ITS | Clinical Summary ---
Author Organization [facility] Address [address] [place] [address] Care Team Providers Care Inspector Timers Name Role Phone Raul Braun DO Primary Care Provider [phone] Allergies No known active allergies Medications amitriptyline [...] Problem Noted Date Diagnosed Date Stroke (CMS/HCC [facility]) 10/02/2024 Encounters Date Type Department Care Team Description 10/02/2024 6:18 PM CDT - 10/07/2024 11:34 AM CDT Hospital Encounter [facility] Inpatient Medical Oncology [address] [place] [address] Nubia Vuong MD Sohail, Atif, MD Markapuram, Srikanth, MD Discharge Disposition: Home or Self Care (Routine Discharge) from Last 3 Months Social History Tobacco Use Types Packs/Day Years Used Date Smoking Tobacco: Never Assessed [facility] Utilities Answer Date Recorded In the past [...] any time in the past 12 m [facility], were you homeless or living in a custodial (including now)? 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 SODIUM S/P/B 138 136 - 145 MMOL/L 10/07/2024 4:01 AM CDT [facility] POTASSIUM S/P/B 3.9 3.5 - 5.1 MMOL/L 10/07/2024 4:01 AM CDT [facility] CHLORIDE S/P/B 108 97 - 115 MMOL/L 10/07/2024 4:01 AM CDT [facility] CO2 25.7 21.0 - 32.0 MMOL/L 10/07/2024 4:01 AM CDT [facility] GLUCOSE 100 74 - 106 MG/DL 10/07/2024 4:01 AM CDT [facility] BUN 19(H) 7 - 18 MG/DL 10/07/2024 4:01 AM CDT [facility] CREATININE S/P/B 0.95 0.70 - 1.30 MG/DL 10/07/2024 4:01 AM [facility] CALCIUM S/P/B 8.7 8.5 - 10.1 MG/DL 10/07/2024 4:01 AM [facility] BILIRUBIN TOTAL S/P/B 1.0 0.2 - 1.0 MG/DL 10/07/2024 4:01 AM [facility] ALKALINE PHOSPHATASE S/P/B 60 45 - 115 U/L 10/07/2024 4:01 AM [facility] AST 15 15 - 37 U/L 10/07/2024 4:01 AM [facility] ALT 21 16 - 61 U/L 10/07/2024 4:01 AM [facility] TOTAL PROTEIN S/P/B 6.3(L) 6.4 - 8.2 G/DL 10/07/2024 4:01 AM [facility] ALBUMIN S/P/B 3.1(L) 3.4 - 5.0 G/DL 10/07/2024 4:01 AM [facility] ANION GAP 4.3 2.0 - 10.0 MMOL/L 10/07/2024 4:01 AM [facility] OSMOLALITY (CALC) 288 MOSM/KG 025 4:01 AM [facility] Comment:REFERENCE RANGE NOT ESTABLISHED GFR ESTIMATE 77(L) >90 ML/MIN/1. 73 M2 10/07/2024 4:01 AM [facility] GFR NOTES GFR REFERENCE S: 10/07/2024 4:01 AM [facility] Comment: THE ESTIMATED GFR IS CALCULATED [...] Yunior Wallace MD LABORATORY Final Res ult [facility] [address] [place] [address], [phone] * (ABNORMAL) CBC W/DIFF AUTOMATED (10/07/2024 3:23 AM CDT) Only the most recent of4 resultswithin the time period is included. WBC 5.63 4.00 - 10.80 x10'3/uL 10/07/2024 3:31 AM CDT [facility] RBC 2.60(L) 4.50 - 6.10 x10'6/uL 10/07/2024 3:31 AM CDT [facility] HGB 7.6(L) 13.0 - 18.0 G/DL 10/07/2024 3:31 AM CDT [facility] HCT 23.7(L) 37.0 - 52.0 % 10/07/2024 3:31 AM CDT [facility] MCV 91.2 78.0 - 100.0 FL 10/07/2024 3:31 AM CDT [facility] MCH 29.2 27.0 - 31.0 PG 10/07/2024 3:31 AM CDT [facility] MCHC 32.1(L) 33.0 - 36.0 G/DL 10/07/2024 3:31 AM CDT [facility] RDW 15.1(H) 11.5 - 14.5 % 10/07/2024 3:31 AM CDT [facility] PLT 100(L) 150 - 350 x10'3/uL 10/07/2024 3:31 AM CDT [facility] MPV 12.4(H) 7.4 - 10.4 FL 10/07/2024 3:31 AM CDT [facility] DIFFERENTIAL TYPE AUTOMATED DIFFERENTIAL 10/07/2024 3:31 AM CDT [facility] SEG NEUTROPHILS 68.4 % 3:31 AM CDT [facility] LYMPHOCYTES 18.3 % 10/07/2024 3:31 AM CDT [facility] MONOCYTES 9.9 % 10/07/2024 3:31 AM CDT [facility] EOSINOPHILS 2.3 % 10/07/2024 3:31 AM CDT [facility] BASOPHILS 0.7 % 10/07/2024 3:31 AM CDT [facility] IMMATURE GRANS % 0.4 % 10/08/19 3:31 AM CDT [facility] ABS. NEUTROPHILS 3.85 1.60 - 8.30 x10'3/uL 10/07/2024 3:31 AM CDT [facility] ABS. LYMPHOCYTES 1.03 0.80 - 4.70 x10'3/uL 10/07/2024 3:31 AM CDT [facility] ABS. MONOCYTES 0.56 0.00 - 1.50 x10'3/uL 10/07/2024 3:31 AM CDT [facility] ABS. EOSINOPHILS 0.13 0.00 - 0.40 x10'3/uL 10/07/2024 3:31 AM CDT [facility] ABS. BASOPHILS 0.04 0.00 - 0.20 x10'3/uL 10/07/2024 3:31 AM CDT [facility] ABS. IMMATURE GRANULOCYTES 0.02 0.00 - 0.03 x10'3/uL 10/07/2024 3:31 AM CDT [facility] ABS. NUCLEATED RBC'S 0.00 0.00 - 0.01 x10'3/uL 10/07/2024 3:31 AM CDT [facility] NRBC % 0.0 % 10/07/2024 3:31 AM CDT [facility] 10/07/2024 3:23 AM CDT Yunior Wallace MD LABORATORY Final Res ult [facility] [address] [place] [address], [id number] * MRI BRAIN WO STROKE FAST PROTOCOL [...] Ordered By: DONIS KEZIA Interpreted By: Hernandez Hatfield MD, 10/06/2024 12:47 PM Narrative 10/06/2024 12:50 PM CDT [facility] [address] [place], [place] [address] DATE: 10/06/2024 11:44 AM INDICATION: Weakness. Concern [...] Procedure Note Hernandez Hatfield MD - 10/06/2024 [facility] [address] [place], [place] [address] DATE: 10/06/2024 11:44 AM INDICATION: Weakness. Concern [...] 70 - 109 10/05/2024 8:53 PM CDT [facility] 10/05/2024 8:02 PM CDT Yunior Wallace MD POCT ORDERABLES - DEVICE Final Result [facility] [address] [place] [address], [place] [phone] * (ABNORMAL) BASIC METABOLIC PANEL (10/04/2024 3:26 AM CDT) Only the most recent of2 resultswithin the time period is included. SODIUM S/P/B 138 136 - 145 MMOL/L 10/04/2024 4:38 AM CDT [facility] POTASSIUM S/P/B 4.0 3.5 - 5.1 MMOL/L 10/04/2024 4:38 AM CDT [facility] CHLORIDE S/P/B 108 97 - 115 MMOL/L 10/04/2024 4:38 AM CDT [facility] CO2 25.4 21.0 - 32.0 MMOL/L 10/04/2024 4:38 AM CDT [facility] GLUCOSE 94 74 - 106 MG/DL 10/04/2024 4:38 AM CDT [facility] BUN 22(H) 7 - 18 MG/DL 10/04/2024 4:38 AM CDT [facility] CREATININE S/P/B 1.05 0.70 - 1.30 MG/DL 10/04/2024 4:38 AM CDT [facility] CALCIUM S/P/B 8.7 8.5 - 10.1 MG/DL 10/04/2024 4:38 AM CDT [facility] ANION GAP 4.6 2.0 - 10.0 MMOL/L 10/04/2024 4:38 AM T [facility] OSMOLALITY (CALC) 289 MOSM/KG 025 4:38 AM T [facility] Comment:REFERENCE RANGE NOT ESTABLISHED GFR ESTIMATE 68(L) >90 ML/MIN/1. 73 M2 10/04/2024 4:38 AM T [facility] GFR NOTES GFR REFERENCE S: 10/04/2024 4:38 AM T [facility] Comment: THE ESTIMATED GFR IS CALCULATED [...] Yunior Wallace MD LABORATORY Final Res ult [facility] [address] [place] [address], [phone] * USV CAROTID DUPLEX RACHELE (10/03/2024 4:23 PM CDT) Anatomical Region Laterality Modality Neck Ultrasound 10/03/2024 3:23 PM CDT Narrative 10/03/2024 10:08 PM CDT [facility] Vascular Report Pat.Name: JAMES AL Fay.ID: [id number] .Date: 10/03/2024 Refer.MD: DONIS MAST Exam Time: 3:23:00 PM Study Type:PVI CAROTID SCAN - BILATERAL Height: 63 in Age: 3 1935,89Y Sex: M Sonogrphr: OBEY Bernard Pat. 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 [facility] Final Result * USE ECHOCARDIOGRAM (10/03/2024 3:11 PM CDT) Anatomical Region Laterality Modality Cardiac Echocardiogram 10/03/2024 1:04 PM CDT Narrative 10/04/2024 2:41 PM CDT Echocardiography Report Pat.Name: JAMES AL Pat.ID: [id number] St.Date: 10/03/2024 Refer.: [id number] YUMIKO Worley EWDPROV EWDPROV Exam Time: 1:04:00 PM Study Type:ECHO WITH CARDIAC DOPPLER COMP Height: 63 in Weight: 206 lb BSA: 1.96 m2 Age: 3 1935,89Y Sex: M BP: 132/74 HR: 78 bpm Sonogrphr: Willis Gomez RDCS, RVT Pat. Stat.:Inpatient CPT - 4: 80475 Reason for Study:Stroke/TIA Procedures: 2D, M-mode, Doppler, [...] Mass 2D Value 211 g LV Mass [id number] Value 108 g/m2 RA Volume Atrial Arechiga [...] I BP 41.1 ml/m2 LV Biplane Major [place] Candi 5.89 % [place] Candi 7.42 % LV Left Ventricle Mass by M-mode LV Mass 211 g Right Ventricle Right Ventricle 5.8 cm MMODE TA Tricuspid Annul 1.98 cm <Electronic Signature> 10/04/2024 02:41 PM Nathalie Thomas M.D. Procedure Note Nathalie Thomas MD - 10/04/2024 Echocardiography Report Pat.Name: JAMES AL Pat.ID: [id number] .Date: 10/03/2024 Refer.: [id number] YUMIKO Worley EWDPROV EWDPROV Exam Time: 1:04:00 PM Study Type:ECHO WITH CARDIAC DOPPLER COMP Height: 63 in Weight: 206 lb BSA: 1.96 m2 Age: 3 1935,89Y Sex: M BP: 132/74 HR: 78 bpm Sonogrphr: Willis Gomez RDCS, RVT Pat. Stat.:Inpatient CPT - 4: 74653 Reason for Study:Stroke/TIA Procedures: 2D, M-mode, Doppler, [...] Mass 2D Value 211 g LV Mass [id number] Value 108 g/m2 RA Volume Atrial Arechiga [...] I BP 41.1 ml/m2 LV Biplane [place] Candi 5.89 % [place] Candi 7.42 % LV Left Ventricle Mass by M-mode LV Mass 211 g Right Ventricle Right Ventricle 5.8 cm MMODE TA Tricuspid Annul 1.98 cm <Electronic Signature> 10/04/2024 02:41 PM Nathalie Thomas M.D. us Donis Mast MD ECHO Final Result * (ABNORMAL) PROTHROMBIN TIME, VENOUS (10/03/2024 2:12 AM CDT) PROTIME 16.7(H) 9.4 - 12.5 SEC 10/03/2024 2:59 AM CDT [facility] INR 1.4(H) 0.8 - 1.1 10/03/2024 2:59 AM CDT [facility] 10/03/2024 2:12 AM CDT us Donis Mast MD LABORATORY Final Result Performing Organization Address City/State/[facility] Co de Phone Number [facility] [address] [place] [address], [id number] * LIPID PANEL (10/03/2024 2:12 AM CDT) CHOLESTEROL 96 MG/DL 10/03/2024 3:08 AM CDT [facility] Comment:DESIRABLE: <200 TRIGLYCERIDES 68 MG/DL 10/03/2024 3:08 AM CDT [facility] Comment:<150 NORMAL HDL 42 >39 MG/DL 10/03/2024 3:08 AM CDT [facility] LDL (CALCULATED) 40 MG/DL 10/04/19 25 3:08 AM CDT [facility] Comment:<100 OPTIMAL VLDL CALCULATION 14 MG/DL 10/04/19 3:08 AM CDT [facility] Comment:REFERENCE RANGE NOT ESTABLISHED CHOL/HDL RATIO 2.3 10/03/2024 3:08 AM CDT [facility] Comment:REFERENCE RANGE NOT ESTABLISHED LDL/HDL 1.0 10/03/2024 3:08 AM CDT [facility] Comment:REFERENCE RANGE NOT ESTABLISHED NON HDL CHOLESTEROL 54 MG/DL 10/03/2024 3:08 AM CDT [facility] Comment:REFERENCE RANGE NOT ESTABLISHED 10/03/2024 2:12 AM CDT Donis Mast MD LABORATORY Final Result Performing Organization Address [facility] de Phone Number [facility] [address] [place] [address], [place] [phone] * (ABNORMAL) TSH W/REFLEX (10/02/2024 9:17 PM CDT) TSH 4.040(H) 0.358 - 3.740 uIU/ML 10/02/2024 10:04 PM CDT [facility] Comment: ASSAY PERFORMED BY CHEMILUMINESCENCE METHODOLOGY USING [place] [facility]. PATIENT RESULTS DETERMINED BY ASSAYS USING DIFFERENT MANUFACTURERS FOR METHODS MAY NOT BE COMPARABLE. 10/02/2024 9:17 PM CDT Donis Mast MD LABORATORY Final Result Performing Organization Address [facility] de Phone Number [facility] [address] [place] [address], [place] [phone] * (ABNORMAL) PRO-BRAIN NATRIURETIC PEPTIDE (PRO BNP) (10/02/2024 9:17 PM CDT) PRO-B TYPE NATRIURETIC PEPTIDE 916(H) <450 PG/ML 10/02/2024 10:04 PM CDT [facility] Comment: AGE INDEPENDENT: <300 PG/ML HAS [...] ACUTE CHF. 10/02/2024 9:17 PM CDT us [facility] Final Result Performing Organization Address [facility] Co de Phone Number [facility] [address] [place] [address], [place] [phone] * HEMOGLOBIN, GLYCATED (10/02/2024 9:17 PM CDT) HGB A1C 5.6 <5.7 % 10/02/2024 10:07 PM CDT [facility] ESTIMATED AVG GLUCOSE 114 74 - 114 MG/DL 10/02/2024 10:07 PM CDT [facility] 10/02/2024 9:17 PM CDT us [facility] Final Result Performing Organization Address [facility] Co de Phone Number [facility] [address] [place] [address], [place] [phone] * THYROXINE, FREE (FT4) (10/02/2024 9:17 PM CDT) FREE T4 0.91 0.76 - 1.46 NG/DL 10/02/2024 10:22 PM CDT [facility] 10/02/2024 9:17 PM CDT us [facility] Final Result Performing Organization Address [facility] Co de Phone Number [facility] [address] [place] [address], [place] [phone] * XR CHEST PORTABLE (10/02/2024 9:00 PM CDT) Anatomical Region Laterality Modality Chest Radiographic Hillary ging 10/02/2024 11:2 3 PM CDT Impressions 10/02/2024 11:24 PM CDT IMPRESSION: There are no acute pulmonary findings noted as described. Referred By: JAVIER Cancholaally Signed By: Stuart Mcdermott MD on 10/02/2024 11:24 PM Interpreted By: Stuart Mcdermott MD, 10/02/2024 11:23 PM Narrative 10/02/2024 11:24 PM [address]T [address] [address] Examination: XR CHEST PORTABLE Exam time: 10/02/2024 [...] Procedure Note Stuart Mcdermott MD - 10/02/[address] [address] Examination: XR CHEST PORTABLE Exam time: 10/02/2024 [...] findings noted as described. Referred By: JAVIER CALDEORN Interpreted By: Stuart Mcdermott MD, 10/02/2024 11:23 [...] 2. Overall suboptimal contrast opacification in the [place]. Suggestion of focal high-grade stenosis/occlusion [...] 7:10 PM Narrative 10/02/2024 7:25 PM CDT [place] [address] EXAMINATION: CTA head and neck with contrast [...] stenosis. Overall suboptimal contrast opacification in the [place]. Suggestion of focal high-grade stenosis/occlusion [...] Procedure Note Phan Loera MD - 10/02/[address] [address] EXAMINATION: CTA head and neck with contrast [...] stenosis. 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 Otherwise, no definite proximal vessel occlusion is [...] 2. 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 Otherwise, no definite proximal vessel occlusion is [...] Final Result from Last 3 Months Insurance [facility] MEDICARE [facility] Care Teams Inspector Timers Relationship Specialty Start Date End Date Raul Braun DO [address] [place] [address] PCP - General FAMILY PRACTICE 10/05/24
--- NOTE | 2024-10-25 12:40 | ECG_ITS ---
Test Date: 2024-10-25 12:52:04 Measurements Intervals [place] Rate: 60 P: 0 IA: 0 QRS: -58 QRSD: 154 T: 121 QT: 423 QTc: 423 Interpretive Statements ELECTRONIC VENTRICULAR PACEMAKER BASELINE ARTIFACT- V1 NO FURTHER INTERPRETATION IS POSSIBLE ATYPICAL ECG Compared to ECG 10/02/2024 10:30:32 No significant changes Electronically Signed On 10-25-2024 17:37:58 CDT by Sheldon Toth D.O.
--- OUTSIDE RECORDS SUMMARY | 2024-10-25 13:00 | XMS_ITS | Clinical Summary ---
Author Organization [facility] Address [address] [place] [address] Care Team Providers Care Fountain Attendant Name Role Phone Raul Braun DO Primary Care Provider [phone] Allergies No known active allergies Medications amitriptyline [...] Problem Noted Date Diagnosed Date Stroke (CMS/HCC [facility]) 10/02/2024 Encounters Date Type Department Care Team Description 10/02/2024 6:18 PM CDT - 10/07/2024 11:34 AM CDT Hospital Encounter [facility] Inpatient Medical Oncology [address] [place] [address] Nubia Vuong MD Sohail, Atif, MD Markapuram, Srikanth, MD Discharge Disposition: Home or Self Care (Routine Discharge) from Last 3 Months Social History Tobacco Use Types Packs/Day Years Used Date Smoking Tobacco: Never Assessed [facility] Utilities Answer Date Recorded In the past [...] any time in the past 12 [facility], were you homeless or living in a care home (including now)? 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 Comment: PRE DRUG PRU: [id number] THERAPEUTIC PRU: <208 10/07/2024 3:23 AM CDT Tory Franco NP LABORATORY Final Result [facility] [address] [place] [address], [phone] * (ABNORMAL) COMPREHENSIVE METABOLIC PANEL (10/07/2024 3:23 AM CDT) Only the most recent of2 resultswithin the time period is included. SODIUM S/P/B 138 136 - 145 MMOL/L 10/07/2024 4:[address] [facility] POTASSIUM S/P/B 3.9 3.5 - 5.1 MMOL/L 10/07/2024 4:[address] [facility] CHLORIDE S/P/B 108 97 - 115 MMOL/L 10/07/2024 4:[address] [facility] CO2 25.7 21.0 - 32.0 MMOL/L 10/07/2024 4:[address] [facility] GLUCOSE 100 74 - 106 MG/DL 10/07/2024 4:[address] [facility] BUN 19(H) 7 - 18 MG/DL 10/07/2024 4:[address] [facility] CREATININE S/P/B 0.95 0.70 - 1.30 MG/DL 10/07/2024 4:01 AM [facility] CALCIUM S/P/B 8.7 8.5 - 10.1 MG/DL 10/07/2024 4:01 AM [facility] BILIRUBIN TOTAL S/P/B 1.0 0.2 - 1.0 MG/DL 10/07/2024 4:01 AM [facility] ALKALINE PHOSPHATASE S/P/B 60 45 - 115 U/L 10/07/2024 4:01 AM [facility] AST 15 15 - 37 U/L 10/07/2024 4:01 AM [facility] ALT 21 16 - 61 U/L 10/07/2024 4:01 AM [facility] TOTAL PROTEIN S/P/B 6.3(L) 6.4 - 8.2 G/DL 10/07/2024 4:01 AM [facility] ALBUMIN S/P/B 3.1(L) 3.4 - 5.0 G/DL 10/07/2024 4:01 AM [facility] ANION GAP 4.3 2.0 - 10.0 MMOL/L 10/07/2024 4:01 AM [facility] OSMOLALITY (CALC) 288 MOSM/KG 025 4:01 AM [facility] Comment:REFERENCE RANGE NOT ESTABLISHED GFR ESTIMATE 77(L) >90 ML/MIN/1. 73 M2 10/07/2024 4:01 AM [facility] GFR NOTES GFR REFERENCE S: 10/07/2024 4:01 AM [facility] Comment: THE ESTIMATED GFR IS CALCULATED [...] Yunior Wallace MD LABORATORY Final Res ult [facility] [address] [place] [address], [phone] * (ABNORMAL) CBC W/DIFF AUTOMATED (10/07/2024 3:23 AM CDT) Only the most recent of4 resultswithin the time period is included. WBC 5.63 4.00 - 10.80 x10'3/uL 10/07/2024 3:[address] [facility] RBC 2.60(L) 4.50 - 6.10 x10'6/uL 10/07/2024 3:[address] [facility] HGB 7.6(L) 13.0 - 18.0 G/DL 10/07/2024 3:[address] [facility] HCT 23.7(L) 37.0 - 52.0 % 10/07/2024 3:[address] [facility] MCV 91.2 78.0 - 100.0 FL 10/07/2024 3:[address] [facility] MCH 29.2 27.0 - 31.0 PG 10/07/2024 3:[address] [facility] MCHC 32.1(L) 33.0 - 36.0 G/DL 10/07/2024 3:[address] [facility] RDW 15.1(H) 11.5 - 14.5 % 10/07/2024 3:[address] [facility] PLT 100(L) 150 - 350 x10'3/uL 10/07/2024 3:[address] [facility] MPV 12.4(H) 7.4 - 10.4 FL 10/07/2024 3:[address] [facility] DIFFERENTIAL TYPE AUTOMATED DIFFERENTIAL 10/07/2024 3:[address] [facility] SEG NEUTROPHILS 68.4 % 3:[address] [facility] LYMPHOCYTES 18.3 % 10/07/2024 3:[address] [facility] MONOCYTES 9.9 % 10/07/2024 3:[address] [facility] EOSINOPHILS 2.3 % 10/07/2024 3:[address] [facility] BASOPHILS 0.7 % 10/07/2024 3:[address] [facility] IMMATURE GRANS % 0.4 % 10/08/19 3:[address] [facility] ABS. NEUTROPHILS 3.85 1.60 - 8.30 x10'3/uL 10/07/2024 3:[address] [facility] ABS. LYMPHOCYTES 1.03 0.80 - 4.70 x10'3/uL 10/07/2024 3:[address] [facility] ABS. MONOCYTES 0.56 0.00 - 1.50 x10'3/uL 10/07/2024 3:[address] [facility] ABS. EOSINOPHILS 0.13 0.00 - 0.40 x10'3/uL 10/07/2024 3:[address] [facility] ABS. BASOPHILS 0.04 0.00 - 0.20 x10'3/uL 10/07/2024 3:[address] [facility] ABS. IMMATURE GRANULOCYTES 0.02 0.00 - 0.03 x10'3/uL 10/07/2024 3:[address] [facility] ABS. NUCLEATED RBC'S 0.00 0.00 - 0.01 x10'3/uL 10/07/2024 3:[address] [facility] NRBC % 0.0 % 10/07/2024 3:[address] [facility] 10/07/2024 3:23 AM CDT Yunior Wallace MD LABORATORY Final Res ult [facility] [address] [place] [address], [id number] * MRI BRAIN WO STROKE FAST PROTOCOL [...] 12:47 PM Narrative 10/06/2024 12:50 PM CDT [facility] [address] [place], [place] [address] DATE: 10/06/2024 11:44 AM INDICATION: Weakness. Concern [...] Procedure Note Hernandez Hatfield MD - 10/06/2024 [facility] [address] [place], [place] [address] DATE: 10/06/2024 11:44 AM INDICATION: Weakness. Concern [...] 70 - 109 10/05/2024 8:[address] [facility] 10/05/2024 8:02 PM CDT Yunior Wallace MD POCT ORDERABLES - DEVICE Final Result [facility] [address] [place] [address], [place] [phone] * (ABNORMAL) BASIC METABOLIC PANEL (10/04/2024 3:26 AM CDT) Only the most recent of2 resultswithin the time period is included. SODIUM S/P/B 138 136 - 145 MMOL/L 10/04/2024 4:[address] [facility] POTASSIUM S/P/B 4.0 3.5 - 5.1 MMOL/L 10/04/2024 4:[address] [facility] CHLORIDE S/P/B 108 97 - 115 MMOL/L 10/04/2024 4:[address] [facility] CO2 25.4 21.0 - 32.0 MMOL/L 10/04/2024 4:[address] [facility] GLUCOSE 94 74 - 106 MG/DL 10/04/2024 4:[address] [facility] BUN 22(H) 7 - 18 MG/DL 10/04/2024 4:[address] [facility] CREATININE S/P/B 1.05 0.70 - 1.30 MG/DL 10/04/2024 4:[address] [facility] CALCIUM S/P/B 8.7 8.5 - 10.1 MG/DL 10/04/2024 4:[address] [facility] ANION GAP 4.6 2.0 - 10.0 MMOL/L 10/04/2024 4:[address] [facility] OSMOLALITY (CALC) 289 MOSM/KG 025 4:[address] [facility] Comment:REFERENCE RANGE NOT ESTABLISHED GFR ESTIMATE 68(L) >90 ML/MIN/1. 73 M2 10/04/2024 4:[address] [facility] GFR NOTES GFR REFERENCE S: 10/04/2024 4:[address] [facility] Comment: THE ESTIMATED GFR IS [...] Yunior Wallace MD LABORATORY Final Res ult [facility] [address] [place] [address], [phone] * USV CAROTID DUPLEX RACHELE (10/03/2024 4:23 PM CDT) Anatomical Region Laterality Modality Neck Ultrasound 10/03/2024 3:23 PM CDT Narrative 10/03/2024 10:08 PM CDT [facility] Vascular Report Pat.Name: JAMES AL Fay.ID: [id number] .Date: 10/03/2024 Refer.MD: DONIS MAST Exam Time: 3:23:00 PM Study Type:PVI CAROTID SCAN - BILATERAL Height: 63 in Age: 3 1935,89Y Sex: M Sonogrphr: OBEY Bernard Pat. 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 [facility] Kezia MURILLO [facility] Final Result * USE ECHOCARDIOGRAM (10/03/2024 3:11 PM CDT) Anatomical Region Laterality Modality Cardiac Echocardiogram 10/03/2024 1:04 PM CDT Narrative 10/04/2024 2:41 PM CDT Echocardiography Report Pat.Name: JAMES AL Pat.ID: [id number] St.Date: 10/03/2024 Refer.: [id number] YUMIKO Worley EWDPROV EWDPROV Exam Time: 1:04:00 PM Study Type:ECHO WITH CARDIAC DOPPLER COMP Height: 63 in Weight: 206 lb BSA: 1.96 m2 Age: 3 1935,89Y Sex: M BP: 132/74 HR: 78 bpm Sonogrphr: Willis Gomez RDCS, RVT Pat. Stat.:Inpatient CPT - 4: 31833 Reason for Study:Stroke/TIA Procedures: 2D, M-mode, Doppler, [...] Mass 2D Value 211 g LV Mass [id number] Value 108 g/m2 RA Volume Atrial Arechiga [...] I BP 41.1 ml/m2 LV Biplane Major Cowarts Candi 5.89 % Major Cowarts Candi 7.42 % LV Left Ventricle Mass by M-mode LV Mass 211 g Right Ventricle Right Ventricle 5.8 cm MMODE TA Tricuspid Annul 1.98 cm <Electronic Signature> 10/04/2024 02:41 PM Nathalie Thomas M.D. Procedure Note Nathalie Thomas MD - 10/04/2024 Echocardiography Report Pat.Name: JAMES AL Pat.ID: [id number] .Date: 10/03/2024 Refer.: [id number] YUMIKO Worley EWDPROV EWDPROV Exam Time: 1:04:00 PM Study Type:ECHO WITH CARDIAC DOPPLER COMP Height: 63 in Weight: 206 lb BSA: 1.96 m2 Age: 3 1935,89Y Sex: M BP: 132/74 HR: 78 bpm Sonogrphr: Willis Gomez RDCS, RVT Pat. Stat.:Inpatient CPT - 4: 23021 Reason for Study:Stroke/TIA Procedures: 2D, M-mode, Doppler, [...] Mass 2D Value 211 g LV Mass [id number] Value 108 g/m2 RA Volume Atrial Arechiga [...] I BP 41.1 ml/m2 LV Biplane Major Cowarts Candi 5.89 % Major Cowarts Candi 7.42 % LV Left Ventricle Mass by M-mode LV Mass 211 g Right Ventricle Right Ventricle 5.8 cm MMODE TA Tricuspid Annul 1.98 cm <Electronic Signature> 10/04/2024 02:41 PM Nathalie Thomas M.D. us Donis Mast MD ECHO Final Result * (ABNORMAL) PROTHROMBIN TIME, VENOUS (10/03/2024 2:12 AM CDT) PROTIME 16.7(H) 9.4 - 12.5 SEC 10/03/2024 2:[address] [facility] INR 1.4(H) 0.8 - 1.1 10/03/2024 2:[address] [facility] 10/03/2024 2:12 AM CDT us Donis Mast MD LABORATORY Final Result Performing Organization Address City/State/[facility] Co de Phone Number [facility] [address] [place] [address], [phone] * LIPID PANEL (10/03/2024 2:12 AM CDT) CHOLESTEROL 96 MG/DL 10/03/2024 3:[address] [facility] Comment:DESIRABLE: <200 TRIGLYCERIDES 68 MG/DL 10/03/2024 3:[address] [facility] Comment:<150 NORMAL HDL 42 >39 MG/DL 10/03/2024 3:[address] [facility] LDL (CALCULATED) 40 MG/DL 10/04/19 25 3:[address] [facility] Comment:<100 OPTIMAL VLDL CALCULATION 14 MG/DL 10/04/19 3:[address] [facility] Comment:REFERENCE RANGE NOT ESTABLISHED CHOL/HDL RATIO 2.3 10/03/2024 3:[address] [facility] Comment:REFERENCE RANGE NOT ESTABLISHED LDL/HDL 1.0 10/03/2024 3:[address] [facility] Comment:REFERENCE RANGE NOT ESTABLISHED NON HDL CHOLESTEROL 54 MG/DL 10/03/2024 3:[address] [facility] Comment:REFERENCE RANGE NOT ESTABLISHED 10/03/2024 2:12 AM CDT Donis Mast MD LABORATORY Final Result Performing Organization Address [facility] de Phone Number [facility] [address] [place] [address], [place] [phone] * (ABNORMAL) TSH W/REFLEX (10/02/2024 9:17 PM CDT) TSH 4.040(H) 0.358 - 3.740 uIU/ML 10/02/2024 10:[address] [facility] Comment: ASSAY PERFORMED BY CHEMILUMINESCENCE METHODOLOGY USING [employer] [facility]. PATIENT RESULTS DETERMINED BY ASSAYS USING DIFFERENT MANUFACTURERS FOR METHODS MAY NOT BE COMPARABLE. 10/02/2024 9:17 PM CDT Donis Mast MD LABORATORY Final Result Performing Organization Address [facility] de Phone Number [facility] [address] [place] [address], [place] [phone] * (ABNORMAL) PRO-BRAIN NATRIURETIC PEPTIDE (PRO BNP) (10/02/2024 9:17 PM CDT) PRO-B TYPE NATRIURETIC PEPTIDE 916(H) <450 PG/ML 10/02/2024 10:[address] [facility] Comment: AGE INDEPENDENT: <300 PG/ML HAS [...] ACUTE CHF. 10/02/2024 9:17 PM CDT us [facility] Kezia MURILLO LABORATORY Final Result Performing Organization Address [facility] Co de Phone Number [facility] [address] [place] [address], [place] [phone] * HEMOGLOBIN, GLYCATED (10/02/2024 9:17 PM CDT) HGB A1C 5.6 <5.7 % 10/02/2024 10:[address] [facility] ESTIMATED AVG GLUCOSE 114 74 - 114 MG/DL 10/02/2024 10:[address] [facility] 10/02/2024 9:17 PM CDT us [facility] Kezia MURILLO LABORATORY Final Result Performing Organization Address [facility] Co de Phone Number [facility] [address] [place] [address], [place] [phone] * THYROXINE, FREE (FT4) (10/02/2024 9:17 PM CDT) FREE T4 0.91 0.76 - 1.46 NG/DL 10/02/2024 10:[address] [facility] 10/02/2024 9:17 PM CDT us [facility] Kezia MURILLO LABORATORY Final Result Performing Organization Address [facility] Co de Phone Number [facility] [address] [place] [address], [place] [phone] * XR CHEST PORTABLE (10/02/2024 9:00 PM CDT) Anatomical Region Laterality Modality Chest Radiographic Hillary ging 10/02/2024 11:2 3 PM CDT Impressions 10/02/2024 11:24 PM CDT IMPRESSION: There are no acute pulmonary findings noted as described. Referred By: JAVIER Cancholaally Signed By: Stuart Mcdermott MD on 10/02/2024 11:24 PM Interpreted By: Stuart Mcdermott MD, 10/02/2024 11:23 PM Narrative 10/02/2024 11:24 PM [address] [address] Examination: XR CHEST PORTABLE Exam time: 10/02/2024 [...] Procedure Note Stuart Mcdermott MD - 10/02/[address] [address] Examination: XR CHEST PORTABLE Exam time: 10/02/2024 [...] 2. Overall suboptimal contrast opacification in the [place] of [place]. Suggestion of focal high-grade stenosis/occlusion [...] 7:10 PM Narrative 10/02/2024 7:25 PM CDT [place] [address] EXAMINATION: CTA head and neck with contrast [...] stenosis. Overall suboptimal contrast opacification in the [place] of [place]. Suggestion of focal high-grade stenosis/occlusion [...] Procedure Note Phan Loera MD - 10/02/[address] [address] EXAMINATION: CTA head and neck with contrast [...] stenosis. 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 Otherwise, no definite proximal vessel occlusion is [...] 2. 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 Otherwise, no definite proximal vessel occlusion is [...] Final Result from Last 3 Months Insurance [facility] MEDICARE [facility] Care Teams Fountain Attendant Relationship Specialty Start Date End Date Raul Braun DO [address] [place] [address] PCP - General FAMILY PRACTICE 10/05/24
--- OUTSIDE RECORDS SUMMARY | 2024-10-25 13:00 | XMS_ITS | Clinical Summary ---
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
--- OUTSIDE RECORDS SUMMARY | 2024-10-25 13:00 | XMS_ITS | Continuity of Care Document ---
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 Name Role Phone [facility] Unavailable Unavailable Problems Combined list of problems [...] fracture [facility] Atrial fibrillation Active Condition [facility] Benign hypertension Active Condition [facility] Boggy prostate Active Condition [facility] CAD - Coronary artery disease Active Condition [facility] CAD - Coronary Artery Disease (SCT 36137787) Active Condition [facility] Cardiac pacemaker in situ Active Condition [facility] Carotid atherosclerosis Active Condition [facility] Chronic Pain Syndrome (ICD-9-CM 338.4) Active Condition [facility] Coronary arteriosclerosis Active Condition [facility] 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 [facility] Disorder of nail Active Condition [facility] Disorder of prostate Active Condition [facility] Dyspepsia Active Condition [facility] H/O: atrial fibrillation Active Condition Dec 26, 2018 Entered By: MICHELINE GILMAN Comment: has private [employer] [facility] H/O: cardiac pacemaker in situ Active Condition [facility] Hearing Loss (SCT 69109184) Active Condition Dec 26, 2018 Entered By: MICHELINE GILMAN Comment: partial has hearing aids [facility] Hemoglobin below reference range Active Condition [facility] History of back pain Active Condition Feb 27, 2022 Entered By: MICHELINE GILMAN Comment: [facility] History of hematuria Active Condition Mar 14, 2023 Entered By: MICHELINE GILMAN Comment: microscopic [facility] History of iron deficiency Active Condition [facility] History of malignant neoplasm of bladder Active Condition Jun 04, 2022 Entered By: MICHELINE GILMAN Comment: seen [facility] History of surgery Active Condition O ct 2018 Entered By: MICHELINE GILMAN Comment: s/p cabg, stents, bladder CA/scopes, old shoulder surgeryDe 2019 Entered By: MICHELINE GILMAN Comment: hx pacemakerDe 2021 Entered By: MICHELINE GILMAN Comment: cystoscope [facility] 2022 Entered By: MICHELINE GILMAN Comment: cyst[facility] HTN - Hypertension ([facility] [id number]) Active Condition [facility] Hypercholesterolemia ([facility] [id number]) Active Condition [facility] Hyperglycemia Active Condition [facility] Hyperlipidemia Active Condition [facility] Hyperlipidemia Active Condition [facility] Hypertension Active Condition [facility] Hypothyroidism Active Condition [facility] Impotence Active Condition [facility] Impotence (SNOMED CT 213159419) Active Condition [facility] Insomnia Active Condition [facility] Insomnia, unspecified (ICD-9-CM 780.52) Active Condition [facility] Iron deficiency anemia Active Condition [facility] Keratosis, Actinic Active Condition [facility] Malignant tumor of urinary bladder Active Condition [facility] Melanoma NOS Active Condition [facility] Neoplasm. 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 Dec 26, 2018 Entered By: MICHELINE GILMAN Comment: quit years ago [facility] Unsteady gait Active Condition [facility] Varicose veins Active Condition [facility] Vitamin D below reference range Active Condition [facility] Diagnosis: ICD-10-CM I10 Essential (primary) hypertension Active Diagnosis [facility] Diagnosis: ICD-10-CM Y93.E6 Activity, residential relocation Active Diagnosis [facility] Diagnosis: ICD-10-CM Z71.89 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ed counseling [...] ICD-10-CM G47.39 Other sleep apnea Active Diagnosis [facility] Medications Combined list of outpatient medications [...] THREE TIMES DAILY NEEDED FOR PAIN ORAL 08/29/[id number] Manuel GILMAN ONALD 2023 100 [facility] AMITRIPTYLI NE HCL 10MG TAB TAKE ONE TABLET BY MOUTH AT BEDTIME ORAL ACTIVE Marie MITCHELL AHIDA 2024 [facility] AMITRIPTYLI NE HCL 25MG TAB TAKE ONE TABLET BY MOUTH AT BEDTIME ORAL ACTIVE Manuel GILMAN ON2022 [facility] APIXABAN 5MG TAB TAKE ONE TABLET BY MOUTH TWICE A DAY ORAL ACTIVE STEPHENMarie AHIDA 2024 [facility] APIXABAN 5MG TAB TAKE ONE TABLET BY MOUTH TWICE A DAY ORAL ACTIVE Manuel GILMAN ON2020 [facility] ASCORBIC ACID 500MG TAB TAKE ONE TABLET BY MOUTH ONCE DAILY ORAL ACTIVE [facility] ASPIRIN 81MG TAB,CHEWABL E CHEW ONE TABLET BY MOUTH ONCE DAILY ORAL ACTIVE [facility] CHOLECALCIF EULA 25MCG (1,000UNIT) TAB TAKE ONE TABLET BY MOUTH ONCE DAILY FOR VITAMIN D SUPPLEME NT ORAL ACTIVE 03/15/2025 [id number] Manuel GILMAN ON2023 100 [facility] CHOLECALCIF EULA 25MCG (1,000UNIT) TAB TAKE ONE TABLET BY MOUTH ONCE A DAY ORAL ACTIVE STEPHENMarie DA 2024 [facility] CICLESONIDE INHL,NASAL SPRAY IN EACH NOSTRIL ONCE DAILY NASAL ACTIVE DAWSON GAN 2009 [facility] CLOPIDOGREL BISULFATE 75MG TAB TAKE ONE TABLET BY MOUTH ONCE DAILY ORAL ACTIVE MARCIA MUNOZ IAHOK 2014 [facility] CLOPIDOGREL BISULFATE 75MG TAB TAKE ONE TABLET BY MOUTH ONCE DAILY ORAL ACTIVE Manuel GILMAN ON2018 [facility] CLOPIDOGREL BISULFATE 75MG TAB TAKE ONE TABLET BY MOUTH ONCE A DAY ORAL ACTIVE STEPHEN,Marie DA 2024 [facility] DOCUSATE NA 100MG CAP TAKE 1 CAPSULE BY MOUTH EVERY DAY BEFORE NOON MEAL ORAL ACTIVE STEPHEN,Z 2024 [facility] EPLERENONE 50MG TAB TAKE ONE-HALF TABLET BY MOUTH EVERY MORNING ORAL ACTIVE STEPHENZ DA 2024 [facility] EPLERENONE TAB TAKE 25MG/INS PRA BY MOUTH ONCE DAILY ORAL ACTIVE Manuel GILMAN ON2023 [facility]ID [facility]OWDHURY [facility] FERROUS SO4 325MG TAB TAKE ONE TABLET BY MOUTH TWICE A DAY FOR IRON REPLACEM ENT WITH FOOD (MAY DARKEN STOOLS) ORAL ACTIVE 06/24/2025 [id number] Manuel GILMAN 2024 200 [facility] FERROUS SO4 325MG TAB TAKE ONE TABLET BY MOUTH ONCE A DAY ORAL ACTIVE STEPHEN,Z 2024 [facility] LEVOTHYROXI NE NA 75MCG TAB TAKE ONE TABLET BY MOUTH EVERY MORNING BEFORE A MEAL ORAL ACTIVE STEPHEN,Z 2024 [facility] LEVOTHYROXI NE NA 75MCG TAB (SYNTHROID) TAKE ONE TABLET BY MOUTH ONCE DAILY ORAL ACTIVE Manuel GILMAN 2022 [facility] LIDOCAINE 5% OINT,TOP APPLY SMALL AMOUNT TOPICALL Y TWICE A DAY FOR PAIN TOPICA L 09/28/[id number] Manuel GILMAN 2023 35 [facility] LISINOPRIL 10MG TAB TAKE ONE TABLET BY MOUTH EVERY MORNING ORAL ACTIVE aMnuel GILMAN 2018 [facility] LISINOPRIL 10MG TAB TAKE ONE TABLET BY MOUTH ONCE DAILY ORAL ACTIVE Meir LOWE 2016 [facility] LISINOPRIL 20MG TAB TAKE ONE-HALF TABLET BY MOUTH ONCE A DAY ORAL ACTIVE STEPHENMarie 2024 [facility] MULTIVITS W/MINERALS TAB/CAP (NO VIT K) TAKE ONE TABLET BY MOUTH ONCE DAILY ORAL ACTIVE MARCIA MUNOZ NCHOK 2013 [facility] PANTOPRAZOL E NA 40MG TAB,EC TAKE ONE TABLET BY MOUTH EVERY MORNING BEFORE A MEAL ORAL ACTIVE STEPHEN,Z 2024 [facility] PREGABALIN 150MG CAP,ORAL TAKE 1 CAPSULE BY MOUTH TWICE A DAY ORAL ACTIVE STEPHEN,Z 2024 [facility] PREGABALIN 75MG CAP,ORAL TAKE 2 CAPSULES BY MOUTH TWICE A DAY ORAL ACTIVE MUKUL,D ON2023 DAVID [facility]OWDHURY [facility] PREGABALIN 75MG CAP,ORAL TAKE 1 CAPSULE BY MOUTH THREE TIMES A DAY ORAL ACTIVE DORMARCIA BLAS NCHOK 2015 [facility] SENNA TAB TAKE BY MOUTH ONCE DAILY NEEDED ORAL ACTIVE MUKUL,D ON2023 DAVID [facility]OWDHURY [facility] SENNOSIDES 8.6MG TAB TAKE ONE TABLET BY MOUTH ORAL ACTIVE DORMARCIA BLAS NCHOK 2013 [facility] SIMVASTATIN 40MG TAB TAKE ONE TABLET BY MOUTH EVERY EVENING ORAL ACTIVE DORJEMARCIA Doyle NCHOK 2013 [facility] SIMVASTATIN 80MG TAB TAKE ONE-HALF TABLET BY MOUTH AT BEDTIME ORAL ACTIVE MUKUL,D 2018 [facility] SIMVASTATIN 80MG TAB TAKE ONE-HALF TABLET BY MOUTH EVERY EVENING ORAL ACTIVE STEPHEN,Z AHIDA 2024 [facility] [place] VITAMIN E 100UNT CAP TAKE 2 CAPSULES BY MOUTH ONCE DAILY ORAL ACTIVE MARCIA MUNOZ NCHOK 2013 [facility] Allergies, Adverse Reactions, Alerts Combined list of allergies from Department of Defense and Veterans Affairs facilities. It does not include entries that were removed or entered in error. Substance Category Reaction Severity Reaction type Status Date Reported Comments Source COUMADIN Propensity to adverse reactions to drug (finding) Blood in urine, INR raised active 7 [facility] Immunizations Combined list of available immunizations from the Department of Defense and Veterans Affairs facilities. Immunization Series Date Given Administered By Site Reaction Lot Number CVX Code Drug Food Production Supervisor Status Comments Source INFLUENZA, HIGH-DOSE, TRIVALENT, PF 2023 JUDITH HARTMAN LEFT DELTO ID [id number] 135 complet ed [facility] [place], [facility] INFLUENZA, UNSPECIFIED FORMULATION 2023 88 complet ed HISTORICA L INFORMATI ON - FROM PATIENT'S RECALL, [facility] INFLUENZA, UNSPECIFIED FORMULATION 2022 88 complet ed HISTORICA L INFORMATI ON - FROM PATIENT'S RECALL, DAVID CHOWDHURY [facility] TDAP 2021 115 complet ed HISTORICA L INFORMATI ON - FROM PATIENT'S WRITTEN RECORD, [facility] COVID-19 (MODERNA), MRNA, LNP-S, PF, 100 MCG OR 50 MCG DOSE 3 2020 207 complet ed [facility] INFLUENZA, SEASONAL, INJECTABLE 3 2020 141 complet ed HISTORICA L INFORMATI ON - FROM OTHER REGISTRY, [facility] INFLUENZA, UNSPECIFIED FORMULATION 2020 88 complet ed [facility] COVID-19 (MODERNA), MRNA, LNP-S, PF, 100 MCG/0.5 ML DOSE 2 2020 207 complet ed [facility] COVID-19 (MODERNA), MRNA, LNP-S, PF, 100 MCG/0.5 ML DOSE 1 2020 207 complet ed [facility] INFLUENZA, UNSPECIFIED FORMULATION 2019 88 complet ed [facility] INFLUENZA, SEASONAL, INJECTABLE 2 2019 141 complet ed HISTORICA L INFORMATI ON - FROM OTHER REGISTRY, [facility] INFLUENZA, HIGH DOSE SEASONAL 2018 135 complet ed HISTORICA L INFORMATI ON - FROM OTHER PROVIDER, Partner: [facility]. Administe red by: ISMAEL RAMOS (XPH=[phone]). Partner 9 Lot#: [id number] Mfr: Sanofi Pasteur; Dosage: 0.5 [facility] INFLUENZA, TRIVALENT, ADJUVANTED 2017 168 complet ed [facility] INFLUENZA, UNSPECIFIED FORMULATION [address] Burt, administe red in November [facility] PNEUMOCOCCAL CONJUGATE PCV 13 2016 133 complet ed per [facility] INFLUENZA, HIGH DOSE SEASONAL 2015 135 complet ed [facility] INFLUENZA, HIGH DOSE SEASONAL 2013 135 complet ed [facility] INFLUENZA, UNSPECIFIED FORMULATION 2012 88 complet ed [facility] PNEUMOCOCCAL POLYSACCHARID E PPV23 2012 33 complet ed [facility] TDAP 2011 115 complet ed DAVID CHOWDHURY [facility] INFLUENZA, UNSPECIFIED FORMULATION 2011 88 complet ed [facility] INFLUENZA, UNSPECIFIED FORMULATION 2010 88 complet ed [facility] INFLUENZA, UNSPECIFIED FORMULATION 2009 88 complet ed [facility] Results Combined list of recent chemistry, hematology [...] Sep 21, 2024 01:33 PM Reporting Lab: [facility] [place] [address] Performing Lab: [facility] DIVISION CBC LEUKOCYTES [#/VOLUME] IN BLOOD BY AUTOMATED COUNT 6.9 10*3/u L 3.6 - 11.2 09/21 Specimen Type: BLOOD No comment entered. Ordering Provider: EMILIA MITCHELL Report Released Date/Time: Sep 21, 2024 01:33 PM Reporting Lab: [facility] [place] [address] Performing Lab: [facility] DIVISION CBC ERYTHROCYTE S [#/VOLUME] IN BLOOD BY AUTOMATED COUNT 3.75 10*6/u L 4.10 - 5.70 09/21 L Specimen Type: BLOOD No comment entered. Ordering Provider: EMILIA MITCHELL Report Released Date/Time: Sep 21, 2024 01:33 PM Reporting Lab: [facility] [place] [address] Performing Lab: [facility] [facility] CBC HEMOGLOBIN [MASS/VOLUM E] IN BLOOD 11.1 g/dL 13.1 - 16.8 09/21 L Specimen Type: BLOOD No comment entered. Ordering Provider: EMILIA MITCHELL Report Released Date/Time: Sep 21, 2024 01:33 PM Reporting Lab: [facility] [place] [address] Performing Lab: [facility] DIVISION CBC HEMATOCRIT [VOLUME FRACTION] OF BLOOD 34.3 38.2 - 48.4 09/21 L Specimen Type: BLOOD No comment entered. Ordering Provider: EMILIA MITCHELL Report Released Date/Time: Sep 21, 2024 01:33 PM Reporting Lab: [facility] [place] [address] Performing Lab: [facility] DIVISION CBC MCV [ENTITIC VOLUME] BY AUTOMATED COUNT 91.5 fL 80.0 - 100.0 09/21 Specimen Type: BLOOD No comment entered. Ordering Provider: EMILIA MITCHELL Report Released Date/Time: Sep 21, 2024 01:33 PM Reporting Lab: [facility] [place] [address] Performing Lab: [facility] DIVISION CBC MCH [ENTITIC MASS] BY AUTOMATED COUNT 29.6 pg 27.0 - 34.0 09/21 Specimen Type: BLOOD No comment entered. Ordering Provider: EMILIA MITCHELL Report Released Date/Time: Sep 21, 2024 01:33 PM Reporting Lab: [facility] [place] [address] Performing Lab: [facility] [address] [facility] CBC MCHC [MASS/VOLUM E] BY AUTOMATED COUNT 32.4 g/dL 33.0 - 36.0 09/21 L Specimen Type: BLOOD No comment entered. Ordering Provider: EMILIA MITCHELL Report Released Date/Time: Sep 21, 2024 01:33 PM Reporting Lab: [facility] [place] [address] Performing Lab: [facility] DIVISION CBC PLATELETS [#/VOLUME] IN BLOOD BY AUTOMATED COUNT 110 10*3/u L 150 - 400 09/21 L Specimen Type: BLOOD No comment entered. Ordering Provider: EMILIA MITCHELL Report Released Date/Time: Sep 21, 2024 01:33 PM Reporting Lab: [facility] [place] [address] Performing Lab: [facility] DIVISION CBC PLATELET MEAN VOLUME [ENTITIC VOLUME] IN BLOOD BY AUTOMATED COUNT 11.5 fL 7.5 - 11.2 09/21 H Specimen Type: BLOOD No comment entered. Ordering Provider: EMILIA MITCHELL Report Released Date/Time: Sep 21, 2024 01:33 PM Reporting Lab: [facility] [place] [address] Performing Lab: [facility] DIVISION CBC ERYTHROCYTE DISTRIBUTIO N WIDTH [RATIO] BY AUTOMATED COUNT 15.2 11.8 - 15.1 09/21 H Specimen Type: BLOOD No comment entered. Ordering Provider: EMILIA MITCHELL Report Released Date/Time: Sep 21, 2024 01:33 PM Reporting Lab: [facility] [place] [address] Performing Lab: [facility] DIVISION CBC LYMPHOCYTES /100 LEUKOCYTES IN BLOOD BY AUTOMATED COUNT 19 09/21 Specimen Type: BLOOD No comment entered. Ordering Provider: EMILIA MITCHELL Report Released Date/Time: Sep 21, 2024 01:33 PM Reporting Lab: [facility] [place] [address] Performing Lab: [facility] DIVISION CBC MONOCYTES/1 00 LEUKOCYTES IN BLOOD BY AUTOMATED COUNT 8 09/21 Specimen Type: BLOOD No comment entered. Ordering Provider: EMILIA MITCHELL Report Released Date/Time: Sep 21, 2024 01:33 PM Reporting Lab: [facility] [place] [address] Performing Lab: [facility] DIVISION CBC NEUTROPHILS /100 LEUKOCYTES IN BLOOD BY AUTOMATED COUNT 70 09/21 Specimen Type: BLOOD No comment entered. Ordering Provider: EMILIA MITCHELL Report Released Date/Time: Sep 21, 2024 01:33 PM Reporting Lab: [facility] [place] [address] Performing Lab: [facility] DIVISION CBC EOSINOPHILS /100 LEUKOCYTES IN BLOOD BY AUTOMATED COUNT 2 09/21 Specimen Type: BLOOD No comment entered. Ordering Provider: EMILIA MITCHELL Report Released Date/Time: Sep 21, 2024 01:33 PM Reporting Lab: [facility] [place] [address] Performing Lab: [facility] DIVISION CBC BASOPHILS/1 00 LEUKOCYTES IN BLOOD BY AUTOMATED COUNT 1 09/21 Specimen Type: BLOOD No comment entered. Ordering Provider: EMILIA MITCHELL Report Released Date/Time: Sep 21, 2024 01:33 PM Reporting Lab: [facility] [place] [address] Performing Lab: [facility] DIVISION CBC LYMPHOCYTES [#/VOLUME] IN BLOOD BY AUTOMATED COUNT 1.29 10*3/u L 0.77 - 4.50 09/21 Specimen Type: BLOOD No comment entered. Ordering Provider: EMILIA MITCHELL Report Released Date/Time: Sep 21, 2024 01:33 PM Reporting Lab: [facility] [place] [address] Performing Lab: [facility] DIVISION CBC MONOCYTES [#/VOLUME] IN BLOOD BY AUTOMATED COUNT 0.57 10*3/u L 0.19 - 0.80 09/21 Specimen Type: BLOOD No comment entered. Ordering Provider: EMILIA MITCHELL Report Released Date/Time: Sep 21, 2024 01:33 PM Reporting Lab: [facility] [place] [address] Performing Lab: [facility] DIVISION CBC NEUTROPHILS [#/VOLUME] IN BLOOD BY AUTOMATED COUNT 4.83 10*3/u L 2.10 - 8.00 09/21 Specimen Type: BLOOD No comment entered. Ordering Provider: EMILIA MITCHELL Report Released Date/Time: Sep 21, 2024 01:33 PM Reporting Lab: [facility] [place] [address] Performing Lab: [facility] DIVISION CBC EOSINOPHILS [#/VOLUME] IN BLOOD BY AUTOMATED COUNT 0.15 10*3/u L 0.00 - 0.60 09/21 Specimen Type: BLOOD No comment entered. Ordering Provider: EMILIA MITCHELL Report Released Date/Time: Sep 21, 2024 01:33 PM Reporting Lab: [facility] [place] [address] Performing Lab: [facility] DIVISION CBC BASOPHILS [#/VOLUME] IN BLOOD BY AUTOMATED COUNT 0.05 10*3/u L 0.00 - 0.20 09/21 Specimen Type: BLOOD No comment entered. Ordering Provider: EMILIA MITCHELL Report Released Date/Time: Sep 21, 2024 01:33 PM Reporting Lab: [facility] [place] [address] Performing Lab: [facility] DIVISION CBC PLATELETS RETICULATED /100 PLATELETS IN BLOOD BY AUTOMATED COUNT 6.5 1.0 - 7.0 09/21 Specimen Type: BLOOD No comment entered. Ordering Provider: EMILIA MITCHELL Report Released Date/Time: Sep 21, 2024 01:33 PM Reporting Lab: [facility] [place] [address] Performing Lab: [facility] DIVISION COMPREHENS FRANCIA METABOLIC PANEL CREATININE [MASS/VOLUM E] IN SERUM OR PLASMA 1.04 mg/dL 0.70 - 1.30 09/21 Specimen Type: PLASMA Comment: No hemolysis noted. Ordering Provider: EMILIA MITCHELL Report Released Date/Time: Sep 21, 2024 01:33 PM Reporting Lab: [facility] [place] [address] Performing Lab: [facility] DIVISION COMPREHENS FRANCIA METABOLIC PANEL UREA NITROGEN [MASS/VOLUM E] IN SERUM OR PLASMA 20.2 mg/dL 9.0 - 25.0 09/21 Specimen Type: PLASMA Comment: No hemolysis noted. Ordering Provider: EMILIA MITCHELL Report Released Date/Time: Sep 21, 2024 01:33 PM Reporting Lab: [facility] [place] [address] Performing Lab: [facility] DIVISION COMPREHENS FRANCIA METABOLIC PANEL GLUCOSE [MASS/VOLUM E] IN SERUM OR PLASMA 100 mg/dL 72 - 99 09/21 H Specimen Type: PLASMA Comment: No hemolysis noted. Ordering Provider: EMILIA MITCHELL Report Released Date/Time: Sep 21, 2024 01:33 PM Reporting Lab: [facility] [place] [address] Performing Lab: [facility] [place] [id number] DIVISION COMPREHENS FRANCIA METABOLIC PANEL SODIUM [MOLES/VOLU ME] IN SERUM OR PLASMA 135 meq/L 136 - 145 09/21 L Specimen Type: PLASMA Comment: No hemolysis noted. Ordering Provider: EMILIA MITCHELL Report Released Date/Time: Sep 21, 2024 01:33 PM Reporting Lab: [facility] [place] [address] Performing Lab: [facility] [place] [id number] DIVISION COMPREHENS FRANCIA METABOLIC PANEL POTASSIUM [MOLES/VOLU ME] IN SERUM OR PLASMA 4.2 meq/L 3.5 - 5.0 09/21 Specimen Type: PLASMA Comment: No hemolysis noted. Ordering Provider: EMILIA MITCHELL Report Released Date/Time: Sep 21, 2024 01:33 PM Reporting Lab: [facility] [place] [address] Performing Lab: [facility] [id number] [place] [address] DIVISION COMPREHENS FRANCIA METABOLIC PANEL CHLORIDE [MOLES/VOLU ME] IN SERUM OR PLASMA 103 meq/L 98 - 107 09/21 Specimen Type: PLASMA Comment: No hemolysis noted. Ordering Provider: EMILIA MITCHELL Report Released Date/Time: Sep 21, 2024 01:33 PM Reporting Lab: [facility] [place] [address] Performing Lab: [facility] DIVISION COMPREHENS FRANCIA METABOLIC PANEL CARBON DIOXIDE, TOTAL [MOLES/VOLU ME] IN SERUM OR PLASMA 23 meq/L 22 - 31 09/21 Specimen Type: PLASMA Comment: No hemolysis noted. Ordering Provider: EMILIA MITCHELL Report Released Date/Time: Sep 21, 2024 01:33 PM Reporting Lab: [facility] [place] [address] Performing Lab: [facility] DIVISION COMPREHENS FRANCIA METABOLIC PANEL CALCIUM [MASS/VOLUM E] IN SERUM OR PLASMA 9.0 mg/dL 8.4 - 10.4 09/21 Specimen Type: PLASMA Comment: No hemolysis noted. Ordering Provider: EMILIA MITCHELL Report Released Date/Time: Sep 21, 2024 01:33 PM Reporting Lab: [facility] [place] [address] Performing Lab: [facility] DIVISION COMPREHENS FRANCIA METABOLIC PANEL PROTEIN [MASS/VOLUM E] IN SERUM OR PLASMA 7.6 g/dL 6.0 - 8.6 09/21 Specimen Type: PLASMA Comment: No hemolysis noted. Ordering Provider: EMILIA MITCHELL Report Released Date/Time: Sep 21, 2024 01:33 PM Reporting Lab: [facility] [place] [address] Performing Lab: [facility] DIVISION COMPREHENS FRANCIA METABOLIC PANEL ALBUMIN [MASS/VOLUM E] IN SERUM OR PLASMA 4.3 g/dL 3.4 - 5.0 09/21 Specimen Type: PLASMA Comment: No hemolysis noted. Ordering Provider: EMILIA MITCHELL Report Released Date/Time: Sep 21, 2024 01:33 PM Reporting Lab: [facility] [place] [address] Performing Lab: [facility] DIVISION COMPREHENS FRANCIA METABOLIC PANEL BILIRUBIN.T OTAL [MASS/VOLUM E] IN SERUM OR PLASMA 1.1 mg/dL 0.2 - 1.2 09/21 Specimen Type: PLASMA Comment: No hemolysis noted. Ordering Provider: EMILIA MITCHELL Report Released Date/Time: Sep 21, 2024 01:33 PM Reporting Lab: [facility] [place] [address] Performing Lab: [facility] DIVISION COMPREHENS FRANCIA METABOLIC PANEL ALKALINE PHOSPHATASE [ENZYMATIC ACTIVITY/VO LUME] IN SERUM OR PLASMA 64 U/L 40 - 150 09/21 Specimen Type: PLASMA Comment: No hemolysis noted. Ordering Provider: EMILIA MITCHELL Report Released Date/Time: Sep 21, 2024 01:33 PM Reporting Lab: [facility] [place] [address] Performing Lab: [facility] DIVISION COMPREHENS FRANCIA METABOLIC PANEL ASPARTATE AMINOTRANSF ERASE [ENZYMATIC ACTIVITY/VO LUME] IN SERUM OR PLASMA 33 U/L 5 - 34 09/21 Specimen Type: PLASMA Comment: No hemolysis noted. Ordering Provider: EMILIA MITCHELL Report Released Date/Time: Sep 21, 2024 01:33 PM Reporting Lab: [facility] [address] Performing Lab: [facility] DIVISION COMPREHENS FRANCIA METABOLIC PANEL ALANINE AMINOTRANSF ERASE [ENZYMATIC ACTIVITY/VO LUME] IN SERUM OR PLASMA 25 U/L 8 - 40 09/21 Specimen Type: PLASMA Comment: No hemolysis noted. Ordering Provider: EMILIA MITCHELL Report Released Date/Time: Sep 21, 2024 01:33 PM Reporting Lab: [facility] [place] [address] Performing Lab: [facility] [place] [id number] DIVISION COMPREHENS FRANCIA METABOLIC PANEL GLOMERULAR FILTRATION RATE/1.73 SQ M.PREDICTED [VOLUME RATE/AREA] IN SERUM, PLASMA OR BLOOD BY CREATININE- BASED FORMULA (CKD-EPI 2020) 69.06 60 09/21 Specimen Type: PLASMA Comment: No hemolysis noted. Ordering Provider: EMILIA MITCHELL Report Released Date/Time: Sep 21, 2024 01:33 PM Reporting Lab: [facility] [place] [address] Performing Lab: [facility] [id number] [place] [address] DIVISION FERRITIN FERRITIN [MASS/VOLUM E] IN SERUM OR PLASMA 38.68 ng/mL 22 - 275 09/21 Specimen Type: SERUM No comment entered. Ordering Provider: EMILIA MITCHELL Report Released Date/Time: Sep 21, 2024 01:33 PM Reporting Lab: [facility] [address] [facility] [address] Performing Lab: [facility] [address] [facility] [address] [facility] FOLATE (STL-MA) FOLATE [MASS/VOLUM E] IN SERUM OR PLASMA 9.1 ng/mL 7 - 20 09/21 Specimen Type: SERUM No comment entered. Ordering Provider: EMILIA MITCHELL Report Released Date/Time: Sep 21, 2024 01:33 PM Reporting Lab: [facility] [address] Performing Lab: [facility] [phone] FREE T4 (STL) THYROXINE (T4) FREE [MASS/VOLUM E] IN SERUM OR PLASMA 1.00 ng/mL 0.70 - 1.48 09/21 Specimen Type: PLASMA No comment entered. Ordering Provider: EMILIA MITCHELL Report Released Date/Time: Sep 21, 2024 01:33 PM Reporting Lab: [facility] [place] [address] Performing Lab: [facility] [place] [phone] DIVISION HGA1C HEMOGLOBIN A1C/HEMOGLO BIN.TOTAL IN BLOOD 5.8 4.0 - 6.0 09/21 Specimen Type: BLOOD No comment entered. Ordering Provider: EMILIA MITCHELL Report Released Date/Time: Sep 21, 2024 01:33 PM Reporting Lab: [facility] [place] [address] Performing Lab: [facility] [phone] DIVISION IRON/TIBC PROFILE IRON BINDING CAPACITY [MASS/VOLUM E] IN SERUM OR PLASMA 449 ug/dL 250 - 450 09/21 Specimen Type: SERUM No comment entered. Ordering Provider: EMILIA MITCHELL Report Released Date/Time: Sep 21, 2024 01:33 PM Reporting Lab: [facility] [address] [facility] [address] Performing Lab: [facility] 915 [facility] [address] [facility] IRON/TIBC PROFILE TRANSFERRIN [MASS/VOLUM E] IN SERUM OR PLASMA 359 mg/dL 163 - 344 09/21 H Specimen Type: SERUM No comment entered. Ordering Provider: EMILIA MITCHELL Report Released Date/Time: Sep 21, 2024 01:33 PM Reporting Lab: [address] [address] Performing Lab: [address] [address] [facility] IRON/TIBC PROFILE IRON SATURATION [MASS FRACTION] IN SERUM OR PLASMA 12 20 - 50 09/21 L Specimen Type: SERUM No comment entered. Ordering Provider: EMILIA MITCHELL Report Released Date/Time: Sep 21, 2024 01:33 PM Reporting Lab: [address] [address] Performing Lab: [address] [address] [facility] IRON/TIBC PROFILE IRON [MASS/VOLUM E] IN SERUM OR PLASMA 52 ug/dL 65 - 175 09/21 L Specimen Type: SERUM No comment entered. Ordering Provider: EMILIA MITCHELL Report Released Date/Time: Sep 21, 2024 01:33 PM Reporting Lab: [address] [address] Performing Lab: [address] [address] [facility] LIPID PANEL (STL) CHOLESTEROL [MASS/VOLUM E] IN SERUM OR PLASMA 127 mg/dL 0 - 200 09/21 Specimen Type: PLASMA Comment: No hemolysis noted. Ordering Provider: EMILIA MITCHELL Report Released Date/Time: Sep 21, 2024 01:33 PM Reporting Lab: [facility] [place] [address] Performing Lab: [facility] [place] [id number] DIVISION LIPID PANEL (STL) TRIGLYCERID E [MASS/VOLUM E] IN SERUM OR PLASMA 108 mg/dL 0 - 150 09/21 Specimen Type: PLASMA Comment: No hemolysis noted. Ordering Provider: EMILIA MITCHELL Report Released Date/Time: Sep 21, 2024 01:33 PM Reporting Lab: [facility] [place] [address] Performing Lab: [facility] LIPID PANEL (STL) CHOLESTEROL IN LDL [MASS/VOLUM E] IN SERUM OR PLASMA BY CALCULATION 64 mg/dL 09/21 Specimen Type: PLASMA Comment: No hemolysis noted. Ordering Provider: EMILIA MITCHELL Report Released Date/Time: Sep 21, 2024 01:33 PM Reporting Lab: [facility] [place] [address] Performing Lab: [facility] LIPID PANEL (STL) CHOLESTEROL IN HDL [MASS/VOLUM E] IN SERUM OR PLASMA 41 mg/dL 40 09/21 Specimen Type: PLASMA Comment: No hemolysis noted. Ordering Provider: EMILIA MITCHELL Report Released Date/Time: Sep 21, 2024 01:33 PM Reporting Lab: [facility] [place] [address] Performing Lab: [facility] DIVISION VITAMIN D, 25-HYDROXY 25-HYDROXYV ITAMIN D3 [MASS/VOLUM E] IN SERUM OR PLASMA 30.0 ng/mL 30 - 96 09/21 Specimen Type: SERUM No comment entered. Ordering Provider: EMILIA MITCHELL Report Released Date/Time: Sep 21, 2024 01:33 PM Reporting Lab: [facility] [address] Performing Lab: [facility] [address] [facility] Vital Signs Combined list of inpatient and outpatient Vital Signs from Department of Defense and Veterans Affairs, ranging from 12 months to all on record, depending upon the facility. Vital Sign Value Date Comments Source SYSTOLIC BLOOD PRESSURE 117 09/22/19 25 12:52:43 [facility] DIASTOLIC BLOOD PRESSURE 62 025 12:52:43 [facility] PULSE OXIMETRY 97 % 09/21/2024 12:52:43 [facility] WEIGHT 206.4 09/21/2024 12:52:43 [facility] BMI 36 kg/m2 09/21/2024 12:52:43 [facility] PAIN 0 09/21/2024 12:52:43 [facility] HEIGHT 64 09/21/2024 12:52:43 [facility] TEMPERATURE 98.2 09/21/2024 12:52:43 [facility] PULSE 72 09/21/2024 12:52:43 [facility] RESPIRATION 16 09/21/2024 12:52:43 [facility] SYSTOLIC BLOOD PRESSURE 129 03/13/20 24 10:18:42 [...] [facility] RESPIRATION 18 03/13/2024 10:18:42 [facility] SYSTOLIC BLOOD PRESSURE 136 11/08/19 10:46:37 [facility] DIASTOLIC BLOOD PRESSURE 75 024 10:46:37 [facility] PULSE OXIMETRY 96 11/08/2023 10:46:37 [facility] WEIGHT 204.1 11/08/2023 10:46:37 [facility] BMI 31 kg/m2 11/08/2023 10:46:37 [facility] PAIN 4 11/08/2023 10:46:37 [facility] TEMPERATURE 96.6 11/08/2023 10:46:37 [facility] PULSE 71 11/08/2023 10:46:37 [facility] RESPIRATION 18 11/08/2023 10:46:37 [facility] Encounters Combined list of: 1) Encounters from Department of Veterans Affairs facilities going backup to the last 18 months, not all [place] inpatient encounters are included; 2) Encounters from the Department of [facility] facilities going backup to 280 months. Location Location Details Encounter Type Encounter Number Reason For Visit Attending Provider ADM Date DC Date Status Disposition Source ELENO ESCOTO [facility] Outpatient Encounter [id number] Meir NAVARRO 05/20 HAL [facility] OPC OFFICE O/P EST LOW 20 MIN [id number] Diagnos is: ICD-10- CM G47.39 Other sleep apnea REMY GARCIA D 05/21 [facility] [place] LLYanira [facility] Outpatient Encounter [id number] DO CHERELLE GILMAN 05/21 HAL CHOWDHURY [facility] [place]CE[place] [facility] Outpatient Encounter [id number] 06/06 HAL CHOWDHURY [facility] FAYETTCECI LLYanira [facility] Outpatient Encounter [id number] 06/06 MADELINYEIVETH CHOWDHURY [facility] [place] [facility] Outpatient Encounter [id number] 07/04 [place] [facility] [place] [facility] Outpatient Encounter [id number] DO CHERELLE GILMAN 07/07 DAVID CHOWDHURY [facility] [place] [facility] Outpatient Encounter [id number] 07/10 MADELINYEIVETH CHOWDHURY [facility] [place] [facility] Outpatient Encounter [id number] 07/16 MADELINYEIVETH CHOWDHURY [facility] [place] [facility] Outpatient Encounter [id number] 07/17 DAVID CHOWDHURY [facility] [place] [facility] Outpatient Encounter [id number] 08/05 DAVID CHOWDHURY [facility] [place] [facility] Outpatient Encounter [id number] 08/15 MADELINYEIVETH CHOWDHURY [facility] [place] [facility] Outpatient Encounter [id number] DO CHERELLE GILMAN 08/18 DAVID CHOWDHURY [facility] [place] [facility] Outpatient Encounter [id number] 08/26 DAVID CHOWDHURY [facility] [place] [facility] Outpatient Encounter [id number] DO CHERELLE GILMAN 08/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, unspeci fied MUKUL,DO NALD 09/11 [facility] [place] 1/ [id number] Diagnos is: ICD-10- CM 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 of intraoc ular lens SETTER,OWE N A 09/23 [facility] Outpatient Encounter [id number] 10/15 DAVID CHOWDHURY [facility]ITAL[facility] Outpatient Encounter [id number] MUKUL,DO NALD 10/16 [facility] HC PRO PHONE CALL 11-20 MIN [id number] Diagnos is: ICD-10- CM Z71.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 education counselor SHAWN Galicia 10/21 [facility] ELENO ESCOTO [facility] Outpatient Encounter [id number] 10/23 DAVID CHOWDHURY [facility] OFFICE O/P EST MOD 30 MIN [id number] Diagnos is: ICD-10- CM R26.81 Unstead iness on feet MUKUL,DO NALD 10/24 [facility] MADELINYETTCECI E [facility] Outpatient Encounter [id number] 10/24 DAVID CHOWDHURY [facility] Outpatient Encounter [id number] Diagnos is: ICD-10- CM M25.531 Pain in right wrist MUKUL,DO NALD 10/28 [facility] EXT ECG>48HR<7 D RECORDING [id number] Diagnos is: ICD-10- CM 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 LEEANNA NOBLE 10/30 [facility] [place] [facility] Outpatient Encounter [id number] 11/05 [facility] HC PRO PHONE CALL 5-10 MIN [id number] Diagnos is: ICD-10- CM Z71.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 education counselor SHAWN Galicia 11/06 [facility] OFF/OP CNSLTJ NEW/EST LOW 30 [id number] Diagnos is: ICD-10- CM M25.531 Pain in right wrist TRI JONES 11/07 [facility] [place] [facility] Outpatient Encounter [id number] TRI JONES 11/07 [facility] FAYETTEVI E [facility] Outpatient Encounter [id number] 11/07 [facility] HC PRO PHONE CALL 5-10 MIN [id number] Diagnos is: ICD-10- CM Z71.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 education counselor ing SHAWN MORTON 11/14 [facility] [place] [facility] Outpatient Encounter [id number] 11/27 [facility] Outpatient Encounter [id number] Diagnos is: ICD-10- CM 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 DO CHERELLE GILMAN 11/28 [facility] [place] [facility] Outpatient Encounter [id number] 11/28 DAVID CHOWDHURY [facility] Outpatient Encounter [id number] 12/16 [facility] [place] [facility] IMMUNIZATI ON ADMIN [id number] Diagnos is: ICD-10- CM Z23 Encount er for immuniz ation ЮЛИЯ HARTMAN 12/30 [facility] Outpatient Encounter [id number] 02/09 [facility] Outpatient Encounter [id number] VILMA DALY 03/09 [facility] Outpatient Encounter [id number] ELANA RICCI 03/12 [facility] OFFICE O/P EST MOD 30 MIN [id number] Diagnos is: ICD-10- CM Z00.01 Encount er for general adult medical exam w abnorma l finding s DO HEMALATHA GILMAND 03/13 [facility] PH1 ASSMT&MGMT NQHP 11-20 [id number] Diagnos is: ICD-10- CM Z71.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 education counselor SHAWN Galicia 03/19 [facility] Outpatient Encounter [id number] ЮЛИЯ CASAREZ 03/19 [facility] SYNCH AUDIO-ONLY EST SF 10 [id number] Diagnos is: ICD-10- CM E55.9 Vitamin D deficie ncy, unspeci fied DO MUKUL NALD 03/23 [facility] BARBICECI [facility] Outpatient Encounter [id number] 03/26 [facility] Encounter [id number] 06/09 [facility] Outpatient Encounter [id number] 06/09 [facility] PH1 ASSMT&MGMT NQHP 5-10 [id number] [id number] Diagnos is: ICD-10- CM Z71.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 education counselor SHAWN Galicia 07/01 [facility] TARGETED CASE MANAGEMENT [id number] Diagnos is: ICD-10- CM Y93.E6 Activit y, residen tial relbulmarot FERNANDO Simpson 09/08 [facility] Outpatient Encounter [id number] ROHIT CASAREZ 09/14 [facility] OFFICE O/P NEW HI 60 MIN [id number] Diagnos is: ICD-10- CM I10 Essenti al (primar y) hyperte nsion EMILIA MITCHELL HIDA 09/21 [facility] Taco [facility] Outpatient Encounter [id number] 09/24 [facility] Outpatient Encounter [id number] 10/02 [facility] Outpatient Encounter [id number] EMILIA MITCHELL HIDA 10/03 [facility] Social History Combined list of available smoking, tobacco, and other social history from Department of Defense and Veterans Affairs facilities. Social History Type Response Date Comment [facility] e Tobacco smoking status NHIS VA-TOBACCO NEVER USED CIGARETTES 09/21/2024 [facility] History of tobacco use VA-TOBACCO NEVER USED OTHER TYPE 09/21/2024 [facility] History of tobacco use VA-TOBACCO USE FORMER CIGARETTES 03/09/2024 NADIA LYLE [facility] History of tobacco use VA-TOBACCO FORMER USER 03/14/2023 [facility] History of tobacco use VA-TOBACCO NEVER USED 03/13/2022 [facility] History of tobacco use VA-TOBACCO QUIT 15 YRS OR MORE 03/14/2021 [facility] History of tobacco use VA-TOBACCO FORMER USER 03/09/2020 [facility] History of tobacco use [place]-TOBACCO QUIT 15 YRS OR MORE 12/25/2018 [facility] History of tobacco use VA-TOBACCO FORMER USER 12/31/2017 [facility] History of tobacco use CURRENT NON-SMOKER 06/17/2017 [facility] History of tobacco use CURRENT NON-SMOKER 12/21/2016 [facility] History of tobacco use LIFETIME NON-TOBACCO USER 12/14/2009 [facility] Plan of Care List of future care activities from [facility] facilities. Additional future care activities may be listed in the Assessment and Plan section. Date/Time Care Activity Care Activity Detail Facili ty 09/21/2024 Laboratory - Jd Edwards Consultant ry Order URINALYSIS (STL-PB) URINE SP [facility] Advance Directives List of completed, amended, or rescinded Advance Directives on record at [facility] facilities. An actual copy of the Directive is not included. Date Advance Directive Provider Source 03/25/2023 ADVANCE DIRECTIVE MORIAH HILL [facility] 06/19/2017 ADVANCE DIRECTIVE DISCUSSION CAYDEN AREVALO [facility] 12/22/2016 ADVANCE DIRECTIVE DISCUSSION LEXA ABDUL [facility] 12/21/2016 ADVANCE DIRECTIVE DISCUSSION LINDEN LEZAMA [facility]
[2024-10-25 13:26] LABS: Hematocrit 24.0 % (42.0-52.0); Hemoglobin 7.2 g/dL (14.0-18.0); Immature Granulocyte Percent A 0.7 % (0-0.5); Immature Platelet Fraction Pct 9.2 % (0.9-11.2); Lymphocytes Absolute Auto 0.86 K/mm3 (0.9-3.2); Mean Corpuscular HGB Conc 30.0 g/dl (32-36); Mean Corpuscular Hemoglobin 25.9 pg (26-34); Mean Corpuscular Volume 86.3 fl (80-100); Nucleated Red Blood Cells Absolute Auto 0.000 K/mm3 (0.0-0.012); Nucleated Red Blood Cells Perc 0.0 % (0.0-0.2); Platelet Count Result 93 k/mm3 (150-375); Red Blood Count 2.78 M/mm3 (4.6-6.20); White Blood Count 5.8 K/mm3 (4.5-10.0)
--- NOTE | 2024-10-25 13:26 | ED.GENADULT ---
HPI - General Adult General Chief complaint: Chest Pain Stated complaint: chest pain Time Seen by Provider: 10/25/24 12:49 History of Present Illness HPI narrative: 89-year-old male with history of AFib, coronary disease, CVA, hypertension, hyperlipidemia presents emergency department for evaluation for exertional chest pain and exertional shortness of breath. Patient states he was just recently at [facility] and was evaluated for some tremors in his left hand. The initially told him that he was having TIAs but ultimately it discharged and told he was not having any TIAs. Patient states over the last few weeks he has had worsening exertional shortness of breath. Patient does have a prior history of open heart surgery/CABG in 1987. Patient does have multiple stents in place. 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 Patient is scheduled to follow-up with 1 in [place], but he is unsure of the name. Related Data Home Medications ?Medication ?Instructions ?Recorded ?Confirmed ?Last Taken ?Type cholecalciferol (vitamin D3) 25 25 mcg PO DAILY 09/08/24 10/25/24 10/25/24 05:00 History mcg (1,000 unit) capsule 25 mcg docusate sodium 100 mg capsule 100 mg PO DAILY PRN constipation 09/08/24 10/25/24 10/24/24 08:00 History (Stool Softener) 100 mg eplerenone 25 mg tablet 25 mg PO DAILY 09/08/24 10/25/24 10/25/24 08:00 History 25 mg pregabalin 150 mg capsule 150 mg PO BID 09/08/24 10/25/24 10/25/24 08:00 History 150 mg Allergies Allergy/AdvReac Type Severity Reaction Status Date / Time No Known Allergies Allergy Verified 10/09/24 08:55 Review of Systems Review of Systems: All systems reviewed & are unremarkable except as noted in HPI and below PMFSH Past Medical History Medical History Pacemaker Social History Social History Years smoked: 30 Smoking status: Former smoker Tobacco type: cigarettes Second hand tobacco smoke exposure: No Alcohol intake: current Drinks per week: 1 Substance use: never Do You Feel Safe in your Home?: Yes Lack of Transportation: No Lack of Food: Never True Current Housing: I Have Housing Concerned About Future Housing: No Difficulty Paying Gas/Electric Bills: No Difficulty Paying for Meds: No Currently Unemployed: No Education: Trade/Vocational Certificate Difficulty w/ Childcare or Family Care: No Living arrangements: with family Occupation/Education: unemployed Gender identity (if verbalized by the patient): Male Sexual Orientation (if Verbalized by the Patient): Straight or Heterosexual Spiritual care concerns: Yes Agree to blood products: Yes Exam Narrative: APPEARANCE: Well appearing, no pain, no distress, well-nourished. HEAD: normocephalic, atraumatic. EYES: PERRLA/EOMI, conjunctivae clear. NOSE: Normal no drainage EARS:TMS clear with good light reflex. THROAT: Pharynx clear, no exudate. NECK: Supple. No adenopathy, no masses. RESPIRATORY: Airway patent, respirations nonlabored. Clear to auscultation bilaterally, no rales, rhonchi, wheezing. CARDIOVASCULAR: Regular rate and rhythm without murmurs rubs or gallops. ABDOMINAL: Soft, nontender, nondistended, normal bowel sounds MUSCULOSKELETAL: Moves all extremities. Strength/ROM intact, No edema, No calf tenderness. NEURO: Alert. Cranial nerves II through XII intact. Good gait. Good coordination SKIN: Warm, dry. Normal Color Rectal exam: Hemoccult positive brown stool Course Vital Signs Vital signs: Vital Signs Temperature 97.4 F L 10/25/24 12:48 Pulse Rate 66 10/25/24 12:48 Respiratory Rate 17 10/25/24 12:48 Blood Pressure 137/65 10/25/24 12:48 Pulse Oximetry 100 10/25/24 12:48 Oxygen Delivery Room Air 10/25/24 12:48 Temperature 98.1 F 10/25/24 18:34 Pulse Rate 63 10/25/24 18:34 Respiratory Rate 16 10/25/24 18:34 Blood Pressure 140/71 10/25/24 18:34 Pulse Oximetry 100 10/25/24 18:34 Oxygen Delivery Room Air 10/25/24 13:18 Medical Decision Making MDM Narrative Medical decision making narrative: 89-year-old male presenting to the emergency department for evaluation for exertional shortness of breath. Patient's lungs are clear to auscultation. Patient does have a paced rhythm at 60 beats per minute. Evaluation patient denies any chest pain, chest tightness, shortness of breath. Patient states this is only with exertion. CTA pulmonary embolism study was ordered to rule out for PE. CTA was negative for pulmonary embolism but did show evidence of cholelithiasis and ultrasound was recommended. Ultrasound did show further evidence cholelithiasis and was concerning for possible distal common bile duct stone. Patient has no sonographic Hodges sign, no tenderness to palpation of his abdomen. Patient had normal AST ALT alk-phos T bili and lipase. Patient was Hemoccult positive on his rectal exam with Hemoccult positive brown stool. Patient does take Eliquis and Plavix. Patient denies any rectal bleeding but family member states he has had intermittent rectal bleeding. Was consulted primarily for the concern for rectal bleeding, Dr. Khan was also informed on the results of the CT and ultrasound concerning for possible common bile duct stone. Patient was transfused with 1 unit of packed red blood cells on iron studies were ordered. Case was discussed with the hospitalist patient was admitted to the IMU. Critical Care Procedure Note Authorized and Performed by: Kulwant Cantu Total critical care time: Approximately 36 minutes Due to a high probability of clinically significant, life threatening deterioration, the patient required my highest level of preparedness to intervene emergently and I personally spent this critical care time directly and personally managing the patient. This critical care time included obtaining a history; examining the patient; pulse oximetry; ordering and review of studies; arranging urgent treatment with development of a management plan; evaluation of patient's response to treatment; frequent reassessment; and, discussions with other providers. This critical care time was performed to assess and manage the high probability of imminent, life-threatening deterioration that could result in multi-organ failure. It was exclusive of separately billable procedures and treating other patients and teaching time. Please see MDM section and the rest of the note for further information on patient assessment and treatment. Differential Diagnosis Differential Diagnosis: ACS, pulmonary embolism, pneumonia, pneumothorax, cholecystitis, common bile duct obstruction, pancreatitis Vital Signs Vital Signs: Vital Signs Temperature 97.4 F L 10/25/24 12:48 Pulse Rate 66 10/25/24 12:48 Respiratory Rate 17 10/25/24 12:48 Blood Pressure 137/65 10/25/24 12:48 Pulse Oximetry 100 10/25/24 12:48 Oxygen Delivery Room Air 10/25/24 12:48 Temperature 98.1 F 10/25/24 18:34 Pulse Rate 63 10/25/24 18:34 Respiratory Rate 16 10/25/24 18:34 Blood Pressure 140/71 10/25/24 18:34 Pulse Oximetry 100 10/25/24 18:34 Oxygen Delivery Room Air 10/25/24 13:18 Lab Data Lab results reviewed: Yes I reviewed the patient's lab results. 10/25/24 13:05 10/25/24 13:05 Labs: Lab Results 10/25/24 Range/Units 13:05 WBC 5.8 (4.5-10.0) K/mm3 RBC 2.78 L (4.6-6.20) M/mm3 Hgb 7.2 L (14.0-18.0) g/dL Hct 24.0 L (42.0-52.0) % MCV 86.3 (80-100) fl MCH 25.9 L (26-34) pg MCHC 30.0 L (32-36) g/dl RDW 16.5 H (11.5-14.5) % Plt Count 93 L (150-375) k/mm3 MPV 12.4 H (7.4-10.4) fl Immature Gran % (Auto) 0.7 H (0-0.5) % Neut % (Auto) 70.6 (45.5-73.1) % Lymph % (Auto) 14.9 L (18.3-44.2) % [place] % (Auto) 12.1 H (2.6-8.5) % Eos % (Auto) 1.4 (0-4.4) % Baso % (Auto) 0.3 (0.2-1.2) % Lymph # (Auto) 0.86 L (0.9-3.2) K/mm3 [place] # (Auto) 0.7 H (0.1-0.6) K/mm3 Eos # (Auto) 0.1 (0-0.3) K/mm3 Baso # (Auto) 0.0 (0.0-0.1) K/mm3 Abs Immat Gran (auto) 0.04 H (0.00-0.031) K/mm3 Absolute Neuts (auto) 4.1 (1.3-6.7) K/mm3 Absolute Nucleated RBC 0.000 (0.0-0.012) K/mm3 Band Neutrophils % Not Reportable Nucleated RBC % 0.0 (0.0-0.2) % Platelet Estimate Decreased (Adequate) % Immature Plt Fraction 9.2 (0.9-11.2) % Hypochromasia 1+ Anisocytosis 1+ Ovalocytes 1+ Schistocytes None seen PT 16.9 H (11.1-14.7) Seconds INR 1.4 APTT 38.4 H (22.3-36.8) Seconds Sodium 137 (137-145) mmol/L Potassium 4.1 (3.4-5.0) mmol/L Chloride 106 (98-107) mmol/L Carbon Dioxide 23 (22-30) mmol/L Anion Gap 8 (4-12) mmol/L BUN 21 H (9-20) mg/dL Creatinine 1.03 (0.7-1.3) mg/dL Estim Creat Clear Calc 45 ml/min Estimated GFR > 60 (59 - ) Glucose 87 (65-110) mg/dL Calcium 9.3 (8.4-10.2) mg/dL Total Bilirubin 1.1 (0.2-1.3) mg/dL AST 29 (17-59) U/L ALT 27 (6-50) U/L Alkaline Phosphatase 62 (38-126) U/L Troponin I < 0.012 (0.000-0.034) ng/mL Total Protein 7.2 (6.3-8.2) g/dL Albumin 4.1 (3.5-5.1) g/dL Lipase 105 (23-300) U/L Imaging Data Radiologist's impression: Impressions Chest CTA 10/25/24 14:57 IMPRESSION: No CT evidence of acute pulmonary embolus. Mild scattered edema/interstitial change. Right lower lobe bronchial debris, as can be seen with airways disease, mucous plugging, or aspiration. Pleural calcifications, possibly secondary to asbestos related pleural disease or old hemothoraces. Cardiomegaly. Descending thoracic aortic ectasia. Cholelithiasis with mild pericholecystic inflammatory change, correlate for symptoms of right upper quadrant pain and with biliary labs abnormalities. Consider right upper quadrant ultrasound. ADDENDUM: 10/25/24 1630 5 mm calcification in the pancreatic head, may represent choledocholithiasis, with gallbladder inflammatory change and wall thickening (also seen in subsequent ultrasound), without significant biliary duct dilation at this time. Results reported telephonically to Dr. Cantu by Dr. Jackson at 4:23 PM on 10/25/2024. Critical Care Time Critical Care Time Critical Care Time: Yes Total Critical Care Time: 36 Discharge Plan Discharge Clinical Impression: Chest pain, GI bleed, Anemia Patient Disposition: Still a Patient Condition: Serious Quality HEART score for chest pain patients History: moderately suspicious ECG: normal Age: > or = to 65 years Risk factors: > or = to 3 risk factors of atherosclerotic disease Troponin: < or = to 1x normal limit Heart score: 5
[2024-10-25 13:33] LABS: Alanine Aminotransferase 27 U/L (6-50); Albumin Level 4.1 g/dL (3.5-5.1); Alkaline Phosphatase 62 U/L (38-126); Anion Gap 8 mmol/L (4-12); Aspartate Amino Transferase 29 U/L (17-59); Bilirubin,Total 1.1 mg/dL (0.2-1.3); Blood Urea Nitrogen 21 mg/dL (9-20); Calcium 9.3 mg/dL (8.4-10.2); Carbon Dioxide 23 mmol/L (22-30); Chloride 106 mmol/L (98-107); Estimated CRCL calculation 45 ml/min; Estimated Glomerular Filt Rate > 60; Glucose 87 mg/dL (65-110); Lipase 105 U/L (23-300); Potassium 4.1 mmol/L (3.4-5.0); Sodium 137 mmol/L (137-145); Total Protein 7.2 g/dL (6.3-8.2)
[2024-10-25 13:40] LABS: INR 1.4; Prothrombin Time 16.9 Seconds (11.1-14.7)
[2024-10-25 13:41] LABS: Partial Thromboplastin Time 38.4 Seconds (22.3-36.8)
[2024-10-25 13:45] LABS: Troponin I < 0.012 ng/mL (0.000-0.034)
[2024-10-25 13:47] LABS: Anisocytosis 1+; Ovalocytes 1+; Schistocytes None Seen
[2024-10-25 13:48] LABS: Hypochromasia 1+
--- NOTE | 2024-10-25 15:22 | ECG_ITS ---
Test Date: 2024-10-25 15:57:54 Measurements Intervals [place] Rate: 60 P: 0 WI: 0 QRS: -60 QRSD: 182 T: 108 QT: 468 QTc: 468 Interpretive Statements ELECTRONIC VENTRICULAR PACEMAKER NO FURTHER INTERPRETATION IS POSSIBLE ATYPICAL ECG Compared to ECG 10/25/2024 12:52:04 No significant changes Electronically Signed On 10-25-2024 17:39:21 CDT by Sheldon Toth D.O.
--- NOTE | 2024-10-25 15:29 | P.HP_ITS ---
H&P: HPI History of Present Illness Date/Time: 10/25/24 15:29 Chief Complaint: Chest pain Narrative: 89-year-old male presents the hospital chest pain and exertional shortness of breath. Patient presented to the hospital about a week ago with TIA symptoms workup was negative. Patient has had vague complaints over the last few weeks. Patient has complained of extreme fatigue that has progressively gotten worse over the last week. He states that he is often short of breath and can no longer tolerate daily activities. Patient denies fevers chills nausea or vomiting. Lab work shows a hemoglobin of 7.2, last month is hemoglobin is 8.8, BUN is 21 and troponin negative. Chest CTA shows cholelithiasis with mild inflammation. Cardiomegaly. Negative for PE. Right lower lobe bronchi debrided possibly mu cus plugging or aspiration. EKG shows ventricular pacemaker rhythm rate of 60. Patient was Hemoccult positive on rectal exam. GI was consulted and 1 unit of RBCs disorder. Review of Systems Review of Systems: 12 systems were reviewed and are negativ e except for as per HPI. [facility] Past Medical History Medical History Pacemaker Social History Social History Years smoked: 30 Smoking status: Former smoker Tobacco type: cigarettes Second hand tobacco smoke exposure: No Alcohol intake: current Drinks per week: 1 Substance use: never Do You Feel Safe in your Home?: Yes Lack of Transportation: No Lack of Food: Never True Current Housing: I Have Housing Concerned About Future Housing: No Difficulty Paying Gas/Electric Bills: No Difficulty Paying for Meds: No Currently Unemployed: No Education: Trade/Vocational Certificate Difficulty w/ Childcare or Family Care: No Living arrangements: with family Occupation/Education: unemployed Gender identity (if verbalized by the patient): Male Sexual Orientation (if Verbalized by the Patient): Straight or Heterosexual Spiritual care concerns: Yes Agree to blood products: Yes Meds Home Medications and Allergies Home Medications ?Medication ?Instructions ?Recorded ?Confirmed ?Type cholecalciferol (vitamin D3) 25 25 mcg PO DAILY 09/08/24 10/25/24 History mcg (1,000 unit) capsule docusate sodium 100 mg capsule 100 mg PO DAILY PRN constipation 09/08/24 10/25/24 History (Stool Softener) eplerenone 25 mg tablet 25 mg PO DAILY 09/08/24 10/25/24 History pregabalin 150 mg capsule 150 mg PO BID 09/08/24 10/25/24 History amitriptyline 10 mg tablet 10 mg PO QHS #90 tabs 10/21/24 10/25/24 Rx apixaban 5 mg tablet (Eliquis) 5 mg PO BID #180 tabs 10/21/24 10/25/24 Rx clopidogrel 75 mg tablet 75 mg PO DAILY #90 tabs 10/21/24 10/25/24 Rx levothyroxine 75 mcg tablet 75 mcg PO DAILY #90 tabs 10/21/24 10/25/24 Rx (Levoxyl) lisinopril 10 mg tablet 10 mg PO DAILY #90 tabs 10/21/24 10/25/24 Rx simvastatin 80 mg tablet 80 mg PO DAILY #90 tabs 10/21/24 10/25/24 Rx Allergies Allergy/AdvReac Type Severity Reaction Status Date / Time No Known Allergies Allergy Verified 10/09/24 08:55 Vital Signs Vital Signs - 24 hr 10/25/24 12:48 10/25/24 13:18 10/25/24 14:50 Temperature 97.4 F L Pulse Rate 66 60 Respiratory Rate 17 Blood Pressure 137/65 Pulse Oximetry 100 Oxygen Delivery Room Air Room Air 10/25/24 14:51 Temperature Pulse Rate 60 Respiratory Rate 17 Blood Pressure 129/61 Pulse Oximetry 100 Oxygen Delivery Exam Narrative: General: well appearing, appears stated age. HEENT: normocephalic, atraumatic. Mucous membranes moist. EOMI, PERRLA, bilateral sclera anicteric, no conjunctival injection. Neck supple without JVD, lymphadenopathy, or bruit. Respiratory: clear to ascultation bilaterally. No rales/rhonic/wheezes. Cardiovascular: Regular rate and rhythm, normal S1-S2 upon ascultation. No murmu rs, rubs, or clicks. PMI is nondisplaced, capillary refill less than 3 second. Abdomen: Soft, round, no pulsatile masses, nondistended and nontender. No rebound, no guarding. No CVA tenderness, no hepatosplenomegaly. Bowel sounds present to all four quadrants. No high pitch or tinkling sounds, resonant to percussion. Extremities: No cyanosis, clubbing, or edema present. Pulses are palpable 2/2. Active ROM to all four extremities. Neuro: Alert and orientated x 4. PERRLA. Cranial nerves 2-12 intact without focal deficit. Skin: Warm, dry, and intact, without rash, erythema, or lesion. Psych: pleasant, cooperative, normal speech, normal affect, no hallucinations, no dysarthia H&P: Results Labs Labs: Short CBC 10/25/24 Range/Units 13:05 WBC 5.8 (4.5-10.0) K/mm3 Hgb 7.2 L (14.0-18.0) g/dL Hct 24.0 L (42.0-52.0) % Plt Count 93 L (150-375) k/mm3 BMP 10/25/24 13:05 Sodium 137 Potassium 4.1 Chloride 106 Carbon Dioxide 23 BUN 21 H Creatinine 1.03 Glucose 87 Calcium 9.3 Cardiac Enzymes 10/25/24 Range/Units 13:05 Troponin I < 0.012 (0.000-0.034) ng/mL Liver Function 10/25/24 Range/Units 13:05 Total Bilirubin 1.1 (0.2-1.3) mg/dL AST 29 (17-59) U/L ALT 27 (6-50) U/L Alkaline Phosphatase 62 (38-126) U/L Albumin 4.1 (3.5-5.1) g/dL Assessment and Plan Assessment and plan (1) Chest pain: Code(s): R07.9 - Chest pain, unspecified Status: Acute Assessment and Plan: Patient denies chest pain Troponins are negative Ventricular pacemaker rhythm (2) GI bleed: Code(s): K92.2 - Gastrointestinal hemorrhage, unspecified Status: Acute Assessment and Plan: GI consulted NPO midnight Holding Eliquis and Plavix Bowel prep Plan for procedure tomorrow (3) Anemia: Code(s): D64.9 - Anemia, unspecified Status: Acute Assessment and Plan: Transfusing 1 unit of blood for symptomatic anemia Transfuse for hemoglobin less than 7 or symptomatic No signs of acute bleed (4) Cholelithiasis: Code(s): K80.20 - Calculus of gallbladder without cholecystitis without obstruction Status: Acute Assessment and Plan: Patient is asymptomatic GI are as tolerated consulted for patient Ultrasound pending (5) CAD (coronary artery disease): Code(s): I25.10 - Atherosclerotic heart disease of [place] coronary artery without angina pectoris Status: Acute Assessment and Plan: Currently holding Plavix and Eliquis for procedure (6) Hypertension: Code(s): I10 - Essential (primary) hypertension Status: Acute Assessment and Plan: Patient may bring in eplerenone from home Continue lisinopril (7) Hypothyroidism: Code(s): E03.9 - Hypothyroidism, unspecified Status: Acute Assessment and Plan: Continue levothyroxine (8) Iron deficiency anemia: Code(s): D50.9 - Iron deficiency anemia, unspecified Status: Acute Assessment and Plan: 300 mg of IV iron x2, patient will need a total of 900 mg of iron Quality VTE Prophylaxis VTE prophylaxis: mechanical ordered Hospitalist MIPS Advance Care Plan I have confirmed that the patient's Advanced Care Plan is present, code status is documented, or surrogate decision maker is listed in patient medical record.: Yes Medication Reconciliation I have utilized all available resources to obtain, update and review the patients current medications (includes all prescriptions, OTC, herbals, cannabis, and nutritional supplements).: Yes
[2024-10-25 16:13] LABS: Iron 27 ug/dL (49-181)
[2024-10-25 16:14] LABS: Troponin I < 0.012 ng/mL (0.000-0.034)
[2024-10-25 16:22] LABS: Percent Iron Saturation 6 % (20-50)
[2024-10-25] MEDS: SODIUM CHLORIDE 0.9% IV 250 ML 30 ML IV CONT (17:00)
--- NOTE | 2024-10-25 17:33 | PC.NURSE ---
Patient arrived to room. Tele applied. Blood consent confirmed.
[2024-10-25] MEDS: TUBING, BLOOD PLUM PUMP TUBING 1 EACH XX (18:01)
--- NOTE | 2024-10-25 19:29 | P.CONGI_ITS ---
Assessment and Plan Assessment and plan (1) Anemia: Code(s): D64.9 - Anemia, unspecified Status: Acute Assessment and Plan: The patient has symptomatic iron deficiency anemia, probably aggravated by concomitant anticoagulation and anti aggregation. Differential diagnosis includes: Peptic ulcer disease, erosive gastritis, large hiatal hernia with erosions, gastric or colonic neoplasm, arteriovenous malformations to name the most frequent. Will prep tonight for colonoscopy tomorrow afternoon. Case discussed with hospitalist on-call. GI Consult Note Consult date/time: 10/25/24 19:29 Reason for consult: iron deficiency anemia -heme positive stools HPI: James Cotton is a 89 year old male with a history of atrial fibrillation, coronary artery disease status post CABG in 1987, and stent placement, status post CVA and status post pacemaker, receiving Eliquis and Plavix. he was admitted this afternoon complaining of shortness of breath and dyspnea on exertion along with pressure-like chest pain. His laboratory data in the ER showed: White count 5.8, hemoglobin 7.2, hematocrit 24, platelet count 93, INR 1.4, sodium 137, potassium 4.1, creatinine 1.03, iron saturation 6%. CT angiogram ruled out pulmonary embolus and cardiac enzymes are negative. He is admitted for symptomatic anemia and is receiving 1 unit of packed red blood cells. Review of Systems 2 Review of Systems: All systems reviewed & are unremarkable except as noted in HPI and below PMFSH Past Medical History Medical History Pacemaker Social History Social History Years smoked: 30 Smoking status: Former smoker Tobacco type: cigarettes Second hand tobacco smoke exposure: No Alcohol intake: current Drinks per week: 1 Substance use: never Do You Feel Safe in your Home?: Yes Lack of Transportation: No Lack of Food: Never True Current Housing: I Have Housing Concerned About Future Housing: No Difficulty Paying Gas/Electric Bills: No Difficulty Paying for Meds: No Currently Unemployed: No Education: Trade/Vocational Certificate Difficulty w/ Childcare or Family Care: No Living arrangements: with family Occupation/Education: unemployed Gender identity (if verbalized by the patient): Male Sexual Orientation (if Verbalized by the Patient): Straight or Heterosexual Spiritual care concerns: Yes Agree to blood products: Yes Meds Home Medications and Allergies Home Medications ?Medication ?Instructions ?Recorded ?Confirmed ?Type cholecalciferol (vitamin D3) 25 25 mcg PO DAILY 09/08/24 10/25/24 History mcg (1,000 unit) capsule docusate sodium 100 mg capsule 100 mg PO DAILY PRN constipation 09/08/24 10/25/24 History (Stool Softener) eplerenone 25 mg tablet 25 mg PO DAILY 09/08/24 10/25/24 History pregabalin 150 mg capsule 150 mg PO BID 09/08/24 10/25/24 History amitriptyline 10 mg tablet 10 mg PO QHS #90 tabs 10/21/24 10/25/24 Rx apixaban 5 mg tablet (Eliquis) 5 mg PO BID #180 tabs 10/21/24 10/25/24 Rx clopidogrel 75 mg tablet 75 mg PO DAILY #90 tabs 10/21/24 10/25/24 Rx levothyroxine 75 mcg tablet 75 mcg PO DAILY #90 tabs 10/21/24 10/25/24 Rx (Levoxyl) lisinopril 10 mg tablet 10 mg PO DAILY #90 tabs 10/21/24 10/25/24 Rx simvastatin 80 mg tablet 80 mg PO DAILY #90 tabs 10/21/24 10/25/24 Rx Allergies Allergy/AdvReac Type Severity Reaction Status Date / Time No Known Allergies Allergy Verified 10/09/24 08:55 Vital Signs Vital Signs - 24 hr 10/25/24 12:48 10/25/24 13:18 10/25/24 14:50 Temperature 97.4 F L Pulse Rate 66 60 Respiratory Rate 17 Blood Pressure 137/65 Pulse Oximetry 100 Oxygen Delivery Room Air Room Air 10/25/24 14:51 10/25/24 15:49 10/25/24 16:36 Temperature 97.7 F Pulse Rate 60 60 60 Respiratory Rate 17 14 18 Blood Pressure 129/61 128/66 139/69 Pulse Oximetry 100 98 97 Oxygen Delivery 10/25/24 17:10 10/25/24 17:34 10/25/24 18:34 Temperature 97.6 F 98.2 F 98.1 F Pulse Rate 51 L 59 L 63 Respiratory Rate 18 18 16 Blood Pressure 141/67 H 134/60 140/71 Pulse Oximetry 100 95 100 Oxygen Delivery Exam 2 Const: General: cooperative and healthy appearing Resp: Effort & Inspection: normal respiratory effort and able to speak in complete sentences Auscultation: clear to auscultation bilaterally Cardio: Rate: regular rate Rhythm: regular rhythm GI: Inspection: normal to inspection GI Palp: No No hepatosplenomegaly present Auscultation: normal bowel sounds Rectal Exam: deferred Skin: General skin exam: normal color Psych: Appearance: grossly normal Mental Status: mental status grossly normal Results Labs 10/25/24 13:05 10/25/24 13:05 Labs: Short CBC 10/25/24 Range/Units 13:05 WBC 5.8 (4.5-10.0) K/mm3 Hgb 7.2 L (14.0-18.0) g/dL Hct 24.0 L (42.0-52.0) % Plt Count 93 L (150-375) k/mm3 BMP 10/25/24 13:05 Sodium 137 Potassium 4.1 Chloride 106 Carbon Dioxide 23 BUN 21 H Creatinine 1.03 Glucose 87 Calcium 9.3 Cardiac Enzymes 10/25/24 10/25/24 Range/Units 13:05 15:48 Troponin I < 0.012 < 0.012 (0.000-0.034) ng/mL Liver Function 10/25/24 Range/Units 13:05 Total Bilirubin 1.1 (0.2-1.3) mg/dL AST 29 (17-59) U/L ALT 27 (6-50) U/L Alkaline Phosphatase 62 (38-126) U/L Albumin 4.1 (3.5-5.1) g/dL
[2024-10-25 20:34] LABS: Hematocrit 27.8 % (42.0-52.0); Hemoglobin 8.5 g/dL (14.0-18.0)
[2024-10-25] MEDS: IRON SUCROSE COMPLEX 200 MG, IRON SUCROSE COMPLEX 100 MG in SODIUM CHLORIDE 0.9% IV 250 ML 176.67 MG IVPB (20:53)
[2024-10-25] MEDS: AMITRIPTYLINE HCL 10 MG TABLET PO (20:54)
[2024-10-25 21:05] LABS: Troponin I < 0.012 ng/mL (0.000-0.034)
[2024-10-26] VITALS (19 sets, daily range): BP systolic 102–134; BP diastolic 44–85; PULSE 59–64; RESP 16–27; TEMP 36.2–36.8; O2SAT 95–100
[2024-10-26 04:17] LABS: Hematocrit 25.6 % (42.0-52.0); Hemoglobin 7.6 g/dL (14.0-18.0); Immature Granulocyte Percent A 0.4 % (0-0.5); Immature Platelet Fraction Pct 8.3 % (0.9-11.2); Lymphocytes Absolute Auto 0.79 K/mm3 (0.9-3.2); Mean Corpuscular HGB Conc 29.7 g/dl (32-36); Mean Corpuscular Hemoglobin 26.1 pg (26-34); Mean Corpuscular Volume 88.0 fl (80-100); Nucleated Red Blood Cells Absolute Auto 0.020 K/mm3 (0.0-0.012); Nucleated Red Blood Cells Perc 0.4 % (0.0-0.2); Platelet Count Result 84 k/mm3 (150-375); Red Blood Count 2.91 M/mm3 (4.6-6.20); White Blood Count 5.4 K/mm3 (4.5-10.0)
[2024-10-26 04:36] LABS: Anion Gap 7 mmol/L (4-12); Blood Urea Nitrogen 17 mg/dL (9-20); Calcium 8.6 mg/dL (8.4-10.2); Carbon Dioxide 23 mmol/L (22-30); Chloride 108 mmol/L (98-107); Estimated CRCL calculation 48 ml/min; Estimated Glomerular Filt Rate > 60; Glucose 98 mg/dL (65-110); Potassium 4.1 mmol/L (3.4-5.0); Sodium 138 mmol/L (137-145)
[2024-10-26 04:40] LABS: Schistocytes None Seen
[2024-10-26 04:42] LABS: Hypochromasia 1+
[2024-10-26] MEDS: IRON SUCROSE COMPLEX 200 MG, IRON SUCROSE COMPLEX 100 MG in SODIUM CHLORIDE 0.9% IV 250 ML 176.67 MG IVPB (08:39)
--- NOTE | 2024-10-26 08:43 | P.PNIM_ITS ---
Progress Note: A&P Assessment and Plan (1) Chest pain: Code(s): R07.9 - Chest pain, unspecified Status: Acute Assessment and Plan: Patient denies chest pain Troponins are negative Ventricular pacemaker rhythm (2) GI bleed: Code(s): K92.2 - Gastrointestinal hemorrhage, unspecified Status: Acute Assessment and Plan: GI consulted NPO midnight Holding Eliquis and Plavix Bowel prep Plan for procedure tomorrow (3) Anemia: Code(s): D64.9 - Anemia, unspecified Status: Acute Assessment and Plan: Transfusing 1 unit of blood for symptomatic anemia Transfuse for hemoglobin less than 7 or symptomatic No signs of acute bleed (4) Cholelithiasis: Code(s): K80.20 - Calculus of gallbladder without cholecystitis without obstruction Status: Acute Assessment and Plan: Patient is asymptomatic GI are as tolerated consulted for patient Ultrasound pending (5) CAD (coronary artery disease): Code(s): I25.10 - Atherosclerotic heart disease of [place] coronary artery without angina pectoris Status: Acute Assessment and Plan: Currently holding Plavix and Eliquis for procedure (6) Hypertension: Code(s): I10 - Essential (primary) hypertension Status: Acute Assessment and Plan: Patient may bring in eplerenone from home Continue lisinopril (7) Hypothyroidism: Code(s): E03.9 - Hypothyroidism, unspecified Status: Acute Assessment and Plan: Continue levothyroxine (8) Iron deficiency anemia: Code(s): D50.9 - Iron deficiency anemia, unspecified Status: Acute Assessment and Plan: 300 mg of IV iron x2, patient will need a total of 900 mg of iron Subjective Date/time seen: 10/26/24 08:43 Interval history: Colonoscopy at 3 pm. No acute overnight Review of Systems Review of Systems: 12 systems were reviewed and are negativ e except for as per HPI. Exam Narrative: General: well appearing, appears stated age. HEENT: normocephalic, atraumatic. Mucous membranes moist. EOMI, PERRLA, bilateral sclera anicteric, no conjunctival injection. Neck supple without JVD, lymphadenopathy, or bruit. Respiratory: clear to ascultation bilaterally. No rales/rhonic/wheezes. Cardiovascular: Regular rate and rhythm, normal S1-S2 upon ascultation. No murmurs, rubs, or clicks. PMI is nondisplaced, capillary refill less than 3 s econd. Abdomen: Soft, round, no pulsatile masses, nondistended and nontender. No rebound, no guarding. No CVA tenderness, no hepatosplenomegaly. Bowel sounds present to all four quadrants. No high pitch or tinkling sounds, resonant to percussion. Extremities: No cyanosis, clubbing, or edema present. Pulses are palpable 2/2. Active ROM to all four extremities. Neuro: Alert and orientated x 4. PERRLA. Cranial nerves 2-12 intact without focal deficit. Skin: Warm, dry, and intact, without rash, erythema, or lesion. Psych: pleasant, cooperative, normal speech, normal affect, no hallucinations, no dysarthia Objective Data Vital Signs Vital Signs: Vital Signs - 24 hr 10/25/24 12:48 10/25/24 13:18 10/25/24 14:50 Temperature 97.4 F L Pulse Rate 66 60 Respiratory Rate 17 Blood Pressure 137/65 Pulse Oximetry 100 Oxygen Delivery Room Air Room Air Fraction of Inspired Oxygen 10/25/24 14:51 10/25/24 15:49 10/25/24 16:36 Temperature 97.7 F Pulse Rate 60 60 60 Respiratory Rate 17 14 18 Blood Pressure 129/61 128/66 139/69 Pulse Oximetry 100 98 97 Oxygen Delivery Fraction of Inspired Oxygen 10/25/24 17:10 10/25/24 17:34 10/25/24 18:34 Temperature 97.6 F 98.2 F 98.1 F Pulse Rate 51 L 59 L 63 Respiratory Rate 18 18 16 Blood Pressure 141/67 H 134/60 140/71 Pulse Oximetry 100 95 100 Oxygen Delivery Fraction of Inspired Oxygen 10/25/24 20:00 10/25/24 20:00 10/25/24 20:30 Temperature 97.6 F Pulse Rate 60 60 70 Respiratory Rate 16 20 Blood Pressure 118/70 Pulse Oximetry 100 99 Oxygen Delivery Room Air Fraction of Inspired Oxygen 21 10/25/24 22:00 10/25/24 23:41 10/26/24 00:00 Temperature 97.7 F Pulse Rate 60 60 64 Respiratory Rate 16 Blood Pressure 131/64 Pulse Oximetry 97 Oxygen Delivery Fraction of Inspired Oxygen 10/26/24 02:00 10/26/24 04:00 10/26/24 04:00 Temperature 97.7 F Pulse Rate 60 61 59 L Respiratory Rate 16 Blood Pressure 134/56 L Pulse Oximetry 99 Oxygen Delivery Fraction of Inspired Oxygen 10/26/24 06:00 10/26/24 07:45 Temperature 98.2 F Pulse Rate 61 60 Respiratory Rate 18 Blood Pressure 128/71 Pulse Oximetry 95 Oxygen Delivery Fraction of Inspired Oxygen Intake/Output Intake/Output: Intake & Output 10/23/24 10/24/24 10/25/24 10/26/24 23:59 23:59 23:59 23:59 Intake Total 965 Output Total 550 375 Balance 415 -375 Meds/Results Medications: Active Medications Generic Name Dose Route Start Last Admin Trade Name Freq PRN Reason Stop Dose Admin Amitriptyline HCl 10 mg 10/25/24 21:00 10/25/24 20:54 Amitriptyline Hcl 10 Mg Tablet PO 10 mg QHS [facility] Administration Iron Sucrose 200 mg/ Iron 265 mls @ 176.667 mls/hr 10/26/24 09:00 Sucrose 100 mg/ Sodium IVPB 10/26/24 10:29 Chloride ONCE ONE Levothyroxine Sodium 75 mcg 10/26/24 06:30 Levothyroxine Sodium 75 Mcg Tablet PO DAILY@0630 [facility] Lisinopril 10 mg 10/26/24 09:00 Lisinopril 10 Mg Tablet PO DAILY [facility] Miscellaneous Information 0 each 10/25/24 22:25 Eplerenone 25 Mg Tablet- Nonformulary. Please Obtain A Home Supply If Possible Or Hold Whi XX 11/24/24 22:24 CLARIFY [facility] Pregabalin 150 mg 10/26/24 09:00 Pregabalin (*Crx) 75 Mg Capsule PO BID [facility] Simvastatin 80 mg 10/26/24 09:00 Simvastatin 20 Mg Tablet PO DAILY [facility] Radiology Results: ITS Impressions Chest CTA 10/25/24 14:57 IMPRESSION: No CT evidence of acute pulmonary embolus. Mild scattered edema/interstitial change. Right lower lobe bronchial debris, as can be seen with airways disease, mucous plugging, or aspiration. Pleural calcifications, possibly secondary to asbestos related pleural disease or old hemothoraces. Cardiomegaly. Descending thoracic aortic ectasia. Cholelithiasis with mild pericholecystic inflammatory change, correlate for symptoms of right upper quadrant pain and with biliary labs abnormalities. Consider right upper quadrant ultrasound. ADDENDUM: 10/25/24 1630 5 mm calcification in the pancreatic head, may represent choledocholithiasis, with gallbladder inflammatory change and wall thickening (also seen in subsequent ultrasound), without significant biliary duct dilation at this time. Results reported telephonically to Dr. Cantu by Dr. Jackson at 4:23 PM on 10/25/2024. Abdomen Ultrasound 10/25/24 16:14 IMPRESSION: Gallbladder wall thickening, a nonspecific finding. Negative sonographic Hodges sign. No biliary duct dilation. 5 mm calcification in the pancreatic head, may represent a distal common bile duct stone. Labs Labs: Laboratory Results - last 24 hr 10/25/24 10/25/24 10/25/24 13:05 15:48 20:26 WBC 5.8 RBC 2.78 L Hgb 7.2 L Hct 24.0 L MCV 86.3 MCH 25.9 L MCHC 30.0 L RDW 16.5 H Plt Count 93 L MPV 12.4 H Immature Gran % (Auto) 0.7 H Neut % (Auto) 70.6 Lymph % (Auto) 14.9 L [place] % (Auto) 12.1 H Eos % (Auto) 1.4 Baso % (Auto) 0.3 Lymph # (Auto) 0.86 L [place] # (Auto) 0.7 H Eos # (Auto) 0.1 Baso # (Auto) 0.0 Abs Immat Gran (auto) 0.04 H Absolute Neuts (auto) 4.1 Absolute Nucleated RBC 0.000 Band Neutrophils % Not Reportable Nucleated RBC % 0.0 Platelet Estimate Decreased % Immature Plt Fraction 9.2 Hypochromasia 1+ Anisocytosis 1+ Ovalocytes 1+ Schistocytes None seen PT 16.9 H INR 1.4 APTT 38.4 H Sodium 137 Potassium 4.1 Chloride 106 Carbon Dioxide 23 Anion Gap 8 BUN 21 H Creatinine 1.03 Estim Creat Clear Calc 45 Estimated GFR > 60 Glucose 87 Calcium 9.3 Iron 27 L TIBC 462 % Saturation 6 L Total Bilirubin 1.1 AST 29 ALT 27 Alkaline Phosphatase 62 Troponin I < 0.012 < 0.012 < 0.012 Total Protein 7.2 Albumin 4.1 Lipase 105 Blood Type A Positive Antibody Screen Negative Crossmatch See Detail 10/25/24 10/26/24 20:27 03:39 WBC 5.4 RBC 2.91 L Hgb 8.5 L 7.6 L Hct 27.8 L 25.6 L MCV 88.0 MCH 26.1 MCHC 29.7 L RDW 16.3 H Plt Count 84 L MPV 11.9 H Immature Gran % (Auto) 0.4 Neut % (Auto) 70.9 Lymph % (Auto) 14.7 L [place] % (Auto) 10.8 H Eos % (Auto) 2.6 Baso % (Auto) 0.6 Lymph # (Auto) 0.79 L [place] # (Auto) 0.6 Eos # (Auto) 0.1 Baso # (Auto) 0.0 Abs Immat Gran (auto) 0.02 Absolute Neuts (auto) 3.8 Absolute Nucleated RBC 0.020 H Band Neutrophils % Not Reportable Nucleated RBC % 0.4 H Platelet Estimate Decreased % Immature Plt Fraction 8.3 Hypochromasia 1+ Anisocytosis Ovalocytes Schistocytes None seen PT INR APTT Sodium 138 Potassium 4.1 Chloride 108 H Carbon Dioxide 23 Anion Gap 7 BUN 17 Creatinine 1.03 Estim Creat Clear Calc 48 Estimated GFR > 60 Glucose 98 Calcium 8.6 Iron TIBC % Saturation Total Bilirubin AST ALT Alkaline Phosphatase Troponin I Total Protein Albumin Lipase Blood Type Antibody Screen Crossmatch Quality VTE Prophylaxis VTE prophylaxis: mechanical ordered Hospitalist MIPS Advance Care Plan I have confirmed that the patient's Advanced Care Plan is present, code status is documented, or surrogate decision maker is listed in patient medical record.: Yes Medication Reconciliation I have utilized all available resources to obtain, update and review the patients current medications (includes all prescriptions, OTC, herbals, cannabis, and nutritional supplements).: Yes
[2024-10-26] MEDS: PREGABALIN (*CRX) 75 MG CAPSULE 150 MG PO ×2 (10:09→18:44)
--- NOTE | 2024-10-26 12:33 | PHAR ---
NON FORMULARY DRUG - EPLERENONE 25MG TAB - HOME MED - VERIFIED BY PHARMACY
[2024-10-26 14:03] LABS: Hematocrit 26.0 % (42.0-52.0); Hemoglobin 7.9 g/dL (14.0-18.0)
[2024-10-26] MEDS: LACTATED RINGERS 1,000 ML 150 ML IV CONT (14:49)
--- NOTE | 2024-10-26 15:49 | SUR.PREOP ---
Dr. Khan notified of patient taking Eliquis and Plavix yesterday at 0800. Dr. Khan will proceed with procedure and no new orders given.
--- NOTE | 2024-10-26 16:23 | WPDANESEPPF ---
Anes - Initial Pre Proc Eval Procedure: Operation Date: 10/26/24 15:30 Proposed Procedures p EGD & Diagnostic Colonoscopy - Shayne Khan MD Date/Time: 10/26/24 16:23 Surgeon: Era Stanley MD Pre Op Diagnosis: anemia,chest tightness,chest pain,weakness Patient Data Age: 89 Gender: M Height: 1.73 m Weight: 95.6 kg Last Vital Signs Temp 36.2 C L 10/26/24 14:38 Pulse 60 10/26/24 14:38 Resp 18 10/26/24 14:38 BP 132/73 10/26/24 14:38 Pulse Ox 100 10/26/24 14:38 O2 Del Method Room Air 10/26/24 14:38 FiO2 21 10/25/24 20:30 Allergies Allergy/AdvReac Type Severity Reaction Status Date / Time No Known Allergies Allergy Verified 10/26/24 14:44 Home Medications ?Medication ?Instructions ?Recorded ?Confirmed ?Type cholecalciferol (vitamin D3) 25 25 mcg PO DAILY 09/08/24 10/25/24 History mcg (1,000 unit) capsule docusate sodium 100 mg capsule 100 mg PO DAILY PRN constipation 09/08/24 10/25/24 History (Stool Softener) eplerenone 25 mg tablet 25 mg PO DAILY 09/08/24 10/25/24 History pregabalin 150 mg capsule 150 mg PO BID 09/08/24 10/25/24 History amitriptyline 10 mg tablet 10 mg PO QHS #90 tabs 10/21/24 10/25/24 Rx apixaban 5 mg tablet (Eliquis) 5 mg PO BID #180 tabs 10/21/24 10/25/24 Rx clopidogrel 75 mg tablet 75 mg PO DAILY #90 tabs 10/21/24 10/25/24 Rx levothyroxine 75 mcg tablet 75 mcg PO DAILY #90 tabs 10/21/24 10/25/24 Rx (Levoxyl) lisinopril 10 mg tablet 10 mg PO DAILY #90 tabs 10/21/24 10/25/24 Rx simvastatin 80 mg tablet 80 mg PO DAILY #90 tabs 10/21/24 10/25/24 Rx Laboratory Tests 10/25/24 10/25/24 10/25/24 15:48 20:26 20:27 WBC RBC Hgb 8.5 L g/dL (14.0-18.0) Hct 27.8 L % (42.0-52.0) MCV MCH MCHC RDW Plt Count MPV Immature Gran % (Auto) Neut % (Auto) Lymph % (Auto) [place] % (Auto) Eos % (Auto) Baso % (Auto) Lymph # (Auto) [place] # (Auto) Eos # (Auto) Baso # (Auto) Abs Immat Gran (auto) Absolute Neuts (auto) Absolute Nucleated RBC Band Neutrophils % Nucleated RBC % Platelet Estimate % Immature Plt Fraction Hypochromasia Schistocytes Sodium Potassium Chloride Carbon Dioxide Anion Gap BUN Creatinine Estim Creat Clear Calc Estimated GFR Glucose Calcium Troponin I < 0.012 ng/mL (0.000-0.034) Blood Type A Positive Antibody Screen Negative Crossmatch See Detail 10/26/24 10/26/24 03:39 13:52 WBC 5.4 K/mm3 (4.5-10.0) RBC 2.91 L M/mm3 (4.6-6.20) Hgb 7.6 L g/dL 7.9 L g/dL (14.0-18.0) (14.0-18.0) Hct 25.6 L % 26.0 L % (42.0-52.0) (42.0-52.0) MCV 88.0 fl (80-100) MCH 26.1 pg (26-34) MCHC 29.7 L g/dl (32-36) RDW 16.3 H % (11.5-14.5) Plt Count 84 L k/mm3 (150-375) MPV 11.9 H fl (7.4-10.4) Immature Gran % (Auto) 0.4 % (0-0.5) Neut % (Auto) 70.9 % (45.5-73.1) Lymph % (Auto) 14.7 L % (18.3-44.2) [place] % (Auto) 10.8 H % (2.6-8.5) Eos % (Auto) 2.6 % (0-4.4) Baso % (Auto) 0.6 % (0.2-1.2) Lymph # (Auto) 0.79 L K/mm3 (0.9-3.2) [place] # (Auto) 0.6 K/mm3 (0.1-0.6) Eos # (Auto) 0.1 K/mm3 (0-0.3) Baso # (Auto) 0.0 K/mm3 (0.0-0.1) Abs Immat Gran (auto) 0.02 K/mm3 (0.00-0.031) Absolute Neuts (auto) 3.8 K/mm3 (1.3-6.7) Absolute Nucleated RBC 0.020 H K/mm3 (0.0-0.012) Band Neutrophils % Not Reportable Nucleated RBC % 0.4 H % (0.0-0.2) Platelet Estimate Decreased (Adequate) % Immature Plt Fraction 8.3 % (0.9-11.2) Hypochromasia 1+ Schistocytes None seen Sodium 138 mmol/L (137-145) Potassium 4.1 mmol/L (3.4-5.0) Chloride 108 H mmol/L (98-107) Carbon Dioxide 23 mmol/L (22-30) Anion Gap 7 mmol/L (4-12) BUN 17 mg/dL (9-20) Creatinine 1.03 mg/dL (0.7-1.3) Estim Creat Clear Calc 48 ml/min Estimated GFR > 60 (59 - ) Glucose 98 mg/dL (65-110) Calcium 8.6 mg/dL (8.4-10.2) Troponin I Blood Type Antibody Screen Crossmatch Patient hx anesthesia problems: none Family hx anesthesia problems: none Results Review: All pre-operative results and documents have been reviewed as part of the pre-operative evaluation. 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 CAD (coronary artery disease) Hypothyroidism NILSON (obstructive sleep apnea) Pacemaker Surgical History Surgical History (Updated 10/26/24 @ 16:30 by Orlando Allen DO) History of coronary artery stent placement >10 years ago Hx of CABG 1987 Social History Social History Years smoked: 30 Smoking status: Former smoker Tobacco type: cigarettes Second hand tobacco smoke exposure: No Alcohol intake: current Drinks per week: 1 Substance use: never Do You Feel Safe in your Home?: Yes Lack of Transportation: No Lack of Food: Never True Current Housing: I Have Housing Concerned About Future Housing: No Difficulty Paying Gas/Electric Bills: No Difficulty Paying for Meds: No Currently Unemployed: No Education: Trade/Vocational Certificate Difficulty w/ Childcare or Family Care: No Living arrangements: with family Occupation/Education: unemployed Gender identity (if verbalized by the patient): Male Sexual Orientation (if Verbalized by the Patient): Straight or Heterosexual Spiritual care concerns: Yes Agree to blood products: Yes Anes - Eval Final PreProcedure Day of Procedure 10/26/24 16:23 Patient weight: obese Heart: regular rate and rhythm Lungs: clear to auscultation Airway: Mallampati scale class II Neurological: alert and oriented Last oral intake: >/= 8 hours ASA classification: IV Emergent: no Anesthetic plan: proceed Anesthesia type and monitoring: general GIVS and standard monitoring Results Review: All pre-operative results and documents have been reviewed as part of the pre-operative evaluation. Informed Consent: The patient's anesthetic plan and its attendant risks and benefits were discussed with the patient/family/POA. Questions were solicited and answers provided to the satisfaction of the patient/family/POA.
--- NOTE | 2024-10-26 16:58 | SUR.OPER ---
EGD: end 1650, COLON: start 1656
--- NOTE | 2024-10-26 17:22 | S_PTH ---
PATIENT: James Cotton LOC: [facility] U#:[id number] AGE/SX: 89/M ROOM: 210 RE10/26/[address]: Lavell Armijo MD : [id number] BED: 01 DIS: 10/27/2024 SPEC #: [id number] RECD: 10/27/24 07:33 STATUS: CINDY REKaren #: [id number] TYE: 10/26/24 17:[address]: Shayne Khan DEPT: [facility] RECD BY: Angela Munoz ENTERED: 10/27/24 07:34 SP TYPE: Surgical OTHR DR: DO Era Barton MD Tissues: A - Colon Polypectomy B - Colon Polypectomy C - Colon Polypectomy D - Colon Polypectomy E - Colon Polypectomy Procedures: Hematoxylin and Eosin Stain Gross and Microscopic Level 4
--- NOTE | 2024-10-26 17:32 | P.PNGI_ITS ---
Progress Note: A&P Assessment and Plan (1) Iron deficiency anemia: Code(s): D50.9 - Iron deficiency anemia, unspecified Status: Acute Assessment and Plan: See EGD and colonoscopy reports. Apart from small polyps and diverticulosis, there is no explanation for iron deficiency anemia. This might be exacerbated by the fact that the patient is on Eliquis and Plavix. Will order a capsule endoscopy study to be done as an outpatient. If he is hemodynamically stable he can be discharged on oral iron and await for our office call him to schedule a capsule endoscopy study. Subjective Date/time seen: 10/26/24 17:32 Objective Data Vital Signs Vital Signs: Vital Signs - 24 hr 10/25/24 17:34 10/25/24 18:34 10/25/24 20:00 Temperature 98.2 F 98.1 F 97.6 F Pulse Rate 59 L 63 60 Respiratory Rate 18 16 16 Blood Pressure 134/60 140/71 118/70 Pulse Oximetry 95 100 100 Oxygen Delivery Fraction of Inspired Oxygen 10/25/24 20:00 10/25/24 20:30 10/25/24 22:00 Temperature Pulse Rate 60 70 60 Respiratory Rate 20 Blood Pressure Pulse Oximetry 99 Oxygen Delivery Room Air Fraction of Inspired Oxygen 21 10/25/24 23:41 10/26/24 00:00 10/26/24 02:00 Temperature 97.7 F Pulse Rate 60 64 60 Respiratory Rate 16 Blood Pressure 131/64 Pulse Oximetry 97 Oxygen Delivery Fraction of Inspired Oxygen 10/26/24 04:00 10/26/24 04:00 10/26/24 06:00 Temperature 97.7 F Pulse Rate 61 59 L 61 Respiratory Rate 16 Blood Pressure 134/56 L Pulse Oximetry 99 Oxygen Delivery Fraction of Inspired Oxygen 10/26/24 07:45 10/26/24 08:00 10/26/24 10:00 Temperature 98.2 F Pulse Rate 60 62 63 Respiratory Rate 18 Blood Pressure 128/71 Pulse Oximetry 95 Oxygen Delivery Fraction of Inspired Oxygen 10/26/24 11:26 10/26/24 12:00 10/26/24 14:00 Temperature 97.7 F Pulse Rate 63 61 59 L Respiratory Rate 18 Blood Pressure 125/53 L Pulse Oximetry 98 Oxygen Delivery Fraction of Inspired Oxygen 10/26/24 14:38 10/26/24 17:20 10/26/24 17:30 Temperature 97.2 F L Pulse Rate 60 60 60 Respiratory Rate 18 27 H 21 H Blood Pressure 132/73 102/44 L 105/44 L Pulse Oximetry 100 100 100 Oxygen Delivery Room Air Room Air Room Air Fraction of Inspired Oxygen Intake/Output Intake/Output: Intake & Output 10/23/24 10/24/24 10/25/24 10/26/24 23:59 23:59 23:59 23:59 Intake Total 965 0 Output Total 550 375 Balance 415 -375 Meds/Results Medications: Active Medications Generic Name Dose Route Start Last Admin Trade Name Freq PRN Reason Stop Dose Admin Amitriptyline HCl 10 mg 10/25/24 21:00 10/25/24 20:54 Amitriptyline Hcl 10 Mg Tablet PO 10 mg QHS ABNER Administration Lactated Ringer's 1,000 mls @ 150 mls/hr 10/26/24 14:45 10/26/24 17:18 Lr - Lactated Ringers Iv IV CONT 150 mls/hr .[id number] [facility] Infusion Levothyroxine Sodium 75 mcg 10/26/24 06:30 10/26/24 08:31 Levothyroxine Sodium 75 Mcg Tablet PO Not Given DAILY@0630 ABNER Lisinopril 10 mg 10/26/24 09:00 10/26/24 10:09 Lisinopril 10 Mg Tablet PO 10 mg DAILY ABNER Administration Nonformulary Drug - 1 each 10/27/24 09:00 Eplerenone 25mg Tab BY MOUTH 11/25/24 12:59 DAILY [facility] Pregabalin 150 mg 10/26/24 09:00 10/26/24 10:09 Pregabalin (*Crx) 75 Mg Capsule PO 150 mg BID ABNER Administration Simvastatin 80 mg 10/26/24 09:00 10/26/24 11:18 Simvastatin 20 Mg Tablet PO Not Given DAILY [facility] Radiology Results: ITS Impressions Chest CTA 10/25/24 14:57 IMPRESSION: No CT evidence of acute pulmonary embolus. Mild scattered edema/interstitial change. Right lower lobe bronchial debris, as can be seen with airways disease, mucous plugging, or aspiration. Pleural calcifications, possibly secondary to asbestos related pleural disease or old hemothoraces. Cardiomegaly. Descending thoracic aortic ectasia. Cholelithiasis with mild pericholecystic inflammatory change, correlate for symptoms of right upper quadrant pain and with biliary labs abnormalities. Co nsider right upper quadrant ultrasound. ADDENDUM: 10/25/24 1630 5 mm calcification in the pancreatic head, may represent choledocholithiasis, with gallbladder inflammatory change and wall thickening (also seen in subsequent ultrasound), without significant biliary duct dilation at this time. Results reported telephonically to Dr. Cantu by Dr. Jackson at 4:23 PM on 10/25/2024. Abdomen Ultrasound 10/25/24 16:14 IMPRESSION: Gallbladder wall thickening, a nonspecific finding. Negative sonographic Hodges sign. No biliary duct dilation. 5 mm calcification in the pancreatic head, may represent a distal common bile duct stone. Labs Labs: Laboratory Results - last 24 hr 10/25/24 10/25/24 10/25/24 15:48 20:26 20:27 WBC RBC Hgb 8.5 L Hct 27.8 L MCV MCH MCHC RDW Plt Count MPV Immature Gran % (Auto) Neut % (Auto) Lymph % (Auto) [place] % (Auto) Eos % (Auto) Baso % (Auto) Lymph # (Auto) [place] # (Auto) Eos # (Auto) Baso # (Auto) Abs Immat Gran (auto) Absolute Neuts (auto) Absolute Nucleated RBC Band Neutrophils % Nucleated RBC % Platelet Estimate % Immature Plt Fraction Hypochromasia Schistocytes Sodium Potassium Chloride Carbon Dioxide Anion Gap BUN Creatinine Estim Creat Clear Calc Estimated GFR Glucose Calcium Troponin I < 0.012 Crossmatch See Detail 10/26/24 10/26/24 03:39 13:52 WBC 5.4 RBC 2.91 L Hgb 7.6 L 7.9 L Hct 25.6 L 26.0 L MCV 88.0 MCH 26.1 MCHC 29.7 L RDW 16.3 H Plt Count 84 L MPV 11.9 H Immature Gran % (Auto) 0.4 Neut % (Auto) 70.9 Lymph % (Auto) 14.7 L [place] % (Auto) 10.8 H Eos % (Auto) 2.6 Baso % (Auto) 0.6 Lymph # (Auto) 0.79 L [place] # (Auto) 0.6 Eos # (Auto) 0.1 Baso # (Auto) 0.0 Abs Immat Gran (auto) 0.02 Absolute Neuts (auto) 3.8 Absolute Nucleated RBC 0.020 H Band Neutrophils % Not Reportable Nucleated RBC % 0.4 H Platelet Estimate Decreased % Immature Plt Fraction 8.3 Hypochromasia 1+ Schistocytes None seen Sodium 138 Potassium 4.1 Chloride 108 H Carbon Dioxide 23 Anion Gap 7 BUN 17 Creatinine 1.03 Estim Creat Clear Calc 48 Estimated GFR > 60 Glucose 98 Calcium 8.6 Troponin I Crossmatch
[2024-10-26] MEDS: AMITRIPTYLINE HCL 10 MG TABLET PO (21:04)
[2024-10-27] VITALS (8 sets, daily range): BP systolic 119–128; BP diastolic 50–99; PULSE 60–64; RESP 16–17; TEMP 36.6–36.8; O2SAT 97
[2024-10-27 04:34] LABS: Hematocrit 25.2 % (42.0-52.0); Hemoglobin 7.4 g/dL (14.0-18.0); Mean Corpuscular HGB Conc 29.4 g/dl (32-36); Mean Corpuscular Hemoglobin 26.1 pg (26-34); Mean Corpuscular Volume 89.0 fl (80-100); Platelet Count Result 81 k/mm3 (150-375); Red Blood Count 2.83 M/mm3 (4.6-6.20); White Blood Count 5.1 K/mm3 (4.5-10.0)
[2024-10-27 04:56] LABS: Alanine Aminotransferase 21 U/L (6-50); Albumin Level 3.4 g/dL (3.5-5.1); Alkaline Phosphatase 64 U/L (38-126); Anion Gap 6 mmol/L (4-12); Aspartate Amino Transferase 26 U/L (17-59); Bilirubin,Total 1.3 mg/dL (0.2-1.3); Blood Urea Nitrogen 12 mg/dL (9-20); Calcium 8.8 mg/dL (8.4-10.2); Carbon Dioxide 25 mmol/L (22-30); Chloride 107 mmol/L (98-107); Estimated CRCL calculation 52 ml/min; Estimated Glomerular Filt Rate > 60; Glucose 92 mg/dL (65-110); Potassium 3.9 mmol/L (3.4-5.0); Sodium 138 mmol/L (137-145); Total Protein 6.1 g/dL (6.3-8.2)
[2024-10-27] MEDS: LEVOTHYROXINE SODIUM 75 MCG TABLET PO (06:35)
--- NOTE | 2024-10-27 08:42 | P.DS_ITS ---
DS: Admitting Diagnosis Discharge Date 10/27/2024 Admitting Diagnosis Anemia DS: Discharge Diagnosis Discharge Diagnosis (1) Chest pain: Code(s): R07.9 - Chest pain, unspecified Status: Acute (2) GI bleed: Code(s): K92.2 - Gastrointestinal hemorrhage, unspecified Status: Acute (3) Anemia: Code(s): D64.9 - Anemia, unspecified Status: Acute (4) Cholelithiasis: Code(s): K80.20 - Calculus of gallbladder without cholecystitis without obstruction Status: Acute Assessment and Plan: Patient is asymptomatic GI are as tolerated consulted for patient Ultrasound pending (5) CAD (coronary artery disease): Code(s): I25.10 - Atherosclerotic heart disease of [place] coronary artery without angina pectoris Status: Acute (6) Hypertension: Code(s): I10 - Essential (primary) hypertension Status: Acute (7) Hypothyroidism: Code(s): E03.9 - Hypothyroidism, unspecified Status: Acute Assessment and Plan: Continue levothyroxine (8) Iron deficiency anemia: Code(s): D50.9 - Iron deficiency anemia, unspecified Status: Acute Assessment and Plan: 300 mg of IV iron x3 Patient received Venofer on 0 10/25, 0 10/26, 0 10/27 DS: Summary Hospital Course Hospital Course: 89-year-old male presents the hospital chest pain and exertional shortness of breath. Patient presented to the hospital about a week ago with TIA symptoms workup was negative. Patient has had vague complaints over the last few weeks. Patient has complained of extreme fatigue that has progressively gotten worse over the last week. He states that he is often short of breath and can no longer tolerate daily activities. Patient denies fevers chills nausea or vomiting. Lab work shows a hemoglobin of 7.2, last month is hemoglobin is 8.8, BUN is 21 and troponin negative. Chest CTA shows cholelithiasis with mild inflammation. Cardiomegaly. Negative for PE. Right lower lobe bronchi debrided possibly mucus plugging or aspiration. EKG shows ventricular pacemaker rhythm rate of 60. Patient was Hemoccult positive on rectal exam. GI was consulted and 1 unit of RBCs disorder. 10/27: Patient underwent EGD and colonoscopy. Patient received Venofer x 3 during the hospitalization. As per GI: Apart from small polyps and diverticulosis, there is no explanation for iron deficiency anemia. This might be exacerbated by the fact that the patient is on Eliquis and Plavix. Will order a capsule endoscopy study to be done as an outpatient. If he is hemodynamically stable he can be discharged on oral iron and await for our office call him to schedule a capsule endoscopy study. On the day of discharge, the patient was seen and examined. Vital signs were stable. Physical exam were stable and labs were reviewed at length. Discharge instructions, medications, and follow-up appointments were discussed with the patient at length and all day questions were answered. ER warnings were given. Follow up CBC in a week to monitor hemoglobin and platelet. Please discuss the results with PCP. Consulted Hematology . Status at Discharge Cognitive/behavioral status at discharge: Stable Time Spent with Patient Time attestation: Total time spent providing and/or coordinating discharge services: 45 minutes Exam Narrative: General: well appearing, appears stated age. HEENT: normocephalic, atraumatic. Mucous membranes moist. EOMI, PERRLA, bilateral sclera anicteric, no conjunctival injection. Neck supple without JVD, lymphadenopathy, or bruit. Respiratory: clear to ascultation bilaterally. No rales/rhonic/wheezes. Cardiovascular: Regular rate and rhythm, normal S1-S2 upon ascultation. No murmu rs, rubs, or clicks. PMI is nondisplaced, capillary refill less than 3 second. Abdomen: Soft, round, no pulsatile masses, nondistended and nontender. No rebound, no guarding. No CVA tenderness, no hepatosplenomegaly. Bowel sounds present to all four quadrants. No high pitch or tinkling sounds, resonant to percussion. Extremities: No cyanosis, clubbing, or edema present. Pulses are palpable 2/2. Active ROM to all four extremities. Neuro: Alert and orientated x 4. PERRLA. Cranial nerves 2-12 intact without focal deficit. Skin: Warm, dry, and intact, without rash, erythema, or lesion. Psych: pleasant, cooperative, normal speech, normal affect, no hallucinations, no dysarthia DS: Data Data Completed and Pending Pending studies at discharge: Pending at discharge 10/26/24 17:22 Surgical [PTH] Routine Labs on day of discharge: Labs from last 24 hours 10/27/24 10/26/24 04:06 13:52 WBC 5.1 RBC 2.83 L Hgb 7.4 L 7.9 L Hct 25.2 L 26.0 L MCV 89.0 MCH 26.1 MCHC 29.4 L RDW 16.6 H Plt Count 81 L MPV 11.8 H Sodium 138 Potassium 3.9 Chloride 107 Carbon Dioxide 25 Anion Gap 6 BUN 12 D Creatinine 0.98 Estim Creat Clear Calc 52 Estimated GFR > 60 Glucose 92 Calcium 8.8 Total Bilirubin 1.3 AST 26 ALT 21 Alkaline Phosphatase 64 Total Protein 6.1 L Albumin 3.4 L Imaging Radiologist's impression: ITS Impressions Chest CTA 10/25/24 14:57 IMPRESSION: No CT evidence of acute pulmonary embolus. Mild scattered edema/interstitial change. Right lower lobe bronchial debris, as can be seen with airways disease, mucous plugging, or aspiration. Pleural calcifications, possibly secondary to asbestos related pleural disease or old hemothoraces. Cardiomegaly. Descending thoracic aortic ectasia. Cholelithiasis with mild pericholecystic inflammatory change, correlate for symptoms of right upper quadrant pain and with biliary labs abnormalities. Consider right upper quadrant ultrasound. ADDENDUM: 10/25/24 1630 5 mm calcification in the pancreatic head, may represent choledocholithiasis, with gallbladder inflammatory change and wall thickening (also seen in subsequent ultrasound), without significant biliary duct dilation at this time. Results reported telephonically to Dr. Cantu by Dr. Jackson at 4:23 PM on 10/25/2024. Abdomen Ultrasound 10/25/24 16:14 IMPRESSION: Gallbladder wall thickening, a nonspecific finding. Negative sonographic Hodges sign. No biliary duct dilation. 5 mm calcification in the pancreatic head, may represent a distal common bile duct stone. Discharge Plan Discharge Attending physician on discharge: Lavell Armijo Discharging Clinician: Lavell Armijo Anticipated Discharge Date/Time: 10/27/24 08:56 Patient Disposition: Home Activity: as tolerated Diet: heart healthy Discharge Instructions: Ordered CBC please follow-up the results with PCP within a week. Please follow up with Staffing Consultant/Oncologist in a week Please follow up with [employer] in a week Check blood pressure 1 to 2 times a day. Record and bring into your doctor for review. Call your doctor if your blood pressure is greater than 180/110 or less than 90/45. Walk with cane or other assist device. Take precautions to avoid falls. Rise slowly from a lying or sitting position. Pause before standing or walking. Contact your doctor or call 911 and come to the Emergency Room if you have any type of trauma, lightheadedness with standing or other worrisome symptoms. Avoid NSAIDs (ibuprofen, naproxen, Aleve). Tylenol is safe to take. Follow-up with your primary care provider in 1-2 weeks. Please call for appointment. Follow-up with gastroenterology in 2-4 weeks. Please call for an appointment. Thank you for using [facility] for your health care needs. Patient Instructions: Antibiotic Form, Colorectal Polyps (GEN), Thrombocytopenia (GEN), Blood Transfusion (GEN), Capsule Endoscopy (GEN) Patient Language: [place]an Stand Alone Forms: General Discharge Information Follow-up/Referrals: He Tijerina MD [Physician] - (Patient received Venofer x 3 in-hospital. Underwent EGD and colonoscopy no significant finding. Please evaluate for anemia) Raul Braun DO [Primary Care Provider] - Richard Murray MD [Physician] - Discharge Medications: Continued pregabalin 150 mg capsule 150 mg PO BID docusate sodium [Stool Softener] 100 mg capsule 100 mg PO DAILY PRN (Reason: constipation) cholecalciferol (vitamin D3) 25 mcg (1,000 unit) capsule 25 mcg PO DAILY eplerenone 25 mg tablet 25 mg PO DAILY Eliquis 5 mg tablet 5 mg PO BID Qty: 180 0RF amitriptyline 10 mg tablet 10 mg PO QHS Qty: 90 3RF clopidogrel 75 mg tablet 75 mg PO DAILY Qty: 90 3RF levothyroxine [Levoxyl] 75 mcg tablet 75 mcg PO DAILY Qty: 90 3RF lisinopril 10 mg tablet 10 mg PO DAILY Qty: 90 3RF simvastatin 80 mg tablet 80 mg PO DAILY Qty: 90 3RF Other Ambulatory Orders: Complete Blood Count with Diff (Routine) Timeframe: 1 Week Location: Determined by Patient Ordered By: Lavell Armijo Date of admission: 10/26/24 18:26 Primary Care Provider: Raul Braun Admitting Provider: Era Stanley Attending physician on admission: Era Stanley Condition: Stable
[2024-10-27] MEDS: SIMVASTATIN 20 MG TABLET 80 MG PO (09:25)
[2024-10-27] MEDS: PREGABALIN (*CRX) 75 MG CAPSULE 150 MG PO (09:26)
[2024-10-27] MEDS: [UNRECOGNIZED DRUG - OTHER] BY MOUTH (09:26)
[2024-10-27] MEDS: EPLERENONE 25 MG BY MOUTH (09:26)
[2024-10-27] MEDS: IRON SUCROSE COMPLEX 200 MG, IRON SUCROSE COMPLEX 100 MG in SODIUM CHLORIDE 0.9% IV 250 ML 176.67 MG IVPB (09:38)
== END 2024-10-27 12:42 | disposition home or self-care (01) | DRG 812 ==
LOC: ANHED 12:58 → ANHIMU 15:56
PROVIDERS: Internal Medicine Gastroenterology; Nurse Practitioner Gerontology; Admitting Provider Internal Medicine; Emergency Provider Emergency Medicine; PCP Family Medicine; Visit Provider General Practice
PROC: 0DJ08ZZ Inspection of Upper Intestinal Tract, Via Natural or Artificial Opening Endoscopic (ICD-10-PCS; CPT 45378; principal; 2024-10-26 15:30)
DX: D50.9 Iron deficiency anemia, unspecified (principal); K92.2 Gastrointestinal hemorrhage, unspecified; I48.20 Chronic atrial fibrillation, unspecified; I25.10 Atherosclerotic heart disease of native coronary artery without angina pectoris; I10 Essential (primary) hypertension; R07.9 Chest pain, unspecified; K22.70 Barrett's esophagus without dysplasia; K29.30 Chronic superficial gastritis without bleeding; D12.0 Benign neoplasm of cecum; D12.2 Benign neoplasm of ascending colon; D12.3 Benign neoplasm of transverse colon; D12.4 Benign neoplasm of descending colon; D12.5 Benign neoplasm of sigmoid colon; K80.20 Calculus of gallbladder without cholecystitis without obstruction; K57.30 Diverticulosis of large intestine without perforation or abscess without bleeding; E03.9 Hypothyroidism, unspecified; E78.5 Hyperlipidemia, unspecified; Z95.1 Presence of aortocoronary bypass graft; Z86.73 Personal history of transient ischemic attack (TIA), and cerebral infarction without residual deficits; Z95.5 Presence of coronary angioplasty implant and graft; Z87.891 Personal history of nicotine dependence; Z95.0 Presence of cardiac pacemaker
CPT/HCPCS: 36415; 36430; 71275; 76705; 80048; 80053; 83540; 83550; 83690; 84484; 85014; 85018; 85025; 85027; 85055; 85610; 85730; 86850; 86900; 86901; 86923; 88305; 93005; 96361; 99285; A9270; G0378; J1756; J2003; J2704; J7050; J7120; P9016; Q9967

== ENCOUNTER 2024-10-29 11:08 | Outpatient (CLI) | payer MEDICARE, BC, SELFPAY ==
--- OUTSIDE RECORDS SUMMARY | 2024-10-29 11:31 | XMS_ITS | Continuity of Care Document ---
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 Name Role Phone [facility] Unavailable Unavailable Problems Combined list of problems [...] fracture [facility] Atrial fibrillation Active Condition [facility] Benign hypertension Active Condition [facility] Boggy prostate Active Condition [facility] CAD - Coronary artery disease Active Condition [facility] CAD - Coronary Artery Disease (SCT 13616751) Active Condition [facility] Cardiac pacemaker in situ Active Condition [facility] Carotid atherosclerosis Active Condition [facility] Chronic Pain Syndrome (ICD-9-CM 338.4) Active Condition [facility] Coronary arteriosclerosis Active Condition [facility] 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 [facility] Disorder of nail Active Condition [facility] Disorder of prostate Active Condition [facility] Dyspepsia Active Condition [facility] H/O: atrial fibrillation Active Condition Dec 26, 2018 Entered By: MICHELINE GILMAN Comment: 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 [facility] H/O: cardiac pacemaker in situ Active Condition [facility] Hearing Loss (SCT 61705260) Active Condition Dec 26, 2018 Entered By: MICHELINE GILMAN Comment: partial has hearing aids [facility] Hemoglobin below reference range Active Condition [facility] History of back pain Active Condition Feb 27, 2022 Entered By: MICHELINE GILMAN Comment: [facility] History of hematuria Active Condition Mar 14, 2023 Entered By: MICHELINE GILMAN Comment: microscopic [facility] History of iron deficiency Active Condition [facility] History of malignant neoplasm of bladder Active Condition Jun 04, 2022 Entered By: MICHELINE GILMAN Comment: seen [facility] History of surgery Active Condition O ct 2018 Entered By: MICHELINE GILMAN Comment: s/p cabg, stents, bladder CA/scopes, old shoulder surgeryDe 2019 Entered By: MICHELINE GILMAN Comment: hx pacemakerDe 2021 Entered By: MICHELINE GILMAN Comment: cystoscope [facility] 2022 Entered By: MICHELINE GILMAN Comment[facility] HTN - Hypertension ([facility] [id number]) Active Condition [facility] Hypercholesterolemia ([facility] [id number]) Active Condition [facility] Hyperglycemia Active Condition [facility] Hyperlipidemia Active Condition [facility] Hyperlipidemia Active Condition [facility] Hypertension Active Condition [facility] Hypothyroidism Active Condition [facility] Impotence Active Condition [facility] Impotence (SNOMED CT 763128687) Active Condition [facility] Insomnia Active Condition [facility] Insomnia, unspecified (ICD-9-CM 780.52) Active Condition [facility] Iron deficiency anemia Active Condition [facility] Keratosis, Actinic Active Condition [facility] Malignant tumor of urinary bladder Active Condition [facility] Melanoma NOS Active Condition [facility] Neoplasm. Skin NOS Active Condition [facility] Neuropathy Active Condition [facility] Obesity Active Condition [facility] Paroxysmal atrial fibrillation Active Condition [facility] Periheral Neuropathy Active Condition [facility] Peripheral neuropathy Active Condition [facility] Persistent atrial fibrillation Active Condition [facility] Polyps, Colon Active Condition [facility] Renal function tests outside reference range Active Condition [facility] Sleep apnea Active Condition [facility] 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 Dec 26, 2018 Entered By: MICHELINE GILMAN Comment: quit years ago [facility] Unsteady gait Active Condition [facility] Varicose veins Active Condition [facility] Vitamin D below reference range Active Condition [facility] Diagnosis: ICD-10-CM I10 Essential (primary) hypertension Active Diagnosis [facility] Diagnosis: ICD-10-CM Y93.E6 Activity, residential relocation Active Diagnosis [facility] Diagnosis: ICD-10-CM Z71.89 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ed counseling Active [...] ICD-10-CM G47.39 Other sleep apnea Active Diagnosis [facility] Medications Combined list of outpatient medications [...] THREE TIMES DAILY NEEDED FOR PAIN ORAL 08/29/[id number] Manuel GILMAN ONALD 2023 100 [facility] AMITRIPTYLI NE HCL 10MG TAB TAKE ONE TABLET BY MOUTH AT BEDTIME ORAL ACTIVE Marie MITCHELL AHIDA 2024 [facility] AMITRIPTYLI NE HCL 25MG TAB TAKE ONE TABLET BY MOUTH AT BEDTIME ORAL ACTIVE Manuel GILMAN ON2022 [facility] APIXABAN 5MG TAB TAKE ONE TABLET BY MOUTH TWICE A DAY ORAL ACTIVE STEPHENMarie AHIDA 2024 [facility] APIXABAN 5MG TAB TAKE ONE TABLET BY MOUTH TWICE A DAY ORAL ACTIVE Manuel GILMAN ON2020 [facility] ASCORBIC ACID 500MG TAB TAKE ONE TABLET BY MOUTH ONCE DAILY ORAL ACTIVE [facility] ASPIRIN 81MG TAB,CHEWABL E CHEW ONE TABLET BY MOUTH ONCE DAILY ORAL ACTIVE [facility] CHOLECALCIF EULA 25MCG (1,000UNIT) TAB TAKE ONE TABLET BY MOUTH ONCE DAILY FOR VITAMIN D SUPPLEME NT ORAL ACTIVE 03/15/2025 [id number] Manuel GILMAN ON2023 100 [facility] CHOLECALCIF EULA 25MCG (1,000UNIT) TAB TAKE ONE TABLET BY MOUTH ONCE A DAY ORAL ACTIVE STEPHENMarie DA 2024 [facility] CICLESONIDE INHL,NASAL SPRAY IN EACH NOSTRIL ONCE DAILY NASAL ACTIVE DAWSON GAN 2009 [facility] CLOPIDOGREL BISULFATE 75MG TAB TAKE ONE TABLET BY MOUTH ONCE DAILY ORAL ACTIVE MARCIA MUNOZ MTHOK 2014 [facility] CLOPIDOGREL BISULFATE 75MG TAB TAKE ONE TABLET BY MOUTH ONCE DAILY ORAL ACTIVE Manuel GILMAN ON2018 [facility] CLOPIDOGREL BISULFATE 75MG TAB TAKE ONE TABLET BY MOUTH ONCE A DAY ORAL ACTIVE STEPHEN,Marie DA 2024 [facility] DOCUSATE NA 100MG CAP TAKE 1 CAPSULE BY MOUTH EVERY DAY BEFORE NOON MEAL ORAL ACTIVE STEPHEN,Z 2024 [facility] EPLERENONE 50MG TAB TAKE ONE-HALF TABLET BY MOUTH EVERY MORNING ORAL ACTIVE STEPHENZ DA 2024 [facility] EPLERENONE TAB TAKE 25MG/INS PRA BY MOUTH ONCE DAILY ORAL ACTIVE Manuel GILMAN ON2023 DAVID CHOWDHURY [facility] FERROUS SO4 325MG TAB TAKE ONE TABLET BY MOUTH TWICE A DAY FOR IRON REPLACEM ENT WITH FOOD (MAY DARKEN STOOLS) ORAL ACTIVE 06/24/2025 [id number] Manuel GILMAN 2024 200 [facility] FERROUS SO4 325MG TAB TAKE ONE TABLET BY MOUTH ONCE A DAY ORAL ACTIVE STEPHEN,Z 2024 [facility] LEVOTHYROXI NE NA 75MCG TAB TAKE ONE TABLET BY MOUTH EVERY MORNING BEFORE A MEAL ORAL ACTIVE STEPHEN,Z 2024 [facility] LEVOTHYROXI NE NA 75MCG TAB (SYNTHROID) TAKE ONE TABLET BY MOUTH ONCE DAILY ORAL ACTIVE Manuel GILMAN 2022 [facility] LIDOCAINE 5% OINT,TOP APPLY SMALL AMOUNT TOPICALL Y TWICE A DAY FOR PAIN TOPICA L 09/28/[id number] Manuel GILMAN 2023 35 [facility] LISINOPRIL 10MG TAB TAKE ONE TABLET BY MOUTH EVERY MORNING ORAL ACTIVE Manuel GILMAN 2018 [facility] LISINOPRIL 10MG TAB TAKE ONE TABLET BY MOUTH ONCE DAILY ORAL ACTIVE Meir LOWE 2016 [facility] LISINOPRIL 20MG TAB TAKE ONE-HALF TABLET BY MOUTH ONCE A DAY ORAL ACTIVE STEPHENMarie 2024 [facility] MULTIVITS W/MINERALS TAB/CAP (NO VIT K) TAKE ONE TABLET BY MOUTH ONCE DAILY ORAL ACTIVE MARCIA MUNOZ NCHOK 2013 [facility] PANTOPRAZOL E NA 40MG TAB,EC TAKE ONE TABLET BY MOUTH EVERY MORNING BEFORE A MEAL ORAL ACTIVE STEPHEN,Z 2024 [facility] PREGABALIN 150MG CAP,ORAL TAKE 1 CAPSULE BY MOUTH TWICE A DAY ORAL ACTIVE STEPHEN,Z 2024 [facility] PREGABALIN 75MG CAP,ORAL TAKE 1 CAPSULE BY MOUTH THREE TIMES A DAY ORAL ACTIVE DORMARCIA BLAS NCHOK 2015 [facility] PREGABALIN 75MG CAP,ORAL TAKE 2 CAPSULES BY MOUTH TWICE A DAY ORAL ACTIVE MUKUL,D ON2023 BOLAYanira CHOWDHURY [facility] SENNA TAB TAKE BY MOUTH ONCE DAILY NEEDED ORAL ACTIVE MUKUL,D [facility]2023 [facility] SENNOSIDES 8.6MG TAB TAKE ONE TABLET BY MOUTH ORAL ACTIVE DORMARCIA BLAS NCHOK 2013 [facility] SIMVASTATIN 40MG TAB TAKE ONE TABLET BY MOUTH EVERY EVENING ORAL ACTIVE DORJEEMARCIA NCHOK 2013 [facility] SIMVASTATIN 80MG TAB TAKE ONE-HALF TABLET BY MOUTH AT BEDTIME ORAL ACTIVE MUKUL,D 2018 [facility] SIMVASTATIN 80MG TAB TAKE ONE-HALF TABLET BY MOUTH EVERY EVENING ORAL ACTIVE STEPHEN,Z AHIDA 2024 [facility] [place] VITAMIN E 100UNT CAP TAKE 2 CAPSULES BY MOUTH ONCE DAILY ORAL ACTIVE DORMARCIA BLAS NCHOK 2013 [facility] Allergies, Adverse Reactions, Alerts Combined list of allergies from Department of Defense and Veterans Affairs facilities. It does not include entries that were removed or entered in error. Substance Category Reaction Severity Reaction type Status Date Reported Comments Source COUMADIN Propensity to adverse reactions to drug (finding) Blood in urine, INR raised active [facility] Immunizations Combined list of available immunizations from the Department of Defense and Veterans Affairs facilities. Immunization Series Date Given Administered By Site Reaction Lot Number CVX Code Drug Floral Associate Status Comments Source INFLUENZA, HIGH-DOSE, TRIVALENT, PF 2023 JUDITH HARTMAN LEFT DELTO ID [id number] 135 complet ed [facility], [facility] INFLUENZA, UNSPECIFIED FORMULATION 2023 88 complet ed HISTORICA L INFORMATI ON - FROM PATIENT'S RECALL, [facility] INFLUENZA, UNSPECIFIED FORMULATION 2022 88 complet ed HISTORICA L INFORMATI ON - FROM PATIENT'S RECALL, [facility] TDAP 2021 115 complet ed HISTORICA L INFORMATI ON - FROM PATIENT'S WRITTEN RECORD, [facility] COVID-19 (MODERNA), MRNA, LNP-S, PF, 100 MCG OR 50 MCG DOSE 3 2020 207 complet ed [facility] INFLUENZA, SEASONAL, INJECTABLE 3 2020 141 complet ed HISTORICA L INFORMATI ON - FROM OTHER REGISTRY, [facility] INFLUENZA, UNSPECIFIED FORMULATION 2020 88 complet ed [facility] COVID-19 (MODERNA), MRNA, LNP-S, PF, 100 MCG/0.5 ML DOSE 2 2020 207 complet ed [facility] COVID-19 (MODERNA), MRNA, LNP-S, PF, 100 MCG/0.5 ML DOSE 1 2020 207 complet ed [facility] INFLUENZA, UNSPECIFIED FORMULATION 2019 88 complet ed [facility] INFLUENZA, SEASONAL, INJECTABLE 2 2019 141 complet ed HISTORICA L INFORMATI ON - FROM OTHER REGISTRY, [facility] INFLUENZA, HIGH DOSE SEASONAL 2018 135 complet ed HISTORICA L INFORMATI ON - FROM OTHER PROVIDER, Partner: [facility]. Administe red by: ISMAEL RAMOS (WER=[phone]). Partner 9 Lot#: [id number] Mfr: Sanofi Pasteur; Dosage: 0.5 [facility] INFLUENZA, TRIVALENT, ADJUVANTED 2017 168 complet ed [facility] INFLUENZA, UNSPECIFIED FORMULATION [address] Burt, administe red in November [facility] PNEUMOCOCCAL CONJUGATE PCV 13 2016 133 complet ed [facility] INFLUENZA, HIGH DOSE SEASONAL 2015 135 complet ed [facility] INFLUENZA, HIGH DOSE SEASONAL 2013 135 complet ed [facility] INFLUENZA, UNSPECIFIED FORMULATION 2012 88 complet ed [facility] PNEUMOCOCCAL POLYSACCHARID E PPV23 2012 33 complet [facility] TDAP 2011 115 complet ed [facility] INFLUENZA, UNSPECIFIED FORMULATION 2011 88 complet ed [facility] INFLUENZA, UNSPECIFIED FORMULATION 2010 88 complet ed [facility] INFLUENZA, UNSPECIFIED FORMULATION 2009 88 complet ed [facility] Results Combined list of recent [...] Sep 21, 2024 01:33 PM Reporting Lab: [facility] [place] [address] Performing Lab: [facility] DIVISION B12 COBALAMIN (VITAMIN B12) [MASS/VOLUM E] IN SERUM OR PLASMA 255 pg/mL 213 - 816 09/21 Specimen Type: SERUM No comment entered. Ordering Provider: EMILIA MITCHELL Report Released Date/Time: Sep 21, 2024 01:33 PM Reporting Lab: [facility] [address] Performing Lab: [facility] [phone] DIVISION FOLATE ([facility]) FOLATE [MASS/VOLUM E] IN SERUM OR PLASMA 9.1 ng/mL 7 - 20 09/21 Specimen Type: SERUM No comment entered. Ordering Provider: EMILIA MITCHELL Report Released Date/Time: Sep 21, 2024 01:33 PM Reporting Lab: [facility] [address] Performing Lab: [facility] [id number] [place] [place] [address] DIVISION IRON/TIBC PROFILE IRON BINDING CAPACITY [MASS/VOLUM E] IN SERUM OR PLASMA 449 ug/dL 250 - 450 09/21 Specimen Type: SERUM No comment entered. Ordering Provider: EMILIA MITCHELL Report Released Date/Time: Sep 21, 2024 01:33 PM Reporting Lab: [address] [address] Performing Lab: [phone] [place] [address] IRON/TIBC PROFILE TRANSFERRIN [MASS/VOLUM E] IN SERUM OR PLASMA 359 mg/dL 163 - 344 09/21 H Specimen Type: SERUM No comment entered. Ordering Provider: EMILIA MITCHELL Report Released Date/Time: Sep 21, 2024 01:33 PM Reporting Lab: [address] [address] Performing Lab: [address] [phone] [place] [address] IRON/TIBC PROFILE IRON SATURATION [MASS FRACTION] IN SERUM OR PLASMA 12 20 - 50 09/21 L Specimen Type: SERUM No comment entered. Ordering Provider: EMILIA MITCHELL Report Released Date/Time: Sep 21, 2024 01:33 PM Reporting Lab: [address] [address] Performing Lab: [address] [address] [facility] IRON/TIBC PROFILE IRON [MASS/VOLUM E] IN SERUM OR PLASMA 52 ug/dL 65 - 175 09/21 L Specimen Type: SERUM No comment entered. Ordering Provider: EMILIA MITCHELL Report Released Date/Time: Sep 21, 2024 01:33 PM Reporting Lab: [address] [address] Performing Lab: [address] [address] [facility] DIV[facility] FERRITIN FERRITIN [MASS/VOLUM E] IN SERUM OR PLASMA 38.68 ng/mL 22 - 275 09/21 Specimen Type: SERUM No comment entered. Ordering Provider: EMILIA MITCHELL Report Released Date/Time: Sep 21, 2024 01:33 PM Reporting Lab: [facility] [address] [facility] [address] Performing Lab: [place] [id number] DIVISION COMPREHENS FRANCIA METABOLIC PANEL CREATININE [MASS/VOLUM E] IN SERUM OR PLASMA 1.04 mg/dL 0.70 - 1.30 09/21 Specimen Type: PLASMA Comment: No hemolysis noted. Ordering Provider: EMILIA MITCHELL Report Released Date/Time: Sep 21, 2024 01:33 PM Reporting Lab: [facility] [place] [address] Performing Lab: [facility] DIVISION COMPREHENS FRANCIA METABOLIC PANEL UREA NITROGEN [MASS/VOLUM E] IN SERUM OR PLASMA 20.2 mg/dL 9.0 - 25.0 09/21 Specimen Type: PLASMA Comment: No hemolysis noted. Ordering Provider: EMILIA MITCHELL Report Released Date/Time: Sep 21, 2024 01:33 PM Reporting Lab: [facility] [place] [address] Performing Lab: [facility] DIVISION COMPREHENS FRANCIA METABOLIC PANEL GLUCOSE [MASS/VOLUM E] IN SERUM OR PLASMA 100 mg/dL 72 - 99 09/21 H Specimen Type: PLASMA Comment: No hemolysis noted. Ordering Provider: EMILIA MITCHELL Report Released Date/Time: Sep 21, 2024 01:33 PM Reporting Lab: [facility] [place] [address] Performing Lab: [facility] [phone] DIVISION COMPREHENS FRANCIA METABOLIC PANEL SODIUM [MOLES/VOLU ME] IN SERUM OR PLASMA 135 meq/L 136 - 145 09/21 L Specimen Type: PLASMA Comment: No hemolysis noted. Ordering Provider: EMILIA MITCHELL Report Released Date/Time: Sep 21, 2024 01:33 PM Reporting Lab: [facility] [place] [address] Performing Lab: [facility] DIVISION COMPREHENS FRANCIA METABOLIC PANEL POTASSIUM [MOLES/VOLU ME] IN SERUM OR PLASMA 4.2 meq/L 3.5 - 5.0 09/21 Specimen Type: PLASMA Comment: No hemolysis noted. Ordering Provider: EMILIA MITCHELL Report Released Date/Time: Sep 21, 2024 01:33 PM Reporting Lab: [facility] [place] [address] Performing Lab: [facility] [phone] [place] [address] DIVISION COMPREHENS FRANCIA METABOLIC PANEL CHLORIDE [MOLES/VOLU ME] IN SERUM OR PLASMA 103 meq/L 98 - 107 09/21 Specimen Type: PLASMA Comment: No hemolysis noted. Ordering Provider: EMILIA MITCHELL Report Released Date/Time: Sep 21, 2024 01:33 PM Reporting Lab: [facility] [place] [address] Performing Lab: [facility] DIVISION COMPREHENS FRANCIA METABOLIC PANEL CARBON DIOXIDE, TOTAL [MOLES/VOLU ME] IN SERUM OR PLASMA 23 meq/L 22 - 31 09/21 Specimen Type: PLASMA Comment: No hemolysis noted. Ordering Provider: EMILIA MITCHELL Report Released Date/Time: Sep 21, 2024 01:33 PM Reporting Lab: [facility] [place] [phone] Performing Lab: [facility] DIVISION COMPREHENS FRANCIA METABOLIC PANEL CALCIUM [MASS/VOLUM E] IN SERUM OR PLASMA 9.0 mg/dL 8.4 - 10.4 09/21 Specimen Type: PLASMA Comment: No hemolysis noted. Ordering Provider: EMILIA MITCHELL Report Released Date/Time: Sep 21, 2024 01:33 PM Reporting Lab: [facility] [place] [address] Performing Lab: [facility] DIVISION COMPREHENS FRANCIA METABOLIC PANEL PROTEIN [MASS/VOLUM E] IN SERUM OR PLASMA 7.6 g/dL 6.0 - 8.6 09/21 Specimen Type: PLASMA Comment: No hemolysis noted. Ordering Provider: EMILIA MITCHELL Report Released Date/Time: Sep 21, 2024 01:33 PM Reporting Lab: [facility] [place] [address] Performing Lab: [facility] DIVISION COMPREHENS FRANCIA METABOLIC PANEL ALBUMIN [MASS/VOLUM E] IN SERUM OR PLASMA 4.3 g/dL 3.4 - 5.0 09/21 Specimen Type: PLASMA Comment: No hemolysis noted. Ordering Provider: EMILIA MITCHELL Report Released Date/Time: Sep 21, 2024 01:33 PM Reporting Lab: [facility] [place] [address] Performing Lab: [facility] DIVISION COMPREHENS FRANCIA METABOLIC PANEL BILIRUBIN.T OTAL [MASS/VOLUM E] IN SERUM OR PLASMA 1.1 mg/dL 0.2 - 1.2 09/21 Specimen Type: PLASMA Comment: No hemolysis noted. Ordering Provider: EMILIA MITCHELL Report Released Date/Time: Sep 21, 2024 01:33 PM Reporting Lab: [facility] [place] [address] Performing Lab: [facility] [place] [phone] DIVISION COMPREHENS FRANCIA METABOLIC PANEL ALKALINE PHOSPHATASE [ENZYMATIC ACTIVITY/VO LUME] IN SERUM OR PLASMA 64 U/L 40 - 150 09/21 Specimen Type: PLASMA Comment: No hemolysis noted. Ordering Provider: EMILIA MITCHELL Report Released Date/Time: Sep 21, 2024 01:33 PM Reporting Lab: [facility] [place] [address] Performing Lab: [facility] DIVISION COMPREHENS FRANCIA METABOLIC PANEL ASPARTATE AMINOTRANSF ERASE [ENZYMATIC ACTIVITY/VO LUME] IN SERUM OR PLASMA 33 U/L 5 - 34 09/21 Specimen Type: PLASMA Comment: No hemolysis noted. Ordering Provider: EMILIA MITCHELL Report Released Date/Time: Sep 21, 2024 01:33 PM Reporting Lab: [facility] [place] [address] Performing Lab: [facility] DIVISION COMPREHENS FRANCIA METABOLIC PANEL ALANINE AMINOTRANSF ERASE [ENZYMATIC ACTIVITY/VO LUME] IN SERUM OR PLASMA 25 U/L 8 - 40 09/21 Specimen Type: PLASMA Comment: No hemolysis noted. Ordering Provider: EMILIA MITCHELL Report Released Date/Time: Sep 21, 2024 01:33 PM Reporting Lab: [facility] [place] [address] Performing Lab: [facility] DIVISION COMPREHENS FRANCIA METABOLIC PANEL GLOMERULAR FILTRATION RATE/1.73 SQ M.PREDICTED [VOLUME RATE/AREA] IN SERUM, PLASMA OR BLOOD BY CREATININE- BASED FORMULA (CKD-EPI 2020) 69.06 60 09/21 Specimen Type: PLASMA Comment: No hemolysis noted. Ordering Provider: EMILIA MITCHELL Report Released Date/Time: Sep 21, 2024 01:33 PM Reporting Lab: [facility] [place] [address] Performing Lab: [facility] LIPID PANEL (STL) CHOLESTEROL [MASS/VOLUM E] IN SERUM OR PLASMA 127 mg/dL 0 - 200 09/21 Specimen Type: PLASMA Comment: No hemolysis noted. Ordering Provider: EMILIA MITCHELL Report Released Date/Time: Sep 21, 2024 01:33 PM Reporting Lab: [facility] [place] [address] Performing Lab: [facility] LIPID PANEL (STL) TRIGLYCERID E [MASS/VOLUM E] IN SERUM OR PLASMA 108 mg/dL 0 - 150 09/21 Specimen Type: PLASMA Comment: No hemolysis noted. Ordering Provider: EMILIA MITCHELL Report Released Date/Time: Sep 21, 2024 01:33 PM Reporting Lab: [facility] [place] [address] Performing Lab: [facility] LIPID PANEL (STL) CHOLESTEROL IN LDL [MASS/VOLUM E] IN SERUM OR PLASMA BY CALCULATION 64 mg/dL 09/21 Specimen Type: PLASMA Comment: No hemolysis noted. Ordering Provider: EMILIA MITCHELL Report Released Date/Time: Sep 21, 2024 01:33 PM Reporting Lab: [facility] [place] [id number] Performing Lab: [facility] [id number] DIVISION LIPID PANEL (STL) CHOLESTEROL IN HDL [MASS/VOLUM E] IN SERUM OR PLASMA 41 mg/dL 40 09/21 Specimen Type: PLASMA Comment: No hemolysis noted. Ordering Provider: EMILIA MITCHELL Report Released Date/Time: Sep 21, 2024 01:33 PM Reporting Lab: [facility] [place] [address] Performing Lab: [facility] DIVISION CBC LEUKOCYTES [#/VOLUME] IN BLOOD BY AUTOMATED COUNT 6.9 10*3/u L 3.6 - 11.2 09/21 Specimen Type: BLOOD No comment entered. Ordering Provider: EMILIA MITCHELL Report Released Date/Time: Sep 21, 2024 01:33 PM Reporting Lab: [facility] [place] [address] Performing Lab: [facility] DIVISION CBC ERYTHROCYTE S [#/VOLUME] IN BLOOD BY AUTOMATED COUNT 3.75 10*6/u L 4.10 - 5.70 09/21 L Specimen Type: BLOOD No comment entered. Ordering Provider: EMILIA MITCHELL Report Released Date/Time: Sep 21, 2024 01:33 PM Reporting Lab: [facility] [place] [address] Performing Lab: [facility] DIVISION CBC HEMOGLOBIN [MASS/VOLUM E] IN BLOOD 11.1 g/dL 13.1 - 16.8 09/21 L Specimen Type: BLOOD No comment entered. Ordering Provider: EMILIA MITCHELL Report Released Date/Time: Sep 21, 2024 01:33 PM Reporting Lab: [facility]1 [place] [id number] Performing Lab: [facility] DIVISION CBC HEMATOCRIT [VOLUME FRACTION] OF BLOOD 34.3 38.2 - 48.4 09/21 L Specimen Type: BLOOD No comment entered. Ordering Provider: EMILIA MITCHELL Report Released Date/Time: Sep 21, 2024 01:33 PM Reporting Lab: [facility]1 [place] [address] Performing Lab: [facility] DIVISION CBC MCV [ENTITIC VOLUME] BY AUTOMATED COUNT 91.5 fL 80.0 - 100.0 09/21 Specimen Type: BLOOD No comment entered. Ordering Provider: EMILIA MITCHELL Report Released Date/Time: Sep 21, 2024 01:33 PM Reporting Lab: [facility] [place] [address] Performing Lab: [facility] DIVISION CBC MCH [ENTITIC MASS] BY AUTOMATED COUNT 29.6 pg 27.0 - 34.0 09/21 Specimen Type: BLOOD No comment entered. Ordering Provider: EMILIA MITCHELL Report Released Date/Time: Sep 21, 2024 01:33 PM Reporting Lab: [facility]1 [place] [address] Performing Lab: [facility] DIVISION CBC MCHC [MASS/VOLUM E] BY AUTOMATED COUNT 32.4 g/dL 33.0 - 36.0 09/21 L Specimen Type: BLOOD No comment entered. Ordering Provider: EMILIA MITCHELL Report Released Date/Time: Sep 21, 2024 01:33 PM Reporting Lab: [facility] [place] [address] Performing Lab: [facility] DIVISION CBC PLATELETS [#/VOLUME] IN BLOOD BY AUTOMATED COUNT 110 10*3/u L 150 - 400 09/21 L Specimen Type: BLOOD No comment entered. Ordering Provider: EMILIA MITCHELL Report Released Date/Time: Sep 21, 2024 01:33 PM Reporting Lab: [facility]1 [place] [address] Performing Lab: [facility] DIVISION CBC PLATELET MEAN VOLUME [ENTITIC VOLUME] IN BLOOD BY AUTOMATED COUNT 11.5 fL 7.5 - 11.2 09/21 H Specimen Type: BLOOD No comment entered. Ordering Provider: EMILIA MITCHELL Report Released Date/Time: Sep 21, 2024 01:33 PM Reporting Lab: [facility]1 [place] [address] Performing Lab: [facility] DIVISION CBC ERYTHROCYTE DISTRIBUTIO N WIDTH [RATIO] BY AUTOMATED COUNT 15.2 11.8 - 15.1 09/21 H Specimen Type: BLOOD No comment entered. Ordering Provider: EMILIA MITCHELL Report Released Date/Time: Sep 21, 2024 01:33 PM Reporting Lab: [facility]1 [place] [address] Performing Lab: [facility] DIVISION CBC LYMPHOCYTES /100 LEUKOCYTES IN BLOOD BY AUTOMATED COUNT 19 09/21 Specimen Type: BLOOD No comment entered. Ordering Provider: EMILIA MITCHELL Report Released Date/Time: Sep 21, 2024 01:33 PM Reporting Lab: [facility]1 [facility] [phone] Performing Lab: [facility]1 [facility] [phone] DIVISION CBC MONOCYTES/1 00 LEUKOCYTES IN BLOOD BY AUTOMATED COUNT 8 09/21 Specimen Type: BLOOD No comment entered. Ordering Provider: EMILIA MITCHELL Report Released Date/Time: Sep 21, 2024 01:33 PM Reporting Lab: [facility]1 [facility] [address] Performing Lab: [facility]1 [facility] [phone] [place] [address] DIVISION CBC NEUTROPHILS /100 LEUKOCYTES IN BLOOD BY AUTOMATED COUNT 70 09/21 Specimen Type: BLOOD No comment entered. Ordering Provider: EMILIA MITCHELL Report Released Date/Time: Sep 21, 2024 01:33 PM Reporting Lab: [facility]1 [facility] [address] Performing Lab: [facility]1 [facility] [phone] [place] [address] DIVISION CBC EOSINOPHILS /100 LEUKOCYTES IN BLOOD BY AUTOMATED COUNT 2 09/21 Specimen Type: BLOOD No comment entered. Ordering Provider: EMILIA MITCHELL Report Released Date/Time: Sep 21, 2024 01:33 PM Reporting Lab: [facility]1 [facility] [address] Performing Lab: [facility]1 [facility] [phone] [place] [address] DIVISION CBC BASOPHILS/1 00 LEUKOCYTES IN BLOOD BY AUTOMATED COUNT 1 09/21 Specimen Type: BLOOD No comment entered. Ordering Provider: EMILIA MITCHELL Report Released Date/Time: Sep 21, 2024 01:33 PM Reporting Lab: [facility]1 [facility] [address] Performing Lab: [facility] [address] DIVISION CBC LYMPHOCYTES [#/VOLUME] IN BLOOD BY AUTOMATED COUNT 1.29 10*3/u L 0.77 - 4.50 09/21 Specimen Type: BLOOD No comment entered. Ordering Provider: EMILIA MITCHELL Report Released Date/Time: Sep 21, 2024 01:33 PM Reporting Lab: [facility]1 [place] [address] Performing Lab: [facility] DIVISION CBC MONOCYTES [#/VOLUME] IN BLOOD BY AUTOMATED COUNT 0.57 10*3/u L 0.19 - 0.80 09/21 Specimen Type: BLOOD No comment entered. Ordering Provider: EMILIA MITCHELL Report Released Date/Time: Sep 21, 2024 01:33 PM Reporting Lab: [facility] [place] [address] Performing Lab: [facility] DIVISION CBC NEUTROPHILS [#/VOLUME] IN BLOOD BY AUTOMATED COUNT 4.83 10*3/u L 2.10 - 8.00 09/21 Specimen Type: BLOOD No comment entered. Ordering Provider: EMILIA MITCHELL Report Released Date/Time: Sep 21, 2024 01:33 PM Reporting Lab: [facility]1 [place] [address] Performing Lab: [facility] DIVISION CBC EOSINOPHILS [#/VOLUME] IN BLOOD BY AUTOMATED COUNT 0.15 10*3/u L 0.00 - 0.60 09/21 Specimen Type: BLOOD No comment entered. Ordering Provider: EMILIA MITCHELL Report Released Date/Time: Sep 21, 2024 01:33 PM Reporting Lab: [facility]1 [place] [address] Performing Lab: [facility] DIVISION CBC BASOPHILS [#/VOLUME] IN BLOOD BY AUTOMATED COUNT 0.05 10*3/u L 0.00 - 0.20 09/21 Specimen Type: BLOOD No comment entered. Ordering Provider: EMILIA MITCHELL Report Released Date/Time: Sep 21, 2024 01:33 PM Reporting Lab: [facility]1 [place] [address] Performing Lab: [facility] DIV[facility] #[address] CBC PLATELETS RETICULATED /100 PLATELETS IN BLOOD BY AUTOMATED COUNT 6.5 1.0 - 7.0 09/21 Specimen Type: BLOOD No comment entered. Ordering Provider: EMILIA MITCHELL Report Released Date/Time: Sep 21, 2024 01:33 PM Reporting Lab: [facility]1 [place] [address] Performing Lab: [facility] #[address] DIVISION HGA1C HEMOGLOBIN A1C/HEMOGLO BIN.TOTAL IN BLOOD 5.8 4.0 - 6.0 09/21 Specimen Type: BLOOD No comment entered. Ordering Provider: EMILIA MITCHELL Report Released Date/Time: Sep 21, 2024 01:33 PM Reporting Lab: [facility]1 [place] [address] Performing Lab: [facility] DIVISION FREE T4 (STL) THYROXINE (T4) FREE [MASS/VOLUM E] IN SERUM OR PLASMA 1.00 ng/mL 0.70 - 1.48 09/21 Specimen Type: PLASMA No comment entered. Ordering Provider: EMILIA MITCHELL Report Released Date/Time: Sep 21, 2024 01:33 PM Reporting Lab: [facility]1 [facility] [address] Performing Lab: [facility]1 [facility] [address] [facility] Vital Signs Combined list of inpatient and outpatient Vital Signs from Department of Defense and Veterans Affairs, ranging from 12 months to all on record, depending upon the facility. Vital Sign Value Date Comments Source SYSTOLIC BLOOD PRESSURE 117 09/22/19 25 12:52:43 [facility] DIASTOLIC BLOOD PRESSURE 62 025 12:52:43 [facility] PULSE OXIMETRY 97 % 09/21/2024 12:52:43 [facility] WEIGHT 206.4 09/21/2024 12:52:43 [facility] BMI 36 kg/m2 09/21/2024 12:52:43 [facility] PAIN 0 09/21/2024 12:52:43 [facility] HEIGHT 64 09/21/2024 12:52:43 [facility] TEMPERATURE 98.2 09/21/2024 12:52:43 [facility] PULSE 72 09/21/2024 12:52:43 [facility] RESPIRATION 16 09/21/2024 12:52:43 [facility] SYSTOLIC BLOOD PRESSURE 129 03/13/20 24 [...] [facility] RESPIRATION 18 03/13/2024 10:18:42 [facility] SYSTOLIC BLOOD PRESSURE 136 11/08/19 10:46:37 [facility] DIASTOLIC BLOOD PRESSURE 75 024 10:46:37 [facility] PULSE OXIMETRY 96 11/08/2023 10:46:37 [facility] WEIGHT 204.1 11/08/2023 10:46:37 [facility] BMI 31 kg/m2 11/08/2023 10:46:37 [facility] PAIN 4 11/08/2023 10:46:37 [facility] TEMPERATURE 96.6 11/08/2023 10:46:37 [facility] PULSE 71 11/08/2023 10:46:37 [facility] RESPIRATION 18 11/08/2023 10:46:37 [facility] Encounters Combined list of: 1) Encounters from Department of Veterans Affairs facilities going backup to the last 18 months, not all [place] inpatient encounters are included; 2) Encounters from the Department of [facility] facilities going backup to 280 months. Location Location Details Encounter Type Encounter Number Reason For Visit Attending Provider ADM Date DC Date Status Disposition Source ELENO ESCOTO [facility] Outpatient Encounter [id number] Meir NAVARRO 05/20 [facility] OPC OFFICE O/P EST LOW 20 MIN [id number] Diagnos is: ICD-10- CM G47.39 Other sleep apnea REMY GARCIA 05/[address] [facility] OPC FAYEANAND ESCOTO [facility] Outpatient Encounter [id number] DO CHERELLE GILMAN 05/21 [facility] Outpatient Encounter [id number] 06/06 [facility] ESCOTO [facility] Outpatient Encounter [id number] 06/06 DAVID CHOWDHURY [facility] [place] [facility] Outpatient Encounter [id number] 07/04 DAVID CHOWDHURY [facility] [place] [facility] Outpatient Encounter [id number] DO CHERELLE GILMAN 07/07 HAL [facility]OW[facility]UR[facility] [place] [facility] Outpatient Encounter [id number] 07/10 HAL [facility]OWDHURY [facility] [place] [facility] Outpatient Encounter [id number] 07/16 HAL [facility]OW[facility] [place] [facility] Outpatient Encounter [id number] 07/17 DAVID [facility]OW[facility] [place] [facility] Outpatient Encounter [id number] 08/05 HAL [facility]OW[facility]UR[facility] [place] [facility] Outpatient Encounter [id number] 08/15 HAL [facility]OW[facility] [place] [facility] Outpatient Encounter [id number] DO HEMALATHA GILMAND 08/18 [facility] D[facility]IV[facility]OWDH[facility] [place] [facility] Outpatient Encounter [id number] 08/26 [facility] [place] [facility] Outpatient Encounter [id number] DO CHERELLE GILMAN 08/27 [facility] OFFICE O/P EST MOD 30 MIN [id number] Diagnos is: ICD-10- CM M25.50 Pain in unspeci fied joint DO CHERELLE GILMAN 08/28 [facility] [place] [facility] Outpatient Encounter [id number] 09/10 HAL CHOWDHURY [facility] Outpatient Encounter [id number] Diagnos is: ICD-10- CM 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, unspeci fied MUKULDO NALD 09/11 [facility] COMPRE OPH EXAM EST PT 1/> [id number] Diagnos is: ICD-10- CM 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 of intraoc ular lens SETTER,OWE N A 09/23 [facility] Outpatient Encounter [id number] 10/15 DAVID [facility]OW[facility] Outpatient Encounter [id number] MUKUL,DO NALD 10/16 [facility] HC PRO PHONE CALL 11-20 MIN [id number] Diagnos is: ICD-10- CM Z71.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 counselor camp SHAWN Galicia 10/21 [facility] Outpatient Encounter [id number] 10/23 DAVID CHOWDHUR[facility] OFFICE O/P EST MOD 30 MIN [id number] Diagnos is: ICD-10- CM R26.81 Unstead iness on feet MUKUL,DO NALD 10/24 [facility] Outpatient Encounter [id number] 10/24 DAVID CHOWDHURY [facility] Outpatient Encounter [id number] Diagnos is: ICD-10- CM M25.531 Pain in right wrist MUKUL, NALD 10/28 [facility] ECG>48HR<7 D RECORDING [id number] Diagnos is: ICD-10- CM 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 LEEANNA NOBLE 10/30 [facility] [place] [facility] Outpatient Encounter [id number] 11/05 [facility] HC PRO PHONE CALL 5-10 MIN [id number] Diagnos is: ICD-10- CM Z71.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 counselor camp SHAWN [place] 11/06 [facility] OFF/OP CNSLTJ NEW/EST LOW 30 [id number] Diagnos is: ICD-10- CM M25.531 Pain in right wrist TRI JONES 11/07 [facility] [place] [facility] Outpatient Encounter [id number] TRI JONES 11/07 [facility] Outpatient Encounter [id number] 11/07 [facility] CB HC PRO PHONE CALL 5-10 MIN [id number] Diagnos is: ICD-10- CM Z71.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 counselor camp ing SHAWN MORTON 11/14 [facility] Outpatient Encounter [id number] 11/27 [facility] CB Outpatient Encounter [id number] Diagnos is: ICD-10- CM 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 DO CHERELLE GILMAN 11/28 [facility] [place] [facility] Outpatient Encounter [id number] 11/28 [facility] Outpatient Encounter [id number] 12/16 [facility] DIVKAILA [place] [facility] IMMUNIZATI ON ADMIN [id number] Diagnos is: ICD-10- CM Z23 Encount er for immuniz ation ЮЛИЯ HARTMAN 12/30 [facility] Outpatient Encounter [id number] 02/09 DAVID [facility]OWDHUR[facility] CERVANTESE [facility] Outpatient Encounter [id number] VILMA DALY 03/09 [facility] Outpatient Encounter [id number] ELANA RICCI 03/12 [facility] OFFICE O/P EST MOD 30 MIN [id number] Diagnos is: ICD-10- CM Z00.01 Encount er for general adult medical exam w abnorma l finding s DO MUKUL NALD 03/13 [facility] PH1 ASSMT&MGMT NQHP 11-20 [id number] Diagnos is: ICD-10- CM Z71.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 counselor camp SHAWN Galicia 03/19 [facility] Outpatient Encounter [id number] ЮЛИЯ CASAREZ 03/19 DAVID [facility]OW[facility] SYNCH AUDIO-ONLY EST SF 10 [id number] Diagnos is: ICD-10- CM E55.9 Vitamin D deficie ncy, unspeci fied DO MUKUL NALD 03/23 [facility] Outpatient Encounter [id number] 03/26 DAVID CHOWDHURY [facility] ELENO ESCOTO [facility] Outpatient Encounter [id number] 06/09 HAL CHOWDHURY [facility] EELNO ESCOTO [facility] Outpatient Encounter [id number] 06/09 [facility] PH1 ASSMT&MGMT NQHP 5-10 [id number] [id number] Diagnos is: ICD-10- CM Z71.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 counselor camp SHAWN Galicia 07/01 [facility] TARGETED CASE MANAGEMENT [id number] Diagnos is: ICD-10- CM Y93.E6 Activit y, residen tial FERNANDO Blanco 09/08 HAL [facility] Outpatient Encounter [id number] ROHIT CASAREZ 09/14 [facility] OFFICE O/P NEW HI 60 MIN [id number] Diagnos is: ICD-10- CM 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 Outpatient Encounter [id number] EMILIA MITCHELL HIDA 10/03 [facility] N [facility] Outpatient Encounter [id number] EMILIA MITCHELL HIDA 10/27 [facility] N Social History Combined list of available smoking, tobacco, and other social history from Department of Defense and Veterans Affairs facilities. Social History Type Response Date Comment Sourc e Tobacco smoking status NHIS VA-TOBACCO NEVER USED OTHER TYPE 09/21/2024 [facility] History of tobacco use VA-TOBACCO NEVER USED CIGARETTES 09/21/2024 [facility] History of tobacco use VA-TOBACCO USE FORMER CIGARETTES 03/09/2024 NADIA [facility] History of tobacco use VA-TOBACCO FORMER USER 03/14/2023 [facility] History of tobacco use VA-TOBACCO NEVER USED 03/13/2022 [facility] History of tobacco use VA-TOBACCO FORMER USER 03/14/2021 [facility] History of tobacco use VA-TOBACCO FORMER USER 03/09/2020 [facility] History of tobacco use VA-TOBACCO QUIT 15 YRS OR MORE 12/25/2018 [facility] History of tobacco use VA-TOBACCO FORMER USER 12/31/2017 [facility] History of tobacco use CURRENT NON-SMOKER 06/17/2017 [facility] History of tobacco use CURRENT NON-SMOKER 12/21/2016 [facility] History of tobacco use LIFETIME NON-TOBACCO USER 12/14/2009 [facility] Plan of Care List of future care activities from [facility] facilities. Additional future care activities may be listed in the Assessment and Plan section. Date/Time Care Activity Care Activity Detail Facili ty 09/21/2024 Laboratory - Bottle House Cleaners Supervisor ry Order URINALYSIS (STL-PB) URINE SP [facility] Advance Directives List of completed, amended, or rescinded Advance Directives on record at [facility] facilities. An actual copy of the Directive is not included. Date Advance Directive Provider Source 03/25/2023 ADVANCE DIRECTIVE MORIAH HILL [facility] 06/19/2017 ADVANCE DIRECTIVE DISCUSSION CAYDEN AREVALO [facility] 12/22/2016 ADVANCE DIRECTIVE DISCUSSION LEXA ABDUL [facility] 12/21/2016 ADVANCE DIRECTIVE DISCUSSION LINDEN LEZAMA [facility]
--- OUTSIDE RECORDS SUMMARY | 2024-10-29 11:31 | XMS_ITS | Clinical Summary ---
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 Name Role Phone Raul Braun DO Primary Care Provider [phone] Allergies No known active allergies Medications amitriptyline [...] Problem Noted Date Diagnosed Date Stroke (CMS/HCC [facility]) 10/02/2024 Encounters Date Type Department Care Team Description 10/02/2024 6:18 PM CDT - 10/07/2024 11:34 AM CDT Hospital Encounter [facility] Inpatient Medical Oncology [address] [place] [address] Nubia Vuong MD Sohail, Atif, MD Markapuram, Srikanth, MD Discharge Disposition: Home or Self Care (Routine Discharge) from Last 3 Months Social History Tobacco Use Types Packs/Day Years Used Date Smoking Tobacco: Never Assessed [facility] Utilities Answer Date Recorded In the [...] any time in the past 12 m [facility], were you homeless or living in a jail (including now)? No 10/06/2024 Sex and Gender [...] this topic Medical Devices Implanted Type Area Diesel Lube Tech Device Identifier Shelf Expiration Date Model / Serial / Lot Rv 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:Qty: 1 on 01/12/2020 Lead Implant Right: Ventricle [facility] [employer] [employer] [facility] DIV [employer] [id number] 8 / [id number] / 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:Qty: 1 on 01/12/[address] [facility] [facility] [facility] [employer] [id number] / [id number] / Description:MRI Conditional under following conditions: Static [...] LABORATORY Final Result [facility] [address] [place] [address], [phone] * (ABNORMAL) COMPREHENSIVE METABOLIC PANEL (10/07/2024 3:23 [...] 0.70 - 1.30 MG/DL 10/07/2024 4:01 AM [facility] CALCIUM S/P/B 8.7 8.5 - 10.1 MG/DL 10/07/2024 4:01 AM [facility] BILIRUBIN TOTAL S/P/B 1.0 0.2 - 1.0 MG/DL 10/07/2024 4:01 AM [facility] ALKALINE PHOSPHATASE S/P/B 60 45 - 115 U/L 10/07/2024 4:01 AM [facility] AST 15 15 - 37 U/L 10/07/2024 4:01 AM [facility] ALT 21 16 - 61 U/L 10/07/2024 4:01 AM [facility] TOTAL PROTEIN S/P/B 6.3(L) 6.4 - 8.2 G/DL 10/07/2024 4:01 AM [facility] ALBUMIN S/P/B 3.1(L) 3.4 - 5.0 G/DL 10/07/2024 4:01 AM [facility] ANION GAP 4.3 2.0 - 10.0 MMOL/L 10/07/2024 4:01 AM [facility] OSMOLALITY (CALC) 288 MOSM/KG 025 4:01 AM [facility] Comment:REFERENCE RANGE NOT ESTABLISHED GFR ESTIMATE 77(L) >90 ML/MIN/1. 73 M2 10/07/2024 4:01 AM [facility] GFR NOTES GFR REFERENCE S: 10/07/2024 4:01 AM [facility] Comment: THE ESTIMATED GFR IS [...] Final Res ult [facility] [address] [place] [address], [id number] * (ABNORMAL) CBC W/DIFF AUTOMATED (10/07/2024 3:23 [...] Final Res ult [facility] [address] [place] [address], [phone] * MRI BRAIN WO STROKE FAST PROTOCOL [...] 12:47 PM Narrative 10/06/2024 12:50 PM CDT [facility] [address] [place], [place] [address] DATE: 10/06/2024 11:44 AM INDICATION: Weakness. Concern [...] Procedure Note Hernandez Hatfield MD - 10/06/2024 [facility] [address] [place], [place] [address] DATE: 10/06/2024 11:44 AM INDICATION: Weakness. Concern [...] [facility] 10/05/2024 8:02 PM CDT Ynuior Wallace MD POCT ORDERABLES - DEVICE Final Result [facility] [address] [place] [address], [place] [phone] * (ABNORMAL) BASIC METABOLIC PANEL (10/04/2024 3:26 [...] Final Res ult [facility] [address] [place] [address], [phone] * USV CAROTID DUPLEX RACHELE (10/03/2024 4:23 PM CDT) Anatomical Region Laterality Modality Neck Ultrasound 10/03/2024 3:23 PM CDT Narrative 10/03/2024 10:08 PM CDT [facility] Vascular Report Pat.Name: JAMES AL Fay.ID: [id number] .Date: 10/03/2024 Refer.MD: DONIS MAST Exam Time: 3:23:00 PM Study Type:PVI CAROTID SCAN - BILATERAL Height: 63 in Age: 3 1935,89Y Sex: M Sonogrphr: OBEY Bernard Pat. 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 [facility] Kezia MURILLO [facility] Final Result * USE ECHOCARDIOGRAM (10/03/2024 3:11 PM CDT) Anatomical Region Laterality Modality Cardiac Echocardiogram 10/03/2024 1:04 PM CDT Narrative 10/04/2024 2:41 PM CDT Echocardiography Report Pat.Name: JAMES AL Pat.ID: [id number] St.Date: 10/03/2024 Refer.: [id number] YUMIKO Worley EWDPROV EWDPROV Exam Time: 1:04:00 PM Study Type:ECHO WITH CARDIAC DOPPLER COMP Height: 63 in Weight: 206 lb BSA: 1.96 m2 Age: 3 1935,89Y Sex: M BP: 132/74 HR: 78 bpm Sonogrphr: Willis Gomez RDCS, RVT Pat. Stat.:Inpatient CPT - 4: 14786 Reason for Study:Stroke/TIA Procedures: 2D, M-mode, Doppler, [...] Mass 2D Value 211 g LV Mass Gddod4Y Value 108 g/m2 RA Volume Atrial Arechiga [...] I BP 41.1 ml/m2 LV Biplane Major Chappell Candi 5.89 % Major Chappell Candi 7.42 % LV Left Ventricle Mass by M-mode LV Mass 211 g Right Ventricle Right Ventricle 5.8 cm MMODE TA Tricuspid Annul 1.98 cm <Electronic Signature> 10/04/2024 02:41 PM Nathalie Thomas M.D. Procedure Note Nathalie Thomas MD - 10/04/2024 Echocardiography Report Pat.Name: JAMES AL Pat.ID: [id number] .Date: 10/03/2024 Refer.: [id number] YUMIKO Worley EWDPROV EWDPROV Exam Time: 1:04:00 PM Study Type:ECHO WITH CARDIAC DOPPLER COMP Height: 63 in Weight: 206 lb BSA: 1.96 m2 Age: 3 1935,89Y Sex: M BP: 132/74 HR: 78 bpm Sonogrphr: Willis Gomez RDCS, RVT Pat. Stat.:Inpatient CPT - 4: 15107 Reason for Study:Stroke/TIA Procedures: 2D, M-mode, Doppler, [...] Mass 2D Value 211 g LV Mass Tgnpr2N Value 108 g/m2 RA Volume Atrial Arechiga [...] I BP 41.1 ml/m2 LV Biplane Major Chappell Candi 5.89 % Major Chappell Candi 7.42 % LV Left Ventricle Mass [...] MD LABORATORY Final Result Performing Organization Address City/State/[facility] Co de Phone Number [facility] [address] [place] [address], [phone] * LIPID PANEL (10/03/2024 2:12 AM CDT) [...] MD LABORATORY Final Result Performing Organization Address [facility] de Phone Number [facility] [address] [place] [address], [place] [phone] * (ABNORMAL) TSH W/REFLEX (10/02/2024 9:17 PM CDT) TSH 4.040(H) 0.358 - 3.740 uIU/ML 10/02/2024 10:04 PM CDT [facility] Comment: ASSAY PERFORMED BY CHEMILUMINESCENCE METHODOLOGY USING [employer] [facility]. PATIENT RESULTS DETERMINED BY ASSAYS USING DIFFERENT MANUFACTURERS FOR METHODS MAY NOT BE COMPARABLE. 10/02/2024 9:17 PM CDT Donis Mast MD LABORATORY Final Result Performing Organization Address [facility] de Phone Number [facility] [address] [place] [address], [place] [phone] * (ABNORMAL) PRO-BRAIN NATRIURETIC PEPTIDE (PRO BNP) [...] ACUTE CHF. 10/02/2024 9:17 PM CDT us [facility] Kezia MURILLO LABORATORY Final Result Performing Organization Address [facility] Co de Phone Number [facility] [address] [place] [address], [place] [phone] * HEMOGLOBIN, GLYCATED (10/02/2024 9:17 PM CDT) HGB A1C 5.6 <5.7 % 10/02/2024 10:07 PM CDT [facility] ESTIMATED AVG GLUCOSE 114 74 - 114 MG/DL 10/02/2024 10:07 PM CDT [facility] 10/02/2024 9:17 PM CDT us [facility] Kezia MURILLO LABORATORY Final Result Performing Organization Address [facility] Co de Phone Number [facility] [address] [place] [address], [place] [phone] * THYROXINE, FREE (FT4) (10/02/2024 9:17 PM CDT) FREE T4 0.91 0.76 - 1.46 NG/DL 10/02/2024 10:22 PM CDT [facility] 10/02/2024 9:17 PM CDT us [facility] Kezia MURILLO LABORATORY Final Result Performing Organization Address [facility] Co de Phone Number [facility] [address] [place] [address], [place] [phone] * XR CHEST PORTABLE (10/02/2024 9:00 PM CDT) Anatomical Region Laterality Modality Chest Radiographic Hillary ging 10/02/2024 11:2 3 PM CDT Impressions 10/02/2024 11:24 PM CDT IMPRESSION: There are no acute pulmonary findings noted as described. Referred By: JAVIER Cancholaally Signed By: Stuart Mcdermott MD on 10/02/2024 11:24 PM Interpreted By: Stuart Mcdermott MD, 10/02/2024 11:23 PM Narrative 10/02/2024 11:[address] [address] Examination: XR CHEST PORTABLE Exam time: 10/02/2024 [...] Procedure Note Stuart Mcdermott MD - 10/02/[address] [address] Examination: XR CHEST PORTABLE Exam time: 10/02/2024 [...] 2. Overall suboptimal contrast opacification in the [place]. Suggestion of focal high-grade stenosis/occlusion [...] 7:10 PM Narrative 10/02/2024 7:25 PM CDT [place] [address] EXAMINATION: CTA head and neck with contrast [...] stenosis. Overall suboptimal contrast opacification in the [place]. Suggestion of focal high-grade stenosis/occlusion [...] Procedure Note Phan Loera MD - 10/02/[address] [address] EXAMINATION: CTA head and neck with contrast [...] stenosis. 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 Otherwise, no definite proximal vessel occlusion is [...] 2. Overall suboptimal contrast opacification in the [place].Suggestion of focal high-grade stenosis/occlusion of the right MCA M1/T0ymhselxp. 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
--- OUTSIDE RECORDS SUMMARY | 2024-10-29 11:31 | XMS_ITS | Encounter Summary ---
Author Name [facility] Address [address] [place] [address] Care Team Providers Care Management Engineer Name Role Phone CARYN ALVAREZ Primary Care Provider Unavailabl IZAIAH Rodriguez Primary Care Provider Unavailabl e ELI BRAXTON [...] IC GAS & ELEC Mar 18, 2005 [id number] MIKAELA,JENNIFER HARD PATIENT BC BS AR BLUECARD MEDICARE SECONDARY (NO B EXC) PACIF IC GAS & ELEC Mar 18, 2005 [id number] KNAUS,JENNIFER HARD PATIENT BC BS MO BLU[place]ARD MEDICARE SECONDARY (NO B EXC) PACIF IC GAS & ELEC Mar 18, 2005 [id number] [phone] KNKEENA,JENNIFER HARD PATIENT BC BS MO BLU[place]ARD MEDICARE SECONDARY (NO B EXC) PACIF IC GAS & ELEC Mar 18, 2005 [id number] KNAUS,JENNIFER HARD PATIENT [facility] POINT OF SERVICE PG&E Aug 16, 2018 [id number] WALLYAUS,JENNIFER HARD PATIENT [facility] PGE Mar 18, 2005 [id number] [phone] KNAUS,JENNIFER HARD PATIENT [employer] ([id number]) PRESCRIPT ION PACIF IC GAS & ELEC Mar 18, 2005 [id number] MIKAELA,JENNIFER HARD [place]IENT [place] [id number] PRESCRIPT ION PGE00 00 (9999 ) Mar 18, 2005 [id number] MIKAELA,JENNIFER HARD PATIENT [employer] PRESCRIPT ION PGE00 00 Mar 18, 2005 [id number] [phone] MIKAELA,JENNIFER HARD PATIENT MEDICARE (WNR) MEDICARE () PART A May 16, 2001 PART A [id number] MIKAELA,JENNIFER HARD PATIENT MEDICARE (WNR) MEDICARE () PART B May 16, 2001 PART B [id number] MIKAELA,JENNIFER HARD PATIENT MEDICARE (WNR) MEDICARE () PART A May 16, 2001 PART A [id number] [phone] [id number] MIKAELA,JENNIFER HARD PATIENT MEDICARE (WNR) MEDICARE () PART B May 16, 2001 PART B [id number] [phone] MIKAELA,JENNIFER HARD PATIENT MEDICARE (WNR) MEDICARE () PART A May 16, 2001 PART A [id number] MIKAELA,JENNIFER HARD PATIENT MEDICARE (WNR) MEDICARE () PART B May 16, 2001 PART B [id number] [phone] [id number] MIKAELA,JENNIFER HARD PATIENT MEDICARE (WNR) MEDICARE () PART A May 16, 2001 PART A [id number] KNAUS,JENNIFER HARD PATIENT MEDICARE (WNR) MEDICARE (M) PART B May 16, 2001 PART B [id number] JENNIFER AL PATIENT Selected Encounter This section includes the information on record at [place] for the Encounter. Date/Time Encounter Type Encounter Description Reason Provider Source Oct 27, 2024 05:45 AM Outpatient Encounter GENERAL INTERNAL MEDICINE STEPHENEMILIACARYNRICHARD BURNETT Encounter Template Text not used by [place] Plan of Treatment: Future Appointments (+ 6 months) and Future Tests (+/- 45 days) The Plan of Treatment section includes future care activities for the patient from all [place] treatmentfacilities. This section includes future appointments and future orders which are active, pending or scheduled. Active, Pending, and Scheduled Orders This section includes a listing of several types of active, pending, and scheduled orders, including clinic medications orders, diagnostic test orders, procedure orders and consult orders; where the start date of the order is 45 days before the date of the Encounter or 45 days after the date of theEncounter. The data comes from all [place] treatment facilities. Test Date/Time Test Type Test Details Facility Name Sep 21, 2024 12:00 AM Laboratory - Chemi stry Order URINALYSIS (STL-PB) URINE SP [facility] Sep 21, 2024 12:00 AM Laboratory - Chemi stry Order MICRAL/CREAT PROFILE (STL) URINE YELLOW SP [facility] Sep 23, 2024 12:00 AM Laboratory - Chemi stry Order CBC BLOOD SP [facility] Sep 23, 2024 12:00 AM Laboratory - Chemi stry Order TIBC BLOOD SERUM SP [facility] Advance Directives: All historical and current Section Date Range: From patient's date of to the date document was created. This section includes ALL of a patient's completed or amended [place] Advance and Rescinded Directives. The entries below indicate that a directive exists for the patient, but an actual copy is not included with this document. The data comes from all [place] facilities. Date Advance Directives Provider Source Mar 25, 2023 ADVANCE DIRECTIVE MORIAH HILL [facility] Jun 19, 2017 ADVANCE DIRECTIVE DISCUSSION CAYDEN AREVALO [facility] Dec 22, 2016 ADVANCE DIRECTIVE DISCUSSION LEXA ABDUL [facility] Dec 21, 2016 ADVANCE DIRECTIVE DISCUSSION RAHMANELIZABETHLINDEN [facility] Encounter Notes: All associated encounter notes This section contains the clinical notes associated to the Encounter. Date/Time Encounter Note(s) Provider Source Oct 28, 2024 05:27 PM ADDENDUM: LOCAL TITLE: Addendum STANDARD TITLE: ADDENDUM DATE OF NOTE: OCT 28, 2024@17:27:02 ENTRY DATE: OCT 28, 2024@17:27:03 AUTHOR: ALEIDA BALDERAS COSIGNER: URGENCY: STATUS: COMPLETED Discharge Disposition Date of discharge: Oct Disposition Discharge to home DC records sent securely to RNCM. Alerting PCP team to this note for continuity of care. Records r/t this episode of care sent for scanning, will be available within 24hrs. Discharge Summary Records:SHARED SECURELY WITH PACT RN AND SENT TO HIMS FOR SCANNING Hospital/discharge Summary (per discharge note): Presents the hospital with chest pain and exertional shortness of breath. Chest CTA shows cholelithiasis with mild inflammation. Cardiomegaly. Right lower lobe bronchi debrided possibly mucus plugging or aspiration. Patient was Hemoccult positive on rectal exam. 1 unit of RBCs given. On 10/27 Patient underwent EGD and colonoscopy. Patient received Venofer x 3 during the hospitalization. Apart from small polyps and diverticulosis, there is no explanation for iron deficiency anemia. This might be exacerbated by the fact that the patient is on Eliquis and Plavix. Ordered a capsule endoscopy study to be done OP. Please discuss the results with PCP. Consulted Hematology . Post-Discharge Needs 1) [facility] PCP follow up -F/U WITH PCP in 1 week -capsule endoscopy study to be done as an outpatient PACT Please place the below recc consults per hosp DC if using VA insurance: -follow up with Inbound Customer Service Representative in a week -follow up with Credit Underwriter/ Oncologist in a week ([facility] or [facility] internal consults needed for ALL follow up care) /josie BROWN RN REGISTERED NURSE Signed: 10/28/2024 17:35 Receipt Acknowledged By: * AWAITING SIGNATURE * CARYN ALVAREZ 10/29/2024 08:06 /KEVIN Archer, RN REGISTERED NURSE --- Original Document --- 10/25/24 [facility] S[facility]F PRESENTING CARE COORD PLAN 657 STL: Emergency Notification Intake Date Presenting to the Facility: Oct Method of Contact: Notified from [facility] worklist Notification ID: [id number] [facility] Referral #: [id number] Clinical Review [facility] Name: Hospital: [facility] Address: [facility] [address] City: [place] State: [place] Zip Code: [address] Community Facility Point of Contact: Name: Phone: Chief complaint: PRESSURE ON CHEST,WAEK,COULDN'T HARDLY WALK Primary Diagnosis: Disposition Unknown at time of intake note entry Faxed request for records to [facility] /josei MONTANEZ [facility] COMMERCIAL UNDERWRITER Signed: 10/27/2024 05:47 Receipt Acknowledged By: 10/28/2024 17:26 /josie BROWN RN REGISTERED NURSE 10/27/2024 16:38 /josie Alvarez MD STAFF PHYSICIAN 10/27/2024 08:25 /KEVIN Archer, RN REGISTERED NURSE ALEIDA BALDERAS [facility] Oct 25, 2024 05:45 AM NONVA NOTE: LOCAL TITLE: [facility]F PRESENTING CARE COORD PLAN STANDARD TITLE: NONVA NOTE DATE OF NOTE: OCT 25, 2024@05:45 ENTRY DATE: OCT 27, 2024@05:45:47 AUTHOR: TOY MONTANEZ EXP COSIGNER: URGENCY: STATUS: COMPLETED [facility]F PRESENTING CARE COORD PLAN [address] Has ADDENDA Emergency Notification Intake Date Presenting to the Facility: Oct Method of Contact: Notified from ECR worklist Notification ID: [id number] [facility] Referral #: [id number] Clinical Review [facility] Name: Hospital: [facility] Address: [facility] [address] City: [place] State: [place] Zip Code: [address] Community Facility Point of Contact: Name: Phone: Chief complaint: PRESSURE ON CHEST,WAEK,COULDN'T HARDLY WALK Primary Diagnosis: Disposition Unknown at time of intake note entry Faxed request for records to [facility] /es/ TOY MONTANEZ [facility] COMMERCIAL UNDERWRITER Signed: 10/27/2024 05:47 Receipt Acknowledged By: 10/28/2024 17:26 /prasad/ ALEIDA STRINGERN RN REGISTERED NURSE 10/27/2024 16:38 /es/ Caryn Alvarez MD STAFF PHYSICIAN 10/27/2024 08:25 /prasad/ KEVIN EPSTEIN, RN REGISTERED NURSE 10/28/2024 ADDENDUM STATUS: COMPLETED Discharge Disposition Date of discharge: Oct Disposition Discharge to home DC records sent securely to RNCM. Alerting PCP team to this note for continuity of care. Records r/t this episode of care sent for scanning, will be available within 24hrs. Discharge Summary Records:SHARED SECURELY WITH PACT RN AND SENT TO HIMS FOR SCANNING Hospital/discharge Summary (per discharge note): Presents the hospital with chest pain and exertional shortness of breath. Chest CTA shows cholelithiasis with mild inflammation. Cardiomegaly. Right lower lobe bronchi debrided possibly mucus plugging or aspiration. Patient was Hemoccult positive on rectal exam. 1 unit of RBCs given. On 10/27 Patient underwent EGD and colonoscopy. Patient received Venofer x 3 during the hospitalization. Apart from small polyps and diverticulosis, there is no explanation for iron deficiency anemia. This might be exacerbated by the fact that the patient is on Eliquis and Plavix. Ordered a capsule endoscopy study to be done OP. Please discuss the results with PCP. Consulted Hematology . Post-Discharge Needs 1) [facility] P[facility] follow up -F/U WITH PCP in 1 week -capsule endoscopy study to be done as an outpatient PACT Please place the below recc consults per hosp DC if using VA insurance: -follow up with Inbound Customer Service Representative in a week -follow up with Credit Underwriter/ Oncologist in a week ([facility] or [place] internal consults needed for ALL follow up care) /prasad/ ALEIDA STRINGERN RN REGISTERED NURSE Signed: 10/28/2024 17:35 Receipt Acknowledged By: * AWAITING SIGNATURE * CARYN ALVAREZ * AWAITING SIGNATURE * JESUS HENDRIX PAULA C [facility]
--- OUTSIDE RECORDS SUMMARY | 2024-10-29 11:31 | XMS_ITS | Clinical Summary ---
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
[2024-10-29 11:32] LABS: Hematocrit 29.2 % (37.0-46.0); Hemoglobin 8.7 g/dL (12.4-15.3); Immature Granulocyte Percent A 0.7 % (0.0-0.0); Immature Platelet Fraction Pct 7.0 % (1.0-7.0); Lymphocytes Absolute Auto 0.91 K/mm3 (1.10-4.50); Mean Corpuscular HGB Conc 29.8 g/dL (32-36); Mean Corpuscular Hemoglobin 27.0 pg (27.0-31.0); Mean Corpuscular Volume 90.7 fL (78.0-102.0); Nucleated Red Blood Cells Absolute Auto 0.04 K/mm3 (0.00-0.00); Nucleated Red Blood Cells Perc 0.4 % (0-0.0); Platelet Count Result 94 K/mm3 (150-420); Red Blood Count 3.22 M/mm3 (4.70-6.10); White Blood Count 9.0 K/mm3 (4.8-10.8)
== END 2024-10-29 11:09 | disposition home or self-care (01) ==
LOC: CHSLAB 11:13
PROVIDERS: PCP Family Medicine; Visit Provider General Practice
DX: D64.9 Anemia, unspecified (principal)
CPT/HCPCS: 36415; 85025; 85055

== ENCOUNTER 2024-11-04 09:31 | Outpatient (CLI) | payer MEDICARE, BC, SELFPAY ==
--- OUTSIDE RECORDS SUMMARY | 2024-11-04 09:41 | XMS_ITS | Clinical Summary ---
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
--- OUTSIDE RECORDS SUMMARY | 2024-11-04 09:41 | XMS_ITS | Clinical Summary ---
Author Organization [facility] Address [address] [place] [address] Care Team Providers Care Exercise Instructor Name Role Phone Raul Braun DO Primary Care Provider [phone] Allergies No known active allergies Medications amitriptyline (ELAVIL) 10 MG tablet Take 1 tablet (10 mg total) by mouth nightly at bedtime. Active apixaban (ELIQUIS) 5 MG tablet Take 1 tablet (5 mg total) by mouth 2 (two) times daily. Active vitamin D3 (CHOLECALCIFERO L) 25 mcg tablet Take 1 tablet (25 [...] mouth daily for 30 days. 30 tablet 11/07/19 25 Active clopidogrel (PLAVIX) 75 MG tablet Take 1 tablet (75 mg total) by mouth daily. 10/08/19 25 Discontinu ed(Stop Taking at Discharge) Active Problems Problem Noted Date Diagnosed Date Stroke ([facility]) 10/02/2024 Encounters Date Type Department Care Team Description 10/02/2024 6:18 PM CDT - 10/07/2024 11:34 AM CDT Hospital Encounter [facility] Inpatient Medical Oncology [address] [place] [address] Nubia Vuong MD Sohail, Atif, MD Markapuram, Srikanth, MD Discharge Disposition: Home or Self Care (Routine Discharge) from Last 3 Months Social History Tobacco Use Types Packs/Day Years Used Date Smoking Tobacco: Never Assessed [facility] Utilities Answer Date Recorded In the past 12 months has th e electric, gas, oil, or water company [...] any time in the past 12 m [facility], were you homeless or living in a [...] (2023-2 5 season) 2023 01/11/2021, 06/03/2020, 05/05/2020 DTaP, [...] this topic Medical Devices Implanted Type Area Credit Reference Clerk Device Identifier Shelf Expiration Date Model / Serial / Lot Rv 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:Qty: 1 on 01/12/2020 Lead Implant Right: Ventricle [facility] [facility] DIV [employer] [id number] / [id number] / 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 SODIUM S/P/B 138 136 - 145 MMOL/L 10/07/2024 4:01 AM CDT [facility] POTASSIUM S/P/B 3.9 3.5 - 5.1 MMOL/L 10/07/2024 4:01 AM CDT [facility] CHLORIDE S/P/B 108 97 - 115 MMOL/L 10/07/2024 4:01 AM [facility] CO2 25.7 21.0 - 32.0 MMOL/L 10/07/2024 4:01 AM [facility] GLUCOSE 100 74 - 106 MG/DL 10/07/2024 4:01 AM [facility] BUN 19(H) 7 - 18 MG/DL 10/07/2024 4:01 AM [facility] CREATININE S/P/B 0.95 0.70 - 1.30 MG/DL 10/07/2024 4:01 AM [facility] CALCIUM S/P/B 8.7 8.5 - 10.1 MG/DL 10/07/2024 4:01 AM [facility] BILIRUBIN TOTAL S/P/B 1.0 0.2 - 1.0 MG/DL 10/07/2024 4:01 AM [facility] ALKALINE PHOSPHATASE S/P/B 60 45 - 115 U/L 10/07/2024 4:01 AM [facility] AST 15 15 - 37 U/L 10/07/2024 4:01 AM [facility] ALT 21 16 - 61 U/L 10/07/2024 4:01 AM [facility] TOTAL PROTEIN S/P/B 6.3(L) 6.4 - 8.2 G/DL 10/07/2024 4:01 AM [facility] ALBUMIN S/P/B 3.1(L) 3.4 - 5.0 G/DL 10/07/2024 4:01 AM [facility] ANION GAP 4.3 2.0 - 10.0 MMOL/L 10/07/2024 4:01 AM [facility] OSMOLALITY (CALC) 288 MOSM/KG 025 4:01 AM [facility] Comment:REFERENCE RANGE NOT ESTABLISHED GFR ESTIMATE 77(L) >90 ML/MIN/1. 73 M2 10/07/2024 4:01 AM CDT [facility] GFR NOTES GFR REFERENCE S: 10/07/2024 4:01 AM CDT [facility] Comment: THE ESTIMATED GFR IS CALCULATED [...] Yunior Wallace MD LABORATORY Final Res ult [facility] [address] [place] [address], [phone] * (ABNORMAL) CBC W/DIFF AUTOMATED (10/07/2024 3:23 AM CDT) Only the most recent of4 resultswithin the time period is included. WBC 5.63 4.00 - 10.80 x10'3/uL 10/07/2024 3:31 AM CDT [facility] RBC 2.60(L) 4.50 - 6.10 x10'6/uL 10/07/2024 3:31 AM CDT [facility] HGB 7.6(L) 13.0 - 18.0 G/DL 10/07/2024 3:31 AM CDT [facility] HCT 23.7(L) 37.0 - 52.0 % 10/07/2024 3:31 AM CDT [facility] MCV 91.2 78.0 - 100.0 FL 10/07/2024 3:31 AM CDT [facility] MCH 29.2 27.0 - 31.0 PG 10/07/2024 3:31 AM CDT [facility] MCHC 32.1(L) 33.0 - 36.0 G/DL 10/07/2024 3:31 AM CDT [facility] RDW 15.1(H) 11.5 - 14.5 % 10/07/2024 3:31 AM CDT [facility] PLT 100(L) 150 - 350 x10'3/uL 10/07/2024 3:31 AM CDT [facility] MPV 12.4(H) 7.4 - 10.4 FL 10/07/2024 3:31 AM CDT [facility] DIFFERENTIAL TYPE AUTOMATED DIFFERENTIAL 10/07/2024 3:31 AM CDT [facility] SEG NEUTROPHILS 68.4 % 3:31 AM CDT [facility] LYMPHOCYTES 18.3 % 10/07/2024 3:31 AM CDT [facility] MONOCYTES 9.9 % 10/07/2024 3:31 AM CDT [facility] EOSINOPHILS 2.3 % 10/07/2024 3:31 AM CDT [facility] BASOPHILS 0.7 % 10/07/2024 3:31 AM CDT [facility] IMMATURE GRANS % 0.4 % 10/08/19 3:31 AM CDT [facility] ABS. NEUTROPHILS 3.85 1.60 - 8.30 x10'3/uL 10/07/2024 3:31 AM CDT [facility] ABS. LYMPHOCYTES 1.03 0.80 - 4.70 x10'3/uL 10/07/2024 3:31 AM CDT [facility] ABS. MONOCYTES 0.56 0.00 - 1.50 x10'3/uL 10/07/2024 3:31 AM CDT [facility] ABS. EOSINOPHILS 0.13 0.00 - 0.40 x10'3/uL 10/07/2024 3:31 AM CDT [facility] ABS. BASOPHILS 0.04 0.00 - 0.20 x10'3/uL 10/07/2024 3:31 AM CDT [facility] ABS. IMMATURE GRANULOCYTES 0.02 0.00 - 0.03 x10'3/uL 10/07/2024 3:31 AM CDT [facility] ABS. NUCLEATED RBC'S 0.00 0.00 - 0.01 x10'3/uL 10/07/2024 3:31 AM CDT [facility] NRBC % 0.0 % 10/07/2024 3:31 AM CDT [facility] 10/07/2024 3:23 AM CDT us Yunior Wallace MD LABORATORY Final Res ult [facility] [address] [place] [address], [phone] * MRI BRAIN WO STROKE FAST PROTOCOL (10/06/2024 12:11 PM CDT) Anatomical Region Laterality Modality Head, Neck Magnetic Resonan ce 10/06/2024 12:4 7 PM CDT Impressions 10/06/2024 12:50 PM CDT IMPRESSION: 1. No acute intracranial abnormalities identified. No acute infarct, intracranial mass effect, or midline shift. 2. 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 Ordered By: DONIS MAST Interpreted By: Hernandez Hatfield MD, 10/06/2024 12:47 PM Narrative 10/06/2024 12:50 PM CDT [facility] [address] [place], [place] [address] DATE: 10/06/2024 11:44 AM INDICATION: Weakness. Concern [...] Procedure Note Hernandez Hatfield MD - 10/06/2024 [facility] [address] [place], [place] [address] DATE: 10/06/2024 11:44 AM INDICATION: Weakness. Concern [...] By: Hernandez Hatfield MD, 10/06/2024 12:47 PM us Donis Mast MD MRI Final Result * (ABNORMAL) POCT glucose (10/05/2024 8:02 PM CDT) Only the most recent of12 resultswithin the time period is included. GLUCOSE POC 140(H) 70 - 109 10/05/2024 8:53 PM CDT [facility] 10/05/2024 8:02 PM CDT Yunior Wallace MD POCT ORDERABLES - DEVICE Final Result [facility] [address] [place] [address], [id number] * (ABNORMAL) BASIC METABOLIC PANEL (10/04/2024 3:26 AM CDT) Only the most recent of2 resultswithin the time period is included. Pathologist [facility] SODIUM S/P/B 138 136 - 145 MMOL/L 10/04/2024 4:38 AM CDT [facility] POTASSIUM S/P/B 4.0 3.5 - 5.1 MMOL/L 10/04/2024 4:38 AM CDT [facility] CHLORIDE S/P/B 108 97 - 115 MMOL/L 10/04/2024 4:38 AM CDT [facility] CO2 25.4 21.0 - 32.0 MMOL/L 10/04/2024 4:38 AM CDT [facility] GLUCOSE 94 74 - 106 MG/DL 10/04/2024 4:38 AM CDT [facility] BUN 22(H) 7 - 18 MG/DL 10/04/2024 4:38 AM CDT [facility] CREATININE S/P/B 1.05 0.70 - 1.30 MG/DL 10/04/2024 4:38 AM CDT [facility] CALCIUM S/P/B 8.7 8.5 - 10.1 MG/DL 10/04/2024 4:38 AM CDT [facility] ANION GAP 4.6 2.0 - 10.0 MMOL/L 10/04/2024 4:38 AM CDT [facility] OSMOLALITY (CALC) 289 MOSM/KG 025 4:38 AM CDT [facility] Comment:REFERENCE RANGE NOT ESTABLISHED GFR ESTIMATE 68(L) >90 ML/MIN/1. 73 M2 10/04/2024 4:38 AM CDT [facility] GFR NOTES GFR REFERENCE S: 10/04/2024 4:38 AM CDT [facility] Comment: THE ESTIMATED GFR IS CALCULATED [...] <15 ml/min/1.73 m2 10/04/2024 3:26 AM CDT us Yunior Wallace MD LABORATORY Final Res ult [facility] [address] [place] [address], [id number] * USV CAROTID DUPLEX RACHELE (10/03/2024 4:23 PM CDT) Anatomical Region Laterality Modality Neck Ultrasound 10/03/2024 3:23 PM CDT Narrative 10/03/2024 10:08 PM CDT [facility] Vascular Report Pat.Name: JAMES AL Fay.ID: [id number] St.Date: 10/03/2024 Refer.MD: DONIS MAST Exam Time: 3:23:00 PM Study Type:PVI CAROTID SCAN - BILATERAL Height: 63 in Age: 3 1935,89Y Sex: M Sonogrphr: OBEY Bernard Pat. 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 us Donis Mast MD VASC Final Result * USE ECHOCARDIOGRAM (10/03/2024 3:11 PM CDT) Anatomical Region Laterality Modality Cardiac Echocardiogram 10/03/2024 1:04 PM CDT Narrative 10/04/2024 2:41 PM CDT Echocardiography Report Pat.Name: JAMES AL Pat.ID: [id number] .Date: 10/03/2024 : [id number] YUMIKO Worley EWDPROV EWDPROV Exam Time: 1:04:00 PM Study Type:ECHO WITH CARDIAC DOPPLER COMP Height: 63 in Weight: 206 lb BSA: 1.96 m2 Age: 3 1935,89Y Sex: M BP: 132/74 HR: 78 bpm Sonogrphr: Willis Gomez RDCS, RVT Pat. Stat.:Inpatient CPT - 4: 86334 Reason for Study:Stroke/TIA Procedures: 2D, M-mode, Doppler, [...] Mass 2D Value 211 g LV Mass [id number] Value 108 g/m2 RA Volume Atrial Arechiga 4.77 cm Atrial Arechgia 18.8 cm2 Atrial Arechiga 62.7 ml 2D [...] I BP 41.1 ml/m2 LV Biplane Major [place] Candi 5.89 % Major [place] Candi 7.42 % LV Left Ventricle Mass by M-mode LV Mass 211 g Right Ventricle Right Ventricle 5.8 cm MMODE TA Tricuspid Annul 1.98 cm <Electronic Signature> 10/04/2024 02:41 PM Nathalie Thomas M.D. Procedure Note Nathalie Thomas MD - 10/04/2024 Echocardiography Report Pat.Name: JAMES AL Pat.ID: [id number] .Date: 10/03/2024 Refer.: [id number] YUMIKO Worley EWDPROV EWDPROV Exam Time: 1:04:00 PM Study Type:ECHO WITH CARDIAC DOPPLER COMP Height: 63 in Weight: 206 lb BSA: 1.96 m2 Age: 3 1935,89Y Sex: M BP: 132/74 HR: 78 bpm Sonogrphr: Willis Gomez RDCS, RVT Pat. Stat.:Inpatient CPT - 4: 76570 Reason for Study:Stroke/TIA Procedures: 2D, M-mode, Doppler, [...] Mass 2D Value 211 g LV Mass [id number] Value 108 g/m2 RA Volume Atrial Arechiga [...] I BP 41.1 ml/m2 LV Biplane [place] Candi 5.89 % [place] Candi 7.42 % LV Left Ventricle Mass by M-mode LV Mass 211 g Right Ventricle Right Ventricle 5.8 cm MMODE TA Tricuspid Annul 1.98 cm <Electronic Signature> 10/04/2024 02:41 PM Nathalie Thomas M.D. us Donis Mast MD ECHO Final Result * (ABNORMAL) PROTHROMBIN TIME, VENOUS (10/03/2024 2:12 AM CDT) [facility] PROTIME 16.7(H) 9.4 - 12.5 SEC 10/03/2024 2:59 AM CDT [facility] INR 1.4(H) 0.8 - 1.1 10/03/2024 2:59 AM CDT [facility] 10/03/2024 2:12 AM CDT us Donis Mast MD LABORATORY Final Result [facility] [address] [place] [address], [id number] * LIPID PANEL (10/03/2024 2:12 AM CDT) [facility] CHOLESTEROL 96 MG/DL 10/03/2024 3:08 AM CDT [facility] Comment:DESIRABLE: <200 TRIGLYCERIDES 68 MG/DL 10/03/2024 3:08 AM CDT [facility] Comment:<150 NORMAL HDL 42 >39 MG/DL 10/03/2024 3:08 AM CDT [facility] LDL (CALCULATED) 40 MG/DL 10/04/19 25 3:08 AM CDT [facility] Comment:<100 OPTIMAL VLDL CALCULATION 14 MG/DL 10/04/19 25 3:08 AM CDT [facility] Comment:REFERENCE RANGE NOT ESTABLISHED CHOL/HDL RATIO 2.3 10/03/2024 3:08 AM CDT [facility] Comment:REFERENCE RANGE NOT ESTABLISHED LDL/HDL 1.0 10/03/2024 3:08 AM CDT [facility] Comment:REFERENCE RANGE NOT ESTABLISHED NON HDL CHOLESTEROL 54 MG/DL 10/03/2024 3:08 AM CDT [facility] Comment:REFERENCE RANGE NOT ESTABLISHED 10/03/2024 2:12 AM CDT Donis Mast MD LABORATORY Final Result Performing Organization Address [facility] de Phone Number [facility] [address] [place] [address], [place] [phone] * (ABNORMAL) TSH W/REFLEX (10/02/2024 9:17 PM CDT) [facility] TSH 4.040(H) 0.358 - 3.740 uIU/ML 10/02/2024 10:04 PM CDT [facility] Comment: ASSAY PERFORMED BY CHEMILUMINESCENCE METHODOLOGY USING SIEMENS DIMENSION VISTA REAGENT. PATIENT RESULTS DETERMINED BY ASSAYS USING DIFFERENT MANUFACTURERS FOR METHODS MAY NOT BE COMPARABLE. 10/02/2024 9:17 PM CDT Donis Mast MD LABORATORY Final Result Performing Organization Address [facility] de Phone Number [facility] [address] [place] [address], [place] [phone] * (ABNORMAL) PRO-BRAIN NATRIURETIC PEPTIDE (PRO BNP) (10/02/2024 9:17 PM CDT) PRO-B TYPE NATRIURETIC PEPTIDE 916(H) <450 PG/ML 10/02/2024 10:04 PM CDT [facility] Comment: AGE INDEPENDENT: <300 PG/ML HAS [...] FOR ACUTE CHF. 10/02/2024 9:17 PM CDT Donis Mast MD LABORATORY Final Result Performing Organization Address City/[facility]/ZIP Co de Phone Number [facility] [address] [place] [address], [phone] * HEMOGLOBIN, GLYCATED (10/02/2024 9:17 PM CDT) Pathologist [facility] HGB A1C 5.6 <5.7 % 10/02/2024 10:07 PM CDT [facility] ESTIMATED AVG GLUCOSE 114 74 - 114 MG/DL 10/02/2024 10:07 PM CDT [facility] 10/02/2024 9:17 PM CDT Donis Mast MD LABORATORY Final Result [facility] [address] [place] [address], [place] [phone] * THYROXINE, FREE (FT4) (10/02/2024 9:17 PM CDT) [facility] FREE T4 0.91 0.76 - 1.46 NG/DL 10/02/2024 10:22 PM CDT [facility] 10/02/2024 9:17 PM CDT us Donis Mast MD LABORATORY Final Result [facility] [address] [place] [address], [id number] * XR CHEST PORTABLE (10/02/2024 9:00 PM CDT) Anatomical Region Laterality Modality Chest Radiographic Hillary ging 10/02/2024 11:2 3 PM CDT Impressions 10/02/2024 11:24 PM CDT IMPRESSION: There are no acute pulmonary findings noted as described. Referred By: JAVIER CALDERON Interpreted By: Stuart Mcdermott MD, 10/02/2024 11:23 PM Narrative 10/02/2024 11:24 PM CDT [address] [address] Examination: XR CHEST PORTABLE Exam time: 10/02/2024 [...] Procedure Note Stuart Mcdermott MD - 10/02/[address] [address] Examination: XR CHEST PORTABLE Exam time: 10/02/2024 [...] 2. Overall suboptimal contrast opacification in the [place] of [place]. 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 Otherwise, no definite proximal vessel occlusion is seen. Repeat CTA head or MRA head may be considered. 3. 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 Impression 1 and impression [address] Vuong by Dr[address] Loera via [facility] at 10/02/2024 7:24 PM (central time). Referred By: JAVIER CALDERON Interpreted By: Phan Loera MD, 10/02/2024 7:10 PM Narrative 10/02/2024 7:[address] PM [address]T [address] [address] EXAMINATION: CTA head and neck with contrast [...] stenosis. Overall suboptimal contrast opacification in the [place]. Suggestion of focal high-grade stenosis/occlusion [...] Procedure Note Phan Loera MD - 10/02/[address] [address] EXAMINATION: CTA head and neck with contrast [...] stenosis. Overall suboptimal contrast opacification in the [place] of [place].Suggestion of focal high-grade stenosis/occlusion at the right MCA M1 [id number]. Otherwise, no definite proximal vessel occlusion is [...] 2. Overall suboptimal contrast opacification in the [place] of [place].Suggestion of focal high-grade stenosis/occlusion of the right MCA M1/[id number]. Otherwise, no definite proximal vessel occlusion is [...] Final Result from Last 3 Months Insurance [facility] OFFICE OF [facility] Care Teams Exercise Instructor Relationship Specialty Start Date End Date Raul Braun DO [address] [place] [address] PCP - General FAMILY PRACTICE 10/05/24
[2024-11-04 09:57] LABS: Hematocrit 31.0 % (37.0-46.0); Hemoglobin 9.2 g/dL (12.4-15.3); Immature Granulocyte Percent A 0.5 % (0.0-0.0); Immature Platelet Fraction Pct 5.3 % (1.0-7.0); Lymphocytes Absolute Auto 0.66 K/mm3 (1.10-4.50); Mean Corpuscular HGB Conc 29.7 g/dL (32-36); Mean Corpuscular Hemoglobin 27.2 pg (27.0-31.0); Mean Corpuscular Volume 91.7 fL (78.0-102.0); Nucleated Red Blood Cells Absolute Auto 0.00 K/mm3 (0.00-0.00); Nucleated Red Blood Cells Perc 0.0 % (0-0.0); Platelet Count Result 96 K/mm3 (150-420); Red Blood Count 3.38 M/mm3 (4.70-6.10); White Blood Count 6.4 K/mm3 (4.8-10.8)
== END 2024-11-04 09:32 | disposition home or self-care (01) ==
PROVIDERS: PCP Family Medicine; Visit Provider Family Medicine
DX: D64.9 Anemia, unspecified (principal)
CPT/HCPCS: 36415; 85025; 85055

== ENCOUNTER 2025-01-06 12:35 | Outpatient (CLI) | payer MEDICARE, BC, SELFPAY ==
--- NOTE | ~2025-01-06 | US_ITS ---
US arterial ankle brachial ind INDICATION: Peripheral arterial disease of the legs TECHNIQUE: Segmental pressures and plethysmographic and Doppler waveforms of the brachial and lower extremity arteries were obtained. COMPARISON: None. FINDINGS: Right and left brachial artery pressures of 145 mm Hg and 150 to mm Hg, respectively, are concordant (normal difference <= 30 mmHg). The right ankle-brachial index (FLOWER) is 0.86 (normal >= 0.9-1.0). The right great toe-brachial index (TBI) is 1.02 (normal >= 0.60). The left FLOWER is 0.91. The left TBI is 0.92. IMPRESSION: 1. Normal left ankle and toe brachial indices. 2: Mildly decreased right ankle-brachial index measuring 0.86, consistent with peripheral arterial disease. Reviewed, dictated and finalized at location O.
== END 2025-01-06 12:36 | disposition home or self-care (01) ==
LOC: CHSIMG 12:37
PROVIDERS: PCP Internal Medicine; Visit Provider Internal Medicine
DX: I73.9 Peripheral vascular disease, unspecified (principal); I65.22 Occlusion and stenosis of left carotid artery
CPT/HCPCS: 93922